=== PATIENT | male | born 1945 | race Caucasian/White ===

== ENCOUNTER 2016-08-17 19:15 | Inpatient (IN) | payer OTHER, MEDICARE ==
[~2016-08-17] VITALS: Ht 177.8 cm; Wt 74.4 kg
[2016-08-17 19:23] VITALS: BP 138/89; PULSE 59; RESP 18; TEMP 97.5; O2SAT 98
[2016-08-17] MEDS ORDERED: LISI-515 PO (19:23)
[2016-08-17] MEDS ORDERED: SODIUM CHLOR 0.9% 1000 ML INJ 1,000 ML IV SCH (19:25)
[2016-08-17 19:30] VITALS: RESP 18; O2SAT 98
[2016-08-17] MEDS ORDERED: SODIUM CHLORIDE 0.9% FLUSH 5 ML FLUSH IVF PRN ×2 (19:30→21:45)
--- NOTE | 2016-08-17 19:43 | PD ---
HPI Chief Complaint: Psychiatric Symptoms Time Seen by Provider: 19:41 Travel History International Travel<30 days: No Contact w/Intl Traveler<30days: No Traveled to known affect area: No History of Present Illness HPI Patient comes in by EMS after being Bates acted by police and family called stating the patient has not been getting out of bed or taking care of himself. Patient denies any medical complaints at this time. Denies any chest pain or shortness of breath, abdominal pain, or fevers. Patient does not want answer all questions thus limiting the H&P. 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 SKIN: Warm and dry. HEAD: Atraumatic. Normocephalic. EYES: Pupils equal and round. EOMI. No scleral icterus. No injection or drainage. ENT: No nasal bleeding or discharge. Mucous membranes pink and dry. NECK: Trachea midline. Supple. No nuclear rigidity. CARDIOVASCULAR: Regular rate and rhythm. No murmur appreciated. RESPIRATORY: No accessory muscle use. No respiratory distress. Clear to auscultation. Breath sounds equal bilaterally. GASTROINTESTINAL: Abdomen soft, non-tender, nondistended. Hepatic and splenic margins not palpable. Normal bowel sounds 4. No pulsatile mass. MUSCULOSKELETAL: No obvious deformities. No clubbing. No cyanosis. No edema. NEUROLOGICAL: Awake and alert. No obvious cranial nerve deficits. Data Data Last Documented VS Vital Signs Date Time Temp Pulse Resp B/P Pulse Ox O2 Delivery O2 Flow Rate FiO2 08/17/16 21:15 63 16 89/54 97 Room Air 08/17/16 19:23 97.5 Orders Electrocardiogram (08/17/16 19:25) Complete Blood Count With Diff (08/17/16 19:25) Comprehensive Metabolic Panel (08/17/16 19:25) Creatine Kinase (Cpk) (08/17/16 19:25) Drug Screen, Random Urine (08/17/16 19:25) Prothrombin Time / Inr (Pt) (08/17/16 19:25) Act Partial Throm Time (Ptt) (08/17/16 19:25) Salicylates (Aspirin) (08/17/16 19:25) Troponin I (08/17/16 19:25) Tylenol (Acetaminophen) (08/17/16 19:25) Urinalysis - C+S If Indicated (08/17/16 19:25) Chest, Single Ap (08/17/16 19:25) Ct Brain W/O Iv Contrast(Rout) (08/17/16 19:25) Blood Glucose (08/17/16 19:25) Ecg Monitoring (08/17/16 19:25) Iv Access Insert/Monitor (08/17/16 19:25) Oximetry (08/17/16 19:25) Sodium Chloride 0.9% Flush (Ns Flush) (08/17/16 19:30) Sodium Chlor 0.9% 1000 Ml Inj (Ns 1000 M (08/17/16 19:25) Lipase (08/17/16 19:25) Magnesium (Mg) (08/17/16 19:25) Psych Screen (08/17/16 19:40) Sodium Chlor 0.9% 1000 Ml Inj (Ns 1000 M (08/17/16 21:00) Type And Screen (08/17/16 20:55) Sodium Chloride 0.9% Flush (Ns Flush) (08/17/16 21:45) Pantoprazole Inj (Protonix Inj) (08/17/16 21:45) Pantoprazole Inj (Protonix Inj) (08/17/16 21:45) Sodium Polysty Sulfate Liq (Kayexalate L (08/17/16 22:30) Calcium Gluconate Inj (Calcium Gluconate (08/17/16 22:30) Dextrose 50% In Compa (Vial) Inj (D50w (Vi (08/17/16 22:30) Insulin Human Regular Inj (Novolin R Inj (08/17/16 22:23) Sodium Bicarbonate 8.4% Inj (Sodium Bica (08/17/16 22:30) Albuterol-Ipratropium Neb (Duoneb Neb) (08/17/16 22:30) Continue Cummins/Suprapubic Cath (08/17/16 22:23) Admit Order (Ed Use Only) (08/17/16 22:54) Labs Laboratory Tests Test 08/17/16 08/17/16 19:35 21:10 Prothrombin Time 17.0 SEC Prothromb Time International 1.5 RATIO Ratio Activated Partial 33.0 SEC Thromboplast Time Salicylates Level 1.8 MG/DL White Blood Count 8.0 TH/MM3 Red Blood Count 5.16 MIL/MM3 Hemoglobin 15.7 GM/DL Hematocrit 45.7 % Mean Corpuscular Volume 88.6 FL Mean Corpuscular Hemoglobin 30.4 PG Mean Corpuscular Hemoglobin 34.3 % Concent Red Cell Distribution Width 15.1 % Platelet Count 190 TH/MM3 Mean Platelet Volume 10.0 FL Neutrophils (%) (Auto) 92.5 % Lymphocytes (%) (Auto) 1.8 % Monocytes (%) (Auto) 5.4 % Eosinophils (%) (Auto) 0.0 % Basophils (%) (Auto) 0.3 % Neutrophils # (Auto) 7.4 TH/MM3 Lymphocytes # (Auto) 0.1 TH/MM3 Monocytes # (Auto) 0.4 TH/MM3 Eosinophils # (Auto) 0.0 TH/MM3 Basophils # (Auto) 0.0 TH/MM3 CBC Comment DIFF FINAL Differential Comment Sodium Level 138 MEQ/L Potassium Level 7.7 MEQ/L Chloride Level 103 MEQ/L Carbon Dioxide Level 8.0 MEQ/L Anion Gap 27 MEQ/L Blood Urea Nitrogen 360 MG/DL Creatinine 19.32 MG/DL Estimat Glomerular Filtration 2 ML/MIN Rate Random Glucose 121 MG/DL Calcium Level 8.3 MG/DL Magnesium Level 3.1 MG/DL Total Bilirubin 0.4 MG/DL Aspartate Amino Transf 6 U/L (AST/SGOT) Alanine Aminotransferase 10 U/L (ALT/SGPT) Alkaline Phosphatase 69 U/L Total Creatine Kinase 155 U/L Troponin I 0.42 NG/ML Total Protein 7.8 GM/DL Albumin 2.9 GM/DL Lipase 380 U/L Acetaminophen Level LESS THAN 2.0 MCG/ML Blood Type A POSITIVE Antibody Screen NEGATIVE Blood Bank Comment MDM Medical Decision Making Medical Screen Exam Complete: Yes Emergency Medical Condition: Yes Interpretation(s) EKG reviewed by Dr. Pulido shows sinus tachycardia with ventricular rate of 100. No STEMI and no acute changes. Differential Diagnosis Acute coronary syndrome, tumor, pneumonia, electrolyte abnormality, other Narrative Course 2014 RN performed bedside Hemoccult when cleaning a patient that was found to be positive. 2100 patient's fianc and sister bedside report patient has been deteriorating over the past month has lost approximately 20 pounds over the past 3 weeks and has not really been getting out of bed over the past 3 days. Denies any known fever, but reports patient complaining of possible GI bug. Denies patient being on any known blood thinners or history of alcohol abuse. Patient seen and examined. Laboratory studies were obtained and reviewed. Discussed patient with Dr. Pulido saw and evaluated patient is in agreement with plan of care and disposition. Discussed all findings and plan of care with patient and family. All questions were answered. Physician Communication Physician Communication [address] Mike, focal patient is too sick to go to medical service and requests patient be admitted to the take off man. [address] Damon, who is agreeable to admit the patient. Diagnosis Primary Impression: Acute renal failure Qualified Code: N17.9 - Acute renal failure, unspecified acute renal failure type Additional Impressions: GI bleed Qualified Code: K92.2 - Gastrointestinal hemorrhage, unspecified gastrointestinal hemorrhage type Weight loss, unintentional Hyperkalemia Elevated troponin Maurilio Dumont Aug 17, 2016 19:43
--- NOTE | 2016-08-17 20:03 | RADRPT ---
EXAM DATE/TIME: 08/17/2016 19:36 [facility] COMPARISON: No previous studies available for comparison. INDICATIONS : Syncope MEDICAL HISTORY : None. SURGICAL HISTORY : None. ENCOUNTER: Initial ACUITY: 1 day PAIN SCORE: Non-responsive. LOCATION: Bilateral chest FINDINGS: A single view of the chest demonstrates the lungs to be symmetrically aerated without evidence of mas s, infiltrate or effusion. The cardiomediastinal contours are unremarkable. Osseous structures are intact. CONCLUSION: 1. No active disease. Demetrius Lopez MD on August 17, 2016 at 20:01 Board Certified Radiologist. This report was verified electronically.
[2016-08-17 20:06] LABS: AUTOMATED NEUTROPHIL # 7.4 TH/MM3 (1.8-7.7); BASOPHIL % 0.3 % (0.0-2.0); HEMATOCRIT 45.7 % (39.0-51.0); HEMO FLAGS DIFF FINAL; LYMPH % 1.8 % (9.0-44.0); LYMPHOCYTE # 0.1 TH/MM3 (1.0-4.8); MEAN CELL VOLUME 88.6 FL (80.0-100.0); MEAN CORPUSCULAR HEMOGLOBIN 30.4 PG (27.0-34.0); MEAN CORPUSCULAR HGB CONC 34.3 % (32.0-36.0); MONO % 5.4 % (0.0-8.0); NEUT % 92.5 % (16.0-70.0); PLATELET COUNT 190 TH/MM3 (150-450); RED BLOOD COUNT 5.16 MIL/MM3 (4.50-5.90); RED CELL DISTRIBUTION WIDTH 15.1 % (11.6-17.2)
--- NOTE | 2016-08-17 20:07 | RADRPT ---
EXAM DATE/TIME: 08/17/2016 19:48 [facility] COMPARISON: No previous studies available for comparison. INDICATIONS : Failure to thrive. RADIATION DOSE: 39.33 CTDIvol (mGy) MEDICAL HISTORY : Non-responsive. SURGICAL HISTORY : Non-responsive. ENCOUNTER: Initial ACUITY: 1 week PAIN SCALE: Non-responsive LOCATION: cranial TECHNIQUE: Multiple contiguous axial images were obtained of the head. Using automated exposure control and adj ustment of the mA and/or kV according to patient size, radiation dose was kept as low as reasonably a chievable to obtain optimal diagnostic quality images. FINDINGS: CEREBRUM: The ventricles are normal for age. No evidence of midline shift, mass lesion, hemorrhage or acute in farction. No extra-axial fluid collections are seen. POSTERIOR FOSSA: The cerebellum and brainstem are intact. The 4th ventricle is midline. The cerebellopontine angle i s unremarkable. EXTRACRANIAL: The visualized portion of the orbits is intact. SKULL: The calvaria is intact. No evidence of skull fracture. CONCLUSION: Normal examination for a patient of this age. Demetrius Lopez MD on August 17, 2016 at 20:04 Board Certified Radiologist. This report was verified electronically.
[2016-08-17 20:16] LABS: INTERNATIONAL NORMALIZED RATIO 1.5 RATIO
--- NOTE | 2016-08-17 20:37 | PD ---
Physical Exam Narrative General: The patient is a well-developed, thin appearing male, in no acute distress. Head and Neck exam: Head is normocephalic atraumatic. Eyes: Pupils are equal round and reactive to light. Nose: Midline septum with pink mucous membranes Mouth: Dentition unremarkable. Moist mucus membranes. Posterior oropharynx is not erythematous. No tonsillar hypertrophy. Uvula midline. Airway patent. Neck: No palpable lymphadenopathy. No nuchal rigidity. No thyromegaly. Cardiovascular: Regular rate and rhythm without murmurs, gallops, or rubs. Lungs: Clear to auscultation bilaterally. No wheezes, rhonchi, or rales. Abdomen: Soft, with tenderness on palpation in the midepigastric area. No other tenderness on palpation of the other quadrants of the abdomen. No guarding, rebound, or rigidity. Normal bowel sounds are audible Extremities: No clubbing or edema. The patient's toes bilateral feet are dusky. The patient 's initial blood pressure is in the 90s systolic which was rechecked and in the 120s while I was in the room. However, the patient's peripheral pulses in his feet were diminished. 2+ pulses in bilateral upper extremities. Back: No spinous process tenderness to palpation. No costovertebral angle tenderness to palpation. Neurologic Exam: Cranial nerves 2-12 were intact on exam. Strength is 4/5 in all 4 extremities. No sensory deficits noted. Skin Exam: The patient has an erythematous maculopapular rash involving his trunk, worse on his back compared to his abdomen. Intact skin that is warm and dry. Data Data Last Documented VS Vital Signs Date Time Temp Pulse Resp B/P Pulse Ox O2 Delivery O2 Flow Rate FiO2 08/17/16 21:15 63 16 89/54 97 Room Air 08/17/16 19:23 97.5 Orders Electrocardiogram (08/17/16 19:25) Complete Blood Count With Diff (08/17/16 19:25) Comprehensive Metabolic Panel (08/17/16 19:25) Creatine Kinase (Cpk) (08/17/16 19:25) Drug Screen, Random Urine (08/17/16 19:25) Prothrombin Time / Inr (Pt) (08/17/16 19:25) Act Partial Throm Time (Ptt) (08/17/16 19:25) Salicylates (Aspirin) (08/17/16 19:25) Troponin I (08/17/16 19:25) Tylenol (Acetaminophen) (08/17/16 19:25) Urinalysis - C+S If Indicated (08/17/16 19:25) Chest, Single Ap (08/17/16 19:25) Ct Brain W/O Iv Contrast(Rout) (08/17/16 19:25) Blood Glucose (08/17/16 19:25) Ecg Monitoring (08/17/16 19:25) Iv Access Insert/Monitor (08/17/16 19:25) Oximetry (08/17/16 19:25) Sodium Chloride 0.9% Flush (Ns Flush) (08/17/16 19:30) Sodium Chlor 0.9% 1000 Ml Inj (Ns 1000 M (08/17/16 19:25) Lipase (08/17/16 19:25) Magnesium (Mg) (08/17/16 19:25) Psych Screen (08/17/16 19:40) Sodium Chlor 0.9% 1000 Ml Inj (Ns 1000 M (08/17/16 21:00) Type And Screen (08/17/16 20:55) Sodium Chloride 0.9% Flush (Ns Flush) (08/17/16 21:45) Pantoprazole Inj (Protonix Inj) (08/17/16 21:45) Pantoprazole Inj (Protonix Inj) (08/17/16 21:45) Sodium Polysty Sulfate Liq (Kayexalate L (08/17/16 22:30) Calcium Gluconate Inj (Calcium Gluconate (08/17/16 22:30) Dextrose 50% In Compa (Vial) Inj (D50w (Vi (08/17/16 22:30) Insulin Human Regular Inj (Novolin R Inj (08/17/16 22:23) Sodium Bicarbonate 8.4% Inj (Sodium Bica (08/17/16 22:30) Albuterol-Ipratropium Neb (Duoneb Neb) (08/17/16 22:30) Continue Cummins/Suprapubic Cath (08/17/16 22:23) Admit Order (Ed Use Only) (08/17/16 22:54) Labs Laboratory Tests Test 08/17/16 08/17/16 19:35 21:10 White Blood Count 8.0 TH/MM3 Red Blood Count 5.16 MIL/MM3 Hemoglobin 15.7 GM/DL Hematocrit 45.7 % Mean Corpuscular Volume 88.6 FL Mean Corpuscular Hemoglobin 30.4 PG Mean Corpuscular Hemoglobin 34.3 % Concent Red Cell Distribution Width 15.1 % Platelet Count 190 TH/MM3 Mean Platelet Volume 10.0 FL Neutrophils (%) (Auto) 92.5 % Lymphocytes (%) (Auto) 1.8 % Monocytes (%) (Auto) 5.4 % Eosinophils (%) (Auto) 0.0 % Basophils (%) (Auto) 0.3 % Neutrophils # (Auto) 7.4 TH/MM3 Lymphocytes # (Auto) 0.1 TH/MM3 Monocytes # (Auto) 0.4 TH/MM3 Eosinophils # (Auto) 0.0 TH/MM3 Basophils # (Auto) 0.0 TH/MM3 CBC Comment DIFF FINAL Differential Comment Prothrombin Time 17.0 SEC Prothromb Time International 1.5 RATIO Ratio Activated Partial 33.0 SEC Thromboplast Time Salicylates Level 1.8 MG/DL Sodium Level 138 MEQ/L Potassium Level 7.7 MEQ/L Chloride Level 103 MEQ/L Carbon Dioxide Level 8.0 MEQ/L Anion Gap 27 MEQ/L Blood Urea Nitrogen 360 MG/DL Creatinine 19.32 MG/DL Estimat Glomerular Filtration 2 ML/MIN Rate Random Glucose 121 MG/DL Calcium Level 8.3 MG/DL Magnesium Level 3.1 MG/DL Total Bilirubin 0.4 MG/DL Aspartate Amino Transf 6 U/L (AST/SGOT) Alanine Aminotransferase 10 U/L (ALT/SGPT) Alkaline Phosphatase 69 U/L Total Creatine Kinase 155 U/L Troponin I 0.42 NG/ML Total Protein 7.8 GM/DL Albumin 2.9 GM/DL Lipase 380 U/L Acetaminophen Level LESS THAN 2.0 MCG/ML Blood Type A POSITIVE Antibody Screen NEGATIVE Blood Bank Comment [facility] Medical Record Reviewed: Yes Supervised Visit with AKUA: Yes Interpretation(s) Last Impressions Head CT 08/17/161924 Signed Impressions: Service Date/Time: Wednesday, August 17, 2016 19:48 - CONCLUSION: Normal examination for a patient of this age. Demetrius Lopez MD Chest X-Ray 08/17/161924 Signed Impressions: Service Date/Time: Wednesday, August 17, 2016 19:36 - CONCLUSION: 1. No active disease. Demetrius Lopez MD Differential Diagnosis Last Impressions Head CT 08/17/161924 Signed Impressions: Service Date/Time: Wednesday, August 17, 2016 19:48 - CONCLUSION: Normal examination for a patient of this age. Demetrius Lopez MD Chest X-Ray 08/17/161924 Signed Impressions: Service Date/Time: Wednesday, August 17, 2016 19:36 - CONCLUSION: 1. No active disease. Demetrius Lopez MD Narrative Course I, Dr. Pulido, have reviewed the advance practice practitioner's documentation and am in agreement, met with the patient face to face, made the diagnosis, and the medical decision making was done by me. The patient was initially seen by Maurilio, please see his complete history and physical. *My assessment and Findings: The patient is a 71-year-old male who presents to [facility] emergency Department with a history of generalized weakness, weight loss, inability to care for himself prompting his evaluation in the emergency department under a Bates act. Patient has been experiencing diarrhea. The patient was noted to have a rash on evaluation on his physical examination. The patient's stool was also noted to be dark when he had an episode of diarrhea here. The patient's stool was Hemoccult positive. The patient was typed and screened for blood. The patient was started on Protonix 80 mg IV followed by Protonix drip. The patient was given normal saline IV fluids 1 L bolus followed by a second liter bolus. The patient's laboratory studies were remarkable for a white count of 8, hemoglobin 15.7, platelets 190 with 92.5 neutrophils, lymphocytes 1.8. CMP is remarkable for sodium of 138, potassium 7.7, CO2 8, anion gap 27, BUN 360, creatinine 19, glucose 121, calcium 8.3, magnesium 3.1, AST 6, ALT 10, CPK 155, troponin I 0.42. Lipase 380. INR 1.5, salicylate 1.8, acetaminophen less than 2. Radiologic studies revealed a chest x-ray with no acute abnormality. CT scan of the brain showed no acute abnormality. The patients results were discussed with the patient, including the plan of care. I explained that further testing and/ or monitoring is indicated based on the patients history, examination, and/ or laboratory findings. Therefore, I recommended admission for additional evaluation. The patient expressed understanding and was agreeable with this plan. The patient was admitted to the hospital in guarded condition and sent to a bed under the care of the stereotyper. The patient was reexamined by me and noted to have some midepigastric abdominal discomfort. Blood pressure was intermittently in the 90s to 120s. The patient had written for a Cummins catheter to be placed to gravity to assess his urine output. A CT scan of the abdomen and pelvis was also ordered by me. After the Cummins catheter was placed to gravity while the patient was continuing to be reassessed by the patient's nurse the patient had an episode of V. tach and then went into cardiopulmonary arrest. I was immediately called into the room and began to bag the patient. The patient had an oral airway placed by me for ease of bagging while respiratory was called to the bedside to assist with intubating the patient. The patient was placed with defibrillator pads on his chest. The patient's rhythm appeared to be asystole. The patient had ACLS protocol followed and was given 1 mg of epinephrine in separate doses every 3-5 minutes. The patient was started on bicarbonate. Chest compressions were being provided. The patient was set up for intubation. The patient was intubated by me with an 8 size endotracheal tube. The patient was easily intubated with a Davion 4 blade. The patient had ventricular fibrillation noted on reassessment of his rhythm. The patient was shocked. The patient continued to be in ventricular fibrillation. The patient was shocked again. The patient continued to be in ventricular fibrillation and shocked a third time at 360 J. The patient was given amiodarone 300 mg IV, followed by 150 mg IV due to his continued ventricular fibrillation. The patient's rhythm changed on reassessment and he was in PEA. The patient was continued with ACLS protocol. The patient had a return of pulse. The patient was started on normal saline by pressure bag 2 L wide open. An attempt was made at placement of an external jugular IV in the left side of the patient's neck, however this infiltrated. Then a right-sided femoral central line was placed by me. The patient tolerated the procedures well. Levophed was started for pressure support. The stereotyper was notified regarding the patient's evaluation and did come down and evaluate the patient. Critical Care Narrative Aggregate critical care time was 44 minutes. Time to perform other separately billable procedures was not included in the critical care time. My time did not include minutes spent treating any other patients simultaneously or on activities that did not directly contribute to the patient's treatment. The services I provided to this patient were to treat and/or prevent clinically significant deterioration that could result in: Respiratory failure, recurrent cardiopulmonary arrest I provided critical care services requiring my management, as noted below: Chart data review, documentation time, medication orders and management, vital sign assessments/reviewing monitor data, ordering and reviewing lab tests, ordering and interpreting/reviewing x-rays and diagnostic studies, care of the patient and discussion of the patient with the admitting physicians. Procedures Procedure Narrative The patient was put in optimal position for the procedure. No medications were required for intubation as the patient was in cardiopulmonary arrest. The patient was intubated using a 4 Davion blade with an 8 cuffed endotracheal tube. The patient's cords were easily visualized. Tube placement was confirmed by visualization of the tube and balloon passing through the cords, capnometry and subsequent chest x-ray. Breath sounds were equal and well aerated bilaterally postintubation. No breath sounds over the stomach. Patient tolerated procedure well. CENTRAL VENOUS LINE: The site was prepped with chlorhexidine and sterilely draped.The deep vein was cannulated using normal Seldinger technique. A triple lumen central line was placed in the right inguinal site in the right femoral vein and secured with simple interrupted suture. The site was sterilely dressed. The patient tolerated the procedure well. Physician Communication Physician Communication The patient's case is discussed with Dr. Damon who did agree to admit the patient for further evaluation and treatment at this time for Diagnosis Primary Impression: GI bleed Qualified Code: K92.2 - Gastrointestinal hemorrhage, unspecified gastrointestinal hemorrhage type Additional Impressions: Generalized weakness Cardiac arrest due to other underlying condition Admitting Information Admitting Physician Requests: Kala Starr MD Aug 17, 2016 20:37
[2016-08-17] MEDS ORDERED: SODIUM CHLOR 0.9% 1000 ML INJ 1,000 ML IV ONE (21:00)
[2016-08-17 21:15] VITALS: BP 89/54; PULSE 63; RESP 16; O2SAT 97
[2016-08-17] MEDS ORDERED: PANTOPRAZOLE INJ 80 MG in SODIUM CHLORIDE 0.9% INJ 35 ML IV ONE (21:45)
[2016-08-17 22:17] LABS: ALT (GPT) 10 U/L (12-78); BLOOD UREA NITROGEN 360 MG/DL (7-18); CREATINE KINASE 155 U/L (39-308); GLOMERULAR FILTRATION RATE 2 ML/MIN (>89); SODIUM (NA) 138 MEQ/L (136-145); TOTAL BILIRUBIN ADULT 0.4 MG/DL (0.2-1.0)
[2016-08-17 22:18] LABS: ALKALINE PHOSPHATASE 69 U/L (45-117); MAGNESIUM 3.1 MG/DL (1.5-2.5)
[2016-08-17 22:19] LABS: ACETAMINOPHEN LESS THAN 2.0 MCG/ML (10.0-30.0); ANION GAP 27 MEQ/L (5-15); AST (GOT) 6 U/L (15-37); CHLORIDE 103 MEQ/L (98-107)
[2016-08-17 22:21] LABS: POTASSIUM 7.7 MEQ/L (3.5-5.1)
[2016-08-17] MEDS ORDERED: INSULIN HUMAN REGULAR 1,000 UNITS/10 ML VIAL IVP STA (22:23)
[2016-08-17] MEDS ORDERED: DEXTROSE 50% IN WATER 50 ML VIAL(D50) IV PUSH ONE (22:30)
[2016-08-17] MEDS ORDERED: SODIUM POLYSTYRENE SULFONATE SUSP 15 GM/60 ML CUP PO ONE (22:30)
[2016-08-17] MEDS ORDERED: SODIUM BICARBONATE 8.4% INJ 50 MEQ/50 ML SYR IV PUSH ONE (22:30)
[2016-08-17] MEDS ORDERED: CALCIUM GLUCONATE 10% 1 GM/10 ML VIAL IV PUSH ONE (22:30)
[2016-08-17] MEDS: RESP: ALBUTEROL 2.5 MG/IPRATROPIUM 0.5 MG NEB (SCH) INH (22:49)
[2016-08-17 23:24] VITALS: BP 123/84; PULSE 98; RESP 20; O2SAT 95
[2016-08-17] MEDS: PANTOPRAZOLE INJ 80 MG in SODIUM CHLORIDE 0.9% INJ 100 ML IV SCH (23:33)
[2016-08-17 23:55] VITALS: O2SAT 0
[2016-08-18] VITALS (21 sets, daily range): BP systolic 62–126; BP diastolic 34–62; PULSE 59–118; RESP 16–35; TEMP 93–99; O2SAT 96–100
[2016-08-18] MEDS ORDERED: NOREPINEPHRINE 4 MG/4 ML AMP ONE (00:01)
[2016-08-18] MEDS ORDERED: CHLORHEXIDINE GLUCONATE 2 % 1 PACK (2 CLOTHS) TOP PRN (00:30)
[2016-08-18] MEDS ORDERED: MORPHINE SULFATE 4 MG/ML INJ IV PRN (00:30)
[2016-08-18] MEDS ORDERED: MIDAZOLAM HCL 2 MG/2 ML VIAL IV PRN (00:30)
[2016-08-18] MEDS ORDERED: METOCLOPRAMIDE HCL 10 MG/2 ML VIAL IV PRN ×2 (00:30→01:00)
[2016-08-18] MEDS ORDERED: ONDANSETRON HCL 4 MG/2 ML VIAL IV PRN ×3 (00:30→03:15)
[2016-08-18] MEDS ORDERED: ACETAMINOPHEN 325 MG TAB PO PRN ×2 (00:30→02:45)
[2016-08-18] MEDS ORDERED: MISCELLANEOUS NURSING INFORMATION XX SCH (00:30)
[2016-08-18] MEDS ORDERED: SODIUM BICARBONATE 8.4% INJ 50 MEQ/50 ML SYR IV PUSH ONE (00:30)
[2016-08-18] MEDS ORDERED: RESP: ALBUTEROL 2.5 MG/IPRATROPIUM 0.5 MG NEB (PRN) INH (00:30)
[2016-08-18] MEDS ORDERED: SODIUM CHLORIDE 0.9% FLUSH 5 ML FLUSH IV FLUSH PRN (00:30)
[2016-08-18 00:52] LABS: BLOOD GAS BASE EXCESS -22.3 mmol/L (-2-2); BLOOD GAS CARBOXYHEMOGLOBIN 0.9 % (0-4); BLOOD GAS HCO3 7 mmol/L (22-26); BLOOD GAS METHEMOGLOBIN 2.3 % (0-2); BLOOD GAS O2 HGB SATURATION 84 % (90-100); BLOOD GAS OXYGEN CONTENT 12.4 Vol % (12.0-20.0); BLOOD GAS PCO2 35 mmHg (38-42); BLOOD GAS PO2 77 mmHG (61-120); BLOOD GAS TOTAL HGB 10.4 G/DL (12.0-16.0); CRITICAL VALUE YES; TEMP CORR TO 98.6
[2016-08-18 00:53] LABS: DRAW SITE LT FEMORAL; FIO2 100 %; NUMBER OF ARTERIAL PUNCTURES 1; OXYGEN DEVICE VENTILATOR; STAT YES; VENT SETTINGS AC/16/500/PEEP5
[2016-08-18] MEDS: fentaNYL DRIP 250 ML IV SCH (01:34)
[2016-08-18] MEDS: SODIUM BICARBONATE 8.4% INJ 150 MEQ in WATER STERILE FOR INJ 850 ML IV SCH ×4 (01:41→20:32)
[2016-08-18] MEDS ORDERED: SODIUM BICARBONATE 8.4% INJ 50 ML ONE (02:03)
[2016-08-18] MEDS ORDERED: NOREPINEPHRINE-DEXTROSE DRIP 250 ML IV ONE ×3 (02:17→06:56)
[2016-08-18 02:40] LABS: BLOOD GAS BASE EXCESS -8.2 mmol/L (-2-2); BLOOD GAS CARBOXYHEMOGLOBIN 0.6 % (0-4); BLOOD GAS HCO3 16 mmol/L (22-26); BLOOD GAS METHEMOGLOBIN 1.1 % (0-2); BLOOD GAS O2 HGB SATURATION 98 % (90-100); BLOOD GAS OXYGEN CONTENT 16.3 Vol % (12.0-20.0); BLOOD GAS PCO2 26 mmHg (38-42); BLOOD GAS PO2 487 mmHg (61-120); BLOOD GAS TOTAL HGB 10.9 G/DL (12.0-16.0); TEMP CORR TO 98.6
[2016-08-18 02:41] LABS: CRITICAL VALUE YES; DRAW SITE RT BRACHIAL; FIO2 100 %; NUMBER OF ARTERIAL PUNCTURES 2; OXYGEN DEVICE VENTILATOR; STAT NO; ULNAR PULSE PRESENT; VENT SETTINGS AC 16/500/5PEEP
[2016-08-18] MEDS ORDERED: cloNIDine HCL 0.1 MG TAB PO PRN (02:45)
[2016-08-18] MEDS ORDERED: MANNITOL 12.5 GM/50 ML VIAL IV PRN (02:45)
[2016-08-18] MEDS ORDERED: diphenhydrAMINE HCL 25 MG CAP PO PRN (02:45)
[2016-08-18] MEDS ORDERED: HEPARIN SODIUM - IV 10,000 UNITS/10 ML VIAL IVF PRN (02:45)
[2016-08-18] MEDS ORDERED: SODIUM CHLORIDE 0.9% FLUSH 5 ML FLUSH IVF PRN (02:45)
[2016-08-18] MEDS ORDERED: SODIUM CHLOR 0.9% 1000 ML INJ 1,000 ML IV PRN ×2 (02:45)
[2016-08-18] MEDS ORDERED: NITROGLYCERIN 0.4 MG SL 25 TABS/BTL SL PRN (02:45)
[2016-08-18] MEDS ORDERED: GELATIN 12 MM/7 MM FOAM TOP PRN (02:45)
--- NOTE | 2016-08-18 02:45 | RADRPT ---
EXAM DATE/TIME: 08/18/2016 01:55 [facility] COMPARISON: CHEST SINGLE AP, August 17, 2016, 19:36. INDICATIONS : Post intubation. MEDICAL HISTORY : None. SURGICAL HISTORY : None. ENCOUNTER: Subsequent ACUITY: 2 days PAIN SCORE: Non-responsive. LOCATION: Bilateral chest FINDINGS: No infiltrate, effusion or pneumothorax demonstrated. Heart size stable, within normal limits. Patien t is now intubated. Endotracheal tube tip is about 3-1/2 cm above the janett. CONCLUSION: Interim intubation with endotracheal tube tip about 2.5 cm above the janett. Lungs remain clear. Daniel Welch MD on August 18, 2016 at 2:42 Board Certified Radiologist. This report was verified electronically.
[2016-08-18] MEDS ORDERED: PROPOFOL 1000 MG/100 ML INJ 100 ML ONE (02:50)
[2016-08-18] MEDS ORDERED: MIDAZOLAM HCL 5 MG/ML VIAL (1 ML) ONE (02:51)
--- NOTE | 2016-08-18 03:45 | HHI.HP ---
HPI Service Critical Care Medicine Primary Care Physician Unknown Admission Diagnosis acute renal failure, GI bleed, hyperkalemia Diagnosis: Travel History International Travel<30 Days: No Contact w/Intl Traveler <30 Da: No Traveled to Known Affected Are: No History of Present Illness Patient comes in by EMS after being [place] acted by police and family called stating the patient has not been getting out of bed or taking care of himself. Patient denies any medical complaints at this time. Denies any chest pain or shortness of breath, abdominal pain, or fevers. While in the ED patient suffered cardiac arrest due to V Fib. Successful short ACLS performed with return of spontaneous circulation. Review of Systems ROS Unable to obtain, patient is sedated and intubated Past Family Social History Allergies: Coded Allergies: No Known Allergies (Unverified , 08/17/16) Past Medical History Unable to obtain, patient is sedated and intubated Past Surgical History Unable to obtain, patient is sedated and intubated Reported Medications Reported Meds & Active Scripts Active Reported Lisinopril 20 Mg Tab 20 Mg PO DAILY Active Ordered Medications Current Medications Medications (Trade) Dose Ordered Sig/Antonio Route PRN Reason Start Time Stop Time Status Last Admin Dose Admin Pantoprazole Sodium 80 mg/ Sodium Chloride 100 ml @ 10 mls/hr Q10H IV 08/17/16 21:45 08/17/16 23:33 Sodium Bicarbonate/ Sterile Water (Sodium Bicarbonate 8.4% Inj/Sterile Water For Inj) 1,000 ml @ 150 mls/hr Q6H40M IV 08/18/16 00:30 08/18/16 01:41 IV Flush (NS Flush) 2 ml UNSCH PRN IV FLUSH FLUSH AFTER USING IV ACCESS 08/18/16 00:30 IV Flush (NS Flush) 2 ml BID IV FLUSH 08/18/16 09:00 Acetaminophen (Tylenol) 650 mg Q6H PRN PO PAIN 1-10 AND/OR FEVER >101F 08/18/16 00:30 Morphine Sulfate (Morphine Inj) 2 mg Q2H PRN IV PAIN SCALE 6 TO 10 08/18/16 00:30 Famotidine (Pepcid Inj) 10 mg Q12HR IV PUSH 08/18/16 09:00 Midazolam HCl (Versed Inj) 2 mg Q1H PRN IV SEDATION 08/18/16 00:30 Artificial Tears (Tears Naturale Opth Soln) 1 drop TID EACH EYE 08/18/16 09:00 Docusate Sodium (Colace Liq) 100 mg Q12HR G-TUBE 08/18/16 09:00 Heparin Sodium (Porcine) (Heparin Inj) 5,000 units Q12HR SQ 08/18/16 09:00 Miscellaneous Information 1 Q361D XX 08/18/16 00:30 Chlorhexidine Gluconate (Chlorhexidine 2% Cloth) 3 pack Taper DAILY@04 TOP 08/18/16 04:00 08/14/17 03:59 Chlorhexidine Gluconate 3 pack 3 pack UNSCH PRN TOP HYGIENIC CARE 08/18/16 00:30 Fentanyl Citrate (fentaNYL DRIP) 250 ml @ 0 mls/hr TITRATE IV 08/18/16 00:30 08/18/16 01:34 Metoclopramide HCl 5 mg 5 mg Q6H PRN IV NAUSEA OR VOMITING 08/18/16 01:00 Sodium Chloride (NS 1000 ml Inj) 1,000 ml @ 0 mls/hr Q0M PRN IV For Prime & Rinse Back 08/18/16 02:45 Heparin Sodium (Porcine) 8000 units 8,000 units UNSCH PRN IVF WITH DIALYSIS 08/18/16 02:45 Sodium Chloride 1,000 ml @ 200 mls/hr Q5H PRN IV WITH DIALYSIS 08/18/16 02:45 Sodium Chloride (NS 1000 ml Inj) 1,000 ml @ 0 mls/hr Q0M PRN IV WITH DIALYSIS 08/18/16 02:45 Mannitol (Mannitol Inj) 12.5 gm UNSCH PRN IV WITH DIALYSIS 08/18/16 02:45 Albumin Human (Albumin 25% Inj) 25 gm UNSCH PRN IV WITH DIALYSIS 08/18/16 02:45 IV Flush (NS Flush) 5 ml UNSCH PRN IVF WITH DIALYSIS 08/18/16 02:45 Heparin Sodium (Porcine) (Heparin Inj) UNSCH PRN .XX WITH DIALYSIS 08/18/16 02:45 Gentamicin Sulfate (Gentamicin (Dialysis) Inj) 20 mg UNSCH PRN IV WITH DIALYSIS 08/18/16 02:45 Ondansetron HCl (Zofran Inj) 4 mg UNSCH PRN IV WITH DIALYSIS 08/18/16 02:45 Acetaminophen (Tylenol) 650 mg UNSCH PRN PO for headach, pain, temp > 101F 08/18/16 02:45 Diphenhydramine HCl (Benadryl) 25 mg UNSCH PRN PO for hives/itching/anaphylaxis 08/18/16 02:45 Nitroglycerin (Nitrostat Sl) 0.4 mg UNSCH PRN SL CHEST PAIN 08/18/16 02:45 Clonidine (Catapres) 0.1 mg UNSCH PRN PO for BP > 180/100 X 2 readings 08/18/16 02:45 Gelatin (Gelfoam 12 Mm/7 Mm Top) 1 foam UNSCH PRN TOP SEE LABEL COMMENTS 08/18/16 02:45 Ondansetron HCl 4 mg 4 mg Q6H PRN IV NAUSEA OR VOMITING 08/18/16 03:15 Ceftriaxone Sodium 2000 mg/ Sodium Chloride 100 ml @ 200 mls/hr ONCE ONCE IV 08/18/16 03:45 08/18/16 04:14 UNV Metronidazole (Flagyl 500 Mg Inj) 100 ml @ 100 mls/hr Q6H IV 08/18/16 03:45 UNV Family History Unable to obtain, patient is sedated and intubated Social History Unable to obtain, patient is sedated and intubated Physical Exam Vital Signs Vital Signs Date Time Temp Pulse Resp B/P Pulse Ox O2 Delivery O2 Flow Rate FiO2 08/18/16 01:32 100 100 08/18/16 00:50 100 100 08/18/16 00:19 59 16 62/ 96 Auto-Vent Automatic Cuff 08/17/16 23:55 0 100 08/17/16 23:24 98 20 123/84 95 Room Air 08/17/16 21:15 63 16 89/54 97 Room Air 08/17/16 19:30 18 98 Room Air 08/17/16 19:27 55 16 08/17/16 19:23 97.5 59 18 138/89 98 Physical Exam GENERAL: dishevel, critically ill appearing SKIN: Warm and dry. HEAD: Normocephalic. EYES: No scleral icterus. No injection or drainage. NECK: Supple, trachea midline. No JVD or lymphadenopathy. CARDIOVASCULAR: Regular rate and rhythm without murmurs, gallops, or rubs. RESPIRATORY: Breath sounds equal bilaterally. No accessory muscle use. GASTROINTESTINAL: Abdomen soft, non-tender, nondistended. MUSCULOSKELETAL: No cyanosis, or edema. BACK: Nontender without obvious deformity. No CVA tenderness. Laboratory Laboratory Tests Test 08/17/16 08/17/16 08/18/16 08/18/16 19:35 21:10 00:39 02:28 White Blood Count 8.0 Red Blood Count 5.16 Hemoglobin 15.7 Hematocrit 45.7 Mean Corpuscular Volume 88.6 Mean Corpuscular Hemoglobin 30.4 Mean Corpuscular Hemoglobin 34.3 Concent Red Cell Distribution Width 15.1 Platelet Count 190 Mean Platelet Volume 10.0 Neutrophils (%) (Auto) 92.5 Lymphocytes (%) (Auto) 1.8 Monocytes (%) (Auto) 5.4 Eosinophils (%) (Auto) 0.0 Basophils (%) (Auto) 0.3 Neutrophils # (Auto) 7.4 Lymphocytes # (Auto) 0.1 Monocytes # (Auto) 0.4 Eosinophils # (Auto) 0.0 Basophils # (Auto) 0.0 CBC Comment DIFF FINAL Differential Comment Prothrombin Time 17.0 Prothromb Time International 1.5 Ratio Activated Partial 33.0 Thromboplast Time Salicylates Level 1.8 Sodium Level 138 Potassium Level 7.7 Chloride Level 103 Carbon Dioxide Level 8.0 Anion Gap 27 Blood Urea Nitrogen 360 Creatinine 19.32 Estimat Glomerular Filtration 2 Rate Random Glucose 121 Calcium Level 8.3 Magnesium Level 3.1 Total Bilirubin 0.4 Aspartate Amino Transf 6 (AST/SGOT) Alanine Aminotransferase 10 (ALT/SGPT) Alkaline Phosphatase 69 Total Creatine Kinase 155 Troponin I 0.42 Total Protein 7.8 Albumin 2.9 Lipase 380 Acetaminophen Level LESS THAN 2.0 Blood Type A POSITIVE Antibody Screen NEGATIVE Blood Bank Comment Blood Gas Puncture Site LT FEMORAL RT BRACHIAL Blood Gas Patient Temperature 98.6 98.6 Blood Gas HCO3 7 16 Blood Gas Base Excess -22.3 -8.2 Blood Gas Oxygen Saturation 84 98 Arterial Blood pH 6.95 7.40 Arterial Blood Partial 35 26 Pressure CO2 Arterial Blood Partial 77 487 Pressure O2 Arterial Blood Oxygen Content 12.4 16.3 Arterial Blood 0.9 0.6 Carboxyhemoglobin Arterial Blood Methemoglobin 2.3 1.1 Blood Gas Hemoglobin 10.4 10.9 Oxygen Delivery Device VENTILATOR VENTILATOR Blood Gas Ventilator Setting AC/16/500/PEEP5 AC 16/500/5PEEP Blood Gas Inspired Oxygen 100 100 Result Diagram: 1/30/17 1935 1/30/17 2110 Imaging Last 24 hours Impressions Chest X-Ray 08/18/16 0127 Signed Impressions: Service Date/Time: Thursday, August 18, 2016 01:55 - CONCLUSION: Interim intubation with endotracheal tube tip about 2.5 cm above the janett. Lungs remain clear. Daniel Welch MD Head CT 08/17/161924 Signed Impressions: Service Date/Time: Wednesday, August 17, 2016 19:48 - CONCLUSION: Normal examination for a patient of this age. Demetrius Lopez MD Chest X-Ray 08/17/161924 Signed Impressions: Service Date/Time: Wednesday, August 17, 2016 19:36 - CONCLUSION: 1. No active disease. Demetrius Lopez MD Assessment and Plan Problem List: (1) Weight loss, unintentional ICD Code: R63.4 Status: Acute (2) Generalized weakness ICD Code: R53.1 Status: Acute (3) Hyperkalemia ICD Code: E87.5 Status: Acute (4) Acute renal failure ICD Code: N17.9 Status: Acute (5) GI bleed ICD Code: K92.2 Status: Acute (6) Cardiac arrest due to other underlying condition ICD Code: I46.8 Status: Acute Assessment and Plan Cardiac arrest - V Fib - due to severe hyperkalemia - HD Stat - not a candidate for hypothermia protocol - GCS> 10 Acute renal failure - with hyperkalemia - Stat HD - further per district sales manager Metabolic acidosis - due to above - Bicarb gtt - HD Abdominal sepsis?? - Rocephin/Flagyl - Panculture Respiratory Failure - due to above - no weaning until hemodynamically stable - ACVC GI bleed? - NG tube to suction - Protoniox i.v. - monitor for H&H - GI evaluation DVT/GI prophylaxis - TEDs/SCDs/ Protonix Critical Care: The total critical care time was 35 minutes. Time to perform other separately billable procedures was not included in the critical care time. Problem Qualifiers (1) Acute renal failure: Qualified Code: N17.9 - Acute renal failure, unspecified acute renal failure type (2) GI bleed: Qualified Code: K92.2 - Gastrointestinal hemorrhage, unspecified gastrointestinal hemorrhage type Glen Damon MD Aug 18, 2016 03:45
[2016-08-18] MEDS: RESP: ALBUTEROL 2.5 MG/IPRATROPIUM 0.5 MG NEB (SCH) INH ×6 (03:51→22:56)
[2016-08-18] MEDS ORDERED: cefTRIAXone INJ 2,000 MG in SODIUM CHLORIDE 0.9% INJ 100 ML IV ONE (04:00)
[2016-08-18] MEDS: CHLORHEXIDINE GLUCONATE 2 % 1 PACK (2 CLOTHS) TOP SCH (04:00)
[2016-08-18 04:24] LABS: BICARBONATE 17.4 MEQ/L (21.0-32.0); POTASSIUM 4.8 MEQ/L (3.5-5.1)
[2016-08-18 04:37] LABS: CALCIUM-PROTEIN CORRECTED 8.4 MG/DL (8.5-10.1)
[2016-08-18] MEDS: HEPARIN SODIUM - IV 10,000 UNITS/10 ML VIAL PRN (04:39)
[2016-08-18] MEDS: ALBUMIN HUMAN 25% 25 GM/100 ML BAGP IV PRN (04:39)
[2016-08-18] MEDS: GENTAMICIN SULFATE (DIALYSIS USE ONLY) 20 MG/2 ML VIAL IV PRN (04:39)
[2016-08-18] MEDS ORDERED: AMIODARONE HCL 150 MG/3 ML VIAL IV ONE (05:00)
[2016-08-18] MEDS ORDERED: SODIUM BICARBONATE 8.4% INJ 50 MEQ/50 ML SYR IV ONE (05:00)
[2016-08-18] MEDS ORDERED: EPINEPHrine HCL (1:10,000) 1 MG/10 ML SYRINGE IV ONE (05:00)
--- NOTE | 2016-08-18 05:45 | PD.PROCEDR ---
Procedure Note Procedure ARTERIAL LINE (A-Line) PLACEMENT Date: 08/18 Time: 0255 Indication: Hemodynamic monitoring A time-out was completed verifying correct patient, procedure, site, positioning , and special equipment if applicable. Allens test was performed to ensure adequate perfusion. The patients <right wrist was prepped and draped in sterile fashion. 1% Lidocaine was used to anesthetize the area. A /20G> Arrow arterial line was introduced into the femoral> artery. The catheter was threaded over the guide wire and the needle was removed with appropriate pulsatile blood return. The catheter was then sutured in place to the skin and a sterile dressing applied. Perfusion to the extremity distal to the point of catheter insertion was checked and found to be adequate. Estimated Blood Loss: 5ml The patient tolerated the procedure well and there were no complications. Glen Damon MD Aug 18, 2016 05:45
--- NOTE | 2016-08-18 05:45 | PD.PROCEDR ---
Procedure Note Procedure Hemodialysis catheter placement A time-out was completed verifying correct patient, procedure, site, positioning , and special equipment if applicable. The patient was placed in a dependent position appropriate for central line placement based on the vein to be cannulated. The patients right neck was prepped and draped in sterile fashion. 1% Lidocaine was used to anesthetize the surrounding skin area. A triple lumen 9 -[place] Cordis catheter was introduced into the the internal jugular vein using the Seldinger technique and under ultrasound guidance. The catheter was threaded smoothly over the guide wire and appropriate blood return was obtained. Each lumen of the catheter was evacuated of air and flushed with sterile saline. The catheter was then sutured in place to the skin and a sterile dressing applied. Perfusion to the extremity distal to the point of catheter insertion was checked and found to be adequate. Estimated Blood Loss: 1ml The patient tolerated the procedure well and there were no complications. Glen Damon MD Aug 18, 2016 05:45
[2016-08-18] MEDS: metroNIDAZOLE 500 MG INJ 100 ML IV SCH ×4 (06:31→21:10)
[2016-08-18] MEDS: PANTOPRAZOLE INJ 80 MG in SODIUM CHLORIDE 0.9% INJ 100 ML IV SCH ×2 (06:55→17:45)
--- NOTE | 2016-08-18 08:22 | PD.CONS ---
HPI Service Nephrology Consult Requested By Dr. Damon Reason for Consult Acute renal failure and hyperkalemia Primary Care Physician Unknown History of Present Illness Patient is a 71-year-old male with unknown past medical history who was confused and not willing to take care of himself laying in bed sick and apparently he was disheveled and the disoriented and emergency he has ventricular fibrillation and ACLS protocol was followed he was revived intubated and transferred to intensive care unit and initial potassium was 7.7 this was treated medically with calcium, D50, insulin, albuterol, sodium bicarbonate, Kayexalate and the repeat potassium was around 4.8, his creatinine was 19.32 and repeat was 16.28. He received emergent hemodialysis early today. Past Family Social History Allergies: Coded Allergies: No Known Allergies (Unverified , 08/17/16) Past Medical History Unknown Past Surgical History Unknown Reported Medications Unknown Active Ordered Medications Current Medications Medications (Trade) Dose Ordered Sig/Antonio Route Start Time Stop Time Status Last Admin Pantoprazole Sodium 80 mg/ Sodium Chloride 100 ml @ 10 mls/hr Q10H IV 08/17/16 21:45 08/18/16 06:55 (Sodium Bicarbonate 8.4% Inj/Sterile Water For Inj) 1,000 ml @ 150 mls/hr Q6H40M IV 08/18/16 00:30 08/18/16 06:55 (NS Flush) 2 ml UNSCH PRN IV FLUSH 08/18/16 00:30 (NS Flush) 2 ml BID IV FLUSH 08/18/16 09:00 (Tylenol) 650 mg Q6H PRN PO 08/18/16 00:30 (Morphine Inj) 2 mg Q2H PRN IV 08/18/16 00:30 (Pepcid Inj) 10 mg Q12HR IV PUSH 08/18/16 09:00 (Versed Inj) 2 mg Q1H PRN IV 08/18/16 00:30 (Tears Naturale Opth Soln) 1 drop TID EACH EYE 08/18/16 09:00 (Colace Liq) 100 mg Q12HR G-TUBE 08/18/16 09:00 (Heparin Inj) 5,000 units Q12HR SQ 08/18/16 09:00 Miscellaneous Information 1 Q361D XX 08/18/16 00:30 (Chlorhexidine 2% Cloth) 3 pack Taper DAILY@04 TOP 08/18/16 04:00 08/14/17 03:59 08/18/16 04:00 Chlorhexidine Gluconate 3 pack 3 pack UNSCH PRN TOP 08/18/16 00:30 (fentaNYL DRIP) 250 ml @ 0 mls/hr TITRATE IV 08/18/16 00:30 08/18/16 01:34 Metoclopramide HCl 5 mg 5 mg Q6H PRN IV 08/18/16 01:00 (NS 1000 ml Inj) 1,000 ml @ 0 mls/hr Q0M PRN IV 08/18/16 02:45 Heparin Sodium (Porcine) 8000 units 8,000 units UNSCH PRN IVF 08/18/16 02:45 Sodium Chloride 1,000 ml @ 200 mls/hr Q5H PRN IV 08/18/16 02:45 (NS 1000 ml Inj) 1,000 ml @ 0 mls/hr Q0M PRN IV 08/18/16 02:45 (Mannitol Inj) 12.5 gm UNSCH PRN IV 08/18/16 02:45 (Albumin 25% Inj) 25 gm UNSCH PRN IV 08/18/16 02:45 08/18/16 04:39 (NS Flush) 5 ml UNSCH PRN IVF 08/18/16 02:45 (Heparin Inj) UNSCH PRN .XX 08/18/16 02:45 08/18/16 04:39 (Gentamicin (Dialysis) Inj) 20 mg UNSCH PRN IV 08/18/16 02:45 08/18/16 04:39 (Zofran Inj) 4 mg UNSCH PRN IV 08/18/16 02:45 (Tylenol) 650 mg UNSCH PRN PO 08/18/16 02:45 (Benadryl) 25 mg UNSCH PRN PO 08/18/16 02:45 (Nitrostat Sl) 0.4 mg UNSCH PRN SL 08/18/16 02:45 (Catapres) 0.1 mg UNSCH PRN PO 08/18/16 02:45 (Gelfoam 12 Mm/7 Mm Top) 1 foam UNSCH PRN TOP 08/18/16 02:45 Ondansetron HCl 4 mg 4 mg Q6H PRN IV 08/18/16 03:15 (Flagyl 500 Mg Inj) 100 ml @ 100 mls/hr Q6H IV 08/18/16 04:00 08/18/16 06:31 Family History Noncontributory Social History Incomplete database Physical Exam Vital Signs Vital Signs Date Time Temp Pulse Resp B/P Pulse Ox O2 Delivery O2 Flow Rate FiO2 08/18/16 06:00 97.5 115 18 107/44 100 08/18/16 05:00 97.0 96 35 85/53 100 08/18/16 04:05 97 50 08/18/16 04:00 95.5 88 28 76/45 100 08/18/16 03:00 93.0 82 23 68/38 100 08/18/16 03:00 100 Mechanical Ventilator 08/18/16 03:00 82 08/18/16 02:00 70 28 72/34 100 08/18/16 01:32 100 100 08/18/16 00:50 100 100 08/18/16 00:19 59 16 62/ 96 Auto-Vent Automatic Cuff 08/17/16 23:55 0 100 08/17/16 23:24 98 20 123/84 95 Room Air 08/17/16 21:15 63 16 89/54 97 Room Air 08/17/16 19:30 18 98 Room Air 08/17/16 19:27 55 16 08/17/16 19:23 97.5 59 18 138/89 98 Physical Exam GENERAL: Well-nourished, well-developed patient. SKIN: Diffuse rash and upper torso and back. HEAD: Normocephalic. EYES: No scleral icterus. No injection or drainage. NECK: Supple, trachea midline. No JVD or lymphadenopathy. CARDIOVASCULAR: Regular rate and rhythm without murmurs, gallops, or rubs. RESPIRATORY: Breath sounds equal bilaterally. No accessory muscle use. GASTROINTESTINAL: Abdomen soft, non-tender, nondistended. EXTREMITIES: No cyanosis, or edema. Central line in right groin Vas-Cath in the left groin NEUROLOGICAL: Sedated Laboratory Laboratory Tests Test 08/17/16 08/17/16 08/18/16 08/18/16 19:35 21:10 00:39 02:28 White Blood Count 8.0 Red Blood Count 5.16 Hemoglobin 15.7 Hematocrit 45.7 Mean Corpuscular Volume 88.6 Mean Corpuscular Hemoglobin 30.4 Mean Corpuscular Hemoglobin 34.3 Concent Red Cell Distribution Width 15.1 Platelet Count 190 Mean Platelet Volume 10.0 Neutrophils (%) (Auto) 92.5 Lymphocytes (%) (Auto) 1.8 Monocytes (%) (Auto) 5.4 Eosinophils (%) (Auto) 0.0 Basophils (%) (Auto) 0.3 Neutrophils # (Auto) 7.4 Lymphocytes # (Auto) 0.1 Monocytes # (Auto) 0.4 Eosinophils # (Auto) 0.0 Basophils # (Auto) 0.0 CBC Comment DIFF FINAL Differential Comment Prothrombin Time 17.0 Prothromb Time International 1.5 Ratio Activated Partial 33.0 Thromboplast Time Salicylates Level 1.8 Sodium Level 138 Potassium Level 7.7 Chloride Level 103 Carbon Dioxide Level 8.0 Anion Gap 27 Blood Urea Nitrogen 360 Creatinine 19.32 Estimat Glomerular Filtration 2 Rate Random Glucose 121 Calcium Level 8.3 Magnesium Level 3.1 Total Bilirubin 0.4 Aspartate Amino Transf 6 (AST/SGOT) Alanine Aminotransferase 10 (ALT/SGPT) Alkaline Phosphatase 69 Total Creatine Kinase 155 Troponin I 0.42 Total Protein 7.8 Albumin 2.9 Lipase 380 Acetaminophen Level LESS THAN 2.0 Blood Type A POSITIVE Antibody Screen NEGATIVE Blood Bank Comment Blood Gas Puncture Site LT FEMORAL RT BRACHIAL Blood Gas Patient Temperature 98.6 98.6 Blood Gas HCO3 7 16 Blood Gas Base Excess -22.3 -8.2 Blood Gas Oxygen Saturation 84 98 Arterial Blood pH 6.95 7.40 Arterial Blood Partial 35 26 Pressure CO2 Arterial Blood Partial 77 487 Pressure O2 Arterial Blood Oxygen Content 12.4 16.3 Arterial Blood 0.9 0.6 Carboxyhemoglobin Arterial Blood Methemoglobin 2.3 1.1 Blood Gas Hemoglobin 10.4 10.9 Oxygen Delivery Device VENTILATOR VENTILATOR Blood Gas Ventilator Setting AC/16/500/PEEP5 AC 16/500/5PEEP Blood Gas Inspired Oxygen 100 100 Test 08/18/16 08/18/16 03:30 03:50 Sodium Level 154 Potassium Level 4.8 Chloride Level 110 Carbon Dioxide Level 17.4 Anion Gap 27 Blood Urea Nitrogen 329 Creatinine 16.28 Estimat Glomerular Filtration 3 Rate Random Glucose 177 Calcium Level 7.0 Protein Corrected Calcium 8.4 Troponin I 0.74 Total Protein 4.6 Nasal Screen MRSA (PCR) POSITIVE Date/Time Procedure Status Source Growth 08/18/16 04:29 Aerobic Blood Culture Received Blood Peripheral Pending 08/18/16 04:29 Anaerobic Blood Culture Received Blood Peripheral Pending Result Diagram: 08/17/16193408/18/16 0330 Imaging Last Impressions Chest X-Ray 08/18/16 0127 Signed Impressions: Service Date/Time: Thursday, August 18, 2016 01:55 - CONCLUSION: Interim intubation with endotracheal tube tip about 2.5 cm above the janett. Lungs remain clear. Daniel Welch MD Head CT 08/17/161924 Signed Impressions: Service Date/Time: Wednesday, August 17, 2016 19:48 - CONCLUSION: Normal examination for a patient of this age. Demetrius Lopez MD Assessment and Plan Problem List: (1) Acute renal failure Plan: This is of unknown etiology. Patient was extremely dehydrated and possibly has underlying rhabdomyolysis causing ATN We get the kidney ultrasound done, he is on vasopressors Hemodialysis was done emergently and we will recheck a basic metabolic panel. Continue supportive care. (2) Hyperkalemia Plan: This was resolving and hemodialysis was done earlier (3) Cardiac arrest due to other underlying condition Plan: History of renal failure hyperkalemia may have contributed (4) Respiratory failure Plan: Intubated on ventilator (5) Acidosis, metabolic Plan: This is resolved and hemodialysis was done earlier Problem Qualifiers (1) Acute renal failure: Qualified Code: N17.9 - Acute renal failure, unspecified acute renal failure type Michel Irwin MD Aug 18, 2016 08:22
[2016-08-18] MEDS: ARTIFICIAL TEARS OPTH SOLN 15 ML BTL EACH EYE SCH ×3 (09:00→17:55)
[2016-08-18] MEDS ORDERED: FAMOTIDINE 20 MG/2 ML VIAL IV PUSH SCH (09:00)
[2016-08-18] MEDS: DOCUSATE SODIUM 100 MG/10 ML UDC G-TUBE SCH ×2 (09:00→20:32)
[2016-08-18] MEDS ORDERED: HEPARIN SODIUM - SQ 10,000 UNITS/ML VIAL SQ SCH (09:00)
[2016-08-18] MEDS: SODIUM CHLORIDE 0.9% FLUSH 5 ML FLUSH IV FLUSH SCH ×2 (09:00→20:33)
[2016-08-18] MEDS ORDERED: PROPOFOL 500 MG/50 ML INJ 50 ML ONE (09:25)
[2016-08-18 09:42] LABS: CKMB 12.8 NG/ML (0.5-3.6)
[2016-08-18 09:49] LABS: BASOPHIL % 0.1 % (0.0-2.0); HEMATOCRIT 30.8 % (39.0-51.0); HEMO FLAGS DIFF FINAL; LYMPH % 5.5 % (9.0-44.0); LYMPHOCYTE # 0.2 TH/MM3 (1.0-4.8); MEAN CELL VOLUME 84.1 FL (80.0-100.0); MEAN CORPUSCULAR HEMOGLOBIN 29.7 PG (27.0-34.0); MEAN CORPUSCULAR HGB CONC 35.3 % (32.0-36.0); NEUT % 89.4 % (16.0-70.0); PLATELET COUNT 120 TH/MM3 (150-450); RED BLOOD COUNT 3.66 MIL/MM3 (4.50-5.90); RED CELL DISTRIBUTION WIDTH 14.5 % (11.6-17.2); WHITE BLOOD COUNT 3.4 TH/MM3 (4.0-11.0)
[2016-08-18] MEDS ORDERED: TERBUTALINE INJ 1 MG/ML AMP SQ PRN (10:00)
[2016-08-18] MEDS ORDERED: PROPOFOL 1000 MG/100 ML INJ 100 ML IV SCH (10:00)
[2016-08-18] MEDS ORDERED: NOREPINEPHRINE-DEXTROSE DRIP 250 ML IV SCH (10:00)
[2016-08-18 10:12] LABS: BLOOD GAS BASE EXCESS -2.1 mmol/L (-2-2); BLOOD GAS CARBOXYHEMOGLOBIN 0.8 % (0-4); BLOOD GAS HCO3 20 mmol/L (22-26); BLOOD GAS O2 HGB SATURATION 98 % (90-100); BLOOD GAS OXYGEN CONTENT 14.7 Vol % (12.0-20.0); BLOOD GAS PCO2 21 mmHg (38-42); BLOOD GAS PO2 287 mmHg (61-120); BLOOD GAS TOTAL HGB 10.2 G/DL (12.0-16.0); CRITICAL VALUE YES; TEMP CORR TO 98.6
[2016-08-18 10:13] LABS: DRAW SITE ART LINE; FIO2 40 %; OXYGEN DEVICE VENTILATOR; STAT YES
[2016-08-18 10:30] LABS: BLOOD, URINE MOD (NEG); GLUCOSE,URINE 100 mg/dL (NEG); KETONE, URINE TRACE mg/dL (NEG); NITRITE,URINE NEG (NEG)
[2016-08-18 10:31] LABS: BACTERIA, URINE RARE /hpf; SQUAMOUS EPITHELIAL CELL URINE 0-5 /hpf (0-5); URINE COLOR STRAW (YELLW/STRAW); WBC, URINE 0-2 /hpf (0-5)
[2016-08-18 10:32] LABS: TRANSITIONAL EPI CELLS, URINE 0-5 /hpf
[2016-08-18 10:33] LABS: CULTURE IF INDICATED CATH CULTURE IND
[2016-08-18 10:34] LABS: COMMENT (UR) CATH-CULTURE IND
[2016-08-18 10:42] LABS: AMPHETAMINE, URINE NEG (NEG); BARBITURATES, URINE NEG (NEG); COCAINE, URINE NEG (NEG)
[2016-08-18] MEDS: NOREPINEPHRINE 8 MG/D5W 250 ML IV SCH ×4 (10:42→16:38)
--- NOTE | 2016-08-18 10:42 | HHI.CCPN ---
Subjective Remarks Patient comes in by EMS after being [place] acted by police and family called stating the patient has not been getting out of bed or taking care of himself. Patient denies any medical complaints at this time. Denies any chest pain or shortness of breath, abdominal pain, or fevers. While in the ED patient suffered cardiac arrest due to V Fib. Successful short ACLS performed with return of spontaneous circulation. 08/18 Overnight upon presentation to the [facility] the patient was noted to have large amount of bloody stool unable to quantify, the patient also vomited approximately 500 cc of coffee ground emesis. An NG tube was placed and the patient was noted to have an additional 300 cc of coffee ground emesis, the patient continues to have melanotic stools. Hemodialysis was initiated and discontinued secondary to hypotension, the patient required levophed infusion, and was also bolused initially with a liter of normal saline. This morning the patient continues to bleed, contributing factors include uremia. Stat laboratory specimens obtained, to include coag studies. Will initiate DDAVP, and cryoprecipitate secondary to uremic bleeding. Objective - Vital Signs Date Time Temp Pulse Resp B/P Pulse Ox O2 Delivery O2 Flow Rate FiO2 08/18/16 08:41 100 40 08/18/16 06:00 97.5 115 18 107/44 08/18/16 03:00 Mechanical Ventilator Result Diagram: 08/18/16 0930 08/18/16 0330 Other Results Last Impressions Chest X-Ray 08/18/16 0127 Signed Impressions: Service Date/Time: Thursday, August 18, 2016 01:55 - CONCLUSION: Interim intubation with endotracheal tube tip about 2.5 cm above the janett. Lungs remain clear. Daniel Welch MD Head CT 08/17/[id number] Signed Impressions: Service Date/Time: Wednesday, August 17, 2016 19:48 - CONCLUSION: Normal examination for a patient of this age. Demetrius Lopez MD Objective Remarks GENERAL: Thin critically ill-appearing male, intubated, responding to yes and no questions, following commands. SKIN: Warm and dry. HEAD: Atraumatic. Normocephalic. EYES: Pupils equal and round. No scleral icterus. No injection or drainage. ENT: No nasal bleeding or discharge. Mucous membranes pink and moist. Oral tracheal intubation NECK: Trachea midline. No JVD. CARDIOVASCULAR: Normal rate, regular rhythm. RESPIRATORY: No accessory muscle use. Clear to auscultation. Breath sounds equal bilaterally. GASTROINTESTINAL: Abdomen soft, non-tender, nondistended. No guarding. OGT, to LIWs continuous coffee-ground emesis, noted melanotic stools MUSCULOSKELETAL: Extremities without clubbing, cyanosis, or edema. No obvious deformities. NEUROLOGICAL: Awake and alert. RASS -`. No gross focal/sensory deficits. Follows commands in all 4 extremities. A/P Assessment and Plan Plan by systems: Neurologic: -Currently on propofol infusion for sedation and ventilator synchrony, will change to fentanyl infusion -Initial assessment, on sedation vacation GCS 11 T, following commands -Maintain RASS -2 Respiratory: Acute respiratory failure Possible aspiration pneumonitis -Wean tidal volume to 6-8 cc/kg -Wean FiO2 to less than 50% -Ventilator bundle -Monitor ABG 7.58/20.5/287/19/-2.1 -Maintain head of bed 30 -Schedule bronchodilators every 6 hours, and every 2 when necessary -Repeat chest x-ray in a.m. Cardiovascular: S/P Cardiac arrest-ventricular fibrillation (potassium level 7.7) Hypotension -Obtain echocardiogram assess function-hypertensive heart disease -Currently on Levophed infusion, will add vasopressin infusion -Maintain MAP greater than 65mmHg -PMH HTN- home medication on ACEI , Lisinopril, currently on hold 2/2 hypotension, consider ARB, Calcium Channel ronald or Beta Ronald when clinically indicated to resume anti-HTN medication Renal: Acute renal failure Uremia -Nephrology consulted-Dr. Irwin Initial BUN 390,repeat 190 -Hemodialysis per nephrology, dialysis 08/18-200 cc removed, discontinued secondary to hypotension -- Strict I/Os FEN/GI: GI bleed Melena Hyperkalemia secondary to acute renal failure -GI consulted-Dr. [id number]-st recommendations -Protonix infusion -Maintain nothing by mouth status -Sodium bicarbonate infusion 150 cc/hr -Monitor BMP -OGT to LIWS Heme/ID: Coagulopathy Bleeding possibly also secondary to uremia -Repeat coagulation studies- INR 1.5 (08/17),INR 1.6-Vitamin K x 1 dose -Uremia treatment-DDAVP 1 dose, cryoprecipitate(10 units) 1 dose -Monitor H&H every 6 hours -Follow-up hepatitis panel, BRAD screen Endocrine: Hyperglycemia of critical illness Glucose monitoring per ICU protocol -- SSI Prophylaxis: GI Prophylaxis Protonix infusion DVT Prophylaxis -- SCDs No pharmacological DVT prophylaxis secondary to acute bleed Lines: Left femoral Vas-Cath, right femoral arterial line, right triple-lumen femoral catheter (08/18) Dispo: my billing statement This patient remains critically ill with one or more organ systems which are or may become a threat to life. I have spent in excess of 60 minutes discontinuously in the care and management of this patient. This time is exclusive of procedures, and includes, but is not limited to, evaluation of the patient, review of the medical record, discussions with family, consultants, nursing staff, or respiratory therapy, and documentation in the medical record. Physician Cathryn Gomes MD Aug 18, 2016 10:42
[2016-08-18] MEDS ORDERED: SODIUM CHLORIDE 0.9% IV ONE (11:00)
[2016-08-18] MEDS ORDERED: DESMOPRESSIN IV ONE (11:00)
[2016-08-18] MEDS: VASOPRESSIN INJ 40 UNITS in DEXTROSE 5% IN WATER 100ML INJ 98 ML IV SCH ×2 (11:14)
[2016-08-18 11:44] LABS: INTERNATIONAL NORMALIZED RATIO 1.6 RATIO; PROTHROMBIN TIME - PATIENT 18.4 SEC (9.8-11.6)
--- NOTE | 2016-08-18 11:52 | RADRPT ---
EXAM DATE/TIME: 08/18/2016 10:13 [place] COMPARISON: No previous studies available for comparison. INDICATIONS : Abnormal labs. MEDICAL HISTORY : Unable to obtain. SURGICAL HISTORY : Unable to obtain. ENCOUNTER: Initial ACUITY: 1 day PAIN SCORE: Nonresponsive. LOCATION: Bilateral flank MEASUREMENTS: RIGHT KIDNEY: 11.1 x 4.7 x 6.3 cm LEFT KIDNEY: 10.5 x 6.8 x 5.7 cm FINDINGS: RIGHT KIDNEY: Renal cortex is normal in thickness and echotexture. No hydronephrosis, stone, or mass. LEFT KIDNEY: Renal cortex is normal in thickness and echotexture. No hydronephrosis, or mass. There is a 1.1 cm h yperechoic density in the mid pole suggestive of a stone. BLADDER: Cummins catheter. Bladder not distended. CONCLUSION: 1. No evidence of hydronephrosis. 2. There appears to be a probable 1.1 cm nonobstructing stone in the mid pole of the left kidney. Jae Apple MD on August 18, 2016 at 11:49 Board Certified Radiologist. This report was verified electronically.
[2016-08-18 12:00] LABS: BICARBONATE 24.4 MEQ/L (21.0-32.0); POTASSIUM 3.6 MEQ/L (3.5-5.1)
--- NOTE | 2016-08-18 12:06 | PD.CONS ---
HPI History of Present Illness This is a 71 year old male patient who was brought to the ER as a BA after his family called and stated that he had not been getting out of bed or taking care of himself. In the ER, he was went into V Fib. He received ACLS/ Defibrillation and had return of spontaneous circulation. He was found to have acute renal failure with severe electrolyte abnormalities/severe hyperkalemia. A vascath was placed and HD was initiated, but he developed worsening hypotension and did not tolerate this and therefore it was stopped. He is currently in the ICU, sedated on the ventilator. His HH went from 15.7/45.7 down to 10.9/30.8. He has an OGT and has coffee ground gastric secretions and has been passing melena. He is on a Protonix Gtt and was given Desmopression/ Cryoprecipitate by [facility]. He is currently on multiple vasopressors and the plan is to attempt HD again tomorrow when more stable. There is no josiane red bleeding. It is unknown if he has any history of GI bleeding, gastric ulcers, or if he has ever had an EGD/Colonoscopy. (Adina Meredith) PFSH Past Medical History Unknown Past Surgical History Unknown (Adina Meredith) Coded Allergies: *MDRO Multi-Drug Resistant Organism (Verified Adverse Reaction, Unknown, ) MRSA PCR Screen POSITIVE - 08/18/16 Medications Allergies Coded Allergies Type Severity Reaction Last Updated Verified *MDRO Multi-Drug Resistant Organism Adverse Reaction Unknown 08/18/16 Yes Active Scripts Medications Dose Route/Sig Days Date Category Lisinopril 20 Mg Tab 20 Mg PO DAILY 08/17/16 Reported Family History Unknown Social History Unknown (Adina Meredith) Review of Systems ROS Unable to obtain (Adina Meredith) GI Exam Vitals I&O Vital Signs Date Time Temp Pulse Resp B/P Pulse Ox O2 Delivery O2 Flow Rate FiO2 08/18/16 08:41 100 40 08/18/16 06:00 97.5 115 18 107/44 100 08/18/16 05:00 97.0 96 35 85/53 100 08/18/16 04:05 97 50 08/18/16 04:00 95.5 88 28 76/45 100 08/18/16 03:00 93.0 82 23 68/38 100 08/18/16 03:00 100 Mechanical Ventilator 08/18/16 03:00 82 08/18/16 02:00 70 28 72/34 100 08/18/16 01:32 100 100 08/18/16 00:50 100 100 08/18/16 00:19 59 16 62/ 96 Auto-Vent Automatic Cuff 08/17/16 23:55 0 100 08/17/16 23:24 98 20 123/84 95 Room Air 08/17/16 21:15 63 16 89/54 97 Room Air 08/17/16 19:30 18 98 Room Air 08/17/16 19:27 55 16 08/17/16 19:23 97.5 59 18 138/89 98 I/O 08/17/16 08/17/16 08/17/16 08/18/16 08/18/16 08/18/16 07:00 15:00 23:00 07:00 15:00 23:00 Intake Total 1007 ml Output Total 300 ml 200 ml Balance 707 ml -200 ml Intake IV Total 1007 ml Output Urine Total 0 ml Gastric Drainage Total 300 ml Hemodialysis 200 ml Imaging Last Impressions Chest X-Ray 08/18/16 0127 Signed Impressions: Service Date/Time: Thursday, August 18, 2016 01:55 - CONCLUSION: Interim intubation with endotracheal tube tip about 2.5 cm above the janett. Lungs remain clear. Daniel Welch MD Head CT 08/17/16 192 Signed Impressions: Service Date/Time: Wednesday, August 17, 2016 19:48 - CONCLUSION: Normal examination for a patient of this age. Demetrius Lopez MD Laboratory Test 08/17/16 08/17/16 08/18/16 08/18/16 19:35 21:10 00:39 02:28 Prothrombin Time 17.0 SEC Prothromb Time International 1.5 RATIO Ratio Activated Partial 33.0 SEC Thromboplast Time Salicylates Level 1.8 MG/DL White Blood Count 8.0 TH/MM3 Red Blood Count 5.16 MIL/MM3 Hemoglobin 15.7 GM/DL Hematocrit 45.7 % Mean Corpuscular Volume 88.6 FL Mean Corpuscular Hemoglobin 30.4 PG Mean Corpuscular Hemoglobin 34.3 % Concent Red Cell Distribution Width 15.1 % Platelet Count 190 TH/MM3 Mean Platelet Volume 10.0 FL Neutrophils (%) (Auto) 92.5 % Lymphocytes (%) (Auto) 1.8 % Monocytes (%) (Auto) 5.4 % Eosinophils (%) (Auto) 0.0 % Basophils (%) (Auto) 0.3 % Neutrophils # (Auto) 7.4 TH/MM3 Lymphocytes # (Auto) 0.1 TH/MM3 Monocytes # (Auto) 0.4 TH/MM3 Eosinophils # (Auto) 0.0 TH/MM3 Basophils # (Auto) 0.0 TH/MM3 CBC Comment DIFF FINAL Differential Comment Sodium Level 138 MEQ/L Potassium Level 7.7 MEQ/L Chloride Level 103 MEQ/L Carbon Dioxide Level 8.0 MEQ/L Anion Gap 27 MEQ/L Blood Urea Nitrogen 360 MG/DL Creatinine 19.32 MG/DL Estimat Glomerular Filtration 2 ML/MIN Rate Random Glucose 121 MG/DL Calcium Level 8.3 MG/DL Magnesium Level 3.1 MG/DL Total Bilirubin 0.4 MG/DL Aspartate Amino Transf 6 U/L (AST/SGOT) Alanine Aminotransferase 10 U/L (ALT/SGPT) Alkaline Phosphatase 69 U/L Total Creatine Kinase 155 U/L Troponin I 0.42 NG/ML Total Protein 7.8 GM/DL Albumin 2.9 GM/DL Lipase 380 U/L Acetaminophen Level LESS THAN 2.0 MCG/ML Blood Type A POSITIVE Antibody Screen NEGATIVE Blood Bank Comment Blood Gas Puncture Site LT FEMORAL RT BRACHIAL Blood Gas Patient Temperature 98.6 98.6 Blood Gas HCO3 7 mmol/L 16 mmol/L Blood Gas Base Excess -22.3 mmol/L -8.2 mmol/L Blood Gas Oxygen Saturation 84 % 98 % Arterial Blood pH 6.95 7.40 Arterial Blood Partial 35 mmHg 26 mmHg Pressure CO2 Arterial Blood Partial 77 mmHG 487 mmHg Pressure O2 Arterial Blood Oxygen Content 12.4 Vol % 16.3 Vol % Arterial Blood 0.9 % 0.6 % Carboxyhemoglobin Arterial Blood Methemoglobin 2.3 % 1.1 % Blood Gas Hemoglobin 10.4 G/DL 10.9 G/DL Oxygen Delivery Device VENTILATOR VENTILATOR Blood Gas Ventilator Setting AC/16/500/PEEP5 AC 16/500/5PEEP Blood Gas Inspired Oxygen 100 % 100 % Test 08/18/16 08/18/16 08/18/16 08/18/16 03:30 03:50 08:10 09:30 Sodium Level 154 MEQ/L Potassium Level 4.8 MEQ/L Chloride Level 110 MEQ/L Carbon Dioxide Level 17.4 MEQ/L Anion Gap 27 MEQ/L Blood Urea Nitrogen 329 MG/DL Creatinine 16.28 MG/DL Estimat Glomerular Filtration 3 ML/MIN Rate Random Glucose 177 MG/DL Calcium Level 7.0 MG/DL Protein Corrected Calcium 8.4 MG/DL Troponin I 0.74 NG/ML 1.27 NG/ML Total Protein 4.6 GM/DL Nasal Screen MRSA (PCR) POSITIVE Total Creatine Kinase 568 U/L Creatine Kinase MB 12.8 NG/ML Creatine Kinase MB % 2.3 % White Blood Count 3.4 TH/MM3 Red Blood Count 3.66 MIL/MM3 Hemoglobin 10.9 GM/DL Hematocrit 30.8 % Mean Corpuscular Volume 84.1 FL Mean Corpuscular Hemoglobin 29.7 PG Mean Corpuscular Hemoglobin 35.3 % Concent Red Cell Distribution Width 14.5 % Platelet Count 120 TH/MM3 Mean Platelet Volume 9.3 FL Neutrophils (%) (Auto) 89.4 % Lymphocytes (%) (Auto) 5.5 % Monocytes (%) (Auto) 5.0 % Eosinophils (%) (Auto) 0.0 % Basophils (%) (Auto) 0.1 % Neutrophils # (Auto) 3.0 TH/MM3 Lymphocytes # (Auto) 0.2 TH/MM3 Monocytes # (Auto) 0.2 TH/MM3 Eosinophils # (Auto) 0.0 TH/MM3 Basophils # (Auto) 0.0 TH/MM3 CBC Comment DIFF FINAL Differential Comment Test 08/18/16 08/18/16 09:48 10:00 Blood Type A POSITIVE Crossmatch Leukocyte-Reduced Red Blood Cells Blood Bank Comment Urine Color STRAW Urine Turbidity HAZY Urine pH 5.0 Urine Specific [place] 1.015 Urine Protein 100 mg/dL Urine Glucose (UA) 100 mg/dL Urine Ketones TRACE mg/dL Urine Occult Blood MOD Urine Nitrite NEG Urine Bilirubin NEG Urine Urobilinogen 0.2 MG/DL Urine Leukocyte Esterase SMALL Urine WBC 0-2 /hpf Urine Squamous Epithelial 0-5 /hpf Cells Urine Transitional Epithelial 0-5 /hpf Cells Urine Bacteria RARE /hpf Microscopic Urinalysis Comment CATH-CULTURE IND Blood Gas Puncture Site ART LINE Blood Gas Patient Temperature 98.6 Blood Gas HCO3 20 mmol/L Blood Gas Base Excess -2.1 mmol/L Blood Gas Oxygen Saturation 98 % Arterial Blood pH 7.59 Arterial Blood Partial 21 mmHg Pressure CO2 Arterial Blood Partial 287 mmHg Pressure O2 Arterial Blood Oxygen Content 14.7 Vol % Arterial Blood 0.8 % Carboxyhemoglobin Arterial Blood Methemoglobin 1.0 % Blood Gas Hemoglobin 10.2 G/DL Oxygen Delivery Device VENTILATOR Blood Gas Ventilator Setting Blood Gas Inspired Oxygen 40 % Urine Opiates Screen NEG Urine Barbiturates Screen NEG Urine Amphetamines Screen NEG Urine Benzodiazepines Screen POS Urine Cocaine Screen NEG Urine Cannabinoids Screen NEG Date/Time Procedure Status Source Growth 08/18/16 10:00 Urine Culture Received Urine Catheterized Urine Pending 08/18/16 10:00 Legionella Antigen Received Urine Catheterized Urine Pending 08/18/16 10:00 Streptococcus pneumoniae Antigen (M Received Urine Catheterized Urine Pending 08/18/16 10:00 Gram Stain Received Sputum Endotracheal Pending 08/18/16 10:00 Sputum Culture Received Sputum Endotracheal Pending 08/18/16 04:29 Aerobic Blood Culture Received Blood Peripheral Pending 08/18/16 04:29 Anaerobic Blood Culture Received Blood Peripheral Pending Physical Examination HEENT: Normocephalic; atraumatic CHEST: Resp. even/unlabored, OETT on vent. CARDIAC: ST, Hypotensive. On pressors ABDOMEN: Soft, nondistended, nontender; no hepatosplenomegaly; bowel sounds are present in all four quadrants. OGT with coffee ground gastric secretions. EXTREMITIES: No clubbing, cyanosis, or edema. SKIN: Generalized pallor [employer]: Sedated on vent. (Adina Meredith) Assessment and Plan Plan ASSESSMENT: - Upper GIB. Pt with coffee ground gastric secretions, melena, but no active bleeding with josiane red blood. Protonix Gtt. S/P Desmopressin, Cryoprecipitate. Will continue Protonix Gtt, Closely monitor HH, transfuse PRBC as needed, plan for endoscopic evaluation once more stable or if there is signs of active bleeding. - Anemia, acute blood loss. .30.8. - ARF with severe electrolyte abnormalities. S/P Vascath placement. HD was attempted, but was stopped secondary to hypotension/not tolerating. Plan is to restart again tomorrow if tolerates. Nephrology following. - Coagulopathy. Creat. 17.0, INR 1.5, APTT 33.0 - Acute respiratory failure. Vent per CCM - Hypotension, on multiple pressors. - S/P VFib, S/P ACLS/Defibrillation with SROC. PLAN: - NPO - OGT to LIWS - Protonix Gtt - Monitor HH q6h - Transfuse as necessary - Will plan for EGD once patient is more stable or if there are signs of active bleeding with josiane red blood. - Supportive care - Further recommendations to follow based on results of above - Pt seen and examined by Dr. Morrell and myself and this note is written on his behalf (Adina Meredith) Physician Comments Patient seen and examined Agree with above Continue with current supportive care Monitor labs No signs of active bleeding at this point We'll proceed with endoscopy if there is any active bleeding or once patient is more stable (Jose Morrell MD) Adina Meredith Aug 18, 2016 12:06 Jose Morrell MD Aug 18, 2016 22:02
--- NOTE | 2016-08-18 12:29 | PD.ID.CON ---
History of Present Illness Service ID Consult Requested By Reason for Consult Evaluation and Mment of possible sepsis. Primary Care Physician Unknown Diagnoses: History of Present Illness is a 71 y/o CM with PMHx of HTN who was reportedly on Lisinopril prior to admission. He also reportedly had chronic arthritis and back pain and was on OTC pain meds off and on. Patient is intubated. Patients fiance sister who is close to the patient is in the room. She provided me brief history. Patient was brought to the ER as a Bates Act after his family called. Patient reportedly had nausea, vomiting, diarrhea, for 2 approx 10-12 days prior to admission. He had not been getting out of bed or taking care of himself. Reportedly family was trying to convince patient but he would refuse and delay coming in to the ER. He has been bed bound, not eating or drinking much. He had a large loose BM prior to the admission and possibly no urine output on day prior to admission. In the ER, he was went into V Fib. He received ACLS/Defibrillation and had return of spontaneous circulation. He was found to have acute renal failure with severe electrolyte abnormalities/severe hyperkalemia. A vascath was placed and HD was initiated, but he developed worsening hypotension and did not tolerate this and therefore it was stopped. He is currently in the ICU, sedated on the ventilator. His HH went from 15.7/45.7 down to 10.9/30.8. He has an OGT and has coffee ground gastric secretions and has been passing melena. He is on a Protonix Gtt and was given Desmopression/Cryoprecipitate by [facility]. He is currently on multiple vasopressors and the plan is to attempt HD again tomorrow when more stable. There is no josiane red bleeding. It is unknown if he has any history of GI bleeding, gastric ulcers, or if he has ever had an EGD/Colonoscopy. ID is consulted for evaluation and Mment of possible sepsis. Review of Systems ROS Limitations: Intubated Past Family Social History Allergies: Coded Allergies: *MDRO Multi-Drug Resistant Organism (Verified Adverse Reaction, Unknown, ) MRSA PCR Screen POSITIVE - 08/18/16 Past Medical History HTN Chronic knee arthritis Chronic Back pain. Past Surgical History None per family. Reported Medications Reported Meds & Active Scripts Active Reported Lisinopril 20 Mg Tab 20 Mg PO DAILY Active Ordered Medications Current Medications Medications (Trade) Dose Ordered Sig/Antonio Route Start Time Stop Time Status Last Admin Pantoprazole Sodium 80 mg/ Sodium Chloride 100 ml @ 10 mls/hr Q10H IV 08/17/16 21:45 08/18/16 06:55 (Sodium Bicarbonate 8.4% Inj/Sterile Water For Inj) 1,000 ml @ 150 mls/hr Q6H40M IV 08/18/16 00:30 08/18/16 12:49 (NS Flush) 2 ml UNSCH PRN IV FLUSH 08/18/16 00:30 (NS Flush) 2 ml BID IV FLUSH 08/18/16 09:00 08/18/16 09:00 (Tylenol) 650 mg Q6H PRN PO 08/18/16 00:30 (Morphine Inj) 2 mg Q2H PRN IV 08/18/16 00:30 (Tears Naturale Opth Soln) 1 drop TID EACH EYE 08/18/16 09:00 (Colace Liq) 100 mg Q12HR G-TUBE 08/18/16 09:00 08/18/16 09:00 Miscellaneous Information 1 Q361D XX 08/18/16 00:30 (Chlorhexidine 2% Cloth) 3 pack Taper DAILY@04 TOP 08/18/16 04:00 08/14/17 03:59 08/18/16 04:00 Chlorhexidine Gluconate 3 pack 3 pack UNSCH PRN TOP 08/18/16 00:30 (fentaNYL DRIP) 250 ml @ 0 mls/hr TITRATE IV 08/18/16 00:30 08/18/16 01:34 Metoclopramide HCl 5 mg 5 mg Q6H PRN IV 08/18/16 01:00 (NS 1000 ml Inj) 1,000 ml @ 0 mls/hr Q0M PRN IV 08/18/16 02:45 Heparin Sodium (Porcine) 8000 units 8,000 units UNSCH PRN IVF 08/18/16 02:45 Sodium Chloride 1,000 ml @ 200 mls/hr Q5H PRN IV 08/18/16 02:45 (NS 1000 ml Inj) 1,000 ml @ 0 mls/hr Q0M PRN IV 08/18/16 02:45 (Mannitol Inj) 12.5 gm UNSCH PRN IV 08/18/16 02:45 (Albumin 25% Inj) 25 gm UNSCH PRN IV 08/18/16 02:45 08/18/16 04:39 (NS Flush) 5 ml UNSCH PRN IVF 08/18/16 02:45 (Heparin Inj) UNSCH PRN .XX 08/18/16 02:45 08/18/16 04:39 (Gentamicin (Dialysis) Inj) 20 mg UNSCH PRN IV 08/18/16 02:45 08/18/16 04:39 (Zofran Inj) 4 mg UNSCH PRN IV 08/18/16 02:45 (Tylenol) 650 mg UNSCH PRN PO 08/18/16 02:45 (Benadryl) 25 mg UNSCH PRN PO 08/18/16 02:45 (Nitrostat Sl) 0.4 mg UNSCH PRN SL 08/18/16 02:45 (Catapres) 0.1 mg UNSCH PRN PO 08/18/16 02:45 (Gelfoam 12 Mm/7 Mm Top) 1 foam UNSCH PRN TOP 08/18/16 02:45 Ondansetron HCl 4 mg 4 mg Q6H PRN IV 08/18/16 03:15 Metronidazole 100 ml @ 100 mls/hr Q6H IV 08/18/16 04:00 08/18/16 10:35 (Pitressin Inj/ D5W 100 ml Inj) 100 ml @ 1.5 mls/hr Q24H IV 08/18/16 09:53 08/18/16 11:14 Terbutaline Sulfate 1 mg 1 mg UNSCH PRN SQ 08/18/16 10:00 Norepinephrine Bitartrate 8 mg/ Dextrose 250 ml @ 0 mls/hr TITRATE IV 08/18/16 10:00 08/18/16 10:42 (Diprivan 1000 Mg/100ml Inj) 100 ml @ 0 mls/hr TITRATE IV 08/18/16 10:00 Family History could not be obtained. Social History No significant alcohol use. No smoking. No IVDA. Physical Exam Vital Signs Vital Signs Date Time Temp Pulse Resp B/P Pulse Ox O2 Delivery O2 Flow Rate FiO2 08/18/16 11:37 100 40 08/18/16 08:41 100 40 08/18/16 06:00 97.5 115 18 107/44 100 08/18/16 05:00 97.0 96 35 85/53 100 08/18/16 04:05 97 50 08/18/16 04:00 95.5 88 28 76/45 100 08/18/16 03:00 93.0 82 23 68/38 100 08/18/16 03:00 100 Mechanical Ventilator 08/18/16 03:00 82 08/18/16 02:00 70 28 72/34 100 08/18/16 01:32 100 100 08/18/16 00:50 100 100 08/18/16 00:19 59 16 62/ 96 Auto-Vent Automatic Cuff 08/17/16 23:55 0 100 08/17/16 23:24 98 20 123/84 95 Room Air 08/17/16 21:15 63 16 89/54 97 Room Air 08/17/16 19:30 18 98 Room Air 08/17/16 19:27 55 16 08/17/16 19:23 97.5 59 18 138/89 98 Physical Exam GENERAL: This is a well-nourished, well-developed patient, in no apparent distress. SKIN: No rashes, ecchymoses or lesions. Cool and dry. HEAD: Atraumatic. Normocephalic. No temporal or scalp tenderness. EYES: Pupils equal round and reactive. Extraocular motions intact. No scleral icterus. No injection or drainage. ENT: Intubated. NECK: Trachea midline. Supple, nontender, no meningeal signs. CARDIOVASCULAR: Regular rate and rhythm without murmurs, gallops, or rubs. RESPIRATORY: Breath sounds equal bilaterally. No wheezes, rales, or rhonchi. GASTROINTESTINAL: Abdomen soft, non-tender, nondistended. MUSCULOSKELETAL: Extremities without clubbing, cyanosis, or edema. No joint tenderness, effusion, or edema noted. No calf tenderness. Negative Homans sign bilaterally. NEUROLOGICAL: Awake and alert. Grossly non focal Psych: cooperative IV line sites with no e/o infection. Femoral lines bilaterally. I Laboratory Laboratory Tests Test 08/17/16 08/17/16 08/18/16 08/18/16 19:35 21:10 00:39 02:28 Prothrombin Time 17.0 Prothromb Time International 1.5 Ratio Activated Partial 33.0 Thromboplast Time Salicylates Level 1.8 White Blood Count 8.0 Red Blood Count 5.16 Hemoglobin 15.7 Hematocrit 45.7 Mean Corpuscular Volume 88.6 Mean Corpuscular Hemoglobin 30.4 Mean Corpuscular Hemoglobin 34.3 Concent Red Cell Distribution Width 15.1 Platelet Count 190 Mean Platelet Volume 10.0 Neutrophils (%) (Auto) 92.5 Lymphocytes (%) (Auto) 1.8 Monocytes (%) (Auto) 5.4 Eosinophils (%) (Auto) 0.0 Basophils (%) (Auto) 0.3 Neutrophils # (Auto) 7.4 Lymphocytes # (Auto) 0.1 Monocytes # (Auto) 0.4 Eosinophils # (Auto) 0.0 Basophils # (Auto) 0.0 CBC Comment DIFF FINAL Differential Comment Sodium Level 138 Potassium Level 7.7 Chloride Level 103 Carbon Dioxide Level 8.0 Anion Gap 27 Blood Urea Nitrogen 360 Creatinine 19.32 Estimat Glomerular Filtration 2 Rate Random Glucose 121 Calcium Level 8.3 Magnesium Level 3.1 Total Bilirubin 0.4 Aspartate Amino Transf 6 (AST/SGOT) Alanine Aminotransferase 10 (ALT/SGPT) Alkaline Phosphatase 69 Total Creatine Kinase 155 Troponin I 0.42 Total Protein 7.8 Albumin 2.9 Lipase 380 Acetaminophen Level LESS THAN 2.0 Blood Type A POSITIVE Antibody Screen NEGATIVE Blood Bank Comment Blood Gas Puncture Site LT FEMORAL RT BRACHIAL Blood Gas Patient Temperature 98.6 98.6 Blood Gas HCO3 7 16 Blood Gas Base Excess -22.3 -8.2 Blood Gas Oxygen Saturation 84 98 Arterial Blood pH 6.95 7.40 Arterial Blood Partial 35 26 Pressure CO2 Arterial Blood Partial 77 487 Pressure O2 Arterial Blood Oxygen Content 12.4 16.3 Arterial Blood 0.9 0.6 Carboxyhemoglobin Arterial Blood Methemoglobin 2.3 1.1 Blood Gas Hemoglobin 10.4 10.9 Oxygen Delivery Device VENTILATOR VENTILATOR Blood Gas Ventilator Setting AC/16/500/PEEP5 AC 16/500/5PEEP Blood Gas Inspired Oxygen 100 100 Test 08/18/16 08/18/16 08/18/16 08/18/16 03:30 03:50 08:10 09:30 Sodium Level 154 Potassium Level 4.8 Chloride Level 110 Carbon Dioxide Level 17.4 Anion Gap 27 Blood Urea Nitrogen 329 Creatinine 16.28 Estimat Glomerular Filtration 3 Rate Random Glucose 177 Calcium Level 7.0 Protein Corrected Calcium 8.4 Troponin I 0.74 1.27 Total Protein 4.6 Nasal Screen MRSA (PCR) POSITIVE Total Creatine Kinase 568 Creatine Kinase MB 12.8 Creatine Kinase MB % 2.3 White Blood Count 3.4 Red Blood Count 3.66 Hemoglobin 10.9 Hematocrit 30.8 Mean Corpuscular Volume 84.1 Mean Corpuscular Hemoglobin 29.7 Mean Corpuscular Hemoglobin 35.3 Concent Red Cell Distribution Width 14.5 Platelet Count 120 Mean Platelet Volume 9.3 Neutrophils (%) (Auto) 89.4 Lymphocytes (%) (Auto) 5.5 Monocytes (%) (Auto) 5.0 Eosinophils (%) (Auto) 0.0 Basophils (%) (Auto) 0.1 Neutrophils # (Auto) 3.0 Lymphocytes # (Auto) 0.2 Monocytes # (Auto) 0.2 Eosinophils # (Auto) 0.0 Basophils # (Auto) 0.0 CBC Comment DIFF FINAL Differential Comment Test 08/18/16 08/18/16 08/18/16 08/18/16 09:48 10:00 10:31 11:27 Blood Type A POSITIVE A POSITIVE Crossmatch Leukocyte-Reduced Red Blood Cells Blood Bank Comment Urine Color STRAW Urine Turbidity HAZY Urine pH 5.0 Urine Specific [place] 1.015 Urine Protein 100 Urine Glucose (UA) 100 Urine Ketones TRACE Urine Occult Blood MOD Urine Nitrite NEG Urine Bilirubin NEG Urine Urobilinogen 0.2 Urine Leukocyte Esterase SMALL Urine WBC 0-2 Urine Squamous Epithelial 0-5 Cells Urine Transitional Epithelial 0-5 Cells Urine Bacteria RARE Microscopic Urinalysis Comment CATH-CULTURE IND Urine Eosinophils NONE SEEN Blood Gas Puncture Site ART LINE Blood Gas Patient Temperature 98.6 Blood Gas HCO3 20 Blood Gas Base Excess -2.1 Blood Gas Oxygen Saturation 98 Arterial Blood pH 7.59 Arterial Blood Partial 21 Pressure CO2 Arterial Blood Partial 287 Pressure O2 Arterial Blood Oxygen Content 14.7 Arterial Blood 0.8 Carboxyhemoglobin Arterial Blood Methemoglobin 1.0 Blood Gas Hemoglobin 10.2 Oxygen Delivery Device VENTILATOR Blood Gas Ventilator Setting Blood Gas Inspired Oxygen 40 Urine Opiates Screen NEG Urine Barbiturates Screen NEG Urine Amphetamines Screen NEG Urine Benzodiazepines Screen POS Urine Cocaine Screen NEG Urine Cannabinoids Screen NEG Prothrombin Time 18.4 Prothromb Time International 1.6 Ratio Fibrinogen 365 Sodium Level 145 Potassium Level 3.6 Chloride Level 101 Carbon Dioxide Level 24.4 Anion Gap 20 Blood Urea Nitrogen 190 Creatinine 10.60 Estimat Glomerular Filtration 5 Rate Random Glucose 191 Calcium Level 7.0 Total Creatine Kinase 655 Total Protein 5.0 Date/Time Procedure Status Source Growth 08/18/16 10:00 Urine Culture Received Urine Catheterized Urine Pending 08/18/16 10:00 Legionella Antigen - Final Complete Urine Catheterized Urine PRESUMPTIVE NEGATIVE FOR LEGIONELLA P... 08/18/16 10:00 Streptococcus pneumoniae Antigen (M - Final Complete Urine Catheterized Urine PRESUMPTIVE NEGATIVE FOR STREPTOCOCCU... 08/18/16 10:00 Gram Stain Received Sputum Endotracheal Pending 08/18/16 10:00 Sputum Culture Received Sputum Endotracheal Pending 08/18/16 10:00 Cancelled Urine Catheterized Urine 08/18/16 04:29 Aerobic Blood Culture Received Blood Peripheral Pending 08/18/16 04:29 Anaerobic Blood Culture Received Blood Peripheral Pending Result Diagram: 08/18/16 0930 08/18/16 1031 Imaging Last Impressions Chest X-Ray 08/18/16 0127 Signed Impressions: Service Date/Time: Thursday, August 18, 2016 01:55 - CONCLUSION: Interim intubation with endotracheal tube tip about 2.5 cm above the janett. Lungs remain clear. Daniel Welch MD Renal Ultrasound 08/18/16 0000 Signed Impressions: Service Date/Time: Thursday, August 18, 2016 10:13 - CONCLUSION: 1. No evidence of hydronephrosis. 2. There appears to be a probable 1.1 cm nonobstructing stone in the mid pole of the left kidney. Jae Apple MD Head CT 08/17/16 192 Signed Impressions: Service Date/Time: Wednesday, August 17, 2016 19:48 - CONCLUSION: Normal examination for a patient of this age. Demetrius Lopez MD Assessment and Plan Assessment and Plan Possible Sepsis present on admission. Aspiration Pneumonitis. Leucopenia: ? sepsis related, uremia. Acute renal failure now on HD: prerenal, was on lisinopril, acute GI bleed. Uremia, hyperkalemia, elevated CK on admission. Acute GI bleeding: ? NSAID induced, Uremia related. Acute metabolic encephalopathy: uremia, sepsis related. Anemia: blood loss related. Recs: Start Ceftriaxone IV Continue Flagyl IV Follow cultures Follow clinically. d/w and patients family in room. Charmaine Billingsley MD Aug 18, 2016 12:29
[2016-08-18 13:30] LABS: CALCIUM-PROTEIN CORRECTED 8.1 MG/DL (8.5-10.1); CKMB 11.9 NG/ML (0.5-3.6); MAGNESIUM 1.7 MG/DL (1.5-2.5)
--- NOTE | 2016-08-18 13:31 | EKG ---
Date Performed: 08/17/2016 Time Performed: 21:56:34 PTAGE: 71 years EKG: SINUS TACHYCARDIA LOW QRS VOLTAGE IN EXTREMITY LEADS NONSPECIFIC ST & T-WAVE ABNORMALITY AB NORMAL RHYTHM ECG NO PREVIOUS TRACING DOCTOR: Anne Acosta Interpretating Date/Time 08/18/2016 13:29:38
[2016-08-18] MEDS ORDERED: PHYTONADIONE INJ 10 MG in DEXTROSE 5% IN WATER INJ 50 ML IV ONE ×2 (14:00)
[2016-08-18 15:54] LABS: HEMATOCRIT 36.2 % (39.0-51.0)
[2016-08-18 15:55] LABS: REVIEW FLAG FINAL
[2016-08-18] MEDS ORDERED: DEXTROSE 50% IN WATER 50 ML VIAL(D50) IV PUSH PRN (19:45)
[2016-08-18] MEDS ORDERED: GLUCAGON 1 MG/ML VIAL OTHER PRN (19:45)
[2016-08-18 21:29] LABS: HEMATOCRIT 36.4 % (39.0-51.0)
[2016-08-18 21:31] LABS: REVIEW FLAG FINAL
[2016-08-18 21:43] LABS: ALBUMIN SPE 3.17 GM/DL (3.50-5.00); ALPHA 1 GLOBULIN 0.26 GM/DL (0.11-0.29); ALPHA 2 GLOBULIN 0.54 GM/DL (0.22-1.00); BETA GLOBULINS (SPE) 0.51 GM/DL (0.53-1.03)
[2016-08-18 22:07] LABS: BICARBONATE 29.6 MEQ/L (21.0-32.0); POTASSIUM 4.1 MEQ/L (3.5-5.1)
[2016-08-18 22:29] LABS: CALCIUM-PROTEIN CORRECTED 7.4 MG/DL (8.5-10.1)
[2016-08-19] VITALS (18 sets, daily range): BP systolic 98–136; BP diastolic 52–72; PULSE 76–145; RESP 13–16; TEMP 98.2–99.3; O2SAT 96–100
[2016-08-19] MEDS: LOW DOSE INSULIN NOVOLOG SUPPLEMENTAL SCALE SQ SCH ×4 (00:11→18:00)
[2016-08-19] MEDS: VASOPRESSIN INJ 40 UNITS in DEXTROSE 5% IN WATER 100ML INJ 98 ML IV SCH ×4 (00:14→17:00)
[2016-08-19] MEDS: fentaNYL DRIP 250 ML IV SCH (00:14)
[2016-08-19] MEDS: RESP: ALBUTEROL 2.5 MG/IPRATROPIUM 0.5 MG NEB (SCH) INH ×6 (03:03→23:11)
[2016-08-19] MEDS: SODIUM BICARBONATE 8.4% INJ 150 MEQ in WATER STERILE FOR INJ 850 ML IV SCH (03:17)
[2016-08-19 03:41] LABS: AUTOMATED NEUTROPHIL # 6.4 TH/MM3 (1.8-7.7); BASOPHIL % 0.1 % (0.0-2.0); EOSINOPHIL % 0.1 % (0.0-4.0); HEMATOCRIT 34.8 % (39.0-51.0); LYMPH % 4.2 % (9.0-44.0); LYMPHOCYTE # 0.3 TH/MM3 (1.0-4.8); MEAN CELL VOLUME 83.9 FL (80.0-100.0); MEAN CORPUSCULAR HEMOGLOBIN 30.1 PG (27.0-34.0); MEAN CORPUSCULAR HGB CONC 35.8 % (32.0-36.0); MONO % 4.9 % (0.0-8.0); NEUT % 90.7 % (16.0-70.0); PLATELET COUNT 70 TH/MM3 (150-450); RED BLOOD COUNT 4.14 MIL/MM3 (4.50-5.90); RED CELL DISTRIBUTION WIDTH 14.6 % (11.6-17.2); WHITE BLOOD COUNT 7.1 TH/MM3 (4.0-11.0)
[2016-08-19 03:42] LABS: HEMO FLAGS AUTO DIFF
--- NOTE | 2016-08-19 03:45 | RADRPT ---
EXAM DATE/TIME: 08/19/2016 02:44 [place] COMPARISON: CHEST SINGLE AP, August 17, 2016, 19:36. CHEST SINGLE AP, August 18, 2016, 1:55. INDICATIONS : Respiratory disease MEDICAL HISTORY : None. SURGICAL HISTORY : None. ENCOUNTER: Subsequent ACUITY: 3 days PAIN SCORE: Non-responsive. LOCATION: Bilateral chest FINDINGS: Mild consolidations in right lung base. There may be a small right pleural effusion as well. No pneum othorax. Heart size stable, upper limits of normal. Endotracheal tube tip is about 4 cm above the janett, not significantly changed. There is a nasogastr ic tube with tip in the stomach. CONCLUSION: Mild right base consolidation has developed. Daniel Welch MD on August 19, 2016 at 3:42 Board Certified Radiologist. This report was verified electronically.
[2016-08-19] MEDS: CHLORHEXIDINE GLUCONATE 2 % 1 PACK (2 CLOTHS) TOP SCH (04:00)
[2016-08-19 04:08] LABS: BICARBONATE 34.8 MEQ/L (21.0-32.0); CALCIUM-PROTEIN CORRECTED 7.7 MG/DL (8.5-10.1); TOTAL BILIRUBIN ADULT 0.5 MG/DL (0.2-1.0)
[2016-08-19] MEDS: metroNIDAZOLE 500 MG INJ 100 ML IV SCH ×4 (05:03→21:19)
[2016-08-19] MEDS: PANTOPRAZOLE INJ 80 MG in SODIUM CHLORIDE 0.9% INJ 100 ML IV SCH ×2 (05:03→13:36)
[2016-08-19 05:30] LABS: SCAN/DIFF AUTO DIFF CONFIRMED
[2016-08-19] MEDS: cefTRIAXone INJ 2,000 MG in SODIUM CHLORIDE 0.9% INJ 100 ML IV SCH (05:42)
--- NOTE | 2016-08-19 08:24 | HHI.NPPN ---
Subjective History of Present Illness 71-year-old white male with history of sepsis, cardiac arrest, respiratory failure Additional Remarks He is awake and responsive on ventilator Objective Data Data 08/18/16 08/19/16 19:00 07:00 Intake Total 3024 ml 4434 ml Output Total 360 ml 360 ml Balance 2664 ml 4074 ml Intake IV Total 2285 ml 4434 ml Packed Cells 500 ml Cryoprecipitate 239 ml Output Urine Total 10 ml 260 ml Stool Total 100 ml 100 ml Gastric Drainage Total 50 ml 0 ml Hemodialysis 200 ml Vital Signs Date Time Temp Pulse Resp B/P Pulse Ox O2 Delivery O2 Flow Rate FiO2 08/19/16 07:00 98 Mechanical Ventilator 40 08/19/16 06:00 80 08/19/16 04:05 99 40 08/19/16 04:00 82 08/19/16 04:00 50 08/19/16 04:00 98.2 82 16 98/52 98 08/19/16 02:00 85 08/19/16 00:00 98.2 93 16 120/62 97 08/19/16 00:00 88 08/19/16 00:00 50 08/18/16 23:48 97 40 08/18/16 22:00 88 08/18/16 20:57 98 40 08/18/16 20:00 97 Mechanical Ventilator 40 08/18/16 20:00 50 08/18/16 20:00 98.6 90 16 104/54 97 08/18/16 20:00 90 08/18/16 18:00 89 08/18/16 16:43 97 40 08/18/16 16:00 106 08/18/16 16:00 98.0 106 16 118/60 98 08/18/16 14:00 98 08/18/16 12:00 118 08/18/16 12:00 99.0 118 23 126/62 96 08/18/16 11:37 100 40 08/18/16 08:41 100 40 -: 08/19/16 0320 08/19/16 0320 Microbiology 08/18/16 Gram Stain, Received Pending 08/18/16 Sputum Culture, Received Pending 08/18/16 Urine Culture, Received Pending 08/18/16 Legionella Antigen - Final, Complete PRESUMPTIVE NEGATIVE FOR LEGIONELLA P... 08/18/16 Streptococcus pneumoniae Antigen (M - Final, Complete PRESUMPTIVE NEGATIVE FOR STREPTOCOCCU... Physical Exam General Appearance: Well Developed Neck Neck Exam: Neck Supple Pulmonary Resp Exam: Clear Bilaterally, Breath Sounds Equal Cardiology CV Exam: Regular, Normal Sinus Rhythm Gastrointestinal/Abdomen GI Exam: Soft, Non-Tender, Bowel Sounds Present Integumentary Skin Exam: Clear Extremeties Extremities Exam: No Edema Assessment/Plan Problem List: (1) Acute renal failure Plan: He seen during hemodialysis attempting to get 4 L off continue supportive care and his blood pressure has improved He is on vasopressin and Levophed Continue to wean him off the vasopressors, Ultrasound kidney that showed a nonobstructing stone mid pole of the left kidney Likely ATN urine output remains low, C3 is slightly low BRAD is pending Stop bicarbonate drip as acidosis resolved (2) Hyperkalemia Plan: This is resolved (3) Cardiac arrest due to other underlying condition Plan: Patient is awake and responsive (4) Respiratory failure Plan: Intubated on ventilator (5) Acidosis, metabolic Plan: Resolved stop bicarbonate Problem Qualifiers (1) Acute renal failure: Qualified Code: N17.9 - Acute renal failure, unspecified acute renal failure type Michel Irwin MD Aug 19, 2016 08:24
[2016-08-19] MEDS: ALBUMIN HUMAN 25% 25 GM/100 ML BAGP IV PRN ×2 (08:26→08:27)
[2016-08-19] MEDS: SODIUM CHLOR 0.9% 1000 ML INJ 1,000 ML IV PRN (08:27)
[2016-08-19] MEDS: GENTAMICIN SULFATE (DIALYSIS USE ONLY) 20 MG/2 ML VIAL IV PRN (08:27)
[2016-08-19] MEDS: SODIUM CHLORIDE 0.9% FLUSH 5 ML FLUSH IV FLUSH SCH ×2 (08:57→21:00)
[2016-08-19] MEDS: DOCUSATE SODIUM 100 MG/10 ML UDC G-TUBE SCH ×2 (08:58→21:19)
[2016-08-19] MEDS: ARTIFICIAL TEARS OPTH SOLN 15 ML BTL EACH EYE SCH ×3 (08:58→18:00)
[2016-08-19 10:32] LABS: HEMATOCRIT 41.2 % (39.0-51.0)
[2016-08-19 10:37] LABS: REVIEW FLAG FINAL
--- NOTE | 2016-08-19 10:39 | HHI.CCPN ---
Subjective Remarks/Hospital Course Patient comes in by EMS after being [place] acted by police and family called stating the patient has not been getting out of bed or taking care of himself. Patient denies any medical complaints at this time. Denies any chest pain or shortness of breath, abdominal pain, or fevers. While in the ED patient suffered cardiac arrest due to V Fib. Successful short ACLS performed with return of spontaneous circulation. 08/18 Overnight upon presentation to the [facility] the patient was noted to have large amount of bloody stool unable to quantify, the patient also vomited approximately 500 cc of coffee ground emesis. An NG tube was placed and the patient was noted to have an additional 300 cc of coffee ground emesis, the patient continues to have melanotic stools. Hemodialysis was initiated and discontinued secondary to hypotension, the patient required levophed infusion, and was also bolused initially with a liter of normal saline. This morning the patient continues to bleed, contributing factors include uremia. Stat laboratory specimens obtained, to include coag studies. Will initiate DDAVP, and cryoprecipitate secondary to uremic bleeding. 08/19 Hemoglobin stable. The patient continues to have melanotic stool, decrease in volume approximately 100 cc last night , and small amount of coffee ground emesis approximately 50 cc overnight.The patient currently being dialyzed, sodium bicarbonate infusion discontinued. The patient is alert, following commands. Plan for CPAP trials today. Objective Vital Signs Date Time Temp Pulse Resp B/P Pulse Ox O2 Delivery O2 Flow Rate FiO2 08/19/16 10:00 93 08/19/16 09:33 98 40 08/19/16 08:00 98.6 16 136/66 08/19/16 07:00 Mechanical Ventilator Intake and Output 08/18/16 08/18/16 08/19/16 08:00 16:00 00:00 Intake Total 1007 ml 3024 ml 3096 ml Output Total 500 ml 160 ml 150 ml Balance 507 ml 2864 ml 2946 ml Result Diagram: 08/19/16 0320 08/19/16 0320 Other Results Microbiology Date/Time Procedure Status Source Growth 08/18/16 10:00 Legionella Antigen - Final Complete Urine Catheterized Urine PRESUMPTIVE NEGATIVE FOR LEGIONELLA P... 08/18/16 10:00 Streptococcus pneumoniae Antigen (M - Final Complete Urine Catheterized Urine PRESUMPTIVE NEGATIVE FOR STREPTOCOCCU... Imaging Last Impressions Chest X-Ray 08/19/16 0600 Signed Impressions: Service Date/Time: Friday, August 19, 2016 02:44 - CONCLUSION: Mild right base consolidation has developed. Daniel Welch MD Renal Ultrasound 08/18/16 0000 Signed Impressions: Service Date/Time: Thursday, August 18, 2016 10:13 - CONCLUSION: 1. No evidence of hydronephrosis. 2. There appears to be a probable 1.1 cm nonobstructing stone in the mid pole of the left kidney. Jae Apple MD Head CT 08/17/161924 Signed Impressions: Service Date/Time: Wednesday, August 17, 2016 19:48 - CONCLUSION: Normal examination for a patient of this age. Demetrius Lopez MD Last 24 hours Impressions Chest X-Ray 08/18/16 0127 Signed Impressions: Service Date/Time: Thursday, August 18, 2016 01:55 - CONCLUSION: Interim intubation with endotracheal tube tip about 2.5 cm above the janett. Lungs remain clear. Daniel Welch MD Head CT 08/17/161924 Signed Impressions: Service Date/Time: Wednesday, August 17, 2016 19:48 - CONCLUSION: Normal examination for a patient of this age. Demetrius Lopez MD Chest X-Ray 08/17/161924 Signed Impressions: Service Date/Time: Wednesday, August 17, 2016 19:36 - CONCLUSION: 1. No active disease. Demetrius Lopez MD Objective Remarks GENERAL: Patient alert, following commands intubated, SKIN: Warm and dry. Rash noted on bilateral arms and chest, now resolving HEAD: Normocephalic. EYES: No scleral icterus. No injection or drainage. NECK: Supple, trachea midline. No JVD or lymphadenopathy. Orotracheally intubated CARDIOVASCULAR: Regular rate and rhythm without murmurs, gallops, or rubs. RESPIRATORY: Breath sounds equal bilaterally. GASTROINTESTINAL: Abdomen soft, non-tender, nondistended. MUSCULOSKELETAL: No cyanosis, or edema. Urinary Catheter: Yes Cummins insert reason: Measure Accurate Output Date of Insertion: Aug 18, 2016 Vascular Central Line Catheter: Yes Line: Central Venous Catheter Side: Right Location: Femoral Reason for Continuation Administration of vasoactive medication A/P Problem List: (1) Weight loss, unintentional ICD Code: R63.4 Status: Acute (2) Generalized weakness ICD Code: R53.1 Status: Acute (3) Hyperkalemia ICD Code: E87.5 Status: Acute (4) Acute renal failure ICD Code: N17.9 Status: Acute (5) GI bleed ICD Code: K92.2 Status: Acute (6) Cardiac arrest due to other underlying condition ICD Code: I46.8 Status: Acute Assessment and Plan Plan by systems: Neurologic: -fentanyl infusion 100mcgs -GCS 11 T, following commands -Maintain RASS -2 Respiratory: Acute respiratory failure Possible aspiration pneumonitis -Wean FiO2 to less than 50% -Ventilator bundle -Obtain ABG -CPAP trials today -Maintain head of bed 30 -Schedule bronchodilators every 6 hours, and every 2 when necessary Cardiovascular: S/P Cardiac arrest-ventricular fibrillation (potassium level 7.7) Hypotension -Obtain echocardiogram assess function-hypertensive heart disease -Levophed infusion discontinued, Vasopressin infusion -Maintain MAP greater than 65mmHg -H HTN- home medication on ACEI , Lisinopril, currently on hold 2/2 hypotension, consider ARB, Calcium Channel ronald or Beta Ronald when clinically indicated to resume anti-HTN medication Renal: Acute renal failure Uremia -Nephrology consulted-Dr. Irwin -Dialyzed today, approximately 4 L off -Urine output 270 cc, BUN 185, Creatnine 10.5 -Monitor hourly urinary output -- Strict I/Os FEN/GI: GI bleed Melena Hyperkalemia secondary to acute renal failure -GI consulted-Dr. [id number]-kb recommendations -Protonix infusion -Maintain nothing by mouth status -Sodium bicarbonate discontinued -Obtain BMP post dialysis -OGT to LIWS-approximately 50 cc overnight of coffee ground emesis Heme/ID: Coagulopathy Bleeding possibly also secondary to uremia Thrombocytopenia -Hemoglobin stable -Obtain PT/INR -Monitor H&H every 6 hours -Transfuse platelets less than 50,000 -Follow-up hepatitis panel, BRAD screen Endocrine: Hyperglycemia of critical illness Glucose monitoring per ICU protocol -- SSI Prophylaxis: GI Prophylaxis Protonix infusion DVT Prophylaxis -- SCDs No pharmacological DVT prophylaxis secondary to acute bleed Lines: Left femoral Vas-Cath, right femoral arterial line, right triple-lumen femoral catheter (08/18) Dispo: my billing statement This patient remains critically ill with one or more organ systems which are or may become a threat to life. I have spent in excess of 47 minutes discontinuously in the care and management of this patient. This time is exclusive of procedures, and includes, but is not limited to, evaluation of the patient, review of the medical record, discussions with family, consultants, nursing staff, or respiratory therapy, and documentation in the medical record. Physician Cathryn Wagner Problem Qualifiers (1) Acute renal failure: Qualified Code: N17.9 - Acute renal failure, unspecified acute renal failure type (2) GI bleed: Qualified Code: K92.2 - Gastrointestinal hemorrhage, unspecified gastrointestinal hemorrhage type Cathryn Wagner MD Aug 19, 2016 10:39 Cathryn Wagner MD Aug 19, 2016 10:39
[2016-08-19] MEDS ORDERED: CALCIUM GLUCONATE INJ 2 GM in DEXTROSE 5% IN WATER 100ML INJ 100 ML IV ONE ×2 (11:00)
[2016-08-19 13:27] LABS: HEMATOCRIT 35.8 % (39.0-51.0)
[2016-08-19 13:33] LABS: REVIEW FLAG FINAL
[2016-08-19 13:34] LABS: INTERNATIONAL NORMALIZED RATIO 1.3 RATIO; PROTHROMBIN TIME - PATIENT 14.3 SEC (9.8-11.6)
[2016-08-19 13:54] LABS: BICARBONATE 29.1 MEQ/L (21.0-32.0); POTASSIUM 3.6 MEQ/L (3.5-5.1)
[2016-08-19] MEDS ORDERED: DIGOXIN 0.5 MG/2 ML VIAL IV PUSH ONE (14:15)
--- NOTE | 2016-08-19 16:11 | HHI.GIFU ---
Subjective Remarks Resting in bed. Had atrial fibrillation with RVR earlier today. Pt with dark coffee ground emesis in canister, small amount of clear brownish with slight pink tint in actual tubing itself. Dark brown liquid stool in bag. (Adina Meredith) Objective Vitals I&O Vital Signs Date Time Temp Pulse Resp B/P Pulse Ox O2 Delivery O2 Flow Rate FiO2 08/19/16 14:00 145 08/19/16 12:00 40 08/19/16 12:00 102 08/19/16 12:00 98.2 90 13 128/62 98 08/19/16 11:48 96 40 08/19/16 11:47 40 08/19/16 10:00 93 08/19/16 09:33 98 40 08/19/16 08:00 40 08/19/16 08:00 98.6 76 16 136/66 98 08/19/16 08:00 88 08/19/16 07:00 98 Mechanical Ventilator 40 08/19/16 06:00 80 08/19/16 04:05 99 40 08/19/16 04:00 82 08/19/16 04:00 50 08/19/16 04:00 98.2 82 16 98/52 98 08/19/16 02:00 85 08/19/16 00:00 98.2 93 16 120/62 97 08/19/16 00:00 88 08/19/16 00:00 50 08/18/16 23:48 97 40 08/18/16 22:00 88 08/18/16 20:57 98 40 08/18/16 20:00 97 Mechanical Ventilator 40 08/18/16 20:00 50 08/18/16 20:00 98.6 90 16 104/54 97 08/18/16 20:00 90 08/18/16 18:00 89 08/18/16 16:43 97 40 I/O 08/18/16 08/18/16 08/18/16 08/19/16 08/19/16 08/19/16 07:00 15:00 23:00 07:00 15:00 23:00 Intake Total 1007 ml 3024 ml 3096 ml 1338 ml 1903 ml Output Total 300 ml 360 ml 150 ml 210 ml 4100 ml Balance 707 ml 2664 ml 2946 ml 1128 ml -2197 ml Intake IV Total 1007 ml 2285 ml 3096 ml 1338 ml 1903 ml Packed Cells 500 ml Cryoprecipitate 239 ml Output Urine Total 0 ml 10 ml 100 ml 160 ml 100 ml Stool Total 100 ml 50 ml 50 ml 0 ml Gastric Drainage Total 300 ml 50 ml 0 ml 0 ml Hemodialysis 200 ml 4000 ml Laboratory Laboratory Tests Test 08/18/16 08/19/16 08/19/16 08/19/16 21:20 03:20 10:00 13:14 Hemoglobin 13.0 12.5 14.5 12.6 Hematocrit 36.4 34.8 41.2 35.8 Sodium Level 143 144 142 Potassium Level 4.1 4.0 3.6 Chloride Level 97 97 99 Carbon Dioxide Level 29.6 34.8 29.1 Anion Gap 16 12 14 Blood Urea Nitrogen 178 182 93 Creatinine 10.51 10.15 6.31 Estimat Glomerular Filtration 5 5 9 Rate Random Glucose 205 150 108 Calcium Level 6.4 6.6 7.8 Protein Corrected Calcium 7.4 7.7 Total Protein 5.1 4.9 White Blood Count 7.1 Red Blood Count 4.14 Mean Corpuscular Volume 83.9 Mean Corpuscular Hemoglobin 30.1 Mean Corpuscular Hemoglobin 35.8 Concent Red Cell Distribution Width 14.6 Platelet Count 70 Mean Platelet Volume 9.8 Neutrophils (%) (Auto) 90.7 Lymphocytes (%) (Auto) 4.2 Monocytes (%) (Auto) 4.9 Eosinophils (%) (Auto) 0.1 Basophils (%) (Auto) 0.1 Neutrophils # (Auto) 6.4 Lymphocytes # (Auto) 0.3 Monocytes # (Auto) 0.3 Eosinophils # (Auto) 0.0 Basophils # (Auto) 0.0 CBC Comment AUTO DIFF Differential Comment AUTO DIFF CONFIRMED Total Bilirubin 0.5 Aspartate Amino Transf 34 (AST/SGOT) Alanine Aminotransferase 22 (ALT/SGPT) Alkaline Phosphatase 46 Albumin 2.3 Prothrombin Time 14.3 Prothromb Time International 1.3 Ratio Test 08/19/16 15:03 Blood Gas Puncture Site LINE Blood Gas Patient Temperature 98.6 Blood Gas HCO3 27 Blood Gas Base Excess 3.4 Blood Gas Oxygen Saturation 96 Arterial Blood pH 7.48 Arterial Blood Partial 37 Pressure CO2 Arterial Blood Partial 112 Pressure O2 Arterial Blood Oxygen Content 16.0 Arterial Blood 0.8 Carboxyhemoglobin Arterial Blood Methemoglobin 1.0 Blood Gas Hemoglobin 11.7 Oxygen Delivery Device VENTILATOR Blood Gas Ventilator Setting AC16/500/5PEEP Blood Gas Inspired Oxygen 40 Date/Time Procedure Status Source Growth 08/18/16 10:00 Urine Culture - Preliminary Resulted Urine Catheterized Urine NO GROWTH IN 24 HOURS. 08/18/16 10:00 Legionella Antigen - Final Complete Urine Catheterized Urine PRESUMPTIVE NEGATIVE FOR LEGIONELLA P... 08/18/16 10:00 Streptococcus pneumoniae Antigen (M - Final Complete Urine Catheterized Urine PRESUMPTIVE NEGATIVE FOR STREPTOCOCCU... 08/18/16 10:00 Gram Stain - Final Resulted Sputum Endotracheal 08/18/16 10:00 Sputum Culture - Preliminary Resulted Gram Negative Trey Staph Sp Coagulase Positive 08/18/16 10:00 Cancelled Urine Catheterized Urine 08/18/16 04:29 Aerobic Blood Culture - Preliminary Resulted Blood Peripheral NO GROWTH IN 1 DAY 08/18/16 04:29 Anaerobic Blood Culture - Preliminary Resulted Blood Peripheral NO GROWTH IN 1 DAY Imaging Last Impressions Chest X-Ray 08/19/16 0600 Signed Impressions: Service Date/Time: Friday, August 19, 2016 02:44 - CONCLUSION: Mild right base consolidation has developed. Daniel Welch MD Renal Ultrasound 08/18/16 0000 Signed Impressions: Service Date/Time: Thursday, August 18, 2016 10:13 - CONCLUSION: 1. No evidence of hydronephrosis. 2. There appears to be a probable 1.1 cm nonobstructing stone in the mid pole of the left kidney. Jae Apple MD Head CT 08/17/16 1925 Signed Impressions: Service Date/Time: Wednesday, August 17, 2016 19:48 - CONCLUSION: Normal examination for a patient of this age. Demetrius Lopez MD Physical Exam HEENT: Normocephalic; atraumatic CHEST: Resp. even/unlabored, OETT on vent. CARDIAC: ST, Hypotensive. On levophed ABDOMEN: Soft, nondistended, nontender; no hepatosplenomegaly; bowel sounds are present in all four quadrants. OGT with clear brownish with slight pinkish tint. Rectal bag with dark brown EXTREMITIES: No clubbing, cyanosis, or edema. SKIN: Generalized pallor [employer]: Sedated on vent, withdraws to pain (Adina Meredith) Assessment and Plan Plan ASSESSMENT: - Upper GIB. Pt with coffee ground gastric secretions, melena, but no active bleeding with josiane red blood. Protonix Gtt. S/P Desmopressin, Cryoprecipitate. Plan was for EGD today, but he had atrial fibrillation with RVR. S/P Cardizem. His hr is now stable. HH has remained stable at 12.6/35.8. Canister has dark coffee ground gastric secretions but OGT with clear brownish-pink tint gastric secretions in tubing. Rectal bag with dark brown liquid stool Will cont. to monitor HH, protonix gtt, and plan for egd tomorrow if stable. - Anemia, acute blood loss. S/P 2 units PRBC 12.6/35.8. - ARF with severe electrolyte abnormalities. S/P Vascath placement. HD was attempted, but was stopped secondary to hypotension/not tolerating. Plan is to restart again tomorrow if tolerates. Nephrology following. - Coagulopathy. - Acute respiratory failure. Vent per CCM - Hypotension, on multiple pressors. - S/P VFib, S/P ACLS/Defibrillation with SROC. PLAN: - Plan for egd in am if stable - Obtain consents - NPO - OGT to LIWS - Protonix Gtt - Monitor HH - Transfuse as necessary - Supportive care - Further recommendations to follow based on results of above - Pt seen and examined by Dr. Morrell and myself and this note is written on his behalf (Adina Meredith) Physician Comments Patient seen and examined Agree with above Continue current supportive care Monitor labs Discussed with Dr. Wagner endoscopy when more stable or if actively bleeding at this point in time patient is still requiring vasopressors (Jose Morrell MD) Adina Meredith Aug 19, 2016 16:11 Jose Morrell MD Aug 19, 2016 20:36
[2016-08-19] MEDS ORDERED: AMIODARONE INJ 150 MG in DEXTROSE 5% IN WATER 100ML INJ 97 ML IV ONE ×2 (17:00)
[2016-08-19] MEDS: NOREPINEPHRINE 8 MG/D5W 250 ML IV SCH ×2 (17:00)
--- NOTE | 2016-08-19 21:04 | EC ---
Study Study Date:08/19/2016 STUDY CONCLUSIONS SUMMARY - Left ventricle: The cavity size was normal. Wall thickness was increased in a pattern of mild LVH. Systolic function was mildly reduced. The estimated ejection fraction was 45%. Wall motion was normal; there were no regional wall motion abnormalities. - Aortic valve: Mildly calcified annulus. Trileaflet; normal thickness leaflets. - Left atrium: The atrium was mildly dilated. - Tricuspid valve: Moderate regurgitation. - Pulmonary arteries: Systolic pressure was moderately increased, estimated to be 57mm Hg. If LV function is below 40, please consider prescribing an ACEI or ARB or document rationale for non-use. PROCEDURE DATA STUDY STATUS: Elective. Procedure: Transthoracic echocardiography. Image quality was good. Scanning was performed from the parasternal, apical, and subcostal acoustic windows. Study completion: The patient tolerated the procedure well. Transthoracic echocardiography. M-mode, complete 2D, complete spectral Doppler, and color Doppler. Patient status: Inpatient. CARDIAC ANATOMY LEFT VENTRICLE: The cavity size was normal. Wall thickness was increased in a pattern of mild LVH. Systolic function was mildly reduced. The estimated ejection fraction was 45%. Wall motion was normal; there were no regional wall motion abnormalities. AORTIC VALVE: Mildly calcified annulus. Trileaflet; normal thickness leaflets. Doppler: Transvalvular velocity was within the normal range. There was no stenosis. No regurgitation. AORTA: Aortic root: The aortic root was normal in size. MITRAL VALVE: Mildly thickened leaflets, . Doppler: Transvalvular velocity was within the normal range. There was no evidence for stenosis. No regurgitation. LEFT ATRIUM: The atrium was mildly dilated. RIGHT VENTRICLE: The cavity size was normal. Wall thickness was normal. PULMONIC VALVE: Doppler: Transvalvular velocity was within the normal range. There was no evidence for stenosis. No regurgitation. TRICUSPID VALVE: Structurally normal valve. Doppler: Transvalvular velocity was within the normal range. Moderate regurgitation. PULMONARY ARTERY: The main pulmonary artery was normal-sized. Systolic pressure was moderately increased, estimated to be 57mm Hg. RIGHT ATRIUM: The atrium was normal in size. PERICARDIUM: There was no pericardial effusion. SYSTEMIC VEINS: Inferior vena cava: The vessel was normal in size. Prepared and signed by Mj López [id number]
--- NOTE | 2016-08-19 21:25 | RADRPT ---
EXAM DATE/TIME: 08/19/2016 20:20 [facility] COMPARISON: No previous studies available for comparison. INDICATIONS : Swelling. MEDICAL HISTORY : MRSA. SURGICAL HISTORY : Unable to obtain. ENCOUNTER: Initial ACUITY: 1 day PAIN SCORE: 0/10 LOCATION: Bilateral legs FINDINGS: RIGHT UPPER EXTREMITY: There is spontaneous flow documented in the brachial, basilic, cephalic, axillary, and subclavian vei ns. The vessels are compressible and augmentation response is documented. No filling defects are se en. The flow is phasic with respiration. Direction of flow in the jugular vein is caudal. LEFT UPPER EXTREMITY: Occlusive thrombus in the left cephalic vein. There is spontaneous flow documented in the brachial, b asilic, axillary, and subclavian veins. CONCLUSION: Occlusive thrombus in the left cephalic vein. No DVT in the right arm. Morgan Jimenez MD on August 19, 2016 at 21:23 Board Certified Radiologist. This report was verified electronically.
[2016-08-19] MEDS ORDERED: EPINEPHrine HCL (1:10,000) 1 MG/10 ML SYRINGE ONE (21:52)
[2016-08-19] MEDS ORDERED: ATROPINE SULFATE 1 MG/10 ML SYRINGE ONE (21:53)
[2016-08-19] MEDS ORDERED: LIDOCAINE HCL 2% 100 MG/5 ML SYRINGE ONE (21:53)
--- NOTE | 2016-08-19 22:18 | RADRPT ---
EXAM DATE/TIME: 08/19/2016 22:04 [facility] COMPARISON: No previous studies available for comparison. INDICATIONS : Abdominal pain, failure to thrive, not eating. ORAL CONTRAST: No oral contrast ingested. RADIATION DOSE: 15.16 CTDIvol (mGy) MEDICAL HISTORY : a-fib, mrsa SURGICAL HISTORY : None. ENCOUNTER: Initial ACUITY: 2 days PAIN SCALE: Non-responsive LOCATION: abdomen TECHNIQUE: Volumetric scanning of the abdomen and pelvis was performed. Using automated exposure control and ad justment of the mA and/or kV according to patient size, radiation dose was kept as low as reasonably achievable to obtain optimal diagnostic quality images. FINDINGS: LOWER LUNGS: Nodular patchy infiltrates right lower lobe and minimal bibasilar consolidation. LIVER: Homogeneous density without lesion. There is no dilation of the biliary tree. No calcified gallston es. SPLEEN: Normal size without lesion. PANCREAS: Within normal limits. KIDNEYS: Normal in size and shape. There is no stone or hydronephrosis. The intermediate signal intensity shawanda ng the lower left kidney posteriorly measures 1.4 cm. ADRENAL GLANDS: Within normal limits. VASCULAR: There is no aortic aneurysm. BOWEL/MESENTERY: Nasogastric tube with tip in stomach. Extensive diverticulosis of the descending and sigmoid colon. T here is wall thickening of the sigmoid colon. Minimal fluid in the right lower paracolic. There is n o free intraperitoneal air or fluid. ABDOMINAL WALL: Within normal limits. RETROPERITONEUM: There is no lymphadenopathy. BLADDER: Cummins catheter decompresses urinary bladder. REPRODUCTIVE: Within normal limits. INGUINAL: There is no lymphadenopathy or hernia. MUSCULOSKELETAL: Within normal limits for patient age. CONCLUSION: 1. Diverticulosis of the descending and sigmoid colon. Wall thickening of the sigmoid colon could be colitis or diverticulitis. 2. Minimal fluid in the right paracolic gutter. 3. Bibasilar consolidation and patchy infiltrates right lower lobe. Followup CT chest recommended to ensure complete resolution. 1. Morgan Jimenez MD on August 19, 2016 at 22:13 Board Certified Radiologist. This report was verified electronically.
[2016-08-19 23:38] LABS: HEMATOCRIT 33.1 % (39.0-51.0)
[2016-08-19 23:39] LABS: REVIEW FLAG FINAL
[2016-08-20] VITALS (17 sets, daily range): BP systolic 113–154; BP diastolic 54–76; PULSE 74–134; RESP 7–16; TEMP 98.2–99.3; O2SAT 97–100
[2016-08-20] MEDS: PANTOPRAZOLE INJ 80 MG in SODIUM CHLORIDE 0.9% INJ 100 ML IV SCH ×3 (00:17→20:19)
[2016-08-20] MEDS: RESP: ALBUTEROL 2.5 MG/IPRATROPIUM 0.5 MG NEB (SCH) INH ×5 (02:56→19:52)
[2016-08-20] MEDS: CHLORHEXIDINE GLUCONATE 2 % 1 PACK (2 CLOTHS) TOP SCH (04:00)
[2016-08-20] MEDS: metroNIDAZOLE 500 MG INJ 100 ML IV SCH ×4 (04:40→21:02)
[2016-08-20 05:11] LABS: HEMATOCRIT 33.5 % (39.0-51.0); MEAN CORPUSCULAR HEMOGLOBIN 29.6 PG (27.0-34.0); MEAN CORPUSCULAR HGB CONC 33.7 % (32.0-36.0); PLATELET COUNT 55 TH/MM3 (150-450); RED BLOOD COUNT 3.81 MIL/MM3 (4.50-5.90); WHITE BLOOD COUNT 11.2 TH/MM3 (4.0-11.0)
[2016-08-20 05:17] LABS: BLOOD GAS BASE EXCESS 3.3 mmol/L (-2-2); BLOOD GAS CARBOXYHEMOGLOBIN 0.9 % (0-4); BLOOD GAS HCO3 27 mmol/L (22-26); BLOOD GAS METHEMOGLOBIN 1.1 % (0-2); BLOOD GAS O2 HGB SATURATION 97 % (90-100); BLOOD GAS OXYGEN CONTENT 15.2 Vol % (12.0-20.0); BLOOD GAS PCO2 35 mmHg (38-42); BLOOD GAS PO2 136 mmHg (61-120); CRITICAL VALUE NO; OXYGEN DEVICE VENTILATOR; TEMP CORR TO 98.6
[2016-08-20 05:18] LABS: DRAW SITE ART LINE; FIO2 40 %; STAT NO; VENT SETTINGS VAC16/500/PEEP 5
[2016-08-20] MEDS: cefTRIAXone INJ 2,000 MG in SODIUM CHLORIDE 0.9% INJ 100 ML IV SCH (05:23)
[2016-08-20 05:49] LABS: BICARBONATE 27.9 MEQ/L (21.0-32.0); MAGNESIUM 1.8 MG/DL (1.5-2.5); POTASSIUM 3.8 MEQ/L (3.5-5.1)
[2016-08-20] MEDS: LOW DOSE INSULIN NOVOLOG SUPPLEMENTAL SCALE SQ SCH ×4 (05:57→18:00)
[2016-08-20 06:27] LABS: REVIEW FLAG FINAL
[2016-08-20] MEDS: SODIUM CHLORIDE 0.9% FLUSH 5 ML FLUSH IV FLUSH SCH ×2 (09:11→21:02)
[2016-08-20] MEDS: ARTIFICIAL TEARS OPTH SOLN 15 ML BTL EACH EYE SCH ×3 (09:11→22:44)
[2016-08-20] MEDS: DOCUSATE SODIUM 100 MG/10 ML UDC G-TUBE SCH ×2 (09:11→21:01)
[2016-08-20] MEDS ORDERED: METOPROLOL TARTRATE 5 MG/5 ML VIAL ONE (12:49)
[2016-08-20 13:52] LABS: MYELOPEROXIDASE LESS THAN 1.0 AI (<1.0); PROTEINASE-3 LESS THAN 1.0 AI (<1.0)
--- NOTE | 2016-08-20 14:22 | HHI.NPPN ---
Subjective History of Present Illness 71-year-old white male with history of sepsis, cardiac arrest, respiratory failure Additional Remarks He is on ventilator Objective Data Data 08/19/16 08/20/16 19:00 07:00 Intake Total 1903 ml 864 ml Output Total 4100 ml 176 ml Balance -2197 ml 688 ml Intake IV Total 1903 ml 864 ml Output Urine Total 100 ml 176 ml Stool Total 0 ml 0 ml Gastric Drainage Total 0 ml Peritoneal Fluid 0 ml Hemodialysis 4000 ml Vital Signs Date Time Temp Pulse Resp B/P Pulse Ox O2 Delivery O2 Flow Rate FiO2 08/20/16 11:50 99 40 08/20/16 08:06 40 08/20/16 08:06 99 40 08/20/16 06:00 74 08/20/16 04:15 97 40 08/20/16 04:00 98.6 90 16 118/62 99 08/20/16 04:00 40 08/20/16 04:00 90 08/20/16 02:00 90 08/20/16 00:24 99 40 08/20/16 00:00 77 08/20/16 00:00 99.3 77 16 113/54 100 08/20/16 00:00 40 08/19/16 22:50 100 100 08/19/16 22:00 98 08/19/16 20:00 40 08/19/16 20:00 128 08/19/16 20:00 99.0 128 16 129/72 98 08/19/16 19:54 98 40 08/19/16 19:05 98 Mechanical Ventilator 40 08/19/16 18:00 133 08/19/16 16:14 98 40 08/19/16 16:00 99.3 112 16 116/64 98 08/19/16 16:00 40 08/19/16 16:00 130 -: 08/20/16 0445 08/20/16 0445 Microbiology 08/19/16 Gram Stain - Final, Resulted 08/19/16 Sputum Culture - Preliminary, Resulted NO GROWTH IN 24 HOURS. Physical Exam General Appearance: Well Developed Neck Neck Exam: Neck Supple Pulmonary Resp Exam: Clear Bilaterally, Breath Sounds Equal Cardiology CV Exam: Regular, Normal Sinus Rhythm Gastrointestinal/Abdomen GI Exam: Soft, Non-Tender, Bowel Sounds Present Integumentary Skin Exam: Clear Extremeties Extremities Exam: No Edema Assessment/Plan Problem List: (1) Acute renal failure Plan: He is stable next HD tomorrow CT abdomen pelvis diverticulitis Ultrasound kidney that showed a nonobstructing stone mid pole of the left kidney Likely ATN urine output remains low, C3 is slightly low BRAD/ANCA Neg (2) Hyperkalemia Plan: This is resolved (3) Cardiac arrest due to other underlying condition Plan: Patient is sedated (4) Respiratory failure Plan: Intubated on ventilator (5) Pneumonia Plan: on Ceftriaxone MRSA positive give Vanco with HD Problem Qualifiers (1) Acute renal failure: Qualified Code: N17.9 - Acute renal failure, unspecified acute renal failure type Michel Irwin MD Aug 20, 2016 14:22 Michel Irwin MD Aug 20, 2016 14:22
[2016-08-20] MEDS ORDERED: VANCOMYCIN INJ 1,000 MG in SODIUM CHLOR 0.9% 250 ML INJ 250 ML IV ONE (14:30)
--- NOTE | 2016-08-20 14:42 | HHI.CCPN ---
Subjective Remarks/Hospital Course Patient comes in by EMS after being Bates acted by police and family called stating the patient has not been getting out of bed or taking care of himself. Patient denies any medical complaints at this time. Denies any chest pain or shortness of breath, abdominal pain, or fevers. While in the ED patient suffered cardiac arrest due to V Fib. Successful short ACLS performed with return of spontaneous circulation. Subjective 08/18 Overnight upon presentation to the [facility] the patient was noted to have large amount of bloody stool unable to quantify, the patient also vomited approximately 500 cc of coffee ground emesis. An NG tube was placed and the patient was noted to have an additional 300 cc of coffee ground emesis, the patient continues to have melanotic stools. Hemodialysis was initiated and discontinued secondary to hypotension, the patient required levophed infusion, and was also bolused initially with a liter of normal saline. This morning the patient continues to bleed, contributing factors include uremia. Stat laboratory specimens obtained, to include coag studies. Will initiate DDAVP, and cryoprecipitate secondary to uremic bleeding. 08/19 Hemoglobin stable. The patient continues to have melanotic stool, decrease in volume approximately 100 cc last night , and small amount of coffee ground emesis approximately 50 cc overnight.The patient currently being dialyzed, sodium bicarbonate infusion discontinued. The patient is alert, following commands. Plan for CPAP trials today. 08/20 The patient was dialyzed yesterday, 4 L removed. In the afternoon, the patient was noted to go into A. fib RVR, heart rate 140-160's. A one-time dose of digoxin was given, subsequently later on in the day amiodarone bolus was given. Heart rate converted to sinus tach, low 100's, subsequently heart rate 80 to 90s. The patient was weaned off of vasopressin today. Minimal coffee ground emesis, and melena overnight. Left upper extremity was noted to be edematous, ultrasound imaging performed, which revealed occlusive thrombus left cephalic vein. Objective Vital Signs Date Time Temp Pulse Resp B/P Pulse Ox O2 Delivery O2 Flow Rate FiO2 08/20/16 11:50 99 40 08/20/16 06:00 74 08/20/16 04:00 98.6 16 118/62 08/19/16 19:05 Mechanical Ventilator Intake and Output 08/19/16 08/19/16 08/19/16 07:59 15:59 23:59 Intake Total 1338 ml 1903 ml 522 ml Output Total 210 ml 4100 ml 80 ml Balance 1128 ml -2197 ml 442 ml Result Diagram: 08/20/16 0445 08/20/16 0445 Other Results Microbiology Date/Time Procedure Status Source Growth 08/18/16 10:00 Gram Stain - Final Complete Sputum Endotracheal 08/18/16 10:00 Sputum Culture - Final Complete Enterobacter Cloacae Proteus Mirabilis S. Aureus Mrsa 08/18/16 10:00 Urine Culture - Final Complete Urine Catheterized Urine NO GROWTH IN 48 HOURS. 08/18/16 10:00 Legionella Antigen - Final Complete Urine Catheterized Urine PRESUMPTIVE NEGATIVE FOR LEGIONELLA P... 08/18/16 10:00 Streptococcus pneumoniae Antigen (M - Final Complete Urine Catheterized Urine PRESUMPTIVE NEGATIVE FOR STREPTOCOCCU... Laboratory Tests Test 08/20/16 05:02 Blood Gas Puncture Site ART LINE Blood Gas Patient Temperature 98.6 Blood Gas HCO3 27 mmol/L (22-26) Blood Gas Base Excess 3.3 mmol/L (-2-2) Blood Gas Oxygen Saturation 97 % (90-100) Arterial Blood pH 7.49 (7.380-7.420) Arterial Blood Partial 35 mmHg (38-42) Pressure CO2 Arterial Blood Partial 136 mmHg Pressure O2 (61-120) Arterial Blood Oxygen Content 15.2 Vol % (12.0-20.0) Arterial Blood 0.9 % (0-4) Carboxyhemoglobin Arterial Blood Methemoglobin 1.1 % (0-2) Blood Gas Hemoglobin 11.0 G/DL (12.0-16.0) Oxygen Delivery Device VENTILATOR Blood Gas Ventilator Setting VAC16/500/PEEP 5 Blood Gas Inspired Oxygen 40 % Imaging Last Impressions Abdomen/Pelvis CT 08/19/162320 Signed Impressions: Service Date/Time: Friday, August 19, 2016 22:04 - CONCLUSION: 1. Diverticulosis of the descending and sigmoid colon. Wall thickening of the sigmoid colon could be colitis or diverticulitis. 2. Minimal fluid in the right paracolic gutter. 3. Bibasilar consolidation and patchy infiltrates right lower lobe. Followup CT chest recommended to ensure complete resolution. 1. Morgan Jimenez MD Upper Extremity Ultrasound 08/19/16 1821 Signed Impressions: Service Date/Time: Friday, August 19, 2016 20:20 - CONCLUSION: Occlusive thrombus in the left cephalic vein. No DVT in the right arm. Morgan Jimenez MD Chest X-Ray 08/19/16 06 Signed Impressions: Service Date/Time: Friday, August 19, 2016 02:44 - CONCLUSION: Mild right base consolidation has developed. Daniel Welch MD Renal Ultrasound 08/18/16 0000 Signed Impressions: Service Date/Time: Thursday, August 18, 2016 10:13 - CONCLUSION: 1. No evidence of hydronephrosis. 2. There appears to be a probable 1.1 cm nonobstructing stone in the mid pole of the left kidney. Jae Apple MD Head CT 08/17/161924 Signed Impressions: Service Date/Time: Wednesday, August 17, 2016 19:48 - CONCLUSION: Normal examination for a patient of this age. Demetrius Lopez MD Last Impressions Chest X-Ray 08/19/16599 Signed Impressions: Service Date/Time: Friday, August 19, 2016 02:44 - CONCLUSION: Mild right base consolidation has developed. Daniel Welch MD Renal Ultrasound 08/18/16 0000 Signed Impressions: Service Date/Time: Thursday, August 18, 2016 10:13 - CONCLUSION: 1. No evidence of hydronephrosis. 2. There appears to be a probable 1.1 cm nonobstructing stone in the mid pole of the left kidney. Jae Apple MD Head CT 08/17/161924 Signed Impressions: Service Date/Time: Wednesday, August 17, 2016 19:48 - CONCLUSION: Normal examination for a patient of this age. Demetrius Lopez MD Last 24 hours Impressions Chest X-Ray 08/18/16 012 Signed Impressions: Service Date/Time: Thursday, August 18, 2016 01:55 - CONCLUSION: Interim intubation with endotracheal tube tip about 2.5 cm above the janett. Lungs remain clear. Daniel Welch MD Head CT 08/17/161924 Signed Impressions: Service Date/Time: Wednesday, August 17, 2016 19:48 - CONCLUSION: Normal examination for a patient of this age. Demetrius Lopez MD Chest X-Ray 08/17/161924 Signed Impressions: Service Date/Time: Wednesday, August 17, 2016 19:36 - CONCLUSION: 1. No active disease. Demetrius Lopez MD Objective Remarks GENERAL: Patient alert, following commands intubated SKIN: Warm and dry. Rash noted on bilateral arms and chest, now resolving HEAD: Normocephalic. EYES: No scleral icterus. No injection or drainage. NECK: Supple, trachea midline. No JVD or lymphadenopathy. Orotracheally intubated CARDIOVASCULAR: Regular rate and rhythm without murmurs, gallops, or rubs. RESPIRATORY: Breath sounds equal bilaterally. GASTROINTESTINAL: Abdomen soft, non-tender, nondistended. MUSCULOSKELETAL: No cyanosis, or left arm slight edema,1+ pitting edema B/L hands and feet. Urinary Catheter: Yes Cummins insert reason: Measure Accurate Output Date of Insertion: Aug 18, 2016 Line: Central Venous Catheter Side: Right Location: Femoral A/P Problem List: (1) Weight loss, unintentional ICD Code: R63.4 Status: Acute (2) Generalized weakness ICD Code: R53.1 Status: Acute (3) Hyperkalemia ICD Code: E87.5 Status: Acute (4) Acute renal failure ICD Code: N17.9 Status: Acute (5) GI bleed ICD Code: K92.2 Status: Acute (6) Cardiac arrest due to other underlying condition ICD Code: I46.8 Status: Acute Assessment and Plan Plan by systems: Neurologic: -GCS 11 T, following commands, interacting with family -Maintain RASS -2 Respiratory: Acute respiratory failure Aspiration pneumonitis Pneumonia multilobular -vent settings-16/500/.40/5 -Ventilator bundle -Sputum- Enterobacter cloacae, Proteus mirabilis, MRSA -CPAP trials today -Maintain head of bed 30 -Bronchodilators every 6 hours, and every 2 when necessary Cardiovascular: S/P Cardiac arrest-ventricular fibrillation (potassium level 7.7) Hypotension A. fib RVR -ECHO-EF 45%, systolic function mildly reduced. No RWMA -Elevated troponins 3.2-->3.23->2.71, trending down is likely secondary to cardiac arrest/demand ischemia and renal failure with now new onset atrial fibrillation. Could possibly be ACS, or Class 2 NSTEMI . The patient denies angina .Will repeat troponin to ensure trend is decreasing. In view of upper GI bleed, NPO status-will not provide aspirin or statin. Patient hemodynamically unstable on pressors, we'll not initiate beta ronald as management. -Vasopressin infusion dc'd, Levophed @2mcgs to maintain MAP > 65mmHg -Cardiology consult-appreciate recommendations -Amiodarone bolus, will begin infusion -PMH HTN- home medication on ACEI , Lisinopril, currently on hold 2/2 hypotension, consider ARB, Calcium Channel ronald or Beta Ronald when clinically indicated to resume anti-HTN medication Renal: Acute renal failure Uremia-resolved -Nephrology consulted-Dr. Irwin -Dialyzed 08/19, approximately 4 L off -Urine output averaging 16-30cc/hr, BUN 14 Creatinine 7.2 -Monitor hourly urinary output -- Strict I/Os FEN/GI: GI bleed Melena Hyperkalemia secondary to acute renal failure-resolved -GI consulted-Dr. [id number] recommendations -Protonix infusion -Maintain nothing by mouth status -Sodium bicarbonate discontinued 08/19 -Monitor BMP -OGT to LIWS-approximately 50 cc overnight of coffee ground emesis Heme/ID: Coagulopathy Bleeding possibly also secondary to uremia Thrombocytopenia -Hemoglobin stable -Monitor PT/INR -Monitor H&H every 6 hours -Transfuse platelets less than 50,000 -ID following- Dr. Billingsley -Sputum culture -Enterobacter cloacae, Proteus mirabilis, MRSA -Blood culture-NGTD -Hepatitis panel negative Endocrine: Hyperglycemia of critical illness Glucose monitoring per ICU protocol -- SSI Prophylaxis: GI Prophylaxis Protonix infusion DVT Prophylaxis -- SCDs No pharmacological DVT prophylaxis secondary to acute bleed Lines: Left femoral Vas-Cath, right femoral arterial line, right triple-lumen femoral catheter (08/18) Dispo: my billing statement This patient remains critically ill with one or more organ systems which are or may become a threat to life. I have spent in excess of 57 minutes discontinuously in the care and management of this patient. This time is exclusive of procedures, and includes, but is not limited to, evaluation of the patient, review of the medical record, discussions with family, consultants, nursing staff, or respiratory therapy, and documentation in the medical record. Physician Cathryn Wganer Problem Qualifiers (1) Acute renal failure: Qualified Code: N17.9 - Acute renal failure, unspecified acute renal failure type (2) GI bleed: Qualified Code: K92.2 - Gastrointestinal hemorrhage, unspecified gastrointestinal hemorrhage type Cathryn Wagner MD Aug 20, 2016 14:42
[2016-08-20] MEDS ORDERED: VANCOMYCIN INJ 1,000 MG in SODIUM CHLOR 0.9% 250 ML INJ 250 ML IV SCH (15:00)
[2016-08-20] MEDS ORDERED: AMIODARONE INJ 150 MG in DEXTROSE 5% IN WATER 100ML INJ 97 ML IV ONE ×2 (15:00)
[2016-08-20] MEDS ORDERED: DIGOXIN 0.5 MG/2 ML VIAL IV PUSH ONE (21:00)
[2016-08-21] VITALS (18 sets, daily range): BP systolic 101–158; BP diastolic 62–74; PULSE 68–131; RESP 12–19; TEMP 98.3–99.5; O2SAT 98–99
[2016-08-21] MEDS: RESP: ALBUTEROL 2.5 MG/IPRATROPIUM 0.5 MG NEB (SCH) INH ×6 (00:29→20:05)
[2016-08-21 01:21] LABS: BLOOD GAS BASE EXCESS -0.4 mmol/L (-2-2); BLOOD GAS CARBOXYHEMOGLOBIN 0.7 % (0-4); BLOOD GAS HCO3 23 mmol/L (22-26); BLOOD GAS METHEMOGLOBIN 0.8 % (0-2); BLOOD GAS O2 HGB SATURATION 97 % (90-100); BLOOD GAS OXYGEN CONTENT 16.3 Vol % (12.0-20.0); BLOOD GAS PCO2 30 mmHg (38-42); BLOOD GAS PO2 140 mmHg (61-120); BLOOD GAS TOTAL HGB 11.7 G/DL (12.0-16.0); CRITICAL VALUE NO; DRAW SITE ART LINE; FIO2 40 %; OXYGEN DEVICE VENTILATOR; TEMP CORR TO 98.6; VENT SETTINGS AC/16/500/PEEP5
[2016-08-21 01:22] LABS: STAT NO
[2016-08-21] MEDS ORDERED: MIDAZOLAM HCL 2 MG/2 ML VIAL IV SCH (02:30)
[2016-08-21] MEDS: AMIODARONE INJ 450 MG in DEXTROSE 5% IN WATE(EXCEL) INJ 241 ML IV SCH ×4 (03:49→20:15)
[2016-08-21] MEDS: metroNIDAZOLE 500 MG INJ 100 ML IV SCH (03:50)
[2016-08-21] MEDS: CHLORHEXIDINE GLUCONATE 2 % 1 PACK (2 CLOTHS) TOP SCH (04:00)
[2016-08-21] MEDS ORDERED: diphenhydrAMINE HCL 50 MG/ML VIAL IV SCH (05:00)
[2016-08-21 05:32] LABS: BLOOD GAS BASE EXCESS 0.2 mmol/L (-2-2); BLOOD GAS CARBOXYHEMOGLOBIN 0.8 % (0-4); BLOOD GAS HCO3 23 mmol/L (22-26); BLOOD GAS METHEMOGLOBIN 1.1 % (0-2); BLOOD GAS O2 HGB SATURATION 97 % (90-100); BLOOD GAS OXYGEN CONTENT 16.6 Vol % (12.0-20.0); BLOOD GAS PCO2 32 mmHg (38-42); BLOOD GAS PO2 141 mmHg (61-120); CRITICAL VALUE NO; TEMP CORR TO 98.6
[2016-08-21 05:33] LABS: DRAW SITE ART LINE; FIO2 40 %; OXYGEN DEVICE VENTILATOR; STAT NO; VENT SETTINGS AC/16/500/PEEP5
[2016-08-21] MEDS: PANTOPRAZOLE INJ 80 MG in SODIUM CHLORIDE 0.9% INJ 100 ML IV SCH ×2 (05:35→15:45)
[2016-08-21] MEDS: cefTRIAXone INJ 2,000 MG in SODIUM CHLORIDE 0.9% INJ 100 ML IV SCH (05:36)
[2016-08-21 05:52] LABS: AUTOMATED NEUTROPHIL # 8.4 TH/MM3 (1.8-7.7); BASOPHIL % 0.4 % (0.0-2.0); EOSINOPHIL # 0.1 TH/MM3 (0-0.4); EOSINOPHIL % 1.3 % (0.0-4.0); HEMATOCRIT 34.6 % (39.0-51.0); LYMPHOCYTE # 0.4 TH/MM3 (1.0-4.8); MEAN CELL VOLUME 88.7 FL (80.0-100.0); MEAN CORPUSCULAR HEMOGLOBIN 29.6 PG (27.0-34.0); MEAN CORPUSCULAR HGB CONC 33.4 % (32.0-36.0); MONO % 5.1 % (0.0-8.0); NEUT % 89.2 % (16.0-70.0); PLATELET COUNT 55 TH/MM3 (150-450); RED CELL DISTRIBUTION WIDTH 14.9 % (11.6-17.2); WHITE BLOOD COUNT 9.4 TH/MM3 (4.0-11.0)
[2016-08-21 05:54] LABS: ALT (GPT) 18 U/L (12-78); ANION GAP 15 MEQ/L (5-15); AST (GOT) 22 U/L (15-37); BICARBONATE 24.7 MEQ/L (21.0-32.0); BLOOD UREA NITROGEN 114 MG/DL (7-18); CHLORIDE 103 MEQ/L (98-107); GLOMERULAR FILTRATION RATE 7 ML/MIN (>89); MAGNESIUM 1.9 MG/DL (1.5-2.5); POTASSIUM 3.7 MEQ/L (3.5-5.1); SODIUM (NA) 143 MEQ/L (136-145)
[2016-08-21 05:58] LABS: ALKALINE PHOSPHATASE 71 U/L (45-117); TOTAL BILIRUBIN ADULT 0.6 MG/DL (0.2-1.0)
[2016-08-21] MEDS: LOW DOSE INSULIN NOVOLOG SUPPLEMENTAL SCALE SQ SCH ×4 (06:00→18:00)
[2016-08-21 06:12] LABS: HEMO FLAGS AUTO DIFF
--- NOTE | 2016-08-21 06:44 | EKG ---
Date Performed: 08/20/2016 Time Performed: 14:12:44 PTAGE: 71 years EKG: Atrial flutter with rapid ventricular response with 2:1 A-V block. Possible left ventricula r hypertrophy Extensive ST-T changes are probably due to ventricular hypertrophy Abnormal ECG NO PREVIOUS TRACING DOCTOR: Saman England Interpretating Date/Time 08/21/2016 06:42:08
--- NOTE | 2016-08-21 07:08 | EKG ---
Date Performed: 08/19/2016 Time Performed: 13:29:12 PTAGE: 71 years EKG: Atrial fibrillation with rapid ventricular response. Incomplete RBBB Inferior/lateral ST-T changes are nonspecific Abnormal ECG PREVIOUS TRACING : 08/17/2016 21.56 Compared to prior tracing no significant change DOCTOR: Saman England Interpretating Date/Time 08/21/2016 07:05:29
[2016-08-21 07:12] LABS: PLATELET ESTIMATE SMEAR LOW (NORMAL); PLATELET MORPHOLOGY NORMAL (NORMAL)
[2016-08-21 07:13] LABS: SCAN/DIFF AUTO DIFF CONFIRMED
[2016-08-21] MEDS: GENTAMICIN SULFATE (DIALYSIS USE ONLY) 20 MG/2 ML VIAL IV PRN (08:24)
[2016-08-21] MEDS: HEPARIN SODIUM - IV 10,000 UNITS/10 ML VIAL PRN (08:24)
[2016-08-21] MEDS: SODIUM CHLOR 0.9% 1000 ML INJ 1,000 ML IV PRN (08:25)
[2016-08-21] MEDS: ALBUMIN HUMAN 25% 25 GM/100 ML BAGP IV PRN (08:26)
[2016-08-21] MEDS: ARTIFICIAL TEARS OPTH SOLN 15 ML BTL EACH EYE SCH ×3 (09:00→18:00)
[2016-08-21] MEDS: DOCUSATE SODIUM 100 MG/10 ML UDC G-TUBE SCH ×2 (09:00→20:14)
[2016-08-21] MEDS: SODIUM CHLORIDE 0.9% FLUSH 5 ML FLUSH IV FLUSH SCH ×2 (09:00→20:14)
[2016-08-21] MEDS: VASOPRESSIN INJ 40 UNITS in DEXTROSE 5% IN WATER 100ML INJ 98 ML IV SCH ×2 (09:53)
--- NOTE | 2016-08-21 10:03 | MB ---
cc: CLAIRE FLETCHER MD DATE OF CONSULTATION: 08/21/2016 see other dictation Cleve Nicole /9:50 AM /9:57 AM [facility] CENTERLeonard
--- NOTE | 2016-08-21 10:13 | MB ---
cc: CLAIRE FLETCHER MD DATE OF CONSULTATION: 08/21/2016 REASON FOR CONSULTATION: Status post cardiac arrest 3 days ago. HISTORY OF PRESENT ILLNESS Mr. Brar is a 71-year-old man who presented to the hospital on August 18 after being Bates Acted by police when the family had complained that the patient had not been taking care of himself or getting out of bed. He apparently had a cardiac arrest shortly after arrival and was felt secondary to hyperkalemia. He was successfully resuscitated and subsequently underwent intubation and dialysis. Cardiology has now been consulted and the patient apparently had an episode of atrial fibrillation, last night and GI is requesting risk stratification for the esophagogastroduodenoscopy. PAST MEDICAL HISTORY/SOCIAL HISTORY/ REVIEW OF SYSTEMS /FAMILY HISTORY: Are all unobtainable as the patient is intubated. PHYSICAL EXAMINATION: VITAL SIGNS: Current vital signs are 98.3, 68, 19, 118/74. IN GENERAL: He is a well appearing man who is in no apparent distress. NECK: His neck is free from JVD. LUNGS: The lungs are decreased but clear to auscultation. CARDIOVASCULAR SYSTEM: On cardiovascular examination he has a normal S1 and S2, There is a 2/6 systolic murmur and no rubs or gallops are appreciated. ABDOMEN: The abdomen is soft. EXTREMITIES: The extremities have trace to 1+ edema. RADIOLOGIC: Echocardiogram shows ejection fraction of 45% with moderate tricuspid regurgitation and mildly increased RVSP at 57 mmHg. LABORATORY VALUES: Significant for hemoglobin 11.6. His potassium on arrival was 7.7 with a creatinine of 19.32. His troponins initially were 0.42 with a peak of 3.23. His creatinine today is 6.3. EKG - does show atrial flutter with 2 to 1 conduction and rapid ventricular rate. Telemetry - currently shows a sinus rhythm. ASSESSMENT AND PLAN: New onset atrial flutter. I do concur with the diagnosis, the patient was cardioverted and is back in normal sinus rhythm. In the setting of GI bleed the typical anticoagulation is felt relatively contraindicated. The patient currently is back in sinus on an a amiodarone drip which does seem reasonable. Of note his AST and ALT are normal to the low range. Thus at this point I would simply continue him on amiodarone. Cardiac arrest - unfortunately I do not have any real history on this gentleman. It does appear that he was quite hyperkalemic and in renal failure which may have precipitated his cardiac arrest. Additionally, his CK-MB is negative. ADDENDUM: Gastrointestinal bleed, it is reasonable to proceed with esophagogastroduodenoscopy as the risks/benefits is felt to be favorable and we would certainly need to have information on his gastrointestinal bleed status prior to considering any revascularization. Claire Fletcher M.D. [place] /9:43 AM /9:08 AM
--- NOTE | 2016-08-21 10:16 | HHI.NPPN ---
Subjective History of Present Illness 71-year-old white male with history of sepsis, cardiac arrest, respiratory failure Additional Remarks He is on ventilator Objective Data Data 08/20/16 08/21/16 19:00 07:00 Intake Total 578 ml 990 ml Output Total 300 ml 375 ml Balance 278 ml 615 ml Intake IV Total 578 ml 990 ml Output Urine Total 300 ml 375 ml Gastric Drainage Total 0 ml # Bowel Movements 0 0 Vital Signs Date Time Temp Pulse Resp B/P Pulse Ox O2 Delivery O2 Flow Rate FiO2 08/21/16 10:00 91 08/21/16 10:00 99.5 92 18 108/62 98 08/21/16 08:00 40 08/21/16 08:00 68 08/21/16 07:47 98 40 08/21/16 06:00 68 08/21/16 04:24 99 40 08/21/16 04:00 98.3 131 19 118/74 98 08/21/16 04:00 40 08/21/16 04:00 131 08/21/16 02:00 128 08/21/16 00:29 98 40 08/21/16 00:00 99.0 106 16 101/62 98 08/21/16 00:00 40 08/21/16 00:00 106 08/20/16 22:00 128 08/20/16 20:00 99.0 132 16 118/74 99 Manual Cuff/Doppler 08/20/16 20:00 134 08/20/16 20:00 40 08/20/16 19:46 97 40 08/20/16 18:00 104 08/20/16 16:00 98.4 127 14 119/71 99 08/20/16 16:00 40 08/20/16 16:00 127 08/20/16 14:00 83 08/20/16 12:00 98.2 83 14 154/76 99 08/20/16 12:00 83 08/20/16 12:00 40 08/20/16 11:50 99 40 -: 08/21/16 0500 08/21/16 0500 Physical Exam General Appearance: Well Developed Neck Neck Exam: Neck Supple Pulmonary Resp Exam: Clear Bilaterally, Breath Sounds Equal Cardiology CV Exam: Regular, Normal Sinus Rhythm Gastrointestinal/Abdomen GI Exam: Soft, Non-Tender, Bowel Sounds Present Integumentary Skin Exam: Clear Extremeties Extremities Exam: No Edema Assessment/Plan Problem List: (1) Acute renal failure Plan: on HD Proceedings noted 3 K/HCO3 3 L UF tolerating it well UOP slow to improve CT abdomen pelvis diverticulitis continue with hemodialysis (2) Hyperkalemia Plan: This is resolved (3) Cardiac arrest due to other underlying condition Plan: Patient is sedated (4) Respiratory failure Plan: Intubated on ventilator (5) Pneumonia Plan: on Ceftriaxone MRSA positive give Vanco with HD Problem Qualifiers (1) Acute renal failure: Qualified Code: N17.9 - Acute renal failure, unspecified acute renal failure type Michel Irwin MD Aug 21, 2016 10:16
[2016-08-21 10:57] LABS: HDL CHOLESTEROL 32.6 MG/DL (40.0-60.0)
--- NOTE | 2016-08-21 11:11 | HHI.IDPN ---
Subjective Subjective Remarks is a 71 y/o CM with PMHx of HTN who was reportedly on Lisinopril prior to admission. He also reportedly had chronic arthritis and back pain and was on OTC pain meds off and on. ID following for aspiration pneumonia. Sputum with MRSA, Enterobacter cloacae and Proteus mirabilis. On HD, recd Vanco IV in HD and rash seems more pronounced and maculopapular. On low dose Levophed while on HD. No diarrhea No fever Antibiotics Ceftriaxone IV Flagyl IV Vanco IV in HD Lines Line sites with no e/o infection Past Medical History reviewed Allergies: Coded Allergies: *MDRO Multi-Drug Resistant Organism (Verified Adverse Reaction, Unknown, ) MRSA PCR Screen POSITIVE - 08/18/16 Objective . Vital Signs Date Time Temp Pulse Resp B/P Pulse Ox O2 Delivery O2 Flow Rate FiO2 08/21/16 10:00 91 08/21/16 10:00 99.5 92 18 108/62 98 08/21/16 08:00 40 08/21/16 08:00 68 08/21/16 07:47 98 40 08/21/16 06:00 68 08/21/16 04:24 99 40 08/21/16 04:00 98.3 131 19 118/74 98 08/21/16 04:00 40 08/21/16 04:00 131 08/21/16 02:00 128 08/21/16 00:29 98 40 08/21/16 00:00 99.0 106 16 101/62 98 08/21/16 00:00 40 08/21/16 00:00 106 08/20/16 22:00 128 08/20/16 20:00 99.0 132 16 118/74 99 Manual Cuff/Doppler 08/20/16 20:00 134 08/20/16 20:00 40 08/20/16 19:46 97 40 08/20/16 18:00 104 08/20/16 16:00 98.4 127 14 119/71 99 08/20/16 16:00 40 08/20/16 16:00 127 08/20/16 14:00 83 08/20/16 12:00 98.2 83 14 154/76 99 08/20/16 12:00 83 08/20/16 12:00 40 08/20/16 11:50 99 40 08/20/16 08/20/16 08/21/16 15:00 23:00 07:00 Intake Total 578 ml 454 ml 536 ml Output Total 300 ml 175 ml 200 ml Balance 278 ml 279 ml 336 ml Intake IV Total 578 ml 454 ml 536 ml Output Urine Total 300 ml 175 ml 200 ml Gastric Drainage Total 0 ml # Bowel Movements 0 0 0 . Laboratory Tests Test 08/19/16 08/19/16 08/20/16 08/20/16 13:14 23:22 04:45 23:24 Hemoglobin 12.6 GM/DL 11.4 GM/DL 11.3 GM/DL 12.1 GM/DL Hematocrit 35.8 % 33.1 % 33.5 % 35.0 % White Blood Count 11.2 TH/MM3 Red Blood Count 3.81 MIL/MM3 Mean Corpuscular Volume 88.0 FL Mean Corpuscular Hemoglobin 29.6 PG Mean Corpuscular Hemoglobin 33.7 % Concent Red Cell Distribution Width 15.0 % Platelet Count 55 TH/MM3 Mean Platelet Volume 9.0 FL Test 08/21/16 05:00 White Blood Count 9.4 TH/MM3 Red Blood Count 3.90 MIL/MM3 Hemoglobin 11.6 GM/DL Hematocrit 34.6 % Mean Corpuscular Volume 88.7 FL Mean Corpuscular Hemoglobin 29.6 PG Mean Corpuscular Hemoglobin 33.4 % Concent Red Cell Distribution Width 14.9 % Platelet Count 55 TH/MM3 Mean Platelet Volume 9.5 FL Neutrophils (%) (Auto) 89.2 % Lymphocytes (%) (Auto) 4.0 % Monocytes (%) (Auto) 5.1 % Eosinophils (%) (Auto) 1.3 % Basophils (%) (Auto) 0.4 % Neutrophils # (Auto) 8.4 TH/MM3 Lymphocytes # (Auto) 0.4 TH/MM3 Monocytes # (Auto) 0.5 TH/MM3 Eosinophils # (Auto) 0.1 TH/MM3 Basophils # (Auto) 0.0 TH/MM3 CBC Comment AUTO DIFF Differential Comment AUTO DIFF CONFIRMED Platelet Estimate LOW Platelet Morphology Comment NORMAL Laboratory Tests Test 08/19/16 08/19/16 08/19/16 08/20/16 13:14 18:00 23:22 04:45 Sodium Level 142 MEQ/L 143 MEQ/L Potassium Level 3.6 MEQ/L 3.8 MEQ/L Chloride Level 99 MEQ/L 101 MEQ/L Carbon Dioxide Level 29.1 MEQ/L 27.9 MEQ/L Anion Gap 14 MEQ/L 14 MEQ/L Blood Urea Nitrogen 93 MG/DL 107 MG/DL Creatinine 6.31 MG/DL 7.26 MG/DL Estimat Glomerular Filtration 9 ML/MIN 7 ML/MIN Rate Random Glucose 108 MG/DL 103 MG/DL Calcium Level 7.8 MG/DL 7.5 MG/DL Troponin I 3.20 NG/ML 3.23 NG/ML 2.71 NG/ML Phosphorus Level 5.6 MG/DL Magnesium Level 1.8 MG/DL Test 08/21/16 05:00 Sodium Level 143 MEQ/L Potassium Level 3.7 MEQ/L Chloride Level 103 MEQ/L Carbon Dioxide Level 24.7 MEQ/L Anion Gap 15 MEQ/L Blood Urea Nitrogen 114 MG/DL Creatinine 7.73 MG/DL Estimat Glomerular Filtration 7 ML/MIN Rate Random Glucose 89 MG/DL Calcium Level 7.9 MG/DL Phosphorus Level 6.2 MG/DL Magnesium Level 1.9 MG/DL Total Bilirubin 0.6 MG/DL Aspartate Amino Transf 22 U/L (AST/SGOT) Alanine Aminotransferase 18 U/L (ALT/SGPT) Alkaline Phosphatase 71 U/L Ammonia 21 MCMOL/L Troponin I 1.33 NG/ML Total Protein 5.3 GM/DL Albumin 2.6 GM/DL Triglycerides Level 74 MG/DL Cholesterol Level 61 MG/DL LDL Cholesterol 14 MG/DL HDL Cholesterol 32.6 MG/DL Cholesterol/HDL Ratio 1.87 RATIO Microbiology Date/Time Procedure Status Source Growth 08/19/16 23:15 Gram Stain - Final Resulted Sputum Endotracheal 08/19/16 23:15 Sputum Culture - Preliminary Resulted S. Aureus Mrsa Gram Negative [facility] Last Impressions Abdomen/Pelvis CT 08/19/16 2321 Signed Impressions: Service Date/Time: Friday, August 19, 2016 22:04 - CONCLUSION: 1. Diverticulosis of the descending and sigmoid colon. Wall thickening of the sigmoid colon could be colitis or diverticulitis. 2. Minimal fluid in the right paracolic gutter. 3. Bibasilar consolidation and patchy infiltrates right lower lobe. Followup CT chest recommended to ensure complete resolution. 1. Morgan Jimenez MD Upper Extremity Ultrasound 08/19/16 1821 Signed Impressions: Service Date/Time: Friday, August 19, 2016 20:20 - CONCLUSION: Occlusive thrombus in the left cephalic vein. No DVT in the right arm. Morgan Jimenez MD Chest X-Ray 08/19/16 0600 Signed Impressions: Service Date/Time: Friday, August 19, 2016 02:44 - CONCLUSION: Mild right base consolidation has developed. Daniel Welch MD Renal Ultrasound 08/18/16 0000 Signed Impressions: Service Date/Time: Thursday, August 18, 2016 10:13 - CONCLUSION: 1. No evidence of hydronephrosis. 2. There appears to be a probable 1.1 cm nonobstructing stone in the mid pole of the left kidney. Jae Apple MD Head CT 08/17/16 1925 Signed Impressions: Service Date/Time: Wednesday, August 17, 2016 19:48 - CONCLUSION: Normal examination for a patient of this age. Demetrius Lopez MD Physical Exam GENERAL: This is a well-nourished, well-developed patient, in no apparent distress. SKIN: No rashes, ecchymoses or lesions. Cool and dry. HEAD: Atraumatic. Normocephalic. No temporal or scalp tenderness. EYES: Pupils equal round and reactive. Extraocular motions intact. No scleral icterus. No injection or drainage. ENT: Intubated. NECK: Trachea midline. Supple, nontender, no meningeal signs. CARDIOVASCULAR: Regular rate and rhythm without murmurs, gallops, or rubs. RESPIRATORY: Breath sounds equal bilaterally. No wheezes, rales, or rhonchi. GASTROINTESTINAL: Abdomen soft, non-tender, nondistended. MUSCULOSKELETAL: Extremities without clubbing, cyanosis, or edema. No joint tenderness, effusion, or edema noted. No calf tenderness. Negative Homans sign bilaterally. NEUROLOGICAL: On vent, opens eyes follow simple commands/ IV line sites with no e/o infection. Assessment & Plan Remarks Possible Sepsis present on admission. Aspiration Pneumonitis. Leucopenia: ? sepsis related, uremia. Acute renal failure now on HD: prerenal, was on lisinopril, acute GI bleed. Uremia, hyperkalemia, elevated CK on admission. Acute GI bleeding: ? NSAID induced, Uremia related. Acute metabolic encephalopathy: uremia, sepsis related. Anemia: blood loss related. Recs: Continue Ceftriaxone IV. Start Zyvox oral per OG/NGT DC Vanco IV (worsening maculopapular rash on Vanco IV, also patient has acute renal failure on vent, would like to avoid nephrotoxins to help kidneys recover) DC Flagyl IV completed 5 days for aspiration. Follow cultures Follow clinically. d/w and RN Dr Tamayo covering for me this weekend. Charmaine Billingsley MD Aug 21, 2016 11:11
[2016-08-21] MEDS: LINEZOLID 600 MG TAB PO SCH ×2 (12:00→20:14)
--- NOTE | 2016-08-21 13:39 | PD.PROCEDR ---
GI Procedure REFERRING PHYSICIAN Dr. Damon PROCEDURE PERFORMED EGD with biopsy INDICATION FOR PROCEDURE Coffee-ground emesis melena and anemia PROCEDURE: The procedure, risks and benefits were discussed with Mr. Brar and informed consent was obtained. Anesthesia sedated him with Diprivan. He was placed in the left lateral decubitus position. EGD: The Pentax videoscope was introduced through the oropharynx and advanced to the second portion of the duodenum under direct visualization. Retroflexion was performed in the stomach. FINDINGS: The esophagus there was distal esophageal mucosal erythema suggestive of esophagitis and no ulcerations or erosions this was mild The stomach there was gastric body ulcers with diffuse gastric body and antrum erythema no visible vessel and no blood or bleeding noted multiple biopsies were taken otherwise gastric mucosa was unremarkable The duodenum there was patchy erythema in the duodenal bulb and sweep but no ulcers or erosions biopsies were taken for further evaluation of the rest of the duodenum was unremarkable ESTIMATED BLOOD LOSS: None SPECIMENS REMOVED: Gastric and duodenal biopsies COMPLICATIONS: None IMPRESSION: Esophagitis Gastritis Gastric ulcer Duodenitis PLAN: Await biopsy Avoid NSAIDs and aspirin Recommend Protonix 40 mg twice daily EGD in 2 months Continue with current supportive care Jose Morrell MD Aug 21, 2016 13:38
[2016-08-21] MEDS ORDERED: ROCURONIUM INJ 50 MG/5 ML VIAL IV ONE (14:18)
[2016-08-21] MEDS ORDERED: PROPOFOL 200 MG/20 ML AMP IV ONE (14:18)
[2016-08-21 14:39] LABS: MEAN CELL VOLUME 87.8 FL (80.0-100.0); MEAN CORPUSCULAR HEMOGLOBIN 30.8 PG (27.0-34.0); MEAN CORPUSCULAR HGB CONC 35.1 % (32.0-36.0); PLATELET COUNT 66 TH/MM3 (150-450); RED BLOOD COUNT 3.76 MIL/MM3 (4.50-5.90); RED CELL DISTRIBUTION WIDTH 14.3 % (11.6-17.2); WHITE BLOOD COUNT 8.1 TH/MM3 (4.0-11.0)
[2016-08-21 14:41] LABS: REVIEW FLAG FINAL
--- NOTE | 2016-08-21 14:47 | EKG ---
Date Performed: 08/21/2016 Time Performed: 04:56:32 PTAGE: 71 years EKG: Sinus arrhythmia. Short NH interval Extensive ST-T changes may be due to myocardial ischemi a Compared to previous tracing the atrial flutter is resolved and rate is now under control. There chanel s been some variation in the nonspecific ST-T wave changes but no significant serial change Abnormal ECG PREVIOUS TRACING : 08/20/2016 14.12 DOCTOR: Anne Acosta Interpretating Date/Time 08/21/2016 14:46:47
[2016-08-21 15:02] LABS: BICARBONATE 28.8 MEQ/L (21.0-32.0); MAGNESIUM 1.8 MG/DL (1.5-2.5); POTASSIUM 3.8 MEQ/L (3.5-5.1)
--- NOTE | 2016-08-21 15:52 | HHI.CCPN ---
Subjective Remarks/Hospital Course Patient comes in by EMS after being [place] acted by police and family called stating the patient has not been getting out of bed or taking care of himself. Patient denies any medical complaints at this time. Denies any chest pain or shortness of breath, abdominal pain, or fevers. While in the ED patient suffered cardiac arrest due to V Fib. Successful short ACLS performed with return of spontaneous circulation. Subjective 08/18 Overnight upon presentation to the [facility] the patient was noted to have large amount of bloody stool unable to quantify, the patient also vomited approximately 500 cc of coffee ground emesis. An NG tube was placed and the patient was noted to have an additional 300 cc of coffee ground emesis, the patient continues to have melanotic stools. Hemodialysis was initiated and discontinued secondary to hypotension, the patient required levophed infusion, and was also bolused initially with a liter of normal saline. This morning the patient continues to bleed, contributing factors include uremia. Stat laboratory specimens obtained, to include coag studies. Will initiate DDAVP, and cryoprecipitate secondary to uremic bleeding. 2/1 Hemoglobin stable. The patient continues to have melanotic stool, decrease in volume approximately 100 cc last night , and small amount of coffee ground emesis approximately 50 cc overnight.The patient currently being dialyzed, sodium bicarbonate infusion discontinued. The patient is alert, following commands. Plan for CPAP trials today. 2/2 The patient was dialyzed yesterday, 4 L removed. In the afternoon, the patient was noted to go into A. fib RVR, heart rate 140-160's. A one-time dose of digoxin was given, subsequently later on in the day amiodarone bolus was given. Heart rate converted to sinus tach, low 100's, subsequently heart rate 80 to 90s. The patient was weaned off of vasopressin today. Minimal coffee ground emesis, and melena overnight. Left upper extremity was noted to be edematous, ultrasound imaging performed, which revealed occlusive thrombus left cephalic vein. 2/3 The patient converted to A. fib flutter yesterday afternoon, the patient was provided an amiodarone bolus followed by an infusion. The patient continued to have a heart rate in the 130s during the evening, Digoxin 0.5 mg 1 dose was given. At approximately 4 AM the patient went into A. fib flutter with 21 conduction and was subsequently synchronize cardioverted 1 attempt at 50 J. The patient remains on amiodarone infusion. Plan for hemodialysis today , and upper endoscopy. Objective Vital Signs Date Time Temp Pulse Resp B/P Pulse Ox O2 Delivery O2 Flow Rate FiO2 08/21/16 12:00 84 08/21/16 12:00 40 08/21/16 11:28 99 08/21/16 10:00 99.5 18 108/62 08/20/16 08:00 Mechanical Ventilator Intake and Output 08/20/16 08/20/16 08/21/16 08:00 16:00 00:00 Intake Total 342 ml 578 ml 454 ml Output Total 96 ml 300 ml 175 ml Balance 246 ml 278 ml 279 ml Result Diagram: 08/21/16 1400 08/21/16 1400 Other Results Laboratory Tests Test 08/21/16 08/21/16 01:09 05:20 Blood Gas Puncture Site ART LINE ART LINE Blood Gas Patient Temperature 98.6 98.6 Blood Gas HCO3 23 mmol/L 23 mmol/L (22-26) (22-26) Blood Gas Base Excess -0.4 mmol/L 0.2 mmol/L (-2-2) (-2-2) Blood Gas Oxygen Saturation 97 % (90-100) 97 % (90-100) Arterial Blood pH 7.49 7.48 (7.380-7.420) (7.380-7.420) Arterial Blood Partial 30 mmHg (38-42) 32 mmHg (38-42) Pressure CO2 Arterial Blood Partial 140 mmHg 141 mmHg Pressure O2 (61-120) (61-120) Arterial Blood Oxygen Content 16.3 Vol % 16.6 Vol % (12.0-20.0) (12.0-20.0) Arterial Blood 0.7 % (0-4) 0.8 % (0-4) Carboxyhemoglobin Arterial Blood Methemoglobin 0.8 % (0-2) 1.1 % (0-2) Blood Gas Hemoglobin 11.7 G/DL 12.0 G/DL (12.0-16.0) (12.0-16.0) Oxygen Delivery Device VENTILATOR VENTILATOR Blood Gas Ventilator Setting AC/16/500/PEEP5 AC/16/500/PEEP5 Blood Gas Inspired Oxygen 40 % 40 % Imaging Last Impressions Abdomen/Pelvis CT 2/08/04 2320 Signed Impressions: Service Date/Time: Friday, August 19, 2016 22:04 - CONCLUSION: 1. Diverticulosis of the descending and sigmoid colon. Wall thickening of the sigmoid colon could be colitis or diverticulitis. 2. Minimal fluid in the right paracolic gutter. 3. Bibasilar consolidation and patchy infiltrates right lower lobe. Followup CT chest recommended to ensure complete resolution. 1. Morgan Jimenez MD Upper Extremity Ultrasound 08/19/161820 Signed Impressions: Service Date/Time: Friday, August 19, 2016 20:20 - CONCLUSION: Occlusive thrombus in the left cephalic vein. No DVT in the right arm. Morgan Jimenez MD Chest X-Ray 08/19/16 0600 Signed Impressions: Service Date/Time: Friday, August 19, 2016 02:44 - CONCLUSION: Mild right base consolidation has developed. Daniel Welch MD Renal Ultrasound 08/18/16 0000 Signed Impressions: Service Date/Time: Thursday, August 18, 2016 10:13 - CONCLUSION: 1. No evidence of hydronephrosis. 2. There appears to be a probable 1.1 cm nonobstructing stone in the mid pole of the left kidney. Jae Apple MD Head CT 08/17/161924 Signed Impressions: Service Date/Time: Wednesday, August 17, 2016 19:48 - CONCLUSION: Normal examination for a patient of this age. Demetrius Lopez MD Last Impressions Abdomen/Pelvis CT 08/19/162320 Signed Impressions: Service Date/Time: Friday, August 19, 2016 22:04 - CONCLUSION: 1. Diverticulosis of the descending and sigmoid colon. Wall thickening of the sigmoid colon could be colitis or diverticulitis. 2. Minimal fluid in the right paracolic gutter. 3. Bibasilar consolidation and patchy infiltrates right lower lobe. Followup CT chest recommended to ensure complete resolution. 1. Morgan Jimenez MD Upper Extremity Ultrasound 08/19/161820 Signed Impressions: Service Date/Time: Friday, August 19, 2016 20:20 - CONCLUSION: Occlusive thrombus in the left cephalic vein. No DVT in the right arm. Morgan Jimenez MD Chest X-Ray 08/19/16 0600 Signed Impressions: Service Date/Time: Friday, August 19, 2016 02:44 - CONCLUSION: Mild right base consolidation has developed. Daniel Welch MD Renal Ultrasound 08/18/16 0000 Signed Impressions: Service Date/Time: Thursday, August 18, 2016 10:13 - CONCLUSION: 1. No evidence of hydronephrosis. 2. There appears to be a probable 1.1 cm nonobstructing stone in the mid pole of the left kidney. Jae Apple MD Head CT 08/17/161924 Signed Impressions: Service Date/Time: Wednesday, August 17, 2016 19:48 - CONCLUSION: Normal examination for a patient of this age. Demetrius Lopez MD Last Impressions Chest X-Ray 08/19/16 0600 Signed Impressions: Service Date/Time: Friday, August 19, 2016 02:44 - CONCLUSION: Mild right base consolidation has developed. Daniel Welch MD Renal Ultrasound 08/18/16 0000 Signed Impressions: Service Date/Time: Thursday, August 18, 2016 10:13 - CONCLUSION: 1. No evidence of hydronephrosis. 2. There appears to be a probable 1.1 cm nonobstructing stone in the mid pole of the left kidney. Jae Apple MD Head CT 08/17/161924 Signed Impressions: Service Date/Time: Wednesday, August 17, 2016 19:48 - CONCLUSION: Normal examination for a patient of this age. Demetrius Lopez MD Last 24 hours Impressions Chest X-Ray 08/18/16 0127 Signed Impressions: Service Date/Time: Thursday, August 18, 2016 01:55 - CONCLUSION: Interim intubation with endotracheal tube tip about 2.5 cm above the janett. Lungs remain clear. Daniel Welch MD Head CT 08/17/161924 Signed Impressions: Service Date/Time: Wednesday, August 17, 2016 19:48 - CONCLUSION: Normal examination for a patient of this age. Demetrius Lopez MD Chest X-Ray 08/17/161924 Signed Impressions: Service Date/Time: Wednesday, August 17, 2016 19:36 - CONCLUSION: 1. No active disease. Demetrius Lopez MD Objective Remarks GENERAL: Patient alert, following commands intubated SKIN: Warm and dry. Rash noted on bilateral arms and chest, noted on abdomen now resolving HEAD: Normocephalic. EYES: No scleral icterus. No injection or drainage. NECK: Supple, trachea midline. No JVD or lymphadenopathy. Orotracheally intubated CARDIOVASCULAR: Regular rate and rhythm without murmurs, gallops, or rubs. RESPIRATORY: Breath sounds equal bilaterally. GASTROINTESTINAL: Abdomen soft, non-tender, nondistended. MUSCULOSKELETAL: No cyanosis, or left arm slight edema,1+ pitting edema B/L hands and feet. Left arm elevated Procedures Upper endoscopy, hemodialysis Date of Insertion: Aug 18, 2016 Vascular Central Line Catheter: Yes Line: Central Venous Catheter Side: Right Location: Femoral A/P Problem List: (1) Weight loss, unintentional ICD Code: R63.4 Status: Acute (2) Generalized weakness ICD Code: R53.1 Status: Acute (3) Hyperkalemia ICD Code: E87.5 Status: Acute (4) Acute renal failure ICD Code: N17.9 Status: Acute (5) GI bleed ICD Code: K92.2 Status: Acute (6) Cardiac arrest due to other underlying condition ICD Code: I46.8 Status: Acute Assessment and Plan Plan by systems: Neurologic: -GCS 11 T, following commands, fentanyl PRN for pain -Maintain RASS -2 Respiratory: Acute respiratory failure Aspiration pneumonitis Pneumonia multilobular -vent settings-16/500/.40/5 -Ventilator bundle -Sputum- Enterobacter cloacae, Proteus mirabilis, MRSA -Maintain head of bed 30 -Bronchodilators every 6 hours, and every 2 when necessary Cardiovascular: S/P Cardiac arrest-ventricular fibrillation (potassium level 7.7) Hypotension A. fib RVR -ECHO-EF 45%, systolic function mildly reduced. No RWMA -Elevated troponins 3.2-->3.23->2.71, trending down is likely secondary to cardiac arrest/demand ischemia and renal failure with now new onset atrial fibrillation. Could possibly be ACS, or Class 2 NSTEMI . The patient denies angina .Will repeat troponin to ensure trend is decreasing. In view of upper GI bleed, NPO status-will not provide aspirin or statin. Patient hemodynamically unstable on pressors, we'll not initiate beta ronald as management. -Vasopressin infusion dc'd, Levophed @2mcgs to maintain MAP > 65mmHg -Cardiology consult-Dr. Garcia -Amiodarone infusion will transition to PO tomorrow -PMH HTN- home medication on ACEI , Lisinopril, currently on hold 2/2 hypotension, consider ARB, Calcium Channel ronald or Beta Ronald when clinically indicated to resume anti-HTN medication -/ Cardioverted x 1-50 J, for aflutter 2-1 conduction, heart rate 140s Renal: Acute renal failure Uremia-resolved -Nephrology consulted-Dr. Irwin -Dialyzed 08/19, approximately 4 L off, 08/21-3.5 L off -Urine output averaging 18-22cc/hr -Follow-up post dialysis labs -Monitor hourly urinary output -- Strict I/Os FEN/GI: GI bleed Melena Hyperkalemia secondary to acute renal failure-resolved -GI following -Dr. Morrell -EGD 08/21-Preliminary report gastritis, duodenitis, duodenal ulcers, biopsies obtained -Protonix infusion continued -Maintain nothing by mouth status, melena approximately 100 cc overnight, coffee ground emesis minimal -Sodium bicarbonate discontinued 08/19 -Monitor BMP Heme/ID: Coagulopathy Bleeding possibly also secondary to uremia Thrombocytopenia -Hemoglobin stable -Monitor PT/INR -Monitor H&H every 6 hours -Transfuse platelets less than 50,000 -ID following- Dr. Billingsley -Vancomycin and Flagyl discontinued, Zyvox initiated ceftriaxone continued -Sputum culture -Enterobacter cloacae, Proteus mirabilis, MRSA -Blood culture-NGTD -Hepatitis panel negative Endocrine: Hyperglycemia of critical illness Glucose monitoring per ICU protocol -- SSI Prophylaxis: GI Prophylaxis Protonix infusion DVT Prophylaxis -- SCDs No pharmacological DVT prophylaxis secondary to acute bleed Lines: Left femoral Vas-Cath, right femoral arterial line, right triple-lumen femoral catheter (08/18) Dispo: Discussed with family patient's status and possibility of tracheostomy This patient remains critically ill with one or more organ systems which are or may become a threat to life. I have spent in excess of 39 minutes discontinuously in the care and management of this patient. This time is exclusive of procedures, and includes, but is not limited to, evaluation of the patient, review of the medical record, discussions with family, consultants, nursing staff, or respiratory therapy, and documentation in the medical record. Physician Cathryn Young Problem Qualifiers (1) Acute renal failure: Qualified Code: N17.9 - Acute renal failure, unspecified acute renal failure type (2) GI bleed: Qualified Code: K92.2 - Gastrointestinal hemorrhage, unspecified gastrointestinal hemorrhage type Cathryn Wagner MD Aug 21, 2016 15:52
[2016-08-22] VITALS (20 sets, daily range): BP systolic 124–156; BP diastolic 61–78; PULSE 58–70; RESP 16; TEMP 97.6–98.3; O2SAT 97–100
[2016-08-22] MEDS: RESP: ALBUTEROL 2.5 MG/IPRATROPIUM 0.5 MG NEB (SCH) INH (00:52)
[2016-08-22] MEDS: PANTOPRAZOLE INJ 80 MG in SODIUM CHLORIDE 0.9% INJ 100 ML IV SCH ×2 (01:03→21:14)
[2016-08-22] MEDS: CHLORHEXIDINE GLUCONATE 2 % 1 PACK (2 CLOTHS) TOP SCH (04:34)
[2016-08-22] MEDS: cefTRIAXone INJ 2,000 MG in SODIUM CHLORIDE 0.9% INJ 100 ML IV SCH (04:34)
[2016-08-22] MEDS: LOW DOSE INSULIN NOVOLOG SUPPLEMENTAL SCALE SQ SCH ×4 (05:12→18:00)
[2016-08-22 05:39] LABS: MEAN CELL VOLUME 89.2 FL (80.0-100.0); MEAN CORPUSCULAR HEMOGLOBIN 29.4 PG (27.0-34.0); RED BLOOD COUNT 3.81 MIL/MM3 (4.50-5.90); RED CELL DISTRIBUTION WIDTH 14.4 % (11.6-17.2); WHITE BLOOD COUNT 5.8 TH/MM3 (4.0-11.0)
[2016-08-22 06:21] LABS: PLATELET COUNT 68 TH/MM3 (150-450); REVIEW FLAG FINAL
--- NOTE | 2016-08-22 08:12 | PD.CARD.PN ---
Subjective Subjective Remarks awake on vent Objective Medications Current Medications Medications (Trade) Dose Ordered Sig/Antonio Route Start Time Stop Time Status Last Admin (Protonix Inj/NS Inj) 100 ml @ 10 mls/hr Q10H IV 08/17/16 21:45 08/22/16 01:03 (NS Flush) 2 ml UNSCH PRN IV FLUSH 08/18/16 00:30 (NS Flush) 2 ml BID IV FLUSH 08/18/16 09:00 08/21/16 20:14 (Tylenol) 650 mg Q6H PRN PO 08/18/16 00:30 (Morphine Inj) 2 mg Q2H PRN IV 08/18/16 00:30 (Tears Naturale Opth Soln) 1 drop TID EACH EYE 08/18/16 09:00 08/21/16 18:00 (Colace Liq) 100 mg Q12HR G-TUBE 08/18/16 09:00 08/21/16 20:14 Miscellaneous Information 1 Q361D XX 08/18/16 00:30 (Chlorhexidine 2% Cloth) 3 pack Taper DAILY@04 TOP 08/18/16 04:00 08/14/17 03:59 08/22/16 04:34 Chlorhexidine Gluconate 3 pack 3 pack UNSCH PRN TOP 08/18/16 00:30 (fentaNYL DRIP) 250 ml @ 0 mls/hr TITRATE IV 08/18/16 00:30 08/19/16 00:14 Metoclopramide HCl 5 mg 5 mg Q6H PRN IV 08/18/16 01:00 (NS 1000 ml Inj) 1,000 ml @ 0 mls/hr Q0M PRN IV 08/18/16 02:45 08/21/16 08:25 Heparin Sodium (Porcine) 8000 units 8,000 units UNSCH PRN IVF 08/18/16 02:45 Sodium Chloride 1,000 ml @ 200 mls/hr Q5H PRN IV 08/18/16 02:45 08/19/16 08:27 (NS 1000 ml Inj) 1,000 ml @ 0 mls/hr Q0M PRN IV 08/18/16 02:45 (Mannitol Inj) 12.5 gm UNSCH PRN IV 08/18/16 02:45 08/19/16 08:26 (Albumin 25% Inj) 25 gm UNSCH PRN IV 08/18/16 02:45 08/21/16 08:26 (NS Flush) 5 ml UNSCH PRN IVF 08/18/16 02:45 08/19/16 08:27 (Heparin Inj) UNSCH PRN .XX 08/18/16 02:45 08/21/16 08:24 (Gentamicin (Dialysis) Inj) 20 mg UNSCH PRN IV 08/18/16 02:45 08/21/16 08:24 (Zofran Inj) 4 mg UNSCH PRN IV 08/18/16 02:45 (Tylenol) 650 mg UNSCH PRN PO 08/18/16 02:45 (Benadryl) 25 mg UNSCH PRN PO 08/18/16 02:45 (Nitrostat Sl) 0.4 mg UNSCH PRN SL 08/18/16 02:45 (Catapres) 0.1 mg UNSCH PRN PO 08/18/16 02:45 (Gelfoam 12 Mm/7 Mm Top) 1 foam UNSCH PRN TOP 08/18/16 02:45 Ondansetron HCl 4 mg 4 mg Q6H PRN IV 08/18/16 03:15 (Pitressin Inj/ D5W 100 ml Inj) 100 ml @ 1.5 mls/hr Q24H IV 08/18/16 09:53 08/19/16 17:00 Terbutaline Sulfate 1 mg 1 mg UNSCH PRN SQ 08/18/16 10:00 Norepinephrine Bitartrate 8 mg/ Dextrose 250 ml @ 0 mls/hr TITRATE IV 08/18/16 10:00 08/19/16 17:00 Propofol 100 ml @ 0 mls/hr TITRATE IV 08/18/16 10:00 (Rocephin Inj/NS Inj) 100 ml @ 200 mls/hr Q24H IV 08/19/16 06:00 08/22/16 04:34 (D50w (Vial) Inj) 25 ml UNSCH PRN IV PUSH 08/18/16 19:45 08/21/16 14:23 (Glucagon Inj) 1 mg UNSCH PRN OTHER 08/18/16 19:45 Insulin Aspart 1 1 Q6HR SQ 08/19/16 00:00 08/19/16 00:11 (Cordarone Inj/ D5W ([place]) Inj) 250 ml @ 0 mls/hr CONTINUOUS IV 08/19/16 20:45 08/21/16 20:15 (Zyvox) 600 mg Q12HR PO 08/21/16 12:00 08/21/16 20:14 Vital Signs / I&O Vital Signs Date Time Temp Pulse Resp B/P Pulse Ox O2 Delivery O2 Flow Rate FiO2 08/22/16 06:00 59 08/22/16 04:02 100 40 08/22/16 04:00 98.0 68 16 144/61 99 08/22/16 04:00 70 08/22/16 04:00 40 08/22/16 02:00 68 08/22/16 00:52 98 40 08/22/16 00:00 97.6 65 16 149/68 99 08/22/16 00:00 40 08/22/16 00:00 65 08/21/16 22:00 74 08/21/16 20:00 40 08/21/16 20:00 82 08/21/16 20:00 99.0 82 12 150/68 98 08/21/16 19:43 98 40 08/21/16 18:00 82 08/21/16 16:39 99 40 08/21/16 16:10 40 08/21/16 16:00 99.2 84 12 158/72 98 08/21/16 16:00 84 08/21/16 16:00 40 08/21/16 14:00 76 08/21/16 12:00 84 08/21/16 12:00 98.9 90 16 118/62 99 08/21/16 12:00 40 08/21/16 11:30 40 08/21/16 11:28 99 40 08/21/16 10:00 91 08/21/16 10:00 99.5 92 18 108/62 98 I/O 08/21/16 08/21/16 08/21/16 08/22/16 08/22/16 08/22/16 07:00 15:00 23:00 07:00 15:00 23:00 Intake Total 536 ml 487 ml 364 ml 381 ml Output Total 200 ml 3735 ml 50 ml 150 ml Balance 336 ml -3248 ml 314 ml 231 ml Intake IV Total 536 ml 487 ml 364 ml 381 ml Output Urine Total 200 ml 235 ml 50 ml 150 ml Hemodialysis 3500 ml # Bowel Movements 0 0 0 0 Physical Exam GENERAL: Well developed, well nourished. No acute distress on vent HEENT: Jugular venous pressure is normal. CHEST: Lungs clear to auscultation bilaterally. Unlabored respiratory effort. CARDIAC: Regular rate and rhythm without S3, S4, or murmur. ABDOMEN: Soft, EXTREMITIES: No clubbing, cyanosis, tr edema. Laboratory Laboratory Tests Test 08/21/16 08/22/16 14:00 05:00 White Blood Count 8.1 TH/MM3 5.8 TH/MM3 Red Blood Count 3.76 MIL/MM3 3.81 MIL/MM3 Hemoglobin 11.6 GM/DL 11.2 GM/DL Hematocrit 33.0 % 34.0 % Mean Corpuscular Volume 87.8 FL 89.2 FL Mean Corpuscular Hemoglobin 30.8 PG 29.4 PG Mean Corpuscular Hemoglobin 35.1 % 33.0 % Concent Red Cell Distribution Width 14.3 % 14.4 % Platelet Count 66 TH/MM3 68 TH/MM3 Mean Platelet Volume 10.0 FL 10.5 FL Sodium Level 144 MEQ/L Potassium Level 3.8 MEQ/L Chloride Level 104 MEQ/L Carbon Dioxide Level 28.8 MEQ/L Anion Gap 11 MEQ/L Blood Urea Nitrogen 63 MG/DL Creatinine 4.88 MG/DL Estimat Glomerular Filtration 12 ML/MIN Rate Random Glucose 76 MG/DL Calcium Level 8.2 MG/DL Phosphorus Level 3.7 MG/DL Magnesium Level 1.8 MG/DL Assessment and Plan Problem List: (1) Atrial fibrillation Assessment and Plan: remains in NSR still no PO=> continue amio gtt (2) Acute renal failure (3) Generalized weakness (4) Respiratory failure Assessment and Plan: remains on vent per [facility] (5) GI bleed (6) Cardiac arrest due to other underlying condition Problem Qualifiers (1) Acute renal failure: Qualified Code: N17.9 - Acute renal failure, unspecified acute renal failure type (2) GI bleed: Qualified Code: K92.2 - Gastrointestinal hemorrhage, unspecified gastrointestinal hemorrhage type Elena Garcia MD Aug 22, 2016 08:12
[2016-08-22] MEDS: SODIUM CHLORIDE 0.9% FLUSH 5 ML FLUSH IV FLUSH SCH ×2 (09:00→21:15)
[2016-08-22] MEDS: ARTIFICIAL TEARS OPTH SOLN 15 ML BTL EACH EYE SCH ×3 (09:00→21:14)
[2016-08-22] MEDS ORDERED: AMIODARONE INJ 450 MG in DEXTROSE 5% IN WATE(EXCEL) INJ 241 ML IV SCH ×2 (09:00)
[2016-08-22] MEDS: LINEZOLID 600 MG TAB PO SCH ×2 (09:24→21:15)
[2016-08-22] MEDS: VASOPRESSIN INJ 40 UNITS in DEXTROSE 5% IN WATER 100ML INJ 98 ML IV SCH ×2 (09:53)
--- NOTE | 2016-08-22 13:49 | HHI.GIFU ---
Subjective Remarks patient is awake, able to answer yes or no questions, still on the vent. No bleeding (Amawi,Erickawla GENERAL NEUROLOGIST) Objective Vitals I&O Vital Signs Date Time Temp Pulse Resp B/P Pulse Ox O2 Delivery O2 Flow Rate FiO2 08/22/16 11:46 100 40 08/22/16 10:40 40 08/22/16 10:33 100 40 08/22/16 10:20 100 40 08/22/16 10:20 40 08/22/16 10:18 40 08/22/16 09:04 40 08/22/16 09:04 100 40 08/22/16 09:00 40 08/22/16 08:50 97 40 08/22/16 08:00 40 08/22/16 08:00 98.0 58 16 152/66 100 08/22/16 06:00 59 08/22/16 04:02 100 40 08/22/16 04:00 98.0 68 16 144/61 99 08/22/16 04:00 70 08/22/16 04:00 40 08/22/16 02:00 68 08/22/16 00:52 98 40 08/22/16 00:00 97.6 65 16 149/68 99 08/22/16 00:00 40 08/22/16 00:00 65 08/21/16 22:00 74 08/21/16 20:00 40 08/21/16 20:00 82 08/21/16 20:00 99.0 82 12 150/68 98 08/21/16 19:43 98 40 08/21/16 18:00 82 08/21/16 16:39 99 40 08/21/16 16:10 40 08/21/16 16:00 99.2 84 12 158/72 98 08/21/16 16:00 84 08/21/16 16:00 40 08/21/16 14:00 76 I/O 08/21/16 08/21/16 08/21/16 08/22/16 08/22/16 08/22/16 07:00 15:00 23:00 07:00 15:00 23:00 Intake Total 536 ml 487 ml 364 ml 381 ml Output Total 200 ml 3735 ml 50 ml 150 ml Balance 336 ml -3248 ml 314 ml 231 ml Intake IV Total 536 ml 487 ml 364 ml 381 ml Output Urine Total 200 ml 235 ml 50 ml 150 ml Hemodialysis 3500 ml # Bowel Movements 0 0 0 0 Laboratory Laboratory Tests Test 08/21/16 08/22/16 14:00 05:00 White Blood Count 8.1 5.8 Red Blood Count 3.76 3.81 Hemoglobin 11.6 11.2 Hematocrit 33.0 34.0 Mean Corpuscular Volume 87.8 89.2 Mean Corpuscular Hemoglobin 30.8 29.4 Mean Corpuscular Hemoglobin 35.1 33.0 Concent Red Cell Distribution Width 14.3 14.4 Platelet Count 66 68 Mean Platelet Volume 10.0 10.5 Sodium Level 144 Potassium Level 3.8 Chloride Level 104 Carbon Dioxide Level 28.8 Anion Gap 11 Blood Urea Nitrogen 63 Creatinine 4.88 Estimat Glomerular Filtration 12 Rate Random Glucose 76 Calcium Level 8.2 Phosphorus Level 3.7 Magnesium Level 1.8 Date/Time Procedure Status Source Growth 08/19/16 23:15 Gram Stain - Final Resulted Sputum Endotracheal 08/19/16 23:15 Sputum Culture - Preliminary Resulted S. Aureus Mrsa Gram Negative Trey 08/18/16 10:00 Urine Culture - Final Complete Urine Catheterized Urine NO GROWTH IN 48 HOURS. 08/18/16 10:00 Legionella Antigen - Final Complete Urine Catheterized Urine PRESUMPTIVE NEGATIVE FOR LEGIONELLA P... 08/18/16 10:00 Streptococcus pneumoniae Antigen (M - Final Complete Urine Catheterized Urine PRESUMPTIVE NEGATIVE FOR STREPTOCOCCU... 08/18/16 10:00 Cancelled Urine Catheterized Urine 08/18/16 04:29 Aerobic Blood Culture - Preliminary Resulted Blood Peripheral NO GROWTH IN 4 DAYS 08/18/16 04:29 Anaerobic Blood Culture - Preliminary Resulted Blood Peripheral NO GROWTH IN 4 DAYS Imaging Last Impressions Abdomen/Pelvis CT 08/19/162320 Signed Impressions: Service Date/Time: Friday, August 19, 2016 22:04 - CONCLUSION: 1. Diverticulosis of the descending and sigmoid colon. Wall thickening of the sigmoid colon could be colitis or diverticulitis. 2. Minimal fluid in the right paracolic gutter. 3. Bibasilar consolidation and patchy infiltrates right lower lobe. Followup CT chest recommended to ensure complete resolution. 1. Morgan Jimenez MD Upper Extremity Ultrasound 08/19/16 1821 Signed Impressions: Service Date/Time: Friday, August 19, 2016 20:20 - CONCLUSION: Occlusive thrombus in the left cephalic vein. No DVT in the right arm. Morgan Jimenez MD Chest X-Ray 08/19/16 0600 Signed Impressions: Service Date/Time: Friday, August 19, 2016 02:44 - CONCLUSION: Mild right base consolidation has developed. Daniel Welch MD Renal Ultrasound 08/18/16 0000 Signed Impressions: Service Date/Time: Thursday, August 18, 2016 10:13 - CONCLUSION: 1. No evidence of hydronephrosis. 2. There appears to be a probable 1.1 cm nonobstructing stone in the mid pole of the left kidney. Jae Apple MD Head CT 08/17/16 1925 Signed Impressions: Service Date/Time: Wednesday, August 17, 2016 19:48 - CONCLUSION: Normal examination for a patient of this age. Demetrius Lopez MD Physical Exam HEENT: Normocephalic; atraumatic CHEST: Resp. even/unlabored, OETT on vent. CARDIAC: RRR ABDOMEN: Soft, nondistended, nontender; no hepatosplenomegaly; bowel sounds are present in all four quadrants. OGT with clear brownish with slight pinkish tint. Rectal bag with out much out put EXTREMITIES: No clubbing, cyanosis, or edema. 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 Pt with coffee ground gastric secretions, melena, S/P EGD on ()---->Esophagitis, gastritis, gastric ulcer, duodenitis, bx pending Protonix Gtt. hgb stable today, no more bleeding - Anemia, acute blood loss. S/P 2 units PRBC hgb stable - ARF with severe electrolyte abnormalities. S/P Vascath placement. HD Nephrology following. - Coagulopathy. - Acute respiratory failure. Vent per CCM - Hypotension, per CCM - S/P VFib, S/P ACLS/Defibrillation with SROC. PLAN: - Okay to start TF - Await bx - EGD in 2 months - Avoid NSAIDs - Protonix Gtt - Monitor HH - Transfuse as necessary - Supportive care - Further recommendations to follow based on results of above - Pt seen and examined by Dr. Morrell and myself and this note is written on his behalf (Nati Sierra) Physician Comments Patient seen and examined Agree with above Continue with current supportive care Monitor labs GI will sign off (Jose Morrell MD) Nati Sierra Aug 22, 2016 13:49 Jose Morrell MD Aug 22, 2016 17:21
--- NOTE | 2016-08-22 14:17 | HHI.CCPN ---
Subjective Remarks/Hospital Course Patient comes in by EMS after being [place] acted by police and family called stating the patient has not been getting out of bed or taking care of himself. Patient denies any medical complaints at this time. Denies any chest pain or shortness of breath, abdominal pain, or fevers. While in the ED patient suffered cardiac arrest due to V Fib. Successful short ACLS performed with return of spontaneous circulation. Subjective 08/18 Overnight upon presentation to the [facility] the patient was noted to have large amount of bloody stool unable to quantify, the patient also vomited approximately 500 cc of coffee ground emesis. An NG tube was placed and the patient was noted to have an additional 300 cc of coffee ground emesis, the patient continues to have melanotic stools. Hemodialysis was initiated and discontinued secondary to hypotension, the patient required levophed infusion, and was also bolused initially with a liter of normal saline. This morning the patient continues to bleed, contributing factors include uremia. Stat laboratory specimens obtained, to include coag studies. Will initiate DDAVP, and cryoprecipitate secondary to uremic bleeding. 2/1 Hemoglobin stable. The patient continues to have melanotic stool, decrease in volume approximately 100 cc last night , and small amount of coffee ground emesis approximately 50 cc overnight.The patient currently being dialyzed, sodium bicarbonate infusion discontinued. The patient is alert, following commands. Plan for CPAP trials today. 2/2 The patient was dialyzed yesterday, 4 L removed. In the afternoon, the patient was noted to go into A. fib RVR, heart rate 140-160's. A one-time dose of digoxin was given, subsequently later on in the day amiodarone bolus was given. Heart rate converted to sinus tach, low 100's, subsequently heart rate 80 to 90s. The patient was weaned off of vasopressin today. Minimal coffee ground emesis, and melena overnight. Left upper extremity was noted to be edematous, ultrasound imaging performed, which revealed occlusive thrombus left cephalic vein. 2/3 The patient converted to A. fib flutter yesterday afternoon, the patient was provided an amiodarone bolus followed by an infusion. The patient continued to have a heart rate in the 130s during the evening, Digoxin 0.5 mg 1 dose was given. At approximately 4 AM the patient went into A. fib flutter with 21 conduction and was subsequently synchronize cardioverted 1 attempt at 50 J. The patient remains on amiodarone infusion. Plan for hemodialysis today , and upper endoscopy. 08/22 The patient remained in sinus rhythm overnight. The patient continues to have apneic episodes during CPAP trials, lasting only 45 minutes yesterday. Will begin tube feeds per GI recommendations.Levophed has been off since 0100am. Objective Vital Signs Date Time Temp Pulse Resp B/P Pulse Ox O2 Delivery O2 Flow Rate FiO2 08/22/16 12:00 97.8 62 16 124/78 100 08/22/16 11:46 40 08/20/16 08:00 Mechanical Ventilator Intake and Output 08/21/16 08/21/16 08/22/16 08:00 16:00 00:00 Intake Total 536 ml 487 ml 364 ml Output Total 200 ml 3735 ml 50 ml Balance 336 ml -3248 ml 314 ml Result Diagram: 08/22/16 0500 08/21/16 1400 Imaging Last Impressions Abdomen/Pelvis CT 08/19/16 2321 Signed Impressions: Service Date/Time: Friday, August 19, 2016 22:04 - CONCLUSION: 1. Diverticulosis of the descending and sigmoid colon. Wall thickening of the sigmoid colon could be colitis or diverticulitis. 2. Minimal fluid in the right paracolic gutter. 3. Bibasilar consolidation and patchy infiltrates right lower lobe. Followup CT chest recommended to ensure complete resolution. 1. Morgan Jimenez MD Upper Extremity Ultrasound 08/19/16 1821 Signed Impressions: Service Date/Time: Friday, August 19, 2016 20:20 - CONCLUSION: Occlusive thrombus in the left cephalic vein. No DVT in the right arm. Morgan Jimenez MD Chest X-Ray 08/19/16 0600 Signed Impressions: Service Date/Time: Friday, August 19, 2016 02:44 - CONCLUSION: Mild right base consolidation has developed. Daniel Welch MD Renal Ultrasound 08/18/16 0000 Signed Impressions: Service Date/Time: Thursday, August 18, 2016 10:13 - CONCLUSION: 1. No evidence of hydronephrosis. 2. There appears to be a probable 1.1 cm nonobstructing stone in the mid pole of the left kidney. Jae Apple MD Head CT 08/17/161924 Signed Impressions: Service Date/Time: Wednesday, August 17, 2016 19:48 - CONCLUSION: Normal examination for a patient of this age. Demetrius Lopez MD Last Impressions Abdomen/Pelvis CT 08/19/16 2321 Signed Impressions: Service Date/Time: Friday, August 19, 2016 22:04 - CONCLUSION: 1. Diverticulosis of the descending and sigmoid colon. Wall thickening of the sigmoid colon could be colitis or diverticulitis. 2. Minimal fluid in the right paracolic gutter. 3. Bibasilar consolidation and patchy infiltrates right lower lobe. Followup CT chest recommended to ensure complete resolution. 1. Morgan Jimenez MD Upper Extremity Ultrasound 08/19/16 182 Signed Impressions: Service Date/Time: Friday, August 19, 2016 20:20 - CONCLUSION: Occlusive thrombus in the left cephalic vein. No DVT in the right arm. Morgan Jimenez MD Chest X-Ray 08/19/16 0600 Signed Impressions: Service Date/Time: Friday, August 19, 2016 02:44 - CONCLUSION: Mild right base consolidation has developed. Daniel Welch MD Renal Ultrasound 08/18/16 0000 Signed Impressions: Service Date/Time: Thursday, August 18, 2016 10:13 - CONCLUSION: 1. No evidence of hydronephrosis. 2. There appears to be a probable 1.1 cm nonobstructing stone in the mid pole of the left kidney. Jae Apple MD Head CT 08/17/161924 Signed Impressions: Service Date/Time: Wednesday, August 17, 2016 19:48 - CONCLUSION: Normal examination for a patient of this age. Demetrius Lopez MD Last Impressions Chest X-Ray 08/19/16 0600 Signed Impressions: Service Date/Time: Friday, August 19, 2016 02:44 - CONCLUSION: Mild right base consolidation has developed. Daniel Welch MD Renal Ultrasound 08/18/16 0000 Signed Impressions: Service Date/Time: Thursday, August 18, 2016 10:13 - CONCLUSION: 1. No evidence of hydronephrosis. 2. There appears to be a probable 1.1 cm nonobstructing stone in the mid pole of the left kidney. Jae Apple MD Head CT 08/17/161924 Signed Impressions: Service Date/Time: Wednesday, August 17, 2016 19:48 - CONCLUSION: Normal examination for a patient of this age. Demetrius Lopez MD Last 24 hours Impressions Chest X-Ray 08/18/167 Signed Impressions: Service Date/Time: Thursday, August 18, 2016 01:55 - CONCLUSION: Interim intubation with endotracheal tube tip about 2.5 cm above the janett. Lungs remain clear. Daniel Welch MD Head CT 08/17/161924 Signed Impressions: Service Date/Time: Wednesday, August 17, 2016 19:48 - CONCLUSION: Normal examination for a patient of this age. Demetrius Lopez MD Chest X-Ray 08/17/161924 Signed Impressions: Service Date/Time: Wednesday, August 17, 2016 19:36 - CONCLUSION: 1. No active disease. Demetrius Lopez MD Objective Remarks GENERAL: Patient alert, following commands , intubated SKIN: Warm and dry. Rash noted on bilateral arms and chest, noted on abdomen still present, but resolving HEAD: Normocephalic. EYES: No scleral icterus. No injection or drainage. NECK: Supple, trachea midline. No JVD or lymphadenopathy. Orotracheally intubated CARDIOVASCULAR: Regular rate and rhythm without murmurs, gallops, or rubs. RESPIRATORY: Breath sounds equal bilaterally. GASTROINTESTINAL: Abdomen soft, non-tender, nondistended. MUSCULOSKELETAL: No cyanosis, or left arm slight edema,1+ pitting edema B/L hands and feet. Left arm elevated Date of Insertion: Aug 18, 2016 Line: Central Venous Catheter Side: Right Location: Femoral A/P Problem List: (1) Weight loss, unintentional ICD Code: R63.4 Status: Acute (2) Generalized weakness ICD Code: R53.1 Status: Acute (3) Hyperkalemia ICD Code: E87.5 Status: Acute (4) Acute renal failure ICD Code: N17.9 Status: Acute (5) GI bleed ICD Code: K92.2 Status: Acute (6) Cardiac arrest due to other underlying condition ICD Code: I46.8 Status: Acute Assessment and Plan Plan by systems: Neurologic: -GCS 11 T, following commands, fentanyl PRN for pain -Maintain RASS -2 Respiratory: Acute respiratory failure Aspiration pneumonitis Pneumonia multilobular -vent settings-16/500/.40/5 -Ventilator bundle -Sputum- Enterobacter cloacae, Proteus mirabilis, MRSA -Maintain head of bed 30 -Bronchodilators every 6 hours, and every 2 when necessary -Continue CPAP trials, the patient has apneic episodes, has lasted on CPAP approximately 45 mins. Discussed with patient's children the possibility of a tracheostome next week. Cardiovascular: S/P Cardiac arrest-ventricular fibrillation (potassium level 7.7) Hypotension A. fib RVR -ECHO-EF 45%, systolic function mildly reduced. No RWMA -Elevated troponins 3.2-->3.23->2.71, trending down is likely secondary to cardiac arrest/demand ischemia and renal failure with now new onset atrial fibrillation. Could possibly be ACS, or Class 2 NSTEMI . The patient denies angina .Will repeat troponin to ensure trend is decreasing. In view of upper GI bleed, NPO status-will not provide aspirin or statin. Patient hemodynamically unstable on pressors, we'll not initiate beta ronald as management. -Vasopressin infusion dc'd, Levophed @2mcgs to maintain MAP > 65mmHg -Cardiology consult-Dr. Garcia -Amiodarone infusion transitioned to Amiodarone 200mg BID, wean infusion off over 4 hours -PMH HTN- home medication on ACEI , Lisinopril, currently on hold 2/2 hypotension, consider ARB, Calcium Channel ronald or Beta Ronald when clinically indicated to resume anti-HTN medication -2/3 Cardioverted x 1-50 J, for aflutter 2-1 conduction, heart rate 140s Renal: Acute renal failure Uremia-resolved -Nephrology consulted-Dr. Irwin -Dialyzed 08/19, approximately 4 L off, 2/3-3.5 L off -Urine output averaging 18-22cc/hr -Follow-up post dialysis labs -Monitor hourly urinary output -- Strict I/Os FEN/GI: GI bleed Melena Hyperkalemia secondary to acute renal failure-resolved -GI following -Dr. Morrell -EGD 08/21-Preliminary report gastritis, duodenitis, duodenal ulcers, biopsies obtained -Protonix infusion continued -Maintain nothing by mouth status, melena approximately 100 cc overnight, coffee ground emesis minimal -Sodium bicarbonate discontinued 08/19 -Monitor BMP Heme/ID: Coagulopathy Bleeding possibly also secondary to uremia Thrombocytopenia -Hemoglobin stable -Monitor PT/INR -Monitor H&H every 6 hours -Transfuse platelets less than 50,000 -ID following- Dr. Billingsley -Vancomycin and Flagyl discontinued, Zyvox initiated ceftriaxone continued -Sputum culture -Enterobacter cloacae, Proteus mirabilis, MRSA -Blood culture-NGTD -Hepatitis panel negative Endocrine: Hyperglycemia of critical illness Glucose monitoring per ICU protocol -- SSI Prophylaxis: GI Prophylaxis Protonix infusion DVT Prophylaxis -- SCDs No pharmacological DVT prophylaxis secondary to acute bleed Lines: Left femoral Vas-Cath, right femoral arterial line, right triple-lumen femoral catheter (08/18) Dispo: Discussed with family patient's status and possibility of tracheostomy This patient remains critically ill with one or more organ systems which are or may become a threat to life. I have spent in excess of 39 minutes discontinuously in the care and management of this patient. This time is exclusive of procedures, and includes, but is not limited to, evaluation of the patient, review of the medical record, discussions with family, consultants, nursing staff, or respiratory therapy, and documentation in the medical record. Physician Cathryn Wagner Problem Qualifiers (1) Acute renal failure: Qualified Code: N17.9 - Acute renal failure, unspecified acute renal failure type (2) GI bleed: Qualified Code: K92.2 - Gastrointestinal hemorrhage, unspecified gastrointestinal hemorrhage type Cathryn Wagner MD Aug 22, 2016 14:17
--- NOTE | 2016-08-22 14:29 | HHI.NPPN ---
Subjective History of Present Illness 71-year-old white male with history of sepsis, cardiac arrest, respiratory failure Additional Remarks He is on ventilator Objective Data Data 08/21/16 08/22/16 19:00 07:00 Intake Total 487 ml 745 ml Output Total 3735 ml 200 ml Balance -3248 ml 545 ml Intake IV Total 487 ml 745 ml Output Urine Total 235 ml 200 ml Hemodialysis 3500 ml # Bowel Movements 0 0 Vital Signs Date Time Temp Pulse Resp B/P Pulse Ox O2 Delivery O2 Flow Rate FiO2 08/22/16 14:04 100 40 08/22/16 12:00 97.8 62 16 124/78 100 08/22/16 12:00 62 08/22/16 11:46 100 40 08/22/16 10:40 40 08/22/16 10:33 100 40 08/22/16 10:20 100 40 08/22/16 10:20 40 08/22/16 10:18 40 08/22/16 09:04 40 08/22/16 09:04 100 40 08/22/16 09:00 40 08/22/16 08:50 97 40 08/22/16 08:00 40 08/22/16 08:00 98.0 58 16 152/66 100 08/22/16 06:00 59 08/22/16 04:02 100 40 08/22/16 04:00 98.0 68 16 144/61 99 08/22/16 04:00 70 08/22/16 04:00 40 08/22/16 02:00 68 08/22/16 00:52 98 40 08/22/16 00:00 97.6 65 16 149/68 99 08/22/16 00:00 40 08/22/16 00:00 65 08/21/16 22:00 74 08/21/16 20:00 40 08/21/16 20:00 82 08/21/16 20:00 99.0 82 12 150/68 98 08/21/16 19:43 98 40 08/21/16 18:00 82 08/21/16 16:39 99 40 08/21/16 16:10 40 08/21/16 16:00 99.2 84 12 158/72 98 08/21/16 16:00 84 08/21/16 16:00 40 -: 08/22/16 0500 08/21/16 1400 Physical Exam General Appearance: Well Developed Neck Neck Exam: Neck Supple Pulmonary Resp Exam: Clear Bilaterally, Breath Sounds Equal Cardiology CV Exam: Regular, Normal Sinus Rhythm Gastrointestinal/Abdomen GI Exam: Soft, Non-Tender, Bowel Sounds Present Integumentary Skin Exam: Clear Extremeties Extremities Exam: No Edema Assessment/Plan Problem List: (1) Acute renal failure Plan: HD done yesterday UOP slow to improve - 430cc UOP/ 24 hours Continue to monitor CT abdomen pelvis diverticulitis continue with hemodialysis - plan next HD Wednesday, continue MWF HD for now (2) Hyperkalemia Plan: This is resolved (3) Cardiac arrest due to other underlying condition Plan: Patient is sedated (4) Respiratory failure Plan: Intubated on ventilator (5) Pneumonia Plan: Continue to follow with ID - on Ceftriaxone, Zyvox Problem Qualifiers (1) Acute renal failure: Qualified Code: N17.9 - Acute renal failure, unspecified acute renal failure type (2) Respiratory failure: Qualified Code: J96.90 - Respiratory failure, unspecified chronicity, unspecified whether with hypoxia or hypercapnia (3) Pneumonia: Qualified Code: J18.9 - Pneumonia due to infectious organism, unspecified laterality, unspecified part of lung Thomas Camacho MD Aug 22, 2016 14:29
[2016-08-22] MEDS: DOCUSATE SODIUM 100 MG/10 ML UDC G-TUBE SCH (21:14)
[2016-08-22] MEDS: AMIODARONE 200 MG TAB PO SCH (21:15)
[2016-08-23] VITALS (14 sets, daily range): BP systolic 94–131; BP diastolic 58–71; PULSE 60–79; RESP 16–22; TEMP 97.3–98.5; O2SAT 96–100
[2016-08-23 03:22] LABS: HEMATOCRIT 36.1 % (39.0-51.0); MEAN CELL VOLUME 89.2 FL (80.0-100.0); MEAN CORPUSCULAR HEMOGLOBIN 29.6 PG (27.0-34.0); MEAN CORPUSCULAR HGB CONC 33.2 % (32.0-36.0); PLATELET COUNT 82 TH/MM3 (150-450); RED BLOOD COUNT 4.04 MIL/MM3 (4.50-5.90); RED CELL DISTRIBUTION WIDTH 14.4 % (11.6-17.2); WHITE BLOOD COUNT 5.2 TH/MM3 (4.0-11.0)
[2016-08-23 03:26] LABS: REVIEW FLAG FINAL
[2016-08-23 03:38] LABS: BICARBONATE 27.4 MEQ/L (21.0-32.0); MAGNESIUM 1.9 MG/DL (1.5-2.5); POTASSIUM 3.8 MEQ/L (3.5-5.1)
[2016-08-23] MEDS: CHLORHEXIDINE GLUCONATE 2 % 1 PACK (2 CLOTHS) TOP SCH (04:22)
[2016-08-23] MEDS: cefTRIAXone INJ 2,000 MG in SODIUM CHLORIDE 0.9% INJ 100 ML IV SCH (04:22)
[2016-08-23 05:06] LABS: BLOOD GAS BASE EXCESS 1.1 mmol/L (-2-2); BLOOD GAS CARBOXYHEMOGLOBIN 0.7 % (0-4); BLOOD GAS HCO3 24 mmol/L (22-26); BLOOD GAS O2 HGB SATURATION 97 % (90-100); BLOOD GAS PCO2 32 mmHg (38-42); BLOOD GAS PO2 129 mmHg (61-120); BLOOD GAS TOTAL HGB 11.6 G/DL (12.0-16.0); CRITICAL VALUE NO; FIO2 40 %; OXYGEN DEVICE VENTILATOR; TEMP CORR TO 98.6; VENT SETTINGS AC/16/500/+5
[2016-08-23] MEDS: LOW DOSE INSULIN NOVOLOG SUPPLEMENTAL SCALE SQ SCH ×5 (05:06→22:54)
[2016-08-23 05:07] LABS: DRAW SITE ALINE; STAT NO; ULNAR PULSE PRESENT
[2016-08-23] MEDS: PANTOPRAZOLE INJ 80 MG in SODIUM CHLORIDE 0.9% INJ 100 ML IV SCH ×2 (06:19→17:24)
--- NOTE | 2016-08-23 06:38 | RADRPT ---
EXAM DATE/TIME: 08/23/2016 05:20 [place] COMPARISON: CHEST SINGLE AP, August 19, 2016, 2:44. INDICATIONS : Shortness of breath, possible pulmonary disease. MEDICAL HISTORY : A-Fib MRSA SURGICAL HISTORY : None. ENCOUNTER: Subsequent ACUITY: 4 - 6 days PAIN SCORE: Non-responsive. LOCATION: Bilateral chest FINDINGS: Portable AP view of the chest demonstrates a normal-sized cardiac silhouette. ETT and nasogastric tub e remain present. Lungs are underinflated and there is persistent opacity in the right lower lung zon e. No pneumothorax is seen. CONCLUSION: Stable chest x-ray with airspace opacity in the right lower lung zone. Daniel Lawrence MD on August 23, 2016 at 6:36 Board Certified Radiologist. This report was verified electronically.
[2016-08-23] MEDS: AMIODARONE 200 MG TAB PO SCH ×2 (08:02→20:17)
[2016-08-23] MEDS: SODIUM CHLORIDE 0.9% FLUSH 5 ML FLUSH IV FLUSH SCH ×2 (08:02→20:17)
[2016-08-23] MEDS: ARTIFICIAL TEARS OPTH SOLN 15 ML BTL EACH EYE SCH ×3 (08:02→17:24)
[2016-08-23] MEDS: LINEZOLID 600 MG TAB PO SCH ×2 (08:02→20:16)
[2016-08-23] MEDS: DOCUSATE SODIUM 100 MG/10 ML UDC G-TUBE SCH ×2 (08:02→20:16)
--- NOTE | 2016-08-23 09:17 | HHI.CCPN ---
Subjective Remarks/Hospital Course Patient comes in by EMS after being [place] acted by police and family called stating the patient has not been getting out of bed or taking care of himself. Patient denies any medical complaints at this time. Denies any chest pain or shortness of breath, abdominal pain, or fevers. While in the ED patient suffered cardiac arrest due to V Fib. Successful short ACLS performed with return of spontaneous circulation. Subjective 08/18 Overnight upon presentation to the [facility] the patient was noted to have large amount of bloody stool unable to quantify, the patient also vomited approximately 500 cc of coffee ground emesis. An NG tube was placed and the patient was noted to have an additional 300 cc of coffee ground emesis, the patient continues to have melanotic stools. Hemodialysis was initiated and discontinued secondary to hypotension, the patient required levophed infusion, and was also bolused initially with a liter of normal saline. This morning the patient continues to bleed, contributing factors include uremia. Stat laboratory specimens obtained, to include coag studies. Will initiate DDAVP, and cryoprecipitate secondary to uremic bleeding. 2/1 Hemoglobin stable. The patient continues to have melanotic stool, decrease in volume approximately 100 cc last night , and small amount of coffee ground emesis approximately 50 cc overnight.The patient currently being dialyzed, sodium bicarbonate infusion discontinued. The patient is alert, following commands. Plan for CPAP trials today. 2/2 The patient was dialyzed yesterday, 4 L removed. In the afternoon, the patient was noted to go into A. fib RVR, heart rate 140-160's. A one-time dose of digoxin was given, subsequently later on in the day amiodarone bolus was given. Heart rate converted to sinus tach, low 100's, subsequently heart rate 80 to 90s. The patient was weaned off of vasopressin today. Minimal coffee ground emesis, and melena overnight. Left upper extremity was noted to be edematous, ultrasound imaging performed, which revealed occlusive thrombus left cephalic vein. 2/3 The patient converted to A. fib flutter yesterday afternoon, the patient was provided an amiodarone bolus followed by an infusion. The patient continued to have a heart rate in the 130s during the evening, Digoxin 0.5 mg 1 dose was given. At approximately 4 AM the patient went into A. fib flutter with 2:1 conduction and was subsequently synchronize cardioverted 1 attempt at 50 J. The patient remains on amiodarone infusion. Plan for hemodialysis today , and upper endoscopy. 08/22 The patient remained in sinus rhythm overnight. The patient continues to have apneic episodes during CPAP trials, lasting only 45 minutes yesterday. Will begin tube feeds per GI recommendations.Levophed has been off since 0100am. 08/23 Afebrile. The patient was transitioned to PO amiodarone last evening, 200 mg BID, infusion weaned off 4 hours post dose. During the night, patient had 20 sec run of ventricular ectopy, reported. Observed occasional multifocal PVCs , the patient remains in sinus rhythm. Multiple attempts at CPAP trials, patient continues to have apneic episodes. Discussed with family, and patient probable tracheostomy to be scheduled this week. Objective Vital Signs Date Time Temp Pulse Resp B/P Pulse Ox O2 Delivery O2 Flow Rate FiO2 08/23/16 08:00 40 08/23/16 08:00 98.0 72 18 114/65 97 08/20/16 08:00 Mechanical Ventilator Intake and Output 08/22/16 08/22/16 08/23/16 08:00 16:00 00:00 Intake Total 381 ml 315 ml 466 ml Output Total 150 ml 165.0 ml 200 ml Balance 231 ml 150.0 ml 266 ml Result Diagram: 08/23/16 0230 08/23/16 0230 Other Results Laboratory Tests Test 08/23/16 04:45 Blood Gas Puncture Site SAJI Blood Gas Patient Temperature 98.6 Blood Gas HCO3 24 mmol/L (22-26) Blood Gas Base Excess 1.1 mmol/L (-2-2) Blood Gas Oxygen Saturation 97 % (90-100) Arterial Blood pH 7.49 (7.380-7.420) Arterial Blood Partial 32 mmHg (38-42) Pressure CO2 Arterial Blood Partial 129 mmHg Pressure O2 (61-120) Arterial Blood Oxygen Content 16.0 Vol % (12.0-20.0) Arterial Blood 0.7 % (0-4) Carboxyhemoglobin Arterial Blood Methemoglobin 1.0 % (0-2) Blood Gas Hemoglobin 11.6 G/DL (12.0-16.0) Oxygen Delivery Device VENTILATOR Blood Gas Ventilator Setting AC/16/500/+5 Blood Gas Inspired Oxygen 40 % Imaging Last Impressions Chest X-Ray 08/23/16 0600 Signed Impressions: Service Date/Time: Tuesday, August 23, 2016 05:20 - CONCLUSION: Stable chest x-ray with airspace opacity in the right lower lung zone. Daniel Lawrence MD Abdomen/Pelvis CT 08/19/162320 Signed Impressions: Service Date/Time: Friday, August 19, 2016 22:04 - CONCLUSION: 1. Diverticulosis of the descending and sigmoid colon. Wall thickening of the sigmoid colon could be colitis or diverticulitis. 2. Minimal fluid in the right paracolic gutter. 3. Bibasilar consolidation and patchy infiltrates right lower lobe. Followup CT chest recommended to ensure complete resolution. 1. Morgan Jimenez MD Upper Extremity Ultrasound [id number]/19/161820 Signed Impressions: Service Date/Time: Friday, August 19, 2016 20:20 - CONCLUSION: Occlusive thrombus in the left cephalic vein. No DVT in the right arm. Morgan Jimenez MD Renal Ultrasound 08/18/16 0000 Signed Impressions: Service Date/Time: Thursday, August 18, 2016 10:13 - CONCLUSION: 1. No evidence of hydronephrosis. 2. There appears to be a probable 1.1 cm nonobstructing stone in the mid pole of the left kidney. Jae Apple MD Head CT [id number]/17/[id number] Signed Impressions: Service Date/Time: Wednesday, August 17, 2016 19:48 - CONCLUSION: Normal examination for a patient of this age. Demetrius Lopez MD Last Impressions Abdomen/Pelvis CT 08/19/162320 Signed Impressions: Service Date/Time: Friday, August 19, 2016 22:04 - CONCLUSION: 1. Diverticulosis of the descending and sigmoid colon. Wall thickening of the sigmoid colon could be colitis or diverticulitis. 2. Minimal fluid in the right paracolic gutter. 3. Bibasilar consolidation and patchy infiltrates right lower lobe. Followup CT chest recommended to ensure complete resolution. 1. Morgan Jimenez MD Upper Extremity Ultrasound 08/19/161820 Signed Impressions: Service Date/Time: Friday, August 19, 2016 20:20 - CONCLUSION: Occlusive thrombus in the left cephalic vein. No DVT in the right arm. Morgan Jimenez MD Chest X-Ray 08/19/16 0600 Signed Impressions: Service Date/Time: Friday, August 19, 2016 02:44 - CONCLUSION: Mild right base consolidation has developed. Daniel Welch MD Renal Ultrasound 08/18/16 0000 Signed Impressions: Service Date/Time: Thursday, August 18, 2016 10:13 - CONCLUSION: 1. No evidence of hydronephrosis. 2. There appears to be a probable 1.1 cm nonobstructing stone in the mid pole of the left kidney. Jae Apple MD Head CT 08/17/[id number] Signed Impressions: Service Date/Time: Wednesday, August 17, 2016 19:48 - CONCLUSION: Normal examination for a patient of this age. Demetrius Lopez MD Last Impressions Abdomen/Pelvis CT 08/19/162320 Signed Impressions: Service Date/Time: Friday, August 19, 2016 22:04 - CONCLUSION: 1. Diverticulosis of the descending and sigmoid colon. Wall thickening of the sigmoid colon could be colitis or diverticulitis. 2. Minimal fluid in the right paracolic gutter. 3. Bibasilar consolidation and patchy infiltrates right lower lobe. Followup CT chest recommended to ensure complete resolution. 1. Morgan Jimenez MD Upper Extremity Ultrasound 08/19/16 182 Signed Impressions: Service Date/Time: Friday, August 19, 2016 20:20 - CONCLUSION: Occlusive thrombus in the left cephalic vein. No DVT in the right arm. Morgan Jimenez MD Chest X-Ray 08/19/16 0600 Signed Impressions: Service Date/Time: Friday, August 19, 2016 02:44 - CONCLUSION: Mild right base consolidation has developed. Daniel Welch MD Renal Ultrasound 08/18/16 0000 Signed Impressions: Service Date/Time: Thursday, August 18, 2016 10:13 - CONCLUSION: 1. No evidence of hydronephrosis. 2. There appears to be a probable 1.1 cm nonobstructing stone in the mid pole of the left kidney. Jae Apple MD Head CT [id number]/17/[id number] Signed Impressions: Service Date/Time: Wednesday, August 17, 2016 19:48 - CONCLUSION: Normal examination for a patient of this age. Demetrius Lopez MD Last Impressions Chest X-Ray 08/19/16 0600 Signed Impressions: Service Date/Time: Friday, August 19, 2016 02:44 - CONCLUSION: Mild right base consolidation has developed. Daniel Welch MD Renal Ultrasound 08/18/16 0000 Signed Impressions: Service Date/Time: Thursday, August 18, 2016 10:13 - CONCLUSION: 1. No evidence of hydronephrosis. 2. There appears to be a probable 1.1 cm nonobstructing stone in the mid pole of the left kidney. Jae Apple MD Head CT [id number]/17/[id number] Signed Impressions: Service Date/Time: Wednesday, August 17, 2016 19:48 - CONCLUSION: Normal examination for a patient of this age. Demetrius Lopez MD Last 24 hours Impressions Chest X-Ray 08/18/16 0127 Signed Impressions: Service Date/Time: Thursday, August 18, 2016 01:55 - CONCLUSION: Interim intubation with endotracheal tube tip about 2.5 cm above the janett. Lungs remain clear. Daniel Welch MD Head CT 08/17/161924 Signed Impressions: Service Date/Time: Wednesday, August 17, 2016 19:48 - CONCLUSION: Normal examination for a patient of this age. Demetrius Lopez MD Chest X-Ray 08/17/161924 Signed Impressions: Service Date/Time: Wednesday, August 17, 2016 19:36 - CONCLUSION: 1. No active disease. Demetrius Lopez MD Objective Remarks GENERAL: Patient alert, following commands , intubated SKIN: Warm and dry. Rash noted on bilateral arms and chest, noted on abdomen still present, but resolving HEAD: Normocephalic. EYES: No scleral icterus. No injection or drainage. NECK: Supple, trachea midline. No JVD or lymphadenopathy. Orotracheally intubated CARDIOVASCULAR: Regular rate and rhythm without murmurs, gallops, or rubs. RESPIRATORY: Breath sounds equal bilaterally. GASTROINTESTINAL: Abdomen soft, non-tender, nondistended. Tube feeds infusing MUSCULOSKELETAL: No cyanosis, edema B/L hands and feet. Urinary Catheter: Yes Cummins insert reason: Measure Accurate Output Date of Insertion: Aug 18, 2016 Vascular Central Line Catheter: Yes Assessment to: Continue Line: Central Venous Catheter Side: Right Location: Femoral A/P Problem List: (1) Weight loss, unintentional ICD Code: R63.4 Status: Acute (2) Generalized weakness ICD Code: R53.1 Status: Acute (3) Hyperkalemia ICD Code: E87.5 Status: Acute (4) Acute renal failure ICD Code: N17.9 Status: Acute (5) GI bleed ICD Code: K92.2 Status: Acute (6) Cardiac arrest due to other underlying condition ICD Code: I46.8 Status: Acute Assessment and Plan Plan by systems: Neurologic: -GCS 11 T, following commands, fentanyl PRN for pain -Maintain RASS -2 Respiratory: Acute Hypoxic respiratory failure Aspiration pneumonitis Pneumonia multilobular -vent settings-16/500/.40/5 -Ventilator bundle -Sputum- Enterobacter cloacae, Proteus mirabilis, MRSA -Maintain head of bed 30 -Bronchodilators every 6 hours, and every 2 when necessary -Continue CPAP trials, the patient has apneic episodes,on no sedation or narcotics -Consult general surgery for possible tracheostomy placement Cardiovascular: S/P Cardiac arrest-ventricular fibrillation (potassium level 7.7) Hypotension-resolved A. fib RVR-resolved -ECHO-EF 45%, systolic function mildly reduced. No RWMA -Maintain MAP > 65mmHg -Cardiology following-Dr. Garcia -Amiodarone 200mg BID initiated -PMH HTN- home medication on ACEI , Lisinopril, currently on hold 2/2 hypotension, consider ARB, Calcium Channel ronald or Beta Ronald when clinically indicated to resume anti-HTN medication -2/3 Cardioverted x 1-50 J, for aflutter 2-1 conduction, heart rate 140s Renal: Acute renal failure Uremia-resolved -Nephrology consulted-Dr. Irwin -Dialysis -Urine output averaging 20-40cc/hr -Monitor hourly urinary output -- Strict I/Os FEN/GI: GI bleed Melena Hyperkalemia secondary to acute renal failure-resolved -GI following -Dr. Morrell -EGD 08/21-Preliminary report gastritis, duodenitis, duodenal ulcers, biopsies obtained -Protonix infusion -Tube feeds initiated, Nepro 30 cc/hour per GI recommendations -Sodium bicarbonate discontinued 08/19 -Monitor BMP Heme/ID: Coagulopathy-resolved Bleeding possibly also secondary to uremia-resolved Thrombocytopenia -Hemoglobin stable, 12 -Monitor PT/INR -Transfuse platelets less than 50,000, improving 82 from 68 yesterday, will continue to monitor -ID following- Dr. Billingsley -Vancomycin and Flagyl discontinued, Zyvox initiated ceftriaxone continued -Sputum culture -Enterobacter cloacae, Proteus mirabilis, MRSA -Blood culture-NGTD -Hepatitis panel negative Endocrine: Hyperglycemia of critical illness Glucose monitoring every 6 hours per ICU protocol -- SSI Prophylaxis: GI Prophylaxis Protonix infusion DVT Prophylaxis -- SCDs Begin heparin 5000u BID Lines: Left femoral Vas-Cath, right femoral arterial line, right triple-lumen femoral catheter (08/18) Dispo: This patient remains critically ill with one or more organ systems which are or may become a threat to life. I have spent in excess of 35 minutes discontinuously in the care and management of this patient. This time is exclusive of procedures, and includes, but is not limited to, evaluation of the patient, review of the medical record, discussions with family, consultants, nursing staff, or respiratory therapy, and documentation in the medical record. Physician Cathryn Wagner Problem Qualifiers (1) Acute renal failure: Qualified Code: N17.9 - Acute renal failure, unspecified acute renal failure type (2) GI bleed: Qualified Code: K92.2 - Gastrointestinal hemorrhage, unspecified gastrointestinal hemorrhage type Cathryn Wagner MD Aug 23, 2016 09:17
[2016-08-23 09:29] LABS: CALCIUM-PROTEIN CORRECTED 8.6 MG/DL (8.5-10.1)
[2016-08-23] MEDS: HEPARIN SODIUM - SQ 10,000 UNITS/ML VIAL SQ SCH ×2 (10:32→20:17)
--- NOTE | 2016-08-23 11:26 | PD.CARD.PN ---
Subjective Subjective Remarks remain intubated but responsive; denies CP, SHOB or palps now or prior to arrest Objective Medications Current Medications Medications (Trade) Dose Ordered Sig/Antonio Route Start Time Stop Time Status Last Admin (Protonix Inj/NS Inj) 100 ml @ 10 mls/hr Q10H IV 08/17/16 21:45 08/23/16 06:19 (NS Flush) 2 ml UNSCH PRN IV FLUSH 08/18/16 00:30 (NS Flush) 2 ml BID IV FLUSH 08/18/16 09:00 08/23/16 08:02 (Tylenol) 650 mg Q6H PRN PO 08/18/16 00:30 (Morphine Inj) 2 mg Q2H PRN IV 08/18/16 00:30 (Tears Naturale Opth Soln) 1 drop TID EACH EYE 08/18/16 09:00 08/23/16 08:02 (Colace Liq) 100 mg Q12HR G-TUBE 08/18/16 09:00 08/23/16 08:02 Miscellaneous Information 1 Q361D XX 08/18/16 00:30 (Chlorhexidine 2% Cloth) Taper DAILY@04 TOP 08/18/16 04:00 08/14/17 03:59 08/23/16 04:22 Chlorhexidine Gluconate 3 pack 3 pack UNSCH PRN TOP 08/18/16 00:30 (fentaNYL DRIP) 250 ml @ 0 mls/hr TITRATE IV 08/18/16 00:30 08/19/16 00:14 (Reglan Inj) 5 mg Q6H PRN IV 08/18/16 01:00 Heparin Sodium (Porcine) 8000 units 8,000 units UNSCH PRN IVF 08/18/16 02:45 (NS 1000 ml Inj) 1,000 ml @ 0 mls/hr Q0M PRN IV 08/18/16 02:45 (Mannitol Inj) 12.5 gm UNSCH PRN IV 08/18/16 02:45 08/19/16 08:26 (Albumin 25% Inj) 25 gm UNSCH PRN IV 08/18/16 02:45 08/21/16 08:26 (NS Flush) 5 ml UNSCH PRN IVF 08/18/16 02:45 08/19/16 08:27 (Heparin Inj) UNSCH PRN .XX 08/18/16 02:45 08/21/16 08:24 (Gentamicin (Dialysis) Inj) 20 mg UNSCH PRN IV 08/18/16 02:45 08/21/16 08:24 (Zofran Inj) 4 mg UNSCH PRN IV 08/18/16 02:45 (Tylenol) 650 mg UNSCH PRN PO 08/18/16 02:45 (Benadryl) 25 mg UNSCH PRN PO 08/18/16 02:45 (Nitrostat Sl) 0.4 mg UNSCH PRN SL 08/18/16 02:45 (Catapres) 0.1 mg UNSCH PRN PO 08/18/16 02:45 (Gelfoam 12 Mm/7 Mm Top) 1 foam UNSCH PRN TOP 08/18/16 02:45 (Zofran Inj) 4 mg Q6H PRN IV 08/18/16 03:15 Terbutaline Sulfate 1 mg 1 mg UNSCH PRN SQ 08/18/16 10:00 (Rocephin Inj/NS Inj) 100 ml @ 200 mls/hr Q24H IV 08/19/16 06:00 08/23/16 04:22 (D50w (Vial) Inj) 25 ml UNSCH PRN IV PUSH 08/18/16 19:45 08/21/16 14:23 (Glucagon Inj) 1 mg UNSCH PRN OTHER 08/18/16 19:45 (NovoLOG SUPPLEMENTAL SCALE) 1 Q6HR SQ 08/19/16 00:00 08/19/16 00:11 (Zyvox) 600 mg Q12HR PO 08/21/16 12:00 08/23/16 08:02 (Cordarone) 200 mg Q12HR PO 08/22/16 21:00 08/23/16 08:02 (Heparin Inj) 5,000 units Q12HR SQ 08/23/16 09:30 08/23/16 10:32 Vital Signs / I&O Vital Signs Date Time Temp Pulse Resp B/P Pulse Ox O2 Delivery O2 Flow Rate FiO2 08/23/16 10:00 67 08/23/16 08:00 40 08/23/16 08:00 98.0 72 18 114/65 97 08/23/16 08:00 70 08/23/16 06:00 68 08/23/16 04:00 67 08/23/16 04:00 98.5 67 16 94/71 100 08/23/16 04:00 40 08/23/16 02:00 67 08/23/16 00:00 66 08/23/16 00:00 98.3 60 16 131/58 100 08/23/16 00:00 40 08/22/16 23:33 100 40 08/22/16 22:00 68 08/22/16 20:48 99 40 08/22/16 20:00 66 08/22/16 20:00 40 08/22/16 20:00 98.3 66 16 142/72 100 08/22/16 16:37 100 40 08/22/16 16:00 64 08/22/16 16:00 98.1 64 16 156/65 100 08/22/16 14:04 100 40 08/22/16 12:00 97.8 62 16 124/78 100 08/22/16 12:00 62 08/22/16 11:46 100 40 I/O 08/22/16 08/22/16 08/22/16 08/23/16 08/23/16 08/23/16 07:00 15:00 23:00 07:00 15:00 23:00 Intake Total 381 ml 315 ml 466 ml 464 ml Output Total 150 ml 140 ml 200 ml 195 ml Balance 231 ml 175 ml 266 ml 269 ml Intake IV Total 381 ml 315 ml 315 ml 264 ml Tube Feeding 91 ml 200 ml Other 60 ml Output Urine Total 150 ml 140 ml 200 ml 195 ml Gastric Drainage Total 0 ml 0 ml Tube Feeding Residual Discard 0 ml # Bowel Movements 0 0 0 0 Physical Exam GENERAL: Well developed, well nourished. No acute distress on vent HEENT: Jugular venous pressure is normal. CHEST: Lungs clear to auscultation bilaterally. Unlabored respiratory effort. CARDIAC: Regular rate and rhythm without S3, S4, or murmur. ABDOMEN: Soft, EXTREMITIES: No clubbing, cyanosis, tr edema. Laboratory Laboratory Tests Test 08/23/16 08/23/16 02:30 04:45 White Blood Count 5.2 TH/MM3 Red Blood Count 4.04 MIL/MM3 Hemoglobin 12.0 GM/DL Hematocrit 36.1 % Mean Corpuscular Volume 89.2 FL Mean Corpuscular Hemoglobin 29.6 PG Mean Corpuscular Hemoglobin 33.2 % Concent Red Cell Distribution Width 14.4 % Platelet Count 82 TH/MM3 Mean Platelet Volume 9.6 FL Sodium Level 145 MEQ/L Potassium Level 3.8 MEQ/L Chloride Level 106 MEQ/L Carbon Dioxide Level 27.4 MEQ/L Anion Gap 12 MEQ/L Blood Urea Nitrogen 103 MG/DL Creatinine 5.99 MG/DL Estimat Glomerular Filtration 9 ML/MIN Rate Random Glucose 116 MG/DL Calcium Level 7.7 MG/DL Protein Corrected Calcium 8.6 MG/DL Phosphorus Level 4.3 MG/DL Magnesium Level 1.9 MG/DL Total Protein 5.5 GM/DL Blood Gas Puncture Site SAJI Blood Gas Patient Temperature 98.6 Blood Gas HCO3 24 mmol/L Blood Gas Base Excess 1.1 mmol/L Blood Gas Oxygen Saturation 97 % Arterial Blood pH 7.49 Arterial Blood Partial 32 mmHg Pressure CO2 Arterial Blood Partial 129 mmHg Pressure O2 Arterial Blood Oxygen Content 16.0 Vol % Arterial Blood 0.7 % Carboxyhemoglobin Arterial Blood Methemoglobin 1.0 % Blood Gas Hemoglobin 11.6 G/DL Oxygen Delivery Device VENTILATOR Blood Gas Ventilator Setting AC/16/500/+5 Blood Gas Inspired Oxygen 40 % Assessment and Plan Problem List: (1) AIVR (accelerated idioventricular rhythm) Assessment and Plan: short run of AIVR last night, decrease amio may need cath or nuc for further evaluation of potential ischemic etiology (2) Atrial fibrillation Assessment and Plan: now in NSR, no AF but AIVR no anticoagulation secondary to GIB (3) Acute renal failure (4) Respiratory failure Assessment and Plan: still on vent (5) Cardiac arrest due to other underlying condition (6) GI bleed (7) Hyperkalemia (8) Generalized weakness Problem Qualifiers (1) Acute renal failure: Qualified Code: N17.9 - Acute renal failure, unspecified acute renal failure type (2) Respiratory failure: Qualified Code: J96.90 - Respiratory failure, unspecified chronicity, unspecified whether with hypoxia or hypercapnia (3) GI bleed: Qualified Code: K92.2 - Gastrointestinal hemorrhage, unspecified gastrointestinal hemorrhage type Elena Garcia MD Aug 23, 2016 11:26
--- NOTE | 2016-08-23 12:30 | HHI.NPPN ---
Subjective History of Present Illness 71-year-old white male with history of sepsis, cardiac arrest, respiratory failure Additional Remarks He is on ventilator Objective Data Data 08/22/16 08/23/16 19:00 07:00 Intake Total 315 ml 930 ml Output Total 235.0 ml 300 ml Balance 80.0 ml 630 ml Intake IV Total 315 ml 579 ml Tube Feeding 291 ml Other 60 ml Output Urine Total 235 ml 300 ml Gastric Drainage Total 0 ml 0 ml Tube Feeding Residual Discard 0 ml # Bowel Movements 0 0 Vital Signs Date Time Temp Pulse Resp B/P Pulse Ox O2 Delivery O2 Flow Rate FiO2 08/23/16 12:00 40 08/23/16 12:00 66 08/23/16 10:00 67 08/23/16 08:00 40 08/23/16 08:00 98.0 72 18 114/65 97 08/23/16 08:00 70 08/23/16 06:00 68 08/23/16 04:00 67 08/23/16 04:00 98.5 67 16 94/71 100 08/23/16 04:00 40 08/23/16 02:00 67 08/23/16 00:00 66 08/23/16 00:00 98.3 60 16 131/58 100 08/23/16 00:00 40 08/22/16 23:33 100 40 08/22/16 22:00 68 08/22/16 20:48 99 40 08/22/16 20:00 66 08/22/16 20:00 40 08/22/16 20:00 98.3 66 16 142/72 100 08/22/16 16:37 100 40 08/22/16 16:00 64 08/22/16 16:00 98.1 64 16 156/65 100 08/22/16 14:04 100 40 -: 08/23/16 0230 08/23/16 0230 Physical Exam General Appearance: Well Developed Neck Neck Exam: Neck Supple Pulmonary Resp Exam: Clear Bilaterally, Breath Sounds Equal Cardiology CV Exam: Regular, Normal Sinus Rhythm Gastrointestinal/Abdomen GI Exam: Soft, Non-Tender, Bowel Sounds Present Integumentary Skin Exam: Clear Extremeties Extremities Exam: No Edema Assessment/Plan Problem List: (1) Acute renal failure Plan: HD done Wednesday UOP slow to improve - 535cc UOP/ 24 hours Continue to monitor Continue with hemodialysis - plan next HD Wednesday, continue MWF HD for now (2) Hyperkalemia Plan: This is resolved (3) Cardiac arrest due to other underlying condition Plan: Patient is sedated (4) Respiratory failure Plan: Intubated on ventilator (5) Pneumonia Plan: Continue to follow with ID - on Ceftriaxone, Zyvox Problem Qualifiers (1) Acute renal failure: Qualified Code: N17.9 - Acute renal failure, unspecified acute renal failure type (2) Respiratory failure: Qualified Code: J96.90 - Respiratory failure, unspecified chronicity, unspecified whether with hypoxia or hypercapnia (3) Pneumonia: Qualified Code: J18.9 - Pneumonia due to infectious organism, unspecified laterality, unspecified part of lung Thomas Camacho MD Aug 23, 2016 12:30
[2016-08-24] VITALS (17 sets, daily range): BP systolic 108–124; BP diastolic 58–70; PULSE 67–108; RESP 16–33; TEMP 98–98.7; O2SAT 96–100
[2016-08-24] MEDS: PANTOPRAZOLE INJ 80 MG in SODIUM CHLORIDE 0.9% INJ 100 ML IV SCH ×3 (02:52→18:35)
[2016-08-24] MEDS: CHLORHEXIDINE GLUCONATE 2 % 1 PACK (2 CLOTHS) TOP SCH (03:03)
[2016-08-24 04:31] LABS: HEMATOCRIT 35.8 % (39.0-51.0); MEAN CELL VOLUME 89.1 FL (80.0-100.0); MEAN CORPUSCULAR HEMOGLOBIN 30.1 PG (27.0-34.0); MEAN CORPUSCULAR HGB CONC 33.8 % (32.0-36.0); PLATELET COUNT 102 TH/MM3 (150-450); RED BLOOD COUNT 4.02 MIL/MM3 (4.50-5.90); RED CELL DISTRIBUTION WIDTH 14.3 % (11.6-17.2); REVIEW FLAG FINAL; WHITE BLOOD COUNT 6.3 TH/MM3 (4.0-11.0)
[2016-08-24 04:55] LABS: BICARBONATE 26.2 MEQ/L (21.0-32.0); MAGNESIUM 1.9 MG/DL (1.5-2.5); POTASSIUM 3.5 MEQ/L (3.5-5.1)
[2016-08-24] MEDS: LOW DOSE INSULIN NOVOLOG SUPPLEMENTAL SCALE SQ SCH ×3 (05:54→18:00)
[2016-08-24] MEDS: cefTRIAXone INJ 2,000 MG in SODIUM CHLORIDE 0.9% INJ 100 ML IV SCH (06:07)
--- NOTE | 2016-08-24 07:47 | HHI.CCPN ---
Subjective Remarks/Hospital Course Patient comes in by EMS after being [place] acted by police and family called stating the patient has not been getting out of bed or taking care of himself. Patient denies any medical complaints at this time. Denies any chest pain or shortness of breath, abdominal pain, or fevers. While in the ED patient suffered cardiac arrest due to V Fib. Successful short ACLS performed with return of spontaneous circulation. Subjective 08/18 Overnight upon presentation to the [facility] the patient was noted to have large amount of bloody stool unable to quantify, the patient also vomited approximately 500 cc of coffee ground emesis. An NG tube was placed and the patient was noted to have an additional 300 cc of coffee ground emesis, the patient continues to have melanotic stools. Hemodialysis was initiated and discontinued secondary to hypotension, the patient required levophed infusion, and was also bolused initially with a liter of normal saline. This morning the patient continues to bleed, contributing factors include uremia. Stat laboratory specimens obtained, to include coag studies. Will initiate DDAVP, and cryoprecipitate secondary to uremic bleeding. 2/1 Hemoglobin stable. The patient continues to have melanotic stool, decrease in volume approximately 100 cc last night , and small amount of coffee ground emesis approximately 50 cc overnight.The patient currently being dialyzed, sodium bicarbonate infusion discontinued. The patient is alert, following commands. Plan for CPAP trials today. 2/2 The patient was dialyzed yesterday, 4 L removed. In the afternoon, the patient was noted to go into A. fib RVR, heart rate 140-160's. A one-time dose of digoxin was given, subsequently later on in the day amiodarone bolus was given. Heart rate converted to sinus tach, low 100's, subsequently heart rate 80 to 90s. The patient was weaned off of vasopressin today. Minimal coffee ground emesis, and melena overnight. Left upper extremity was noted to be edematous, ultrasound imaging performed, which revealed occlusive thrombus left cephalic vein. 2/3 The patient converted to A. fib flutter yesterday afternoon, the patient was provided an amiodarone bolus followed by an infusion. The patient continued to have a heart rate in the 130s during the evening, Digoxin 0.5 mg 1 dose was given. At approximately 4 AM the patient went into A. fib flutter with 2:1 conduction and was subsequently synchronize cardioverted 1 attempt at 50 J. The patient remains on amiodarone infusion. Plan for hemodialysis today , and upper endoscopy. 08/22 The patient remained in sinus rhythm overnight. The patient continues to have apneic episodes during CPAP trials, lasting only 45 minutes yesterday. Will begin tube feeds per GI recommendations.Levophed has been off since 0100am. 08/23 Afebrile. The patient was transitioned to PO amiodarone last evening, 200 mg BID, infusion weaned off 4 hours post dose. During the night, patient had 20 sec run of ventricular ectopy, reported. Observed occasional multifocal PVCs , the patient remains in sinus rhythm. Multiple attempts at CPAP trials, patient continues to have apneic episodes. Discussed with family, and patient probable tracheostomy to be scheduled this week. 08/24 CPAP trials lasted approximately 5 hours discontinuously, continues to have apneic episodes. Per nephrology the patient will continue M-W-F hemodialysis, will require permacath placement, will coordinate with kst operator. General surgery consult for tracheostomy . Objective Vital Signs Date Time Temp Pulse Resp B/P Pulse Ox O2 Delivery O2 Flow Rate FiO2 08/24/16 06:00 78 08/24/16 04:01 99 40 08/24/16 04:00 98.0 17 109/59 08/20/16 08:00 Mechanical Ventilator Intake and Output 08/23/16 08/23/16 08/24/16 08:00 16:00 00:00 Intake Total 464 ml 622 ml 347 ml Output Total 230 ml 215 ml 355 ml Balance 234 ml 407 ml -8 ml Result Diagram: 08/24/16 0400 08/24/16 0400 Imaging Last Impressions Chest X-Ray 08/23/16 0600 Signed Impressions: Service Date/Time: Tuesday, August 23, 2016 05:20 - CONCLUSION: Stable chest x-ray with airspace opacity in the right lower lung zone. Daniel Lawrence MD Abdomen/Pelvis CT 08/19/16 5353 Signed Impressions: Service Date/Time: Friday, August 19, 2016 22:04 - CONCLUSION: 1. Diverticulosis of the descending and sigmoid colon. Wall thickening of the sigmoid colon could be colitis or diverticulitis. 2. Minimal fluid in the right paracolic gutter. 3. Bibasilar consolidation and patchy infiltrates right lower lobe. Followup CT chest recommended to ensure complete resolution. 1. Morgan Jimenez MD Upper Extremity Ultrasound 08/19/161820 Signed Impressions: Service Date/Time: Friday, August 19, 2016 20:20 - CONCLUSION: Occlusive thrombus in the left cephalic vein. No DVT in the right arm. Morgan Jimenez MD Renal Ultrasound 08/18/16 0000 Signed Impressions: Service Date/Time: Thursday, August 18, 2016 10:13 - CONCLUSION: 1. No evidence of hydronephrosis. 2. There appears to be a probable 1.1 cm nonobstructing stone in the mid pole of the left kidney. Jae Apple MD Head CT 08/17/[id number] Signed Impressions: Service Date/Time: Wednesday, August 17, 2016 19:48 - CONCLUSION: Normal examination for a patient of this age. Demetrius Lopez MD Last Impressions Abdomen/Pelvis CT 08/19/16 2321 Signed Impressions: Service Date/Time: Friday, August 19, 2016 22:04 - CONCLUSION: 1. Diverticulosis of the descending and sigmoid colon. Wall thickening of the sigmoid colon could be colitis or diverticulitis. 2. Minimal fluid in the right paracolic gutter. 3. Bibasilar consolidation and patchy infiltrates right lower lobe. Followup CT chest recommended to ensure complete resolution. 1. Morgan Jimenez MD Upper Extremity Ultrasound 08/19/161820 Signed Impressions: Service Date/Time: Friday, August 19, 2016 20:20 - CONCLUSION: Occlusive thrombus in the left cephalic vein. No DVT in the right arm. Morgan Jimenez MD Chest X-Ray 08/19/16 0600 Signed Impressions: Service Date/Time: Friday, August 19, 2016 02:44 - CONCLUSION: Mild right base consolidation has developed. Daniel Welch MD Renal Ultrasound 08/18/16 0000 Signed Impressions: Service Date/Time: Thursday, August 18, 2016 10:13 - CONCLUSION: 1. No evidence of hydronephrosis. 2. There appears to be a probable 1.1 cm nonobstructing stone in the mid pole of the left kidney. Jae Apple MD Head CT 08/17/161924 Signed Impressions: Service Date/Time: Wednesday, August 17, 2016 19:48 - CONCLUSION: Normal examination for a patient of this age. Demetrius Lopez MD Last Impressions Abdomen/Pelvis CT 08/19/16 2321 Signed Impressions: Service Date/Time: Friday, August 19, 2016 22:04 - CONCLUSION: 1. Diverticulosis of the descending and sigmoid colon. Wall thickening of the sigmoid colon could be colitis or diverticulitis. 2. Minimal fluid in the right paracolic gutter. 3. Bibasilar consolidation and patchy infiltrates right lower lobe. Followup CT chest recommended to ensure complete resolution. 1. Morgan Jimenez MD Upper Extremity Ultrasound 08/19/16 182 Signed Impressions: Service Date/Time: Friday, August 19, 2016 20:20 - CONCLUSION: Occlusive thrombus in the left cephalic vein. No DVT in the right arm. Morgan Jimenez MD Chest X-Ray 08/19/16 0600 Signed Impressions: Service Date/Time: Friday, August 19, 2016 02:44 - CONCLUSION: Mild right base consolidation has developed. Daniel Welch MD Renal Ultrasound 08/18/16 0000 Signed Impressions: Service Date/Time: Thursday, August 18, 2016 10:13 - CONCLUSION: 1. No evidence of hydronephrosis. 2. There appears to be a probable 1.1 cm nonobstructing stone in the mid pole of the left kidney. Jae Apple MD Head CT 08/17/161924 Signed Impressions: Service Date/Time: Wednesday, August 17, 2016 19:48 - CONCLUSION: Normal examination for a patient of this age. Demetrius Lopez MD Last Impressions Chest X-Ray 08/19/16 0600 Signed Impressions: Service Date/Time: Friday, August 19, 2016 02:44 - CONCLUSION: Mild right base consolidation has developed. Daniel Welch MD Renal Ultrasound 08/18/16 0000 Signed Impressions: Service Date/Time: Thursday, August 18, 2016 10:13 - CONCLUSION: 1. No evidence of hydronephrosis. 2. There appears to be a probable 1.1 cm nonobstructing stone in the mid pole of the left kidney. Jae Apple MD Head CT 08/17/161924 Signed Impressions: Service Date/Time: Wednesday, August 17, 2016 19:48 - CONCLUSION: Normal examination for a patient of this age. Demetrius Lopez MD Last 24 hours Impressions Chest X-Ray 08/18/167 Signed Impressions: Service Date/Time: Thursday, August 18, 2016 01:55 - CONCLUSION: Interim intubation with endotracheal tube tip about 2.5 cm above the janett. Lungs remain clear. Daniel Welch MD Head CT 08/17/161924 Signed Impressions: Service Date/Time: Wednesday, August 17, 2016 19:48 - CONCLUSION: Normal examination for a patient of this age. Demetrius Lopez MD Chest X-Ray 08/17/161924 Signed Impressions: Service Date/Time: Wednesday, August 17, 2016 19:36 - CONCLUSION: 1. No active disease. Demetrius Lopez MD Objective Remarks GENERAL: Patient alert, following commands , intubated SKIN: Warm and dry. Rash noted on bilateral arms and chest, noted on abdomen still present, but resolving HEAD: Normocephalic. EYES: No scleral icterus. No injection or drainage. NECK: Supple, trachea midline. No JVD or lymphadenopathy. Orotracheally intubated CARDIOVASCULAR: Regular rate and rhythm without murmurs, gallops, or rubs. RESPIRATORY: Breath sounds equal bilaterally. GASTROINTESTINAL: Abdomen soft, non-tender, nondistended. Tube feeds infusing MUSCULOSKELETAL: No cyanosis, edema B/L hands and feet. Urinary Catheter: Yes Date of Insertion: Aug 18, 2016 Vascular Central Line Catheter: Yes Assessment to: Continue Line: Central Venous Catheter Side: Right Location: Femoral A/P Problem List: (1) Weight loss, unintentional ICD Code: R63.4 Status: Acute (2) Generalized weakness ICD Code: R53.1 Status: Acute (3) Hyperkalemia ICD Code: E87.5 Status: Acute (4) Acute renal failure ICD Code: N17.9 Status: Acute (5) GI bleed ICD Code: K92.2 Status: Acute (6) Cardiac arrest due to other underlying condition ICD Code: I46.8 Status: Acute Assessment and Plan Plan by systems: Neurologic: -GCS 11 T, following commands, on no sedation, interacting with family, watching TV -Maintain RASS -2 -[place] PRN for pain Respiratory: Acute Hypoxic respiratory failure Aspiration pneumonitis Pneumonia multilobular -vent settings-16/500/.40/5 -Ventilator bundle -Sputum- Enterobacter cloacae, Proteus mirabilis, MRSA, now resulted Stenotrophomonas Maltophilia -Maintain head of bed 30 -Bronchodilators every 6 hours, and every 2 when necessary -Will continue CPAP trials, the patient has apneic episodes -Consult general surgery for tracheostomy placement Cardiovascular: S/P Cardiac arrest-ventricular fibrillation (potassium level 7.7) Hypotension-resolved A. fib RVR-resolved -ECHO-EF 45%, systolic function mildly reduced. No RWMA -Maintain MAP > 65mmHg -Cardiology following-Dr. Garcia -Amiodarone 200mg BID PO, defer dose management per Cardiology recommendations -PMH HTN- when clinically indicated will resume anti-HTN medication per Cardiology recommendations -2/3 Cardioverted x 1-50 J, for aflutter 2-1 conduction, heart rate 140s Renal: Acute renal failure Uremia-resolved -Nephrology consulted-Dr. Irwin, -Dialysis --, patient will need catheter placement by IR, coordination per Nephrology -Urine output averaging 35-40cc/hr in last 24 hours -Monitor hourly urinary output -- Strict I/Os FEN/GI: GI bleed-resolved Melena Hyperkalemia secondary to acute renal failure-resolved -GI following -Dr. Morrell -EGD 08/21-Preliminary report gastritis, duodenitis, duodenal ulcers, biopsies obtained -Protonix infusion -Tube feeds initiated, Nepro 30 cc/hour per GI recommendations, no residuals noted -Monitor BMP Heme/ID: Coagulopathy-resolved Bleeding possibly also secondary to uremia-resolved Thrombocytopenia -Hemoglobin stable, 12 -Monitor PT/INR -Transfuse platelets less than 50,000, improving 82 from 68 yesterday, will continue to monitor -ID following- Dr. Billingsley - Abx- per ID recommendations -Sputum culture -Enterobacter cloacae, Proteus mirabilis, MRSA, Stenotrophomonas Maltophilia -Blood culture-NGTD -Hepatitis panel negative Endocrine: Hyperglycemia of critical illness Glucose monitoring every 6 hours per ICU protocol -- SSI Prophylaxis: GI Prophylaxis Protonix infusion DVT Prophylaxis -- SCDs Heparin 5000u BID Lines: Left femoral Vas-Cath, right femoral arterial line, right triple-lumen femoral catheter (08/18). Continued dialysis schedule for catheter placement per Nephrology Dispo: This patient remains critically ill with one or more organ systems which are or may become a threat to life. I have spent in excess of 33 minutes discontinuously in the care and management of this patient. This time is exclusive of procedures, and includes, but is not limited to, evaluation of the patient, review of the medical record, discussions with family, consultants, nursing staff, or respiratory therapy, and documentation in the medical record. Physician Cathryn Wagner Problem Qualifiers (1) Acute renal failure: Qualified Code: N17.9 - Acute renal failure, unspecified acute renal failure type (2) GI bleed: Qualified Code: K92.2 - Gastrointestinal hemorrhage, unspecified gastrointestinal hemorrhage type Cathryn Wagner MD Aug 24, 2016 07:47
[2016-08-24] MEDS ORDERED: ACETAMINOPHEN/HYDROcodone 325 MG/5 MG TAB PO PRN (08:00)
[2016-08-24] MEDS: ARTIFICIAL TEARS OPTH SOLN 15 ML BTL EACH EYE SCH ×3 (09:09→18:00)
[2016-08-24] MEDS: DOCUSATE SODIUM 100 MG/10 ML UDC G-TUBE SCH ×2 (09:09→20:07)
[2016-08-24] MEDS: SODIUM CHLORIDE 0.9% FLUSH 5 ML FLUSH IV FLUSH SCH ×2 (09:09→20:08)
[2016-08-24] MEDS: LINEZOLID 600 MG TAB PO SCH ×2 (09:10→20:07)
[2016-08-24] MEDS: AMIODARONE 200 MG TAB PO SCH (09:10)
[2016-08-24] MEDS: HEPARIN SODIUM - SQ 10,000 UNITS/ML VIAL SQ SCH ×2 (09:10→20:08)
--- NOTE | 2016-08-24 09:40 | HHI.NPPN ---
Subjective History of Present Illness 71-year-old white male with history of sepsis, cardiac arrest, respiratory failure Additional Remarks Patient remain on the vent. , and awake, not in distress. Objective Data Data 08/23/16 08/24/16 19:00 07:00 Intake Total 622 ml 745 ml Output Total 350 ml 505 ml Balance 272 ml 240 ml Intake IV Total 310 ml 387 ml Tube Feeding 312 ml 358 ml Output Urine Total 350 ml 480 ml Stool Total 25 ml # Bowel Movements 0 0 Vital Signs Date Time Temp Pulse Resp B/P Pulse Ox O2 Delivery O2 Flow Rate FiO2 08/24/16 07:34 100 40 08/24/16 06:00 78 08/24/16 04:01 99 40 08/24/16 04:00 40 08/24/16 04:00 67 08/24/16 04:00 98.0 67 17 109/59 97 08/24/16 02:00 72 08/24/16 00:22 98 40 08/24/16 00:00 40 08/24/16 00:00 73 08/24/16 00:00 98.3 73 18 108/58 98 08/23/16 22:00 79 08/23/16 20:03 98 40 08/23/16 20:00 72 08/23/16 20:00 97.5 70 16 125/67 98 08/23/16 20:00 40 08/23/16 18:00 69 08/23/16 16:00 97.3 66 22 125/68 99 08/23/16 16:00 40 08/23/16 16:00 66 08/23/16 14:18 40 08/23/16 14:18 98 40 08/23/16 14:00 66 08/23/16 12:00 40 08/23/16 12:00 66 08/23/16 12:00 98.1 76 20 116/64 96 08/23/16 10:00 67 -: 08/24/16 0400 08/24/16 0400 Physical Exam General Appearance: No Acute Distress, Comfortable Neck Neck Exam: Neck Supple Pulmonary Resp Exam: Clear Bilaterally, Breath Sounds Equal Cardiology CV Exam: Regular, Normal Sinus Rhythm Gastrointestinal/Abdomen GI Exam: Soft, Non-Tender, Bowel Sounds Present Integumentary Skin Exam: Clear Extremeties Extremities Exam: Trace Edema Neurologic Neuro Exam: Alert, Awake Assessment/Plan Problem List: (1) Acute renal failure Plan: HD done Wednesday UOP slow to improve - 870cc UOP/ 24 hours Continue to monitor BUN and Creatinine still elevated. Need to get PermCath. Vascath has poor flow and HD was unsuccessful this AM. Follow urine out put and BMP. Possibly has End stage renal disease. (2) Hyperkalemia Plan: This is resolved (3) Cardiac arrest due to other underlying condition Plan: Patient is sedated (4) Respiratory failure Plan: Intubated on ventilator (5) Pneumonia Plan: Continue to follow with ID - on Ceftriaxone, Zyvox Problem Qualifiers (1) Acute renal failure: Qualified Code: N17.9 - Acute renal failure, unspecified acute renal failure type (2) Respiratory failure: Qualified Code: J96.90 - Respiratory failure, unspecified chronicity, unspecified whether with hypoxia or hypercapnia (3) Pneumonia: Qualified Code: J18.9 - Pneumonia due to infectious organism, unspecified laterality, unspecified part of lung Theresa Geronimo MD Aug 24, 2016 09:40
--- NOTE | 2016-08-24 10:34 | PD.CARD.PN ---
Subjective Subjective Remarks on vent Objective Medications Current Medications Medications (Trade) Dose Ordered Sig/Antonio Route Start Time Stop Time Status Last Admin (Protonix Inj/NS Inj) 100 ml @ 10 mls/hr Q10H IV 08/17/16 21:45 08/24/16 02:52 (NS Flush) 2 ml UNSCH PRN IV FLUSH 08/18/16 00:30 (NS Flush) 2 ml BID IV FLUSH 08/18/16 09:00 08/24/16 09:09 (Tylenol) 650 mg Q6H PRN PO 08/18/16 00:30 (Morphine Inj) 2 mg Q2H PRN IV 08/18/16 00:30 (Tears Naturale Opth Soln) 1 drop TID EACH EYE 08/18/16 09:00 08/24/16 09:09 (Colace Liq) 100 mg Q12HR G-TUBE 08/18/16 09:00 08/24/16 09:09 Miscellaneous Information 1 Q361D XX 08/18/16 00:30 (Chlorhexidine 2% Cloth) Taper DAILY@04 TOP 08/18/16 04:00 08/14/17 03:59 08/24/16 03:03 Chlorhexidine Gluconate 3 pack 3 pack UNSCH PRN TOP 08/18/16 00:30 (fentaNYL DRIP) 250 ml @ 0 mls/hr TITRATE IV 08/18/16 00:30 08/19/16 00:14 (Reglan Inj) 5 mg Q6H PRN IV 08/18/16 01:00 Heparin Sodium (Porcine) 8000 units 8,000 units UNSCH PRN IVF 08/18/16 02:45 (NS 1000 ml Inj) 1,000 ml @ 0 mls/hr Q0M PRN IV 08/18/16 02:45 (Mannitol Inj) 12.5 gm UNSCH PRN IV 08/18/16 02:45 08/19/16 08:26 (Albumin 25% Inj) 25 gm UNSCH PRN IV 08/18/16 02:45 08/21/16 08:26 (NS Flush) 5 ml UNSCH PRN IVF 08/18/16 02:45 08/19/16 08:27 (Heparin Inj) UNSCH PRN .XX 08/18/16 02:45 08/21/16 08:24 (Gentamicin (Dialysis) Inj) 20 mg UNSCH PRN IV 08/18/16 02:45 08/21/16 08:24 (Zofran Inj) 4 mg UNSCH PRN IV 08/18/16 02:45 (Tylenol) 650 mg UNSCH PRN PO 08/18/16 02:45 (Benadryl) 25 mg UNSCH PRN PO 08/18/16 02:45 (Nitrostat Sl) 0.4 mg UNSCH PRN SL 08/18/16 02:45 (Catapres) 0.1 mg UNSCH PRN PO 08/18/16 02:45 (Gelfoam 12 Mm/7 Mm Top) 1 foam UNSCH PRN TOP 08/18/16 02:45 (Zofran Inj) 4 mg Q6H PRN IV 08/18/16 03:15 (Brethine Inj) 1 mg UNSCH PRN SQ 08/18/16 10:00 (D50w (Vial) Inj) 25 ml UNSCH PRN IV PUSH 08/18/16 19:45 08/21/16 14:23 (Glucagon Inj) 1 mg UNSCH PRN OTHER 08/18/16 19:45 (NovoLOG SUPPLEMENTAL SCALE) 1 Q6HR SQ 08/19/16 00:00 08/19/16 00:11 (Zyvox) 600 mg Q12HR PO 08/21/16 12:00 08/24/16 09:10 (Cordarone) 200 mg Q12HR PO 08/22/16 21:00 08/24/16 09:10 (Heparin Inj) 5,000 units Q12HR SQ 08/23/16 09:30 08/24/16 09:10 Acetaminophen/ Hydrocodone Bitart 1 tab 1 tab Q6H PRN PO 08/24/16 08:00 Levofloxacin/ Dextrose 100 ml @ 100 mls/hr ONCE ONCE IV 08/24/16 11:00 08/24/16 11:59 (Levaquin 250 Mg Premix Inj) 50 ml @ 50 mls/hr Q48H IV 08/26/16 11:00 Vital Signs / I&O Vital Signs Date Time Temp Pulse Resp B/P Pulse Ox O2 Delivery O2 Flow Rate FiO2 08/24/16 07:34 100 40 08/24/16 06:00 78 08/24/16 04:01 99 40 08/24/16 04:00 40 08/24/16 04:00 67 08/24/16 04:00 98.0 67 17 109/59 97 08/24/16 02:00 72 08/24/16 00:22 98 40 08/24/16 00:00 40 08/24/16 00:00 73 08/24/16 00:00 98.3 73 18 108/58 98 08/23/16 22:00 79 08/23/16 20:03 98 40 08/23/16 20:00 72 08/23/16 20:00 97.5 70 16 125/67 98 08/23/16 20:00 40 08/23/16 18:00 69 08/23/16 16:00 97.3 66 22 125/68 99 08/23/16 16:00 40 08/23/16 16:00 66 08/23/16 14:18 40 08/23/16 14:18 98 40 08/23/16 14:00 66 08/23/16 12:00 40 08/23/16 12:00 66 08/23/16 12:00 98.1 76 20 116/64 96 I/O 08/23/16 08/23/16 08/23/16 08/24/16 08/24/16 08/24/16 07:00 15:00 23:00 07:00 15:00 23:00 Intake Total 464 ml 622 ml 347 ml 398 ml Output Total 235 ml 215 ml 300 ml 340 ml Balance 229 ml 407 ml 47 ml 58 ml Intake IV Total 264 ml 310 ml 135 ml 252 ml Tube Feeding 200 ml 312 ml 212 ml 146 ml Output Urine Total 235 ml 215 ml 300 ml 315 ml Stool Total 25 ml # Bowel Movements 0 0 0 Physical Exam GENERAL: Well developed, well nourished. No acute distress on vent HEENT: Jugular venous pressure is normal. CHEST: Lungs clear to auscultation bilaterally. Unlabored respiratory effort. CARDIAC: Regular rate and rhythm without S3, S4, or murmur. ABDOMEN: Soft, EXTREMITIES: No clubbing, cyanosis, tr edema. Laboratory Laboratory Tests Test 08/24/16 04:00 White Blood Count 6.3 TH/MM3 Red Blood Count 4.02 MIL/MM3 Hemoglobin 12.1 GM/DL Hematocrit 35.8 % Mean Corpuscular Volume 89.1 FL Mean Corpuscular Hemoglobin 30.1 PG Mean Corpuscular Hemoglobin 33.8 % Concent Red Cell Distribution Width 14.3 % Platelet Count 102 TH/MM3 Mean Platelet Volume 9.7 FL Sodium Level 148 MEQ/L Potassium Level 3.5 MEQ/L Chloride Level 110 MEQ/L Carbon Dioxide Level 26.2 MEQ/L Anion Gap 12 MEQ/L Blood Urea Nitrogen 120 MG/DL Creatinine 5.90 MG/DL Estimat Glomerular Filtration 10 ML/MIN Rate Random Glucose 141 MG/DL Calcium Level 7.9 MG/DL Phosphorus Level 3.1 MG/DL Magnesium Level 1.9 MG/DL Imaging Last 72 hours Impressions Chest X-Ray 08/23/16 0600 Signed Impressions: Service Date/Time: Tuesday, August 23, 2016 05:20 - CONCLUSION: Stable chest x-ray with airspace opacity in the right lower lung zone. Daniel Lawrence MD Assessment and Plan Problem List: (1) AIVR (accelerated idioventricular rhythm) Assessment and Plan: short runs of AIVR last night and this morning, asymptomatic- no change in meds maybe part of SSS, vs electrolytes vs ischemia vs other (2) Atrial fibrillation Assessment and Plan: now in NSR, no AF but AIVR no anticoagulation secondary to GIB (3) Acute renal failure (4) Respiratory failure Assessment and Plan: still on vent (5) Cardiac arrest due to other underlying condition Assessment and Plan: BP remains too low for BB or RAUL No ASA for GIB (6) GI bleed (7) Hyperkalemia (8) Generalized weakness Problem Qualifiers (1) Acute renal failure: Qualified Code: N17.9 - Acute renal failure, unspecified acute renal failure type (2) Respiratory failure: Qualified Code: J96.90 - Respiratory failure, unspecified chronicity, unspecified whether with hypoxia or hypercapnia (3) GI bleed: Qualified Code: K92.2 - Gastrointestinal hemorrhage, unspecified gastrointestinal hemorrhage type Elena Garcia MD Aug 24, 2016 10:09
--- NOTE | 2016-08-24 10:34 | HHI.IDPN ---
Subjective Subjective Remarks is a 71 y/o CM with PMHx of HTN who was reportedly on Lisinopril prior to admission. He also reportedly had chronic arthritis and back pain and was on OTC pain meds off and on. ID following for aspiration pneumonia. Sputum with MRSA, Enterobacter cloacae and Proteus mirabilis. On HD, recd Vanco IV in HD and rash. Diarrhea on dignishield. No fever Antibiotics Ceftriaxone IV zyvox oral Lines Line sites with no e/o infection Past Medical History reviewed Allergies: Coded Allergies: *MDRO Multi-Drug Resistant Organism (Verified Adverse Reaction, Unknown, ) MRSA PCR Screen POSITIVE - 08/18/16 Objective . Vital Signs Date Time Temp Pulse Resp B/P Pulse Ox O2 Delivery O2 Flow Rate FiO2 08/24/16 07:34 100 40 08/24/16 06:00 78 08/24/16 04:01 99 40 08/24/16 04:00 40 08/24/16 04:00 67 08/24/16 04:00 98.0 67 17 109/59 97 08/24/16 02:00 72 08/24/16 00:22 98 40 08/24/16 00:00 40 08/24/16 00:00 73 08/24/16 00:00 98.3 73 18 108/58 98 08/23/16 22:00 79 08/23/16 20:03 98 40 08/23/16 20:00 72 08/23/16 20:00 97.5 70 16 125/67 98 08/23/16 20:00 40 08/23/16 18:00 69 08/23/16 16:00 97.3 66 22 125/68 99 08/23/16 16:00 40 08/23/16 16:00 66 08/23/16 14:18 40 08/23/16 14:18 98 40 08/23/16 14:00 66 08/23/16 12:00 40 08/23/16 12:00 66 08/23/16 12:00 98.1 76 20 116/64 96 08/23/16 08/23/16 08/24/16 15:00 23:00 07:00 Intake Total 622 ml 347 ml 398 ml Output Total 215 ml 300 ml 340 ml Balance 407 ml 47 ml 58 ml Intake IV Total 310 ml 135 ml 252 ml Tube Feeding 312 ml 212 ml 146 ml Output Urine Total 215 ml 300 ml 315 ml Stool Total 25 ml # Bowel Movements 0 0 . Laboratory Tests Test 08/23/16 08/24/16 02:30 04:00 White Blood Count 5.2 TH/MM3 6.3 TH/MM3 Red Blood Count 4.04 MIL/MM3 4.02 MIL/MM3 Hemoglobin 12.0 GM/DL 12.1 GM/DL Hematocrit 36.1 % 35.8 % Mean Corpuscular Volume 89.2 FL 89.1 FL Mean Corpuscular Hemoglobin 29.6 PG 30.1 PG Mean Corpuscular Hemoglobin 33.2 % 33.8 % Concent Red Cell Distribution Width 14.4 % 14.3 % Platelet Count 82 TH/MM3 102 TH/MM3 Mean Platelet Volume 9.6 FL 9.7 FL Laboratory Tests Test 08/23/16 08/24/16 02:30 04:00 Sodium Level 145 MEQ/L 148 MEQ/L Potassium Level 3.8 MEQ/L 3.5 MEQ/L Chloride Level 106 MEQ/L 110 MEQ/L Carbon Dioxide Level 27.4 MEQ/L 26.2 MEQ/L Anion Gap 12 MEQ/L 12 MEQ/L Blood Urea Nitrogen 103 MG/DL 120 MG/DL Creatinine 5.99 MG/DL 5.90 MG/DL Estimat Glomerular Filtration 9 ML/MIN 10 ML/MIN Rate Random Glucose 116 MG/DL 141 MG/DL Calcium Level 7.7 MG/DL 7.9 MG/DL Protein Corrected Calcium 8.6 MG/DL Phosphorus Level 4.3 MG/DL 3.1 MG/DL Magnesium Level 1.9 MG/DL 1.9 MG/DL Total Protein 5.5 GM/DL Imaging Last Impressions Abdomen/Pelvis CT 08/19/162320 Signed Impressions: Service Date/Time: Friday, August 19, 2016 22:04 - CONCLUSION: 1. Diverticulosis of the descending and sigmoid colon. Wall thickening of the sigmoid colon could be colitis or diverticulitis. 2. Minimal fluid in the right paracolic gutter. 3. Bibasilar consolidation and patchy infiltrates right lower lobe. Followup CT chest recommended to ensure complete resolution. 1. Morgan Jimenez MD Upper Extremity Ultrasound 08/19/16 1821 Signed Impressions: Service Date/Time: Friday, August 19, 2016 20:20 - CONCLUSION: Occlusive thrombus in the left cephalic vein. No DVT in the right arm. Morgan Jimenez MD Chest X-Ray 08/19/16 0600 Signed Impressions: Service Date/Time: Friday, August 19, 2016 02:44 - CONCLUSION: Mild right base consolidation has developed. Daniel Welch MD Renal Ultrasound 08/18/16 0000 Signed Impressions: Service Date/Time: Thursday, August 18, 2016 10:13 - CONCLUSION: 1. No evidence of hydronephrosis. 2. There appears to be a probable 1.1 cm nonobstructing stone in the mid pole of the left kidney. Jae Apple MD Head CT 08/17/16 1925 Signed Impressions: Service Date/Time: Wednesday, August 17, 2016 19:48 - CONCLUSION: Normal examination for a patient of this age. Demetrius Lopez MD Physical Exam GENERAL: This is a well-nourished, well-developed patient, in no apparent distress. SKIN: No rashes, ecchymoses or lesions. Cool and dry. HEAD: Atraumatic. Normocephalic. No temporal or scalp tenderness. EYES: Pupils equal round and reactive. Extraocular motions intact. No scleral icterus. No injection or drainage. ENT: Intubated. NECK: Trachea midline. Supple, nontender, no meningeal signs. CARDIOVASCULAR: Regular rate and rhythm without murmurs, gallops, or rubs. RESPIRATORY: Breath sounds equal bilaterally. No wheezes, rales, or rhonchi. GASTROINTESTINAL: Abdomen soft, non-tender, nondistended. MUSCULOSKELETAL: Extremities without clubbing, cyanosis, or edema. No joint tenderness, effusion, or edema noted. No calf tenderness. Negative Homans sign bilaterally. NEUROLOGICAL: On vent, opens eyes follow simple commands/ IV line sites with no e/o infection. Assessment & Plan Remarks Possible Sepsis present on admission. Aspiration Pneumonitis, HCAP Leucopenia: ? sepsis related, uremia. Acute renal failure now on HD: prerenal, was on lisinopril, acute GI bleed. Uremia, hyperkalemia, elevated CK on admission. Acute GI bleeding: ? NSAID induced, Uremia related. Acute metabolic encephalopathy: uremia, sepsis related. Anemia: blood loss related. Recs: DC Ceftriaxone IV. Levaquin IV today and then change to oral. Levaquin covers Stenotrophomonas maltophilia, Enterobacter and Klebsiella in patients sputum. Continue Zyvox oral per OG/NGT Oral regimen preferred given patient is a HD patient and both drugs have good bioavailability. Follow cultures Follow clinically. d/w , Nephrology: Vascath from groin to be changed to neck areas due to concern for infection. D.w would like to avoid permacath unless plans for [facility] HD and patient close to discharge to prevent line infections of permacath. Charmaine Billingsley MD Aug 24, 2016 10:11
[2016-08-24] MEDS ORDERED: LEVOFLOXACIN 500 MG PREMIX INJ 100 ML IV ONE (11:00)
[2016-08-24] MEDS ORDERED: LEVOFLOXACIN 250 MG TAB PO SCH (12:00)
--- NOTE | 2016-08-24 12:23 | PD.PN.STU ---
Subjective Remarks This is a Objective Vitals Vital Signs Date Time Temp Pulse Resp B/P Pulse Ox O2 Delivery O2 Flow Rate FiO2 08/24/16 07:34 100 40 08/24/16 06:00 78 08/24/16 04:01 99 40 08/24/16 04:00 40 08/24/16 04:00 67 08/24/16 04:00 98.0 67 17 109/59 97 08/24/16 02:00 72 08/24/16 00:22 98 40 08/24/16 00:00 40 08/24/16 00:00 73 08/24/16 00:00 98.3 73 18 108/58 98 08/23/16 22:00 79 08/23/16 20:03 98 40 08/23/16 20:00 72 08/23/16 20:00 97.5 70 16 125/67 98 08/23/16 20:00 40 08/23/16 18:00 69 08/23/16 16:00 97.3 66 22 125/68 99 08/23/16 16:00 40 08/23/16 16:00 66 08/23/16 14:18 40 08/23/16 14:18 98 40 08/23/16 14:00 66 I/O 08/23/16 08/23/16 08/23/16 08/24/16 08/24/16 08/24/16 07:00 15:00 23:00 07:00 15:00 23:00 Intake Total 464 ml 622 ml 347 ml 398 ml Output Total 235 ml 215 ml 300 ml 340 ml Balance 229 ml 407 ml 47 ml 58 ml Intake IV Total 264 ml 310 ml 135 ml 252 ml Tube Feeding 200 ml 312 ml 212 ml 146 ml Output Urine Total 235 ml 215 ml 300 ml 315 ml Stool Total 25 ml # Bowel Movements 0 0 0 Result Diagram: [id number]/24/1639908/24/16399 Tay Bradley M3 Aug 24, 2016 12:23
--- NOTE | 2016-08-24 12:23 | EKG ---
Date Performed: 08/23/2016 Time Performed: 07:37:30 PTAGE: 71 years EKG: Sinus rhythm Extensive ST-T changes suggest myocardial injury/ischemia Abnormal ECG PREVIOUS TRACING : 08/21/2016 04.56 DOCTOR: Sreedhar Bardales Interpretating Date/Time 08/24/2016 12:21:45
[2016-08-24 14:16] LABS: BLOOD GAS BASE EXCESS 2.6 mmol/L (-2-2); BLOOD GAS CARBOXYHEMOGLOBIN 0.6 % (0-4); BLOOD GAS HCO3 26 mmol/L (22-26); BLOOD GAS METHEMOGLOBIN 1.1 % (0-2); BLOOD GAS O2 HGB SATURATION 97 % (90-100); BLOOD GAS PCO2 38 mmHg (38-42); BLOOD GAS PO2 136 mmHg (61-120); BLOOD GAS TOTAL HGB 12.3 G/DL (12.0-16.0); CRITICAL VALUE NO; FIO2 40 %; OXYGEN DEVICE VENTILATOR; TEMP CORR TO 98.6; VENT SETTINGS PEEP5/PS5
[2016-08-24 14:17] LABS: DRAW SITE LT RADIAL; NUMBER OF ARTERIAL PUNCTURES 1; STAT NO; ULNAR PULSE PRESENT
[2016-08-24] MEDS ORDERED: LIDOCAINE HCL 2% 100 MG/5 ML SYRINGE ONE (14:49)
[2016-08-24] MEDS ORDERED: EPINEPHrine HCL (1:10,000) 1 MG/10 ML SYRINGE ONE (14:49)
[2016-08-24] MEDS ORDERED: ATROPINE SULFATE 1 MG/10 ML SYRINGE ONE (14:49)
--- NOTE | 2016-08-24 22:56 | MB ---
cc: JULISSA CHOPRA M.D. DATE OF CONSULTATION 08/24/2016 REASON FOR CONSULTATION Tracheostomy placement. HISTORY OF PRESENT ILLNESS The patient is a 71-year-old male brought in after being [place] Acted with multiple medical problems including cardiac arrest with V-fib. The patient had bloody stool and coffee-ground emesis. He had GI bleeding and renal failure. The patient remained intubated and we were asked to see the patient regarding consideration for tracheostomy. PAST MEDICAL HISTORY Also includes - 1. Acute renal failure. 2. Coagulopathy. 3. Hyperglycemia. 4. The patient had a VasCath placed and is continuing on dialysis. We have been asked to see the patient in consideration for tracheostomy placement. Most recent labs today demonstrate a hemoglobin of 12.1, platelets 102,000, potassium 3.5. BUN and creatinine are 120 and 5.9. Sodium is 148. PHYSICAL EXAMINATION NECK: Relatively thin and trachea is palpable. CHEST: Clear to auscultation. OTHER LABORATORY VALUES Coagulation studies - INR was 1.3 on 08/19. ASSESSMENT Respiratory failure with renal failure and history of cardiac arrest, now stable. The patient is on 40% FIO2 and assist control. PLAN We will schedule for tracheostomy tomorrow if he fails weaning. I have spoken with Dr. Sanchez of Critical Care and he will attempt to wean the patient. If he is extubated today, we will hold off on this. If he fails extubation in the next [address] tracheostomy. Thank you, Dr. Wagner, for asking us to see this individual. MD GERALD Sommer/SANCHEZ /9:46 PM /10:51 PM
[2016-08-25] VITALS (12 sets, daily range): BP systolic 119–140; BP diastolic 54–84; PULSE 60–92; RESP 16–31; TEMP 97.2–98.4; O2SAT 96–98
[2016-08-25] MEDS: CHLORHEXIDINE GLUCONATE 2 % 1 PACK (2 CLOTHS) TOP SCH (03:47)
[2016-08-25 04:53] LABS: HEMATOCRIT 35.8 % (39.0-51.0); MEAN CELL VOLUME 90.3 FL (80.0-100.0); MEAN CORPUSCULAR HEMOGLOBIN 29.3 PG (27.0-34.0); MEAN CORPUSCULAR HGB CONC 32.5 % (32.0-36.0); PLATELET COUNT 118 TH/MM3 (150-450); RED BLOOD COUNT 3.96 MIL/MM3 (4.50-5.90); RED CELL DISTRIBUTION WIDTH 14.3 % (11.6-17.2); REVIEW FLAG FINAL; WHITE BLOOD COUNT 5.8 TH/MM3 (4.0-11.0)
[2016-08-25 05:13] LABS: BICARBONATE 31.5 MEQ/L (21.0-32.0); MAGNESIUM 1.5 MG/DL (1.5-2.5); POTASSIUM 3.3 MEQ/L (3.5-5.1)
--- NOTE | 2016-08-25 05:40 | RADRPT ---
EXAM DATE/TIME: 08/25/2016 03:53 [facility] COMPARISON: CHEST SINGLE AP, August 23, 2016, 5:20. INDICATIONS : Shortness of breath. MEDICAL HISTORY : MRSA. SURGICAL HISTORY : None. ENCOUNTER: Subsequent ACUITY: 1 week PAIN SCORE: Non-responsive. LOCATION: Bilateral chest FINDINGS: Improved aeration. Left basilar linear atelectasis and cardiomegaly. Right jugular line tip overlies the SVC. EKG leads overlie the chest. NG tube courses beneath the diaphragm. CONCLUSION: Improved aeration. Samir Lee MD on August 25, 2016 at 5:38 Board Certified Radiologist. This report was verified electronically.
[2016-08-25] MEDS: LOW DOSE INSULIN NOVOLOG SUPPLEMENTAL SCALE SQ SCH ×4 (05:55→18:00)
[2016-08-25] MEDS: PANTOPRAZOLE INJ 80 MG in SODIUM CHLORIDE 0.9% INJ 100 ML IV SCH ×2 (06:14→14:09)
--- NOTE | 2016-08-25 07:59 | HHI.CCPN ---
Subjective Remarks/Hospital Course Patient comes in by EMS after being [place] acted by police and family called stating the patient has not been getting out of bed or taking care of himself. Patient denies any medical complaints at this time. Denies any chest pain or shortness of breath, abdominal pain, or fevers. While in the ED patient suffered cardiac arrest due to V Fib. Successful short ACLS performed with return of spontaneous circulation. Subjective 08/18 Overnight upon presentation to the [facility] the patient was noted to have large amount of bloody stool unable to quantify, the patient also vomited approximately 500 cc of coffee ground emesis. An NG tube was placed and the patient was noted to have an additional 300 cc of coffee ground emesis, the patient continues to have melanotic stools. Hemodialysis was initiated and discontinued secondary to hypotension, the patient required levophed infusion, and was also bolused initially with a liter of normal saline. This morning the patient continues to bleed, contributing factors include uremia. Stat laboratory specimens obtained, to include coag studies. Will initiate DDAVP, and cryoprecipitate secondary to uremic bleeding. 2/1 Hemoglobin stable. The patient continues to have melanotic stool, decrease in volume approximately 100 cc last night , and small amount of coffee ground emesis approximately 50 cc overnight.The patient currently being dialyzed, sodium bicarbonate infusion discontinued. The patient is alert, following commands. Plan for CPAP trials today. 2/2 The patient was dialyzed yesterday, 4 L removed. In the afternoon, the patient was noted to go into A. fib RVR, heart rate 140-160's. A one-time dose of digoxin was given, subsequently later on in the day amiodarone bolus was given. Heart rate converted to sinus tach, low 100's, subsequently heart rate 80 to 90s. The patient was weaned off of vasopressin today. Minimal coffee ground emesis, and melena overnight. Left upper extremity was noted to be edematous, ultrasound imaging performed, which revealed occlusive thrombus left cephalic vein. 2/3 The patient converted to A. fib flutter yesterday afternoon, the patient was provided an amiodarone bolus followed by an infusion. The patient continued to have a heart rate in the 130s during the evening, Digoxin 0.5 mg 1 dose was given. At approximately 4 AM the patient went into A. fib flutter with 2:1 conduction and was subsequently synchronize cardioverted 1 attempt at 50 J. The patient remains on amiodarone infusion. Plan for hemodialysis today , and upper endoscopy. 08/22 The patient remained in sinus rhythm overnight. The patient continues to have apneic episodes during CPAP trials, lasting only 45 minutes yesterday. Will begin tube feeds per GI recommendations.Levophed has been off since 0100am. 08/23 Afebrile. The patient was transitioned to PO amiodarone last evening, 200 mg BID, infusion weaned off 4 hours post dose. During the night, patient had 20 sec run of ventricular ectopy, reported. Observed occasional multifocal PVCs , the patient remains in sinus rhythm. Multiple attempts at CPAP trials, patient continues to have apneic episodes. Discussed with family, and patient probable tracheostomy to be scheduled this week. 08/24 CPAP trials lasted approximately 5 hours discontinuously, continues to have apneic episodes. Per nephrology the patient will continue M-W-F hemodialysis, will require permacath placement, will coordinate with chimney sweeper. General surgery consult for tracheostomy . 08/25 The patient had a trial of extubation yesterday afternoon, the patient is now advanced to O2 at 4 L nasal cannula, with no signs of respiratory distress. The patient received a permacath yesterday, right femoral lines discontinued this a.m.. Tube feeds held, clear liquid diet initiated this a.m.. Objective Vital Signs Date Time Temp Pulse Resp B/P Pulse Ox O2 Delivery O2 Flow Rate FiO2 08/25/16 06:00 74 08/25/16 04:00 98.0 22 128/54 97 08/24/16 22:47 Nasal Cannula 3.00 08/24/16 12:23 40 Intake and Output 08/24/16 08/24/16 08/25/16 08:00 16:00 00:00 Intake Total 398 ml 779 ml 340 ml Output Total 265 ml 650 ml 150 ml Balance 133 ml 129 ml 190 ml Result Diagram: 08/25/16 0400 08/25/16 0400 Other Results Laboratory Tests Test 08/24/16 13:40 Blood Gas Puncture Site LT RADIAL Blood Gas Patient Temperature 98.6 Blood Gas HCO3 26 mmol/L (22-26) Blood Gas Base Excess 2.6 mmol/L (-2-2) Blood Gas Oxygen Saturation 97 % (90-100) Arterial Blood pH 7.46 (7.380-7.420) Arterial Blood Partial 38 mmHg (38-42) Pressure CO2 Arterial Blood Partial 136 mmHg Pressure O2 (61-120) Arterial Blood Oxygen Content 17.0 Vol % (12.0-20.0) Arterial Blood 0.6 % (0-4) Carboxyhemoglobin Arterial Blood Methemoglobin 1.1 % (0-2) Blood Gas Hemoglobin 12.3 G/DL (12.0-16.0) Oxygen Delivery Device VENTILATOR Blood Gas Ventilator Setting PEEP5/PS5 Blood Gas Inspired Oxygen 40 % Imaging Last Impressions Chest X-Ray 08/23/16 0600 Signed Impressions: Service Date/Time: Tuesday, August 23, 2016 05:20 - CONCLUSION: Stable chest x-ray with airspace opacity in the right lower lung zone. Daniel Lawrence MD Abdomen/Pelvis CT 08/19/162320 Signed Impressions: Service Date/Time: Friday, August 19, 2016 22:04 - CONCLUSION: 1. Diverticulosis of the descending and sigmoid colon. Wall thickening of the sigmoid colon could be colitis or diverticulitis. 2. Minimal fluid in the right paracolic gutter. 3. Bibasilar consolidation and patchy infiltrates right lower lobe. Followup CT chest recommended to ensure complete resolution. 1. Morgan Jimenez MD Upper Extremity Ultrasound 08/19/16 1821 Signed Impressions: Service Date/Time: Friday, August 19, 2016 20:20 - CONCLUSION: Occlusive thrombus in the left cephalic vein. No DVT in the right arm. Morgan Jimenez MD Renal Ultrasound 08/18/16 0000 Signed Impressions: Service Date/Time: Thursday, August 18, 2016 10:13 - CONCLUSION: 1. No evidence of hydronephrosis. 2. There appears to be a probable 1.1 cm nonobstructing stone in the mid pole of the left kidney. Jae Apple MD Head CT 08/17/16 1925 Signed Impressions: Service Date/Time: Wednesday, August 17, 2016 19:48 - CONCLUSION: Normal examination for a patient of this age. Demetrius Lopez MD Last Impressions Abdomen/Pelvis CT 08/19/161 Signed Impressions: Service Date/Time: Friday, August 19, 2016 22:04 - CONCLUSION: 1. Diverticulosis of the descending and sigmoid colon. Wall thickening of the sigmoid colon could be colitis or diverticulitis. 2. Minimal fluid in the right paracolic gutter. 3. Bibasilar consolidation and patchy infiltrates right lower lobe. Followup CT chest recommended to ensure complete resolution. 1. Morgan Jimenez MD Upper Extremity Ultrasound 08/19/161820 Signed Impressions: Service Date/Time: Friday, August 19, 2016 20:20 - CONCLUSION: Occlusive thrombus in the left cephalic vein. No DVT in the right arm. Morgan Jimenez MD Chest X-Ray 08/19/16 0600 Signed Impressions: Service Date/Time: Friday, August 19, 2016 02:44 - CONCLUSION: Mild right base consolidation has developed. Daniel Welch MD Renal Ultrasound 08/18/16 0000 Signed Impressions: Service Date/Time: Thursday, August 18, 2016 10:13 - CONCLUSION: 1. No evidence of hydronephrosis. 2. There appears to be a probable 1.1 cm nonobstructing stone in the mid pole of the left kidney. Jae Apple MD Head CT 08/17/16 1925 Signed Impressions: Service Date/Time: Wednesday, August 17, 2016 19:48 - CONCLUSION: Normal examination for a patient of this age. Demetrius Lopez MD Last Impressions Abdomen/Pelvis CT 08/19/16 2321 Signed Impressions: Service Date/Time: Friday, August 19, 2016 22:04 - CONCLUSION: 1. Diverticulosis of the descending and sigmoid colon. Wall thickening of the sigmoid colon could be colitis or diverticulitis. 2. Minimal fluid in the right paracolic gutter. 3. Bibasilar consolidation and patchy infiltrates right lower lobe. Followup CT chest recommended to ensure complete resolution. 1. Morgan Jimenez MD Upper Extremity Ultrasound 08/19/161820 Signed Impressions: Service Date/Time: Friday, August 19, 2016 20:20 - CONCLUSION: Occlusive thrombus in the left cephalic vein. No DVT in the right arm. Morgan Jimenez MD Chest X-Ray 08/19/16 0600 Signed Impressions: Service Date/Time: Friday, August 19, 2016 02:44 - CONCLUSION: Mild right base consolidation has developed. Daniel Welch MD Renal Ultrasound 08/18/16 0000 Signed Impressions: Service Date/Time: Thursday, August 18, 2016 10:13 - CONCLUSION: 1. No evidence of hydronephrosis. 2. There appears to be a probable 1.1 cm nonobstructing stone in the mid pole of the left kidney. Jae Apple MD Head CT 08/17/161924 Signed Impressions: Service Date/Time: Wednesday, August 17, 2016 19:48 - CONCLUSION: Normal examination for a patient of this age. Demetrius Lopez MD Last Impressions Chest X-Ray 08/19/16 0600 Signed Impressions: Service Date/Time: Friday, August 19, 2016 02:44 - CONCLUSION: Mild right base consolidation has developed. Daniel Welch MD Renal Ultrasound 08/18/16 0000 Signed Impressions: Service Date/Time: Thursday, August 18, 2016 10:13 - CONCLUSION: 1. No evidence of hydronephrosis. 2. There appears to be a probable 1.1 cm nonobstructing stone in the mid pole of the left kidney. Jae Apple MD Head CT 08/17/161924 Signed Impressions: Service Date/Time: Wednesday, August 17, 2016 19:48 - CONCLUSION: Normal examination for a patient of this age. Demetrius Lopez MD Last 24 hours Impressions Chest X-Ray 08/18/16 0127 Signed Impressions: Service Date/Time: Thursday, August 18, 2016 01:55 - CONCLUSION: Interim intubation with endotracheal tube tip about 2.5 cm above the janett. Lungs remain clear. Daniel Welch MD Head CT 08/17/161924 Signed Impressions: Service Date/Time: Wednesday, August 17, 2016 19:48 - CONCLUSION: Normal examination for a patient of this age. Demetrius Lopez MD Chest X-Ray 08/17/161924 Signed Impressions: Service Date/Time: Wednesday, August 17, 2016 19:36 - CONCLUSION: 1. No active disease. Demetrius Lopez MD Objective Remarks GENERAL: Patient alert, pleasantly conversant denies any discomfort SKIN: Warm and dry. Maculopapular rash still present on abdomen still present HEAD: Normocephalic. EYES: No scleral icterus. No injection or drainage. NECK: Supple, trachea midline. No JVD or lymphadenopathy. CARDIOVASCULAR: Regular rate and rhythm without murmurs, gallops, or rubs. RESPIRATORY: Breath sounds equal bilaterally. Nasal cannula 3 L/m GASTROINTESTINAL: Abdomen soft, non-tender, nondistended. Tube feeds infusing MUSCULOSKELETAL: No cyanosis, trace edema bilateral distal extremities Cummins insert reason: Measure Accurate Output Date of Insertion: Aug 18, 2016 Vascular Central Line Catheter: Yes Assessment to: Remove Line: Central Venous Catheter Side: Right Location: Femoral A/P Problem List: (1) Weight loss, unintentional ICD Code: R63.4 Status: Acute (2) Generalized weakness ICD Code: R53.1 Status: Acute (3) Hyperkalemia ICD Code: E87.5 Status: Acute (4) Acute renal failure ICD Code: N17.9 Status: Acute (5) GI bleed ICD Code: K92.2 Status: Acute (6) Cardiac arrest due to other underlying condition ICD Code: I46.8 Status: Acute Assessment and Plan Plan by systems: Neurologic: -GCS 15 -Alpha PRN for pain Respiratory: Acute Hypoxic respiratory failure-resolved Aspiration pneumonitis-resolved Pneumonia multilobular -Maintain O2 sat greater than 92% -O2 via nasal cannula continue to wean -Sputum- Enterobacter cloacae, Proteus mirabilis, MRSA, now resulted Stenotrophomonas Maltophilia -Maintain head of bed 30 -Continue Bronchodilators every 6 hours, and every 2 when necessary -Consider BiPAP at night, continue to monitor Cardiovascular: S/P Cardiac arrest-ventricular fibrillation (potassium level 7.7) Hypotension-resolved A. fib RVR-resolved -ECHO-EF 45%, systolic function mildly reduced. No RWMA -Maintain MAP > 65mmHg -Cardiology following-Dr. Garcia -Amiodarone 200mg BID PO, defer dose management per Cardiology recommendations -PMH HTN- when clinically indicated will resume anti-HTN medication per Cardiology recommendations -2/3 Cardioverted x 1-50 J, for aflutter 2-1 conduction, heart rate 140s -Discontinue femoral art line, hemodynamically stable Renal: Acute renal failure Uremia-resolved -Nephrology consulted-Dr. Irwin, -Dialysis -W-F coordination per Nephrology -Permacath placement 08/24 -Urine output averaging 30-40cc/hr in last 24 hours -Monitor hourly urinary output -- Strict I/Os FEN/GI: GI bleed-resolved Melena Hyperkalemia secondary to acute renal failure-resolved -GI following -Dr. Morrell -EGD 08/21-Preliminary report gastritis, duodenitis, duodenal ulcers, biopsies obtained -Protonix infusion per GI -Discontinue Tube feeds, -Clear liquid diet this a.m., advanced to renal diet if tolerated -Monitor BMP Heme/ID: Coagulopathy-resolved Bleeding possibly also secondary to uremia-resolved Thrombocytopenia -Hemoglobin stable, 12 -Monitor PT/INR -Transfuse platelets less than 50,000-stable -ID following- Dr. Billingsley - Abx- per ID recommendations -Sputum culture -Enterobacter cloacae, Proteus mirabilis, MRSA, Stenotrophomonas Maltophilia -Blood culture-NGTD -Hepatitis panel negative Endocrine: Hyperglycemia of critical illness Glucose monitoring every 6 hours per ICU protocol -- SSI Prophylaxis: GI Prophylaxis Protonix infusion DVT Prophylaxis -- SCDs Heparin 5000u BID Lines: Left femoral Vas-Cath (dc'd 08/24), right femoral arterial line, right triple- lumen femoral catheter (08/18- 08/25). Right IJ permacath (08/24) Dispo: Level 2 Plan transfer to hospitalist Physician Cathryn Wagner Problem Qualifiers (1) Acute renal failure: Qualified Code: N17.9 - Acute renal failure, unspecified acute renal failure type (2) GI bleed: Qualified Code: K92.2 - Gastrointestinal hemorrhage, unspecified gastrointestinal hemorrhage type Cathryn Wagner MD Aug 25, 2016 07:59
--- NOTE | 2016-08-25 08:41 | PD.CARD.PN ---
Subjective Subjective Remarks Pt without CV complaints Objective Medications Current Medications Medications (Trade) Dose Ordered Sig/Antonio Route Start Time Stop Time Status Last Admin (Protonix Inj/NS Inj) 100 ml @ 10 mls/hr Q10H IV 08/17/16 21:45 08/25/16 06:14 (NS Flush) 2 ml UNSCH PRN IV FLUSH 08/18/16 00:30 (NS Flush) 2 ml BID IV FLUSH 08/18/16 09:00 08/24/16 09:09 (Tylenol) 650 mg Q6H PRN PO 08/18/16 00:30 (Morphine Inj) 2 mg Q2H PRN IV 08/18/16 00:30 (Tears Naturale Opth Soln) 1 drop TID EACH EYE 08/18/16 09:00 08/24/16 18:00 (Colace Liq) 100 mg Q12HR G-TUBE 08/18/16 09:00 08/24/16 20:07 Miscellaneous Information 1 Q361D XX 08/18/16 00:30 (Chlorhexidine 2% Cloth) Taper DAILY@04 TOP 08/18/16 04:00 08/14/17 03:59 08/25/16 03:47 Chlorhexidine Gluconate 3 pack 3 pack UNSCH PRN TOP 08/18/16 00:30 (fentaNYL DRIP) 250 ml @ 0 mls/hr TITRATE IV 08/18/16 00:30 08/19/16 00:14 (Reglan Inj) 5 mg Q6H PRN IV 08/18/16 01:00 Heparin Sodium (Porcine) 8000 units 8,000 units UNSCH PRN IVF 08/18/16 02:45 (NS 1000 ml Inj) 1,000 ml @ 0 mls/hr Q0M PRN IV 08/18/16 02:45 (Mannitol Inj) 12.5 gm UNSCH PRN IV 08/18/16 02:45 08/19/16 08:26 (Albumin 25% Inj) 25 gm UNSCH PRN IV 08/18/16 02:45 08/21/16 08:26 (NS Flush) 5 ml UNSCH PRN IVF 08/18/16 02:45 08/19/16 08:27 (Heparin Inj) UNSCH PRN .XX 08/18/16 02:45 08/21/16 08:24 (Gentamicin (Dialysis) Inj) 20 mg UNSCH PRN IV 08/18/16 02:45 08/21/16 08:24 (Zofran Inj) 4 mg UNSCH PRN IV 08/18/16 02:45 (Tylenol) 650 mg UNSCH PRN PO 08/18/16 02:45 (Benadryl) 25 mg UNSCH PRN PO 08/18/16 02:45 (Nitrostat Sl) 0.4 mg UNSCH PRN SL 08/18/16 02:45 (Catapres) 0.1 mg UNSCH PRN PO 08/18/16 02:45 (Gelfoam 12 Mm/7 Mm Top) 1 foam UNSCH PRN TOP 08/18/16 02:45 (Zofran Inj) 4 mg Q6H PRN IV 08/18/16 03:15 (Brethine Inj) 1 mg UNSCH PRN SQ 08/18/16 10:00 (D50w (Vial) Inj) 25 ml UNSCH PRN IV PUSH 08/18/16 19:45 08/21/16 14:23 (Glucagon Inj) 1 mg UNSCH PRN OTHER 08/18/16 19:45 (NovoLOG SUPPLEMENTAL SCALE) 1 Q6HR SQ 08/19/16 00:00 08/19/16 00:11 (Zyvox) 600 mg Q12HR PO 08/21/16 12:00 08/24/16 20:07 (Heparin Inj) 5,000 units Q12HR SQ 08/23/16 09:30 08/24/16 20:08 (Forest 5-325 Mg) 1 tab Q6H PRN PO 08/24/16 08:00 (Cordarone) 200 mg DAILY PO 08/25/16 09:00 (Levaquin) 250 mg Q48H PO 08/26/16 09:00 Vital Signs / I&O Vital Signs Date Time Temp Pulse Resp B/P Pulse Ox O2 Delivery O2 Flow Rate FiO2 08/25/16 08:28 98 Nasal Cannula 3.00 08/25/16 06:00 74 08/25/16 04:00 98.0 78 22 128/54 97 08/25/16 04:00 72 08/25/16 02:00 84 08/25/16 00:00 98.4 90 31 136/68 97 08/25/16 00:00 75 08/24/16 22:47 98 Nasal Cannula 3.00 08/24/16 22:00 94 08/24/16 20:00 98.2 100 33 124/66 96 08/24/16 20:00 100 08/24/16 18:02 106 08/24/16 16:00 98.4 100 30 124/70 98 08/24/16 16:00 108 08/24/16 14:00 94 08/24/16 13:55 97 Nasal Cannula 3 08/24/16 12:23 40 08/24/16 12:00 40 08/24/16 12:00 68 08/24/16 12:00 98.6 68 16 112/58 99 08/24/16 10:00 74 I/O 08/24/16 08/24/16 08/24/16 08/25/16 08/25/16 08/25/16 07:00 15:00 23:00 07:00 15:00 23:00 Intake Total 398 ml 779 ml 340 ml 370 ml Output Total 340 ml 650 ml 150 ml 250 ml Balance 58 ml 129 ml 190 ml 120 ml Intake Oral 0 ml 25 ml IV Total 252 ml 405 ml 105 ml 95 ml Tube Feeding 146 ml 314 ml 175 ml 190 ml Tube Irrigant 60 ml Other 60 ml 60 ml Output Urine Total 315 ml 450 ml 150 ml 250 ml Stool Total 25 ml 200 ml # Bowel Movements 1 3 Physical Exam GENERAL: Well developed, well nourished. No acute distress on vent HEENT: Jugular venous pressure is normal. CHEST: Lungs clear to auscultation bilaterally. Unlabored respiratory effort. CARDIAC: Regular rate and rhythm without S3, S4, or murmur. ABDOMEN: Soft, EXTREMITIES: No clubbing, cyanosis, tr edema. Laboratory Laboratory Tests Test 08/24/16 08/25/16 13:40 04:00 Blood Gas Puncture Site LT RADIAL Blood Gas Patient Temperature 98.6 Blood Gas HCO3 26 mmol/L Blood Gas Base Excess 2.6 mmol/L Blood Gas Oxygen Saturation 97 % Arterial Blood pH 7.46 Arterial Blood Partial 38 mmHg Pressure CO2 Arterial Blood Partial 136 mmHg Pressure O2 Arterial Blood Oxygen Content 17.0 Vol % Arterial Blood 0.6 % Carboxyhemoglobin Arterial Blood Methemoglobin 1.1 % Blood Gas Hemoglobin 12.3 G/DL Oxygen Delivery Device VENTILATOR Blood Gas Ventilator Setting PEEP5/PS5 Blood Gas Inspired Oxygen 40 % White Blood Count 5.8 TH/MM3 Red Blood Count 3.96 MIL/MM3 Hemoglobin 11.6 GM/DL Hematocrit 35.8 % Mean Corpuscular Volume 90.3 FL Mean Corpuscular Hemoglobin 29.3 PG Mean Corpuscular Hemoglobin 32.5 % Concent Red Cell Distribution Width 14.3 % Platelet Count 118 TH/MM3 Mean Platelet Volume 9.6 FL Sodium Level 147 MEQ/L Potassium Level 3.3 MEQ/L Chloride Level 105 MEQ/L Carbon Dioxide Level 31.5 MEQ/L Anion Gap 11 MEQ/L Blood Urea Nitrogen 72 MG/DL Creatinine 3.86 MG/DL Estimat Glomerular Filtration 16 ML/MIN Rate Random Glucose 122 MG/DL Calcium Level 7.6 MG/DL Phosphorus Level 2.5 MG/DL Magnesium Level 1.5 MG/DL Assessment and Plan Problem List: (1) AIVR (accelerated idioventricular rhythm) Assessment and Plan: no further episode, asymptomatic- no change in meds maybe part of SSS, vs electrolytes vs ischemia vs other (2) Atrial fibrillation (3) Acute renal failure (4) Respiratory failure Assessment and Plan: extubated (5) Cardiac arrest due to other underlying condition Assessment and Plan: BP up, add beta juanita consider nuc vs cath when stable- risk bene discussed --poor revascularization candidate with GIB, ESRD (6) GI bleed (7) Hyperkalemia (8) Generalized weakness Problem Qualifiers (1) Acute renal failure: Qualified Code: N17.9 - Acute renal failure, unspecified acute renal failure type (2) Respiratory failure: Qualified Code: J96.90 - Respiratory failure, unspecified chronicity, unspecified whether with hypoxia or hypercapnia (3) GI bleed: Qualified Code: K92.2 - Gastrointestinal hemorrhage, unspecified gastrointestinal hemorrhage type Elena Garcia MD Aug 25, 2016 08:41
[2016-08-25] MEDS: DOCUSATE SODIUM 100 MG/10 ML UDC G-TUBE SCH ×2 (09:00→23:05)
[2016-08-25] MEDS: HEPARIN SODIUM - SQ 10,000 UNITS/ML VIAL SQ SCH ×2 (09:19→23:05)
[2016-08-25] MEDS: LINEZOLID 600 MG TAB PO SCH ×2 (09:19→23:05)
[2016-08-25] MEDS: AMIODARONE 200 MG TAB PO SCH (09:20)
[2016-08-25] MEDS: SODIUM CHLORIDE 0.9% FLUSH 5 ML FLUSH IV FLUSH SCH ×2 (10:03→21:00)
[2016-08-25] MEDS: ARTIFICIAL TEARS OPTH SOLN 15 ML BTL EACH EYE SCH ×3 (10:04→18:00)
--- NOTE | 2016-08-25 10:40 | HHI.PR ---
Subjective Subjective Notes Remains extubated Objective Vitals/I&O Vital Signs Date Time Temp Pulse Resp B/P Pulse Ox O2 Delivery O2 Flow Rate FiO2 08/25/16 10:00 77 08/25/16 08:28 98 Nasal Cannula 3.00 08/25/16 08:00 97.7 24 119/66 08/24/16 12:23 40 Labs Laboratory Tests Test 08/24/16 08/25/16 13:40 04:00 Blood Gas Puncture Site LT RADIAL Blood Gas Patient Temperature 98.6 Blood Gas HCO3 26 Blood Gas Base Excess 2.6 Blood Gas Oxygen Saturation 97 Arterial Blood pH 7.46 Arterial Blood Partial 38 Pressure CO2 Arterial Blood Partial 136 Pressure O2 Arterial Blood Oxygen Content 17.0 Arterial Blood 0.6 Carboxyhemoglobin Arterial Blood Methemoglobin 1.1 Blood Gas Hemoglobin 12.3 Oxygen Delivery Device VENTILATOR Blood Gas Ventilator Setting PEEP5/PS5 Blood Gas Inspired Oxygen 40 White Blood Count 5.8 Red Blood Count 3.96 Hemoglobin 11.6 Hematocrit 35.8 Mean Corpuscular Volume 90.3 Mean Corpuscular Hemoglobin 29.3 Mean Corpuscular Hemoglobin 32.5 Concent Red Cell Distribution Width 14.3 Platelet Count 118 Mean Platelet Volume 9.6 Sodium Level 147 Potassium Level 3.3 Chloride Level 105 Carbon Dioxide Level 31.5 Anion Gap 11 Blood Urea Nitrogen 72 Creatinine 3.86 Estimat Glomerular Filtration 16 Rate Random Glucose 122 Calcium Level 7.6 Phosphorus Level 2.5 Magnesium Level 1.5 A/P Assessment and Plan Extubated; no need for trach at this time. Will sign off; reconsult as needed. Nahum Samaniego MD Aug 25, 2016 10:40
--- NOTE | 2016-08-25 11:12 | HHI.IDPN ---
Subjective Subjective Remarks is a 71 y/o CM with PMHx of HTN who was reportedly on Lisinopril prior to admission. He also reportedly had chronic arthritis and back pain and was on OTC pain meds off and on. ID following for aspiration pneumonia or CAP. Extubated overnight. Sputum with MRSA, Enterobacter cloacae and Proteus mirabilis. On HD, new vascath placed. No fever Antibiotics Levaquin oral. zyvox oral Lines Line sites with no e/o infection Past Medical History reviewed Allergies: Coded Allergies: *MDRO Multi-Drug Resistant Organism (Verified Adverse Reaction, Unknown, ) MRSA PCR Screen POSITIVE - 08/18/16 MRSA (sputum)-08/19/16 Objective . Vital Signs Date Time Temp Pulse Resp B/P Pulse Ox O2 Delivery O2 Flow Rate FiO2 08/25/16 10:00 77 08/25/16 08:28 98 Nasal Cannula 3.00 08/25/16 08:00 97.7 92 24 119/66 97 08/25/16 08:00 92 08/25/16 06:00 74 08/25/16 04:00 98.0 78 22 128/54 97 08/25/16 04:00 72 08/25/16 02:00 84 08/25/16 00:00 98.4 90 31 136/68 97 08/25/16 00:00 75 08/24/16 22:47 98 Nasal Cannula 3.00 08/24/16 22:00 94 08/24/16 20:00 98.2 100 33 124/66 96 08/24/16 20:00 100 08/24/16 18:02 106 08/24/16 16:00 98.4 100 30 124/70 98 08/24/16 16:00 108 08/24/16 14:00 94 08/24/16 13:55 97 Nasal Cannula 3 08/24/16 13:55 97 Nasal Cannula 3.00 08/24/16 12:23 40 08/24/16 12:00 40 08/24/16 12:00 68 08/24/16 12:00 98.6 68 16 112/58 99 08/24/16 08/24/16 08/25/16 15:00 23:00 07:00 Intake Total 779 ml 340 ml 370 ml Output Total 650 ml 150 ml 250 ml Balance 129 ml 190 ml 120 ml Intake Oral 0 ml 25 ml IV Total 405 ml 105 ml 95 ml Tube Feeding 314 ml 175 ml 190 ml Tube Irrigant 60 ml Other 60 ml 60 ml Output Urine Total 450 ml 150 ml 250 ml Stool Total 200 ml # Bowel Movements 1 3 . Laboratory Tests Test 08/24/16 08/25/16 04:00 04:00 White Blood Count 6.3 TH/MM3 5.8 TH/MM3 Red Blood Count 4.02 MIL/MM3 3.96 MIL/MM3 Hemoglobin 12.1 GM/DL 11.6 GM/DL Hematocrit 35.8 % 35.8 % Mean Corpuscular Volume 89.1 FL 90.3 FL Mean Corpuscular Hemoglobin 30.1 PG 29.3 PG Mean Corpuscular Hemoglobin 33.8 % 32.5 % Concent Red Cell Distribution Width 14.3 % 14.3 % Platelet Count 102 TH/MM3 118 TH/MM3 Mean Platelet Volume 9.7 FL 9.6 FL Laboratory Tests Test 08/24/16 08/25/16 04:00 04:00 Sodium Level 148 MEQ/L 147 MEQ/L Potassium Level 3.5 MEQ/L 3.3 MEQ/L Chloride Level 110 MEQ/L 105 MEQ/L Carbon Dioxide Level 26.2 MEQ/L 31.5 MEQ/L Anion Gap 12 MEQ/L 11 MEQ/L Blood Urea Nitrogen 120 MG/DL 72 MG/DL Creatinine 5.90 MG/DL 3.86 MG/DL Estimat Glomerular Filtration 10 ML/MIN 16 ML/MIN Rate Random Glucose 141 MG/DL 122 MG/DL Calcium Level 7.9 MG/DL 7.6 MG/DL Phosphorus Level 3.1 MG/DL 2.5 MG/DL Magnesium Level 1.9 MG/DL 1.5 MG/DL Imaging Last Impressions Abdomen/Pelvis CT 08/19/161 Signed Impressions: Service Date/Time: Friday, August 19, 2016 22:04 - CONCLUSION: 1. Diverticulosis of the descending and sigmoid colon. Wall thickening of the sigmoid colon could be colitis or diverticulitis. 2. Minimal fluid in the right paracolic gutter. 3. Bibasilar consolidation and patchy infiltrates right lower lobe. Followup CT chest recommended to ensure complete resolution. 1. Morgan Jimenez MD Upper Extremity Ultrasound 08/19/16 1821 Signed Impressions: Service Date/Time: Friday, August 19, 2016 20:20 - CONCLUSION: Occlusive thrombus in the left cephalic vein. No DVT in the right arm. Morgan Jimenez MD Chest X-Ray 08/19/16 0600 Signed Impressions: Service Date/Time: Friday, August 19, 2016 02:44 - CONCLUSION: Mild right base consolidation has developed. Daniel Welch MD Renal Ultrasound 08/18/16 0000 Signed Impressions: Service Date/Time: Thursday, August 18, 2016 10:13 - CONCLUSION: 1. No evidence of hydronephrosis. 2. There appears to be a probable 1.1 cm nonobstructing stone in the mid pole of the left kidney. Jae Apple MD Head CT 08/17/16 1925 Signed Impressions: Service Date/Time: Wednesday, August 17, 2016 19:48 - CONCLUSION: Normal examination for a patient of this age. Demetrius Lopez MD Physical Exam GENERAL: This is a well-nourished, well-developed patient, in no apparent distress. SKIN: No rashes, ecchymoses or lesions. Cool and dry. HEAD: Atraumatic. Normocephalic. No temporal or scalp tenderness. EYES: Pupils equal round and reactive. Extraocular motions intact. No scleral icterus. No injection or drainage. ENT: grossly NAD. NECK: Trachea midline. Supple, nontender, no meningeal signs. CARDIOVASCULAR: HS audible. RESPIRATORY: Breath sounds equal bilaterally. No wheezes, rales, or rhonchi. GASTROINTESTINAL: Abdomen soft, non-tender, nondistended. MUSCULOSKELETAL: Extremities without clubbing, cyanosis, or edema. No joint tenderness, effusion, or edema noted. No calf tenderness. Negative Homans sign bilaterally. NEUROLOGICAL: Alert, oriented x 3, moves all extremities. IV line sites with no e/o infection. Assessment & Plan Remarks Possible Sepsis present on admission. Aspiration Pneumonitis, HCAP Leucopenia: ? sepsis related, uremia. Acute renal failure now on HD: prerenal, was on lisinopril, acute GI bleed. Uremia, hyperkalemia, elevated CK on admission. Acute GI bleeding: ? NSAID induced, Uremia related. Acute metabolic encephalopathy: uremia, sepsis related. Anemia: blood loss related. Recs: Continue Levaquin IV today and then change to oral. Levaquin covers Stenotrophomonas maltophilia, Enterobacter and Klebsiella in patients sputum. Continue Zyvox oral per OG/NGT Oral regimen preferred given patient is a HD patient and both drugs have good bioavailability. Follow cultures Follow clinically. d/w . d/w RN: removal of old groin vascath and CL today. Charmaine Billingsley MD Aug 25, 2016 11:12
--- NOTE | 2016-08-25 16:53 | RADRPT ---
EXAM DATE/TIME: 08/24/2016 15:46 [facility] COMPARISON: No previous studies available for comparison. INDICATIONS : Patient in renal failure, requires new vascular access for dialysis. MEDICAL HISTORY : Sepsis Cardiac arrest Respiratory failure Acute renal failure GI bleed Hyperkalemia V-Fib SURGICAL HISTORY : None reported, unable to obtain ENCOUNTER: Initial ACUITY: 1 week PAIN SCORE: 0/10 FLUORO TIME: 0.5 minutes ACCESS: Right internal jugular vein MEDICATION(S): 1.) 2200 units Heparin DEVICE(S): 1.) dual lumen 15 cm Schon catheter PROCEDURE : 1. Ultrasound guided venipuncture. 2. Fluoroscopic guidance. 3. Central line placement. The risks, benefits and alternatives to the procedure were explained and verbal and written consent w as obtained. The site was prepped in sterile fashion. Full sterile technique was used, including ca p, mask, sterile gloves and gown and a large sterile sheet. Hand hygiene and 2% chlorhexidine prep w as utilized per protocol for cutaneous antisepsis with appropriate dry time for site. The skin and subcutaneous tissues were infiltrated with local anesthetic solution. A suitable site a julio césar the vein was selected with ultrasound and fluoroscopic guidance. A small incision was made. Th e vein was accessed under direct ultrasound visualization using the micropuncture technique. The shekhar ropuncture set was exchanged for a 0.035 wire. The tract was dilated. The catheter was advanced int o position under direct fluoroscopic visualization. The catheter was fixed in place with suture and a sterile dressing was applied. The patient tolerated the procedure well and there were no complications. CONCLUSION: Uncomplicated line placement as above. Eligio Godoy MD on August 25, 2016 at 16:51 Board Certified Radiologist. This report was verified electronically.
--- NOTE | 2016-08-25 21:10 | HHI.NPPN ---
Subjective History of Present Illness 71-year-old white male with history of sepsis, cardiac arrest, respiratory failure Additional Remarks Patient is awake, not in distress. Objective Data Data 08/24/16 08/25/16 19:00 07:00 Intake Total 779 ml 710 ml Output Total 650 ml 400 ml Balance 129 ml 310 ml Intake Oral 25 ml IV Total 405 ml 200 ml Tube Feeding 314 ml 365 ml Tube Irrigant 60 ml Other 120 ml Output Urine Total 450 ml 400 ml Stool Total 200 ml # Bowel Movements 4 Vital Signs Date Time Temp Pulse Resp B/P Pulse Ox O2 Delivery O2 Flow Rate FiO2 08/25/16 16:00 97.2 60 18 134/72 98 08/25/16 14:30 97.8 80 18 121/66 98 08/25/16 14:00 84 08/25/16 12:00 98.1 87 19 128/61 98 08/25/16 12:00 87 08/25/16 10:00 77 08/25/16 08:28 98 Nasal Cannula 3.00 08/25/16 08:00 97.7 92 24 119/66 97 08/25/16 08:00 92 08/25/16 06:00 74 08/25/16 04:00 98.0 78 22 128/54 97 08/25/16 04:00 72 08/25/16 02:00 84 08/25/16 00:00 98.4 90 31 136/68 97 08/25/16 00:00 75 08/24/16 22:47 98 Nasal Cannula 3.00 08/24/16 22:00 94 -: 08/25/16 0400 08/25/16 0400 Physical Exam General Appearance: No Acute Distress, Comfortable Neck Neck Exam: Neck Supple Pulmonary Resp Exam: Clear Bilaterally, Breath Sounds Equal Cardiology CV Exam: Regular, Normal Sinus Rhythm Gastrointestinal/Abdomen GI Exam: Soft, Non-Tender, Bowel Sounds Present Integumentary Skin Exam: Clear Extremeties Extremities Exam: Trace Edema Neurologic Neuro Exam: Alert, Awake Assessment/Plan Problem List: (1) Acute renal failure Plan: HD done Wednesday UOP slow to improve - 870cc UOP/ 24 hours Continue to monitor BUN and Creatinine still elevated. Need to get new Vascath. HD as needed. (2) Hyperkalemia Plan: This is resolved (3) Cardiac arrest due to other underlying condition Plan: Patient is sedated (4) Respiratory failure Plan: Intubated on ventilator (5) Pneumonia Plan: Continue to follow with ID - on Ceftriaxone, Zyvox Problem Qualifiers (1) Acute renal failure: Qualified Code: N17.9 - Acute renal failure, unspecified acute renal failure type (2) Respiratory failure: Qualified Code: J96.90 - Respiratory failure, unspecified chronicity, unspecified whether with hypoxia or hypercapnia (3) Pneumonia: Qualified Code: J18.9 - Pneumonia due to infectious organism, unspecified laterality, unspecified part of lung Theresa Geronimo MD Aug 25, 2016 21:10 Theresa Geronimo MD Aug 25, 2016 21:10
[2016-08-26 00:32] VITALS: BP 141/76; PULSE 82; RESP 18; TEMP 98.2; O2SAT 98
[2016-08-26] MEDS: CHLORHEXIDINE GLUCONATE 2 % 1 PACK (2 CLOTHS) TOP SCH (03:44)
[2016-08-26 04:00] VITALS: BP 141/74; PULSE 78; RESP 16; TEMP 98; O2SAT 99
[2016-08-26] MEDS: LOW DOSE INSULIN NOVOLOG SUPPLEMENTAL SCALE SQ SCH ×3 (06:00→12:00)
[2016-08-26] MEDS: PANTOPRAZOLE INJ 80 MG in SODIUM CHLORIDE 0.9% INJ 100 ML IV SCH ×2 (06:21→16:50)
--- NOTE | 2016-08-26 07:52 | PD.CARD.PN ---
Subjective Subjective Remarks Pt without CV complaints Objective Medications Current Medications Medications (Trade) Dose Ordered Sig/Antonio Route Start Time Stop Time Status Last Admin (Protonix Inj/NS Inj) 100 ml @ 10 mls/hr Q10H IV 08/17/16 21:45 08/26/16 06:21 (NS Flush) 2 ml UNSCH PRN IV FLUSH 08/18/16 00:30 (NS Flush) 2 ml BID IV FLUSH 08/18/16 09:00 08/25/16 10:03 (Tylenol) 650 mg Q6H PRN PO 08/18/16 00:30 (Morphine Inj) 2 mg Q2H PRN IV 08/18/16 00:30 (Tears Naturale Opth Soln) 1 drop TID EACH EYE 08/18/16 09:00 08/25/16 18:00 (Colace Liq) 100 mg Q12HR G-TUBE 08/18/16 09:00 08/25/16 23:05 Miscellaneous Information 1 Q361D XX 08/18/16 00:30 (Chlorhexidine 2% Cloth) Taper DAILY@04 TOP 08/18/16 04:00 08/14/17 03:59 08/25/16 03:47 Chlorhexidine Gluconate 3 pack 3 pack UNSCH PRN TOP 08/18/16 00:30 (fentaNYL DRIP) 250 ml @ 0 mls/hr TITRATE IV 08/18/16 00:30 08/19/16 00:14 (Reglan Inj) 5 mg Q6H PRN IV 08/18/16 01:00 Heparin Sodium (Porcine) 8000 units 8,000 units UNSCH PRN IVF 08/18/16 02:45 (NS 1000 ml Inj) 1,000 ml @ 0 mls/hr Q0M PRN IV 08/18/16 02:45 (Mannitol Inj) 12.5 gm UNSCH PRN IV 08/18/16 02:45 08/19/16 08:26 (Albumin 25% Inj) 25 gm UNSCH PRN IV 08/18/16 02:45 08/21/16 08:26 (NS Flush) 5 ml UNSCH PRN IVF 08/18/16 02:45 08/19/16 08:27 (Heparin Inj) UNSCH PRN .XX 08/18/16 02:45 08/21/16 08:24 (Gentamicin (Dialysis) Inj) 20 mg UNSCH PRN IV 08/18/16 02:45 08/21/16 08:24 (Zofran Inj) 4 mg UNSCH PRN IV 08/18/16 02:45 (Tylenol) 650 mg UNSCH PRN PO 08/18/16 02:45 (Benadryl) 25 mg UNSCH PRN PO 08/18/16 02:45 (Nitrostat Sl) 0.4 mg UNSCH PRN SL 08/18/16 02:45 (Catapres) 0.1 mg UNSCH PRN PO 08/18/16 02:45 (Gelfoam 12 Mm/7 Mm Top) 1 foam UNSCH PRN TOP 08/18/16 02:45 (Zofran Inj) 4 mg Q6H PRN IV 08/18/16 03:15 (Brethine Inj) 1 mg UNSCH PRN SQ 08/18/16 10:00 (D50w (Vial) Inj) 25 ml UNSCH PRN IV PUSH 08/18/16 19:45 08/21/16 14:23 (Glucagon Inj) 1 mg UNSCH PRN OTHER 08/18/16 19:45 (NovoLOG SUPPLEMENTAL SCALE) 1 Q6HR SQ 08/19/16 00:00 08/19/16 00:11 (Zyvox) 600 mg Q12HR PO 08/21/16 12:00 08/25/16 23:05 (Heparin Inj) 5,000 units Q12HR SQ 08/23/16 09:30 08/25/16 23:05 ([place] 5-325 Mg) 1 tab Q6H PRN PO 08/24/16 08:00 (Cordarone) 200 mg DAILY PO 08/25/16 09:00 08/25/16 09:20 (Levaquin) 250 mg Q48H PO 08/26/16 09:00 Vital Signs / I&O Vital Signs Date Time Temp Pulse Resp B/P Pulse Ox O2 Delivery O2 Flow Rate FiO2 08/26/16 04:00 98.0 78 16 141/74 99 08/26/16 00:32 98.2 82 18 141/76 98 08/25/16 20:00 98.3 84 16 140/84 96 08/25/16 16:00 97.2 60 18 134/72 98 08/25/16 14:30 97.8 80 18 121/66 98 08/25/16 14:00 84 08/25/16 12:00 98.1 87 19 128/61 98 08/25/16 12:00 87 08/25/16 10:00 77 08/25/16 08:28 98 Nasal Cannula 3.00 08/25/16 08:00 97.7 92 24 119/66 97 08/25/16 08:00 92 I/O 08/25/16 08/25/16 08/25/16 08/26/16 08/26/16 08/26/16 07:00 15:00 23:00 07:00 15:00 23:00 Intake Total 370 ml 1178 ml Output Total 250 ml 350 ml 1250 ml Balance 120 ml 828 ml -1250 ml Intake Oral 25 ml 920 ml IV Total 95 ml 115 ml Tube Feeding 190 ml 113 ml Tube Irrigant 30 ml Other 60 ml Output Urine Total 250 ml 350 ml 1250 ml # Bowel Movements 3 3 3 Physical Exam GENERAL: Well developed, well nourished. No acute distress on vent HEENT: Jugular venous pressure is normal. CHEST: Lungs clear to auscultation bilaterally. Unlabored respiratory effort. CARDIAC: Regular rate and rhythm without S3, S4, or murmur. ABDOMEN: Soft, EXTREMITIES: No clubbing, cyanosis, tr edema. Imaging Last 72 hours Impressions Chest X-Ray 08/25/16 0600 Signed Impressions: Service Date/Time: Thursday, August 25, 2016 03:53 - CONCLUSION: Improved aeration. Samir Lee MD Catheter Placement X-Ray 08/24/16 0940 Signed Impressions: Service Date/Time: Wednesday, August 24, 2016 15:46 - CONCLUSION: Uncomplicated line placement as above. Eligio Godoy MD Assessment and Plan Problem List: (1) Cardiac arrest due to other underlying condition Assessment and Plan: Pt and I had a long discussion on cath vs nuc and he declines both at this time. He wants " to get out of hospital and get his strength back." we discussed that there is a chance for further problems with , SD and other; he declines...Not unreasonable as he is a poor revasc candidate with GIB and ESRD (2) AIVR (accelerated idioventricular rhythm) Assessment and Plan: out of ICU- not on tele; discussed with nursing (3) Atrial fibrillation Assessment and Plan: stable; no anticoagulation with GIB (4) Acute renal failure (5) GI bleed (6) Hyperkalemia (7) Generalized weakness (8) Respiratory failure Problem Qualifiers (1) Acute renal failure: Qualified Code: N17.9 - Acute renal failure, unspecified acute renal failure type (2) GI bleed: Qualified Code: K92.2 - Gastrointestinal hemorrhage, unspecified gastrointestinal hemorrhage type (3) Respiratory failure: Qualified Code: J96.90 - Respiratory failure, unspecified chronicity, unspecified whether with hypoxia or hypercapnia Elena Garcia MD Aug 26, 2016 07:52
[2016-08-26 08:07] VITALS: BP 135/69; PULSE 85; RESP 18; TEMP 97; O2SAT 98
[2016-08-26] MEDS: SODIUM CHLORIDE 0.9% FLUSH 5 ML FLUSH IV FLUSH SCH ×2 (09:00→21:55)
[2016-08-26] MEDS: ARTIFICIAL TEARS OPTH SOLN 15 ML BTL EACH EYE SCH ×2 (09:08→13:00)
[2016-08-26] MEDS: DOCUSATE SODIUM 100 MG/10 ML UDC G-TUBE SCH ×2 (09:08→21:00)
[2016-08-26] MEDS: AMIODARONE 200 MG TAB PO SCH (09:09)
[2016-08-26] MEDS: LEVOFLOXACIN 250 MG TAB PO SCH (09:09)
[2016-08-26] MEDS: HEPARIN SODIUM - SQ 10,000 UNITS/ML VIAL SQ SCH ×2 (09:09→21:55)
[2016-08-26] MEDS: LINEZOLID 600 MG TAB PO SCH ×2 (09:09→21:54)
[2016-08-26] MEDS ORDERED: LEVOFLOXACIN/DEXTROSE 250 MG/50 ML IV SCH (11:00)
[2016-08-26 12:00] VITALS: BP 132/69; PULSE 81; RESP 18; TEMP 97.4; O2SAT 99
[2016-08-26] MEDS: HEPARIN SODIUM - IV 10,000 UNITS/10 ML VIAL PRN (12:50)
[2016-08-26] MEDS: GENTAMICIN SULFATE (DIALYSIS USE ONLY) 20 MG/2 ML VIAL IV PRN (12:50)
--- NOTE | 2016-08-26 15:08 | HHI.PR ---
Subjective Remarks Patient reports that he is feeling better. He states that he wants to get better before doing any further testing including stress test offered by cardiology. He denies chest pain. No shortness of breath. Currently on room air. Objective Vitals Vital Signs Date Time Temp Pulse Resp B/P Pulse Ox O2 Delivery O2 Flow Rate FiO2 08/26/16 08:07 97.0 85 18 135/69 98 08/26/16 04:00 98.0 78 16 141/74 99 08/26/16 00:32 98.2 82 18 141/76 98 08/25/16 20:00 98.3 84 16 140/84 96 08/25/16 16:00 97.2 60 18 134/72 98 I/O 08/25/16 08/25/16 08/25/16 08/26/16 08/26/16 08/26/16 07:00 15:00 23:00 07:00 15:00 23:00 Intake Total 370 ml 1178 ml Output Total 250 ml 350 ml 1250 ml Balance 120 ml 828 ml -1250 ml Intake Oral 25 ml 920 ml IV Total 95 ml 115 ml Tube Feeding 190 ml 113 ml Tube Irrigant 30 ml Other 60 ml Output Urine Total 250 ml 350 ml 1250 ml # Bowel Movements 3 3 3 Result Diagram: 08/25/16 0400 08/25/16 0400 Imaging Last Impressions Chest X-Ray 08/25/16 0600 Signed Impressions: Service Date/Time: Thursday, August 25, 2016 03:53 - CONCLUSION: Improved aeration. Samir Lee MD Catheter Placement X-Ray 08/24/16 0940 Signed Impressions: Service Date/Time: Wednesday, August 24, 2016 15:46 - CONCLUSION: Uncomplicated line placement as above. Eligio Godoy MD Abdomen/Pelvis CT 08/19/16 2321 Signed Impressions: Service Date/Time: Friday, August 19, 2016 22:04 - CONCLUSION: 1. Diverticulosis of the descending and sigmoid colon. Wall thickening of the sigmoid colon could be colitis or diverticulitis. 2. Minimal fluid in the right paracolic gutter. 3. Bibasilar consolidation and patchy infiltrates right lower lobe. Followup CT chest recommended to ensure complete resolution. 1. Morgan Jimenez MD Upper Extremity Ultrasound 2/1/17 1821 Signed Impressions: Service Date/Time: Friday, August 19, 2016 20:20 - CONCLUSION: Occlusive thrombus in the left cephalic vein. No DVT in the right arm. Morgan Jimenez MD Renal Ultrasound 08/18/16 0000 Signed Impressions: Service Date/Time: Thursday, August 18, 2016 10:13 - CONCLUSION: 1. No evidence of hydronephrosis. 2. There appears to be a probable 1.1 cm nonobstructing stone in the mid pole of the left kidney. Jae Apple MD Head CT 08/17/161924 Signed Impressions: Service Date/Time: Wednesday, August 17, 2016 19:48 - CONCLUSION: Normal examination for a patient of this age. Demetrius Lopez MD Objective Remarks GENERAL: This is a well-nourished, well-developed patient, in no apparent distress. CARDIOVASCULAR: Normal rate and regular rhythm without murmurs, gallops, or rubs. RESPIRATORY: Good respiratory efforts. Breath sounds equal and clear to auscultation bilaterally. GASTROINTESTINAL: Abdomen soft, non-tender, non-distended. Normal active bowel sounds MUSCULOSKELETAL: Extremities without cyanosis, or edema. NEURO: Alert & Oriented x4 to person, place, time, situation. Moves all ext x4 PSYCH: Appropriate mood and affect. Date of Insertion: Aug 18, 2016 Line: Central Venous Catheter Side: Right Location: Femoral A/P Assessment and Plan 71-year-old male with: Acute Hypoxic respiratory failure-resolved Aspiration pneumonitis-resolved Pneumonia multilobular -Patient is improving. Currently on room air -Sputum- Enterobacter cloacae, Proteus mirabilis, MRSA, now resulted Stenotrophomonas Maltophilia -Currently on Levaquin and Zyvox per infectious disease.. -Continue to monitor S/P Cardiac arrest-ventricular fibrillation (potassium level 7.7) Hypotension-resolved A. fib RVR-resolved -ECHO-EF 45%, systolic function mildly reduced. No RWMA -Maintain MAP > 65mmHg -Cardiology following-Dr. Garcia -Amiodarone 200mg BID PO, defer dose management per Cardiology recommendations -PMH HTN- when clinically indicated will resume anti-HTN medication per Cardiology recommendations -2/3 Cardioverted. - Patient refused further ischemic workup for now. He indicated that he will follow-up outpatient when he is stronger. Acute renal failure -Nephrology following -Dialysis M-W-F coordination per Nephrology -Permacath placement 08/24 -Urine output fair in last 24 hours -Monitor urinary output -- Strict I/Os GI bleed-resolved Melena Hyperkalemia secondary to acute renal failure-resolved -GI following -Dr. Morrell -EGD 08/21-Preliminary report gastritis, duodenitis, duodenal ulcers, biopsies obtained -Change Protonix to oral -Monitor BMP Coagulopathy-resolved Thrombocytopenia -Hemoglobin stable, 12 -Monitor PT/INR -Transfuse platelets less than 50,000-stable GI prophylaxis: PPI. Stool softener PRN constipation. DVT PPx: Heparin Janina Shelton MD Aug 26, 2016 15:08
[2016-08-26 16:43] VITALS: BP 110/64; PULSE 96; RESP 18; TEMP 97.4; O2SAT 98
--- NOTE | 2016-08-26 17:06 | HHI.NPPN ---
Subjective History of Present Illness 71-year-old white male with history of sepsis, cardiac arrest, respiratory failure Additional Remarks Patient is clinically same, not in distress. Objective Data Data 08/25/16 08/26/16 19:00 07:00 Intake Total 1178 ml Output Total 350 ml 1250 ml Balance 828 ml -1250 ml Intake Oral 920 ml IV Total 115 ml Tube Feeding 113 ml Tube Irrigant 30 ml Output Urine Total 350 ml 1250 ml # Bowel Movements 3 3 Vital Signs Date Time Temp Pulse Resp B/P Pulse Ox O2 Delivery O2 Flow Rate FiO2 08/26/16 16:43 97.4 96 18 110/64 98 08/26/16 12:00 97.4 81 18 132/69 99 08/26/16 08:07 97.0 85 18 135/69 98 08/26/16 04:00 98.0 78 16 141/74 99 08/26/16 00:32 98.2 82 18 141/76 98 08/25/16 20:00 98.3 84 16 140/84 96 -: 08/25/16 0400 08/25/16 0400 Physical Exam General Appearance: No Acute Distress, Comfortable Neck Neck Exam: Neck Supple Pulmonary Resp Exam: Clear Bilaterally, Breath Sounds Equal Cardiology CV Exam: Regular, Normal Sinus Rhythm Gastrointestinal/Abdomen GI Exam: Soft, Non-Tender, Bowel Sounds Present Integumentary Skin Exam: Clear Extremeties Extremities Exam: Trace Edema Neurologic Neuro Exam: Alert, Awake Assessment/Plan Problem List: (1) Acute renal failure Plan: Urine out put is better Continue to monitor BUN and Creatinine still elevated. Watch for renal recovery. HD as needed. (2) Hyperkalemia Plan: This is resolved (3) Cardiac arrest due to other underlying condition Plan: Patient is sedated (4) Respiratory failure Plan: Intubated on ventilator (5) Pneumonia Plan: Continue to follow with ID - on Ceftriaxone, Zyvox Problem Qualifiers (1) Acute renal failure: Qualified Code: N17.9 - Acute renal failure, unspecified acute renal failure type (2) Respiratory failure: Qualified Code: J96.90 - Respiratory failure, unspecified chronicity, unspecified whether with hypoxia or hypercapnia (3) Pneumonia: Qualified Code: J18.9 - Pneumonia due to infectious organism, unspecified laterality, unspecified part of lung Theresa Geronimo MD Aug 26, 2016 17:06 Qualified Code: J18.9 - Pneumonia due to infectious organism, unspecified laterality, unspecified part of lung Theresa Geronimo MD Aug 26, 2016 17:06
[2016-08-26 20:39] VITALS: BP 142/72; PULSE 84; RESP 22; TEMP 98.5; O2SAT 94
[2016-08-27 00:33] VITALS: BP 126/64; PULSE 84; RESP 18; TEMP 98.2; O2SAT 97
[2016-08-27] MEDS: CHLORHEXIDINE GLUCONATE 2 % 1 PACK (2 CLOTHS) TOP SCH (04:00)
[2016-08-27 04:46] VITALS: BP 112/60; PULSE 77; RESP 20; TEMP 97.9; O2SAT 99
[2016-08-27] MEDS: LOW DOSE INSULIN NOVOLOG SUPPLEMENTAL SCALE SQ SCH ×4 (06:00→18:00)
--- NOTE | 2016-08-27 07:46 | PD.CARD.PN ---
Subjective Subjective Remarks PT without complaints Objective Medications Current Medications Medications (Trade) Dose Ordered Sig/Antonio Route Start Time Stop Time Status Last Admin (NS Flush) 2 ml UNSCH PRN IV FLUSH 08/18/16 00:30 (NS Flush) 2 ml BID IV FLUSH 08/18/16 09:00 08/26/16 21:55 (Tylenol) 650 mg Q6H PRN PO 08/18/16 00:30 (Morphine Inj) 2 mg Q2H PRN IV 08/18/16 00:30 (Tears Naturale Opth Soln) 1 drop TID EACH EYE 08/18/16 09:00 08/26/16 13:00 (Colace Liq) 100 mg Q12HR G-TUBE 08/18/16 09:00 08/26/16 09:08 Miscellaneous Information 1 Q361D XX 08/18/16 00:30 (Chlorhexidine 2% Cloth) Taper DAILY@04 TOP 08/18/16 04:00 08/14/17 03:59 08/25/16 03:47 Chlorhexidine Gluconate 3 pack 3 pack UNSCH PRN TOP 08/18/16 00:30 (fentaNYL DRIP) 250 ml @ 0 mls/hr TITRATE IV 08/18/16 00:30 08/19/16 00:14 (Reglan Inj) 5 mg Q6H PRN IV 08/18/16 01:00 Heparin Sodium (Porcine) 8000 units 8,000 units UNSCH PRN IVF 08/18/16 02:45 (NS 1000 ml Inj) 1,000 ml @ 0 mls/hr Q0M PRN IV 08/18/16 02:45 (Mannitol Inj) 12.5 gm UNSCH PRN IV 08/18/16 02:45 08/19/16 08:26 (Albumin 25% Inj) 25 gm UNSCH PRN IV 08/18/16 02:45 08/21/16 08:26 (NS Flush) 5 ml UNSCH PRN IVF 08/18/16 02:45 08/19/16 08:27 (Heparin Inj) UNSCH PRN .XX 08/18/16 02:45 08/26/16 12:50 (Gentamicin (Dialysis) Inj) 20 mg UNSCH PRN IV 08/18/16 02:45 08/26/16 12:50 (Zofran Inj) 4 mg UNSCH PRN IV 08/18/16 02:45 (Tylenol) 650 mg UNSCH PRN PO 08/18/16 02:45 (Benadryl) 25 mg UNSCH PRN PO 08/18/16 02:45 (Nitrostat Sl) 0.4 mg UNSCH PRN SL 08/18/16 02:45 (Catapres) 0.1 mg UNSCH PRN PO 08/18/16 02:45 (Gelfoam 12 Mm/7 Mm Top) 1 foam UNSCH PRN TOP 08/18/16 02:45 (Zofran Inj) 4 mg Q6H PRN IV 08/18/16 03:15 (Brethine Inj) 1 mg UNSCH PRN SQ 08/18/16 10:00 (D50w (Vial) Inj) 25 ml UNSCH PRN IV PUSH 08/18/16 19:45 08/21/16 14:23 (Glucagon Inj) 1 mg UNSCH PRN OTHER 08/18/16 19:45 (NovoLOG SUPPLEMENTAL SCALE) 1 Q6HR SQ 08/19/16 00:00 08/27/16 00:00 (Zyvox) 600 mg Q12HR PO 08/21/16 12:00 08/26/16 21:54 (Heparin Inj) 5,000 units Q12HR SQ 08/23/16 09:30 08/26/16 21:55 ([place] 5-325 Mg) 1 tab Q6H PRN PO 08/24/16 08:00 (Cordarone) 200 mg DAILY PO 08/25/16 09:00 08/26/16 09:09 (Levaquin) 250 mg Q48H PO 08/26/16 09:00 08/26/16 09:09 (Protonix) 40 mg DAILY PO 08/27/16 09:00 Vital Signs / I&O Vital Signs Date Time Temp Pulse Resp B/P Pulse Ox O2 Delivery O2 Flow Rate FiO2 08/27/16 04:46 97.9 77 20 112/60 99 08/27/16 00:33 98.2 84 18 126/64 97 08/26/16 20:39 98.5 84 22 142/72 94 08/26/16 16:43 97.4 96 18 110/64 98 08/26/16 12:00 97.4 81 18 132/69 99 08/26/16 08:07 97.0 85 18 135/69 98 I/O 08/26/16 08/26/16 08/26/16 08/27/16 08/27/16 08/27/16 07:00 15:00 23:00 07:00 15:00 23:00 Output Total 1250 ml 900 ml 200 ml Balance -1250 ml -900 ml -200 ml Output Urine Total 1250 ml 900 ml 200 ml # Bowel Movements 3 1 1 Physical Exam GENERAL: Well developed, well nourished. No acute distress on vent HEENT: Jugular venous pressure is normal. CHEST: Lungs clear to auscultation bilaterally. Unlabored respiratory effort. CARDIAC: Regular rate and rhythm without S3, S4, or murmur. ABDOMEN: Soft, EXTREMITIES: No clubbing, cyanosis, tr edema. Assessment and Plan Problem List: (1) Cardiac arrest due to other underlying condition Assessment and Plan: Arrest likely secondary to hyperkalemia Pt and I had a long discussion again on cath vs nuc vs med rx. He now wants risk stratification with nuc stress he remains a poor revasc candidate with GIB and ESRD no asa secondary to GIB start coreg and statin (2) AIVR (accelerated idioventricular rhythm) (3) Atrial fibrillation Assessment and Plan: NSR, stop amio AF surrounding arrest no anticoagulation with GIB (4) Acute renal failure (5) GI bleed (6) Hyperkalemia (7) Generalized weakness (8) Respiratory failure Problem Qualifiers (1) Acute renal failure: Qualified Code: N17.9 - Acute renal failure, unspecified acute renal failure type (2) GI bleed: Qualified Code: K92.2 - Gastrointestinal hemorrhage, unspecified gastrointestinal hemorrhage type (3) Respiratory failure: Qualified Code: J96.90 - Respiratory failure, unspecified chronicity, unspecified whether with hypoxia or hypercapnia Elena Garcia MD Aug 27, 2016 07:46
[2016-08-27 08:02] LABS: MEAN CELL VOLUME 89.1 FL (80.0-100.0); MEAN CORPUSCULAR HEMOGLOBIN 29.7 PG (27.0-34.0); MEAN CORPUSCULAR HGB CONC 33.3 % (32.0-36.0); PLATELET COUNT 139 TH/MM3 (150-450); RED BLOOD COUNT 4.15 MIL/MM3 (4.50-5.90); RED CELL DISTRIBUTION WIDTH 13.7 % (11.6-17.2); REVIEW FLAG FINAL; WHITE BLOOD COUNT 4.3 TH/MM3 (4.0-11.0)
[2016-08-27 08:35] LABS: BICARBONATE 29.1 MEQ/L (21.0-32.0); POTASSIUM 3.4 MEQ/L (3.5-5.1)
[2016-08-27 08:54] LABS: CALCIUM-PROTEIN CORRECTED 8.1 MG/DL (8.5-10.1)
[2016-08-27] MEDS: HEPARIN SODIUM - SQ 10,000 UNITS/ML VIAL SQ SCH ×2 (09:00→20:05)
[2016-08-27] MEDS: ARTIFICIAL TEARS OPTH SOLN 15 ML BTL EACH EYE SCH ×3 (09:02→18:00)
[2016-08-27] MEDS: SODIUM CHLORIDE 0.9% FLUSH 5 ML FLUSH IV FLUSH SCH ×2 (09:02→20:05)
[2016-08-27] MEDS: DOCUSATE SODIUM 100 MG/10 ML UDC G-TUBE SCH ×2 (09:02→20:05)
[2016-08-27] MEDS: LINEZOLID 600 MG TAB PO SCH ×2 (09:02→20:03)
[2016-08-27 09:03] VITALS: BP 100/59; PULSE 84; RESP 18; TEMP 97.4; O2SAT 100
[2016-08-27] MEDS: PANTOPRAZOLE SOD 40 MG DELAYED RELEASE TAB PO SCH (09:03)
[2016-08-27] MEDS: CARVEDILOL 3.125 MG TAB PO SCH ×2 (09:19→20:04)
[2016-08-27] MEDS: ATORVASTATIN 10 MG TAB PO SCH (09:20)
[2016-08-27] MEDS ORDERED: REGADENOSON INJ 0.4 MG/5 ML SYR ONE (10:55)
[2016-08-27 12:09] VITALS: BP 101/59; PULSE 83; RESP 18; TEMP 96.1; O2SAT 96
--- NOTE | 2016-08-27 12:58 | RADRPT ---
EXAM DATE/TIME: 08/27/2016 10:24 [facility] COMPARISON: No previous studies available for comparison. INDICATIONS: Left chest pain for one day. Angina. Myocardial infarction. DOSE: 26.7 mCi Tc99m Myoview at stress. 8.1 mCi Tc99m Myoview at rest. 0.4 mg Lexiscan STRESS SYMPTOMS: Asymptomatic. EJECTION FRACTION: > 70% MEDICAL HISTORY: Hypertension. SURGICAL HISTORY: None. ENCOUNTER: Initial ACUITY: 1 day PAIN SCALE: 2/10 LOCATION: Left chest TECHNIQUE: The patient underwent pharmacologic stress with infusion of prescribed dose. Continuous ECG tracing was monitored during stress. Gated SPECT imaging was performed after stress and conventional SPECT i maging was performed at rest. The examination was performed on a SPECT/CT scanner, both attenuation and non-corrected datasets were reviewed. FINDINGS: The gated Cine loop images demonstrate paradoxical motion of the cardiac apex suggesting aneurysm rel ated to previous LAD infarct. The left ventricular ejection fraction is calculated at greater than 7 0%. The cardiac SPECT stress and rest images demonstrate fixed defect involving the anterior apical wall suggesting old LAD infarct. Mathew-infarct ischemic changes also questioned. CONCLUSION: 1. Fixed defect involving the anterior apical wall with possible mathew-infarct ischemic change in the LAD distribution. 2. 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 3. Normal left ventricular ejection fraction equaling greater than 70%. RISK CATEGORY: Low risk (less than 1% annual mortality rate). Nhan Jett MD on August 27, 2016 at 12:24 Board Certified Radiologist. This report was verified electronically.
--- NOTE | 2016-08-27 14:23 | HHI.PR ---
Subjective Remarks Patient's renal functions are improving. Urine output is okay. He reports that he is feeling stronger and feeling better overall. Objective Vitals Vital Signs Date Time Temp Pulse Resp B/P Pulse Ox O2 Delivery O2 Flow Rate FiO2 08/27/16 12:09 96.1 83 18 101/59 96 08/27/16 09:03 97.4 84 18 100/59 100 08/27/16 04:46 97.9 77 20 112/60 99 08/27/16 00:33 98.2 84 18 126/64 97 08/26/16 20:39 98.5 84 22 142/72 94 08/26/16 16:43 97.4 96 18 110/64 98 I/O 08/26/16 08/26/16 08/26/16 08/27/16 08/27/16 08/27/16 07:00 15:00 23:00 07:00 15:00 23:00 Output Total 1250 ml 900 ml 200 ml 575 ml Balance -1250 ml -900 ml -200 ml -575 ml Output Urine Total 1250 ml 900 ml 200 ml 575 ml # Bowel Movements 3 1 1 2 Result Diagram: 08/27/16 0708 08/27/16 0708 Objective Remarks GENERAL: This is a well-nourished, well-developed patient, in no apparent distress. CARDIOVASCULAR: Normal rate and regular rhythm without murmurs, gallops, or rubs. RESPIRATORY: Good respiratory efforts. Breath sounds equal and clear to auscultation bilaterally. GASTROINTESTINAL: Abdomen soft, non-tender, non-distended. Normal active bowel sounds MUSCULOSKELETAL: Extremities without cyanosis, or edema. NEURO: Alert & Oriented x4 to person, place, time, situation. Moves all ext x4 PSYCH: Appropriate mood and affect. Date of Insertion: Aug 18, 2016 Line: Central Venous Catheter Side: Right Location: Femoral A/P Assessment and Plan 71-year-old male with: Acute Hypoxic respiratory failure-resolved Aspiration pneumonitis-resolved Pneumonia multilobular -Patient is improving. Currently on room air -Sputum- Enterobacter cloacae, Proteus mirabilis, MRSA, now resulted Stenotrophomonas Maltophilia -Currently on Levaquin and Zyvox per infectious disease.. -Continue to monitor S/P Cardiac arrest-ventricular fibrillation (potassium level 7.7) Hypotension-resolved A. fib RVR-resolved -ECHO-EF 45%, systolic function mildly reduced. No RWMA -Maintain MAP > 65mmHg -Cardiology following-Dr. Garcia -Amiodarone 200mg BID PO, defer dose management per Cardiology recommendations -PMH HTN- when clinically indicated will resume anti-HTN medication per Cardiology recommendations -08/21 Cardioverted. - Patient initially refused further ischemic workup . He agreed to have stress test done today. Acute renal failure -Nephrology following -Dialysis -- coordination per Nephrology -Permacath placement 08/24 -Urine output improving. Renal functions improving. -Monitor urinary output -- Strict I/Os GI bleed-resolved Melena Hyperkalemia secondary to acute renal failure-resolved -GI following -Dr. Morrell -EGD 08/21-Preliminary report gastritis, duodenitis, duodenal ulcers, biopsies obtained -Continue Protonix -Monitor BMP Coagulopathy-resolved Thrombocytopenia -Hemoglobin stable, 12 -Monitor PT/INR -Transfuse platelets less than 50,000-stable GI prophylaxis: PPI. Stool softener PRN constipation. DVT PPx: Heparin Consult physical therapy. Janina Shelton MD Aug 27, 2016 14:23
--- NOTE | 2016-08-27 14:48 | HHI.IDPN ---
Subjective Subjective Remarks is a 71 y/o CM with PMHx of HTN who was reportedly on Lisinopril prior to admission. He also reportedly had chronic arthritis and back pain and was on OTC pain meds off and on. ID following for aspiration pneumonia or CAP. Transferred to floor. Reports having stress test today. Sputum with MRSA, Enterobacter cloacae and Proteus mirabilis. On HD, new vascath placed. No fever Antibiotics Levaquin oral. zyvox oral Lines Line sites with no e/o infection Past Medical History reviewed Allergies: Coded Allergies: *MDRO Multi-Drug Resistant Organism (Verified Adverse Reaction, Unknown, ) MRSA PCR Screen POSITIVE - 08/18/16 MRSA (sputum) - 08/18/16, 08/19/16 Objective . Vital Signs Date Time Temp Pulse Resp B/P Pulse Ox O2 Delivery O2 Flow Rate FiO2 08/27/16 12:09 96.1 83 18 101/59 96 08/27/16 09:03 97.4 84 18 100/59 100 08/27/16 04:46 97.9 77 20 112/60 99 08/27/16 00:33 98.2 84 18 126/64 97 08/26/16 20:39 98.5 84 22 142/72 94 08/26/16 16:43 97.4 96 18 110/64 98 08/26/16 08/26/16 08/27/16 15:00 23:00 07:00 Output Total 900 ml 200 ml Balance -900 ml -200 ml Output Urine Total 900 ml 200 ml # Bowel Movements 1 1 . Laboratory Tests Test 08/27/16 07:08 White Blood Count 4.3 TH/MM3 Red Blood Count 4.15 MIL/MM3 Hemoglobin 12.3 GM/DL Hematocrit 37.0 % Mean Corpuscular Volume 89.1 FL Mean Corpuscular Hemoglobin 29.7 PG Mean Corpuscular Hemoglobin 33.3 % Concent Red Cell Distribution Width 13.7 % Platelet Count 139 TH/MM3 Mean Platelet Volume 8.7 FL Laboratory Tests Test 08/27/16 07:08 Sodium Level 141 MEQ/L Potassium Level 3.4 MEQ/L Chloride Level 103 MEQ/L Carbon Dioxide Level 29.1 MEQ/L Anion Gap 9 MEQ/L Blood Urea Nitrogen 42 MG/DL Creatinine 2.65 MG/DL Estimat Glomerular Filtration 24 ML/MIN Rate Random Glucose 96 MG/DL Calcium Level 7.4 MG/DL Protein Corrected Calcium 8.1 MG/DL Total Protein 5.9 GM/DL Imaging Last Impressions Abdomen/Pelvis CT 08/19/16 2321 Signed Impressions: Service Date/Time: Friday, August 19, 2016 22:04 - CONCLUSION: 1. Diverticulosis of the descending and sigmoid colon. Wall thickening of the sigmoid colon could be colitis or diverticulitis. 2. Minimal fluid in the right paracolic gutter. 3. Bibasilar consolidation and patchy infiltrates right lower lobe. Followup CT chest recommended to ensure complete resolution. 1. Morgan Jimenez MD Upper Extremity Ultrasound 08/19/16 1821 Signed Impressions: Service Date/Time: Friday, August 19, 2016 20:20 - CONCLUSION: Occlusive thrombus in the left cephalic vein. No DVT in the right arm. Morgan Jimenez MD Chest X-Ray 08/19/16 0600 Signed Impressions: Service Date/Time: Friday, August 19, 2016 02:44 - CONCLUSION: Mild right base consolidation has developed. Daniel Welch MD Renal Ultrasound 08/18/16 0000 Signed Impressions: Service Date/Time: Thursday, August 18, 2016 10:13 - CONCLUSION: 1. No evidence of hydronephrosis. 2. There appears to be a probable 1.1 cm nonobstructing stone in the mid pole of the left kidney. Jae Apple MD Head CT 08/17/16 1925 Signed Impressions: Service Date/Time: Wednesday, August 17, 2016 19:48 - CONCLUSION: Normal examination for a patient of this age. Demetrius Lopez MD Physical Exam GENERAL: This is a well-nourished, well-developed patient, in no apparent distress. SKIN: No rashes, ecchymoses or lesions. Cool and dry. HEAD: Atraumatic. Normocephalic. No temporal or scalp tenderness. EYES: Pupils equal round and reactive. Extraocular motions intact. No scleral icterus. No injection or drainage. ENT: grossly NAD. NECK: Trachea midline. Supple, nontender, no meningeal signs. CARDIOVASCULAR: HS audible. RESPIRATORY: Breath sounds equal bilaterally. No wheezes, rales, or rhonchi. GASTROINTESTINAL: Abdomen soft, non-tender, nondistended. MUSCULOSKELETAL: Extremities without clubbing, cyanosis, or edema. No joint tenderness, effusion, or edema noted. No calf tenderness. Negative Homans sign bilaterally. NEUROLOGICAL: Alert, oriented x 3, moves all extremities. IV line sites with no e/o infection. Assessment & Plan Remarks Possible Sepsis present on admission. Aspiration Pneumonitis, HCAP Leucopenia: ? sepsis related, uremia. Acute renal failure now on HD: prerenal, was on lisinopril, acute GI bleed. Uremia, hyperkalemia, elevated CK on admission. Acute GI bleeding: ? NSAID induced, Uremia related. Acute metabolic encephalopathy: uremia, sepsis related. Anemia: blood loss related. Recs: Continue Levaquin oral. Levaquin covers Stenotrophomonas maltophilia, Enterobacter and Klebsiella in patients sputum. Continue Zyvox oral. Oral regimen preferred given patient is a HD patient and both drugs have good bioavailability. Follow cultures Follow clinically. d/w pt. CXR in am post HD. Charmaine Billingsley MD Aug 27, 2016 14:48
[2016-08-27 16:23] VITALS: BP 123/62; PULSE 81; RESP 18; TEMP 97.4; O2SAT 98
[2016-08-27 20:38] VITALS: BP 122/55; PULSE 82; RESP 20; TEMP 97.6; O2SAT 98
--- NOTE | 2016-08-27 20:55 | HHI.NPPN ---
Subjective History of Present Illness 71-year-old white male with history of sepsis, cardiac arrest, respiratory failure Additional Remarks Patient is awake , not in distress. Objective Data Data 08/26/16 08/27/16 19:00 07:00 Output Total 500 ml 600 ml Balance -500 ml -600 ml Output Urine Total 500 ml 600 ml # Bowel Movements 1 1 Vital Signs Date Time Temp Pulse Resp B/P Pulse Ox O2 Delivery O2 Flow Rate FiO2 08/27/16 20:38 97.6 82 20 122/55 98 08/27/16 16:23 97.4 81 18 123/62 98 08/27/16 12:09 96.1 83 18 101/59 96 08/27/16 09:03 97.4 84 18 100/59 100 08/27/16 04:46 97.9 77 20 112/60 99 08/27/16 00:33 98.2 84 18 126/64 97 -: 08/27/16 0708 08/27/16 0708 Physical Exam General Appearance: No Acute Distress, Comfortable Neck Neck Exam: Neck Supple Pulmonary Resp Exam: Clear Bilaterally, Breath Sounds Equal Cardiology CV Exam: Regular, Normal Sinus Rhythm Gastrointestinal/Abdomen GI Exam: Soft, Non-Tender, Bowel Sounds Present Integumentary Skin Exam: Clear Extremeties Extremities Exam: Trace Edema Neurologic Neuro Exam: Alert, Awake Psychiatric Psych Exam: Appropriate Responses Assessment/Plan Problem List: (1) Acute renal failure Plan: Urine out put is better. Creatinine also improving. HD done, will follow BMP and HD as needed. (2) Hyperkalemia Plan: This is resolved (3) Cardiac arrest due to other underlying condition (4) Respiratory failure Plan: Intubated on ventilator (5) Pneumonia Plan: Continue to follow with ID - on Ceftriaxone, Zyvox Problem Qualifiers (1) Acute renal failure: Qualified Code: N17.9 - Acute renal failure, unspecified acute renal failure type (2) Respiratory failure: Qualified Code: J96.90 - Respiratory failure, unspecified chronicity, unspecified whether with hypoxia or hypercapnia (3) Pneumonia: Qualified Code: J18.9 - Pneumonia due to infectious organism, unspecified laterality, unspecified part of lung Theresa Geronimo MD Aug 27, 2016 20:54
[2016-08-28] VITALS (8 sets, daily range): BP systolic 96–128; BP diastolic 51–71; PULSE 75–97; RESP 17–20; TEMP 98.7–99.1; O2SAT 96–100
[2016-08-28] MEDS: CHLORHEXIDINE GLUCONATE 2 % 1 PACK (2 CLOTHS) TOP SCH (03:33)
[2016-08-28] MEDS: LOW DOSE INSULIN NOVOLOG SUPPLEMENTAL SCALE SQ SCH ×3 (05:09→12:00)
[2016-08-28 08:22] LABS: HEMATOCRIT 33.8 % (39.0-51.0); MEAN CELL VOLUME 89.6 FL (80.0-100.0); MEAN CORPUSCULAR HEMOGLOBIN 29.7 PG (27.0-34.0); MEAN CORPUSCULAR HGB CONC 33.1 % (32.0-36.0); PLATELET COUNT 145 TH/MM3 (150-450); RED BLOOD COUNT 3.77 MIL/MM3 (4.50-5.90); RED CELL DISTRIBUTION WIDTH 13.9 % (11.6-17.2); REVIEW FLAG FINAL; WHITE BLOOD COUNT 4.3 TH/MM3 (4.0-11.0)
[2016-08-28 08:47] LABS: POTASSIUM 3.2 MEQ/L (3.5-5.1)
[2016-08-28] MEDS: CARVEDILOL 3.125 MG TAB PO SCH ×2 (08:51→21:52)
[2016-08-28] MEDS: PANTOPRAZOLE SOD 40 MG DELAYED RELEASE TAB PO SCH (08:51)
[2016-08-28] MEDS: ARTIFICIAL TEARS OPTH SOLN 15 ML BTL EACH EYE SCH ×2 (08:51→12:15)
[2016-08-28] MEDS: ATORVASTATIN 10 MG TAB PO SCH (08:51)
[2016-08-28] MEDS: LINEZOLID 600 MG TAB PO SCH ×2 (08:51→21:52)
[2016-08-28] MEDS: LEVOFLOXACIN 250 MG TAB PO SCH (08:51)
[2016-08-28] MEDS: HEPARIN SODIUM - SQ 10,000 UNITS/ML VIAL SQ SCH ×2 (08:52→21:52)
[2016-08-28] MEDS: DOCUSATE SODIUM 100 MG/10 ML UDC G-TUBE SCH ×2 (08:52→21:52)
[2016-08-28] MEDS: SODIUM CHLORIDE 0.9% FLUSH 5 ML FLUSH IV FLUSH SCH ×2 (08:52→21:52)
--- NOTE | 2016-08-28 09:24 | HHI.NPPN ---
Subjective History of Present Illness 71-year-old white male with history of sepsis, cardiac arrest, respiratory failure Additional Remarks Patient is awake , no SOB, eating well. Objective Data Data 08/27/16 08/28/16 19:00 07:00 Output Total 900 ml 675 ml Balance -900 ml -675 ml Output Urine Total 900 ml 675 ml # Bowel Movements 3 1 Vital Signs Date Time Temp Pulse Resp B/P Pulse Ox O2 Delivery O2 Flow Rate FiO2 08/28/16 08:00 99.1 75 18 128/65 98 08/28/16 04:49 98.7 80 18 100/56 96 08/28/16 00:47 98.7 75 20 108/60 97 08/27/16 20:38 97.6 82 20 122/55 98 08/27/16 16:23 97.4 81 18 123/62 98 08/27/16 12:09 96.1 83 18 101/59 96 -: 08/28/16 0721 08/28/16 0721 Physical Exam General Appearance: No Acute Distress, Comfortable Neck Neck Exam: Neck Supple Pulmonary Resp Exam: Clear Bilaterally, Breath Sounds Equal Cardiology CV Exam: Regular, Normal Sinus Rhythm Gastrointestinal/Abdomen GI Exam: Soft, Non-Tender, Bowel Sounds Present Integumentary Skin Exam: Clear Extremeties Extremities Exam: Trace Edema Neurologic Neuro Exam: Alert, Awake Psychiatric Psych Exam: Appropriate Responses Assessment/Plan Problem List: (1) Acute renal failure Plan: Urine out put is better. Creatinine is now increased slightly. GFR is 22 ml/min. Possibly has some improvement. Will hold HD today and follow the BMP in AM. (2) Hyperkalemia Plan: This is resolved (3) Cardiac arrest due to other underlying condition (4) Respiratory failure Plan: Intubated on ventilator (5) Pneumonia Plan: Continue to follow with ID - on Ceftriaxone, Zyvox Problem Qualifiers (1) Acute renal failure: Qualified Code: N17.9 - Acute renal failure, unspecified acute renal failure type (2) Respiratory failure: Qualified Code: J96.90 - Respiratory failure, unspecified chronicity, unspecified whether with hypoxia or hypercapnia (3) Pneumonia: Qualified Code: J18.9 - Pneumonia due to infectious organism, unspecified laterality, unspecified part of lung Theresa Geronimo MD Aug 28, 2016 09:24
--- NOTE | 2016-08-28 13:31 | HHI.PR ---
Subjective Remarks Patient reports that he is feeling okay today. Dialysis was held this morning. Urine output is good. GFR 22 today compared to 24 yesterday. Slight increase in creatinine. Objective Vitals Vital Signs Date Time Temp Pulse Resp B/P Pulse Ox O2 Delivery O2 Flow Rate FiO2 08/28/16 08:00 99.1 75 18 128/65 98 08/28/16 04:49 98.7 80 18 100/56 96 08/28/16 00:47 98.7 75 20 108/60 97 08/27/16 20:38 97.6 82 20 122/55 98 08/27/16 16:23 97.4 81 18 123/62 98 I/O 08/27/16 08/27/16 08/27/16 08/28/16 08/28/16 08/28/16 07:00 15:00 23:00 07:00 15:00 23:00 Output Total 200 ml 575 ml 1000 ml Balance -200 ml -575 ml -1000 ml Output Urine Total 200 ml 575 ml 1000 ml # Bowel Movements 1 2 2 Result Diagram: 08/28/16 0721 08/28/16720 Objective Remarks GENERAL: This is a well-nourished, well-developed patient, in no apparent distress. CARDIOVASCULAR: Normal rate and regular rhythm without murmurs, gallops, or rubs. RESPIRATORY: Good respiratory efforts. Breath sounds equal and clear to auscultation bilaterally. GASTROINTESTINAL: Abdomen soft, non-tender, non-distended. Normal active bowel sounds MUSCULOSKELETAL: Extremities without cyanosis, or edema. NEURO: Alert & Oriented x4 to person, place, time, situation. Moves all ext x4 PSYCH: Appropriate mood and affect. Date of Insertion: Aug 18, 2016 Line: Central Venous Catheter Side: Right Location: Femoral A/P Assessment and Plan 71-year-old male with: Acute Hypoxic respiratory failure-resolved Aspiration pneumonitis-resolved Pneumonia multilobular -Patient is improving. Currently on room air -Sputum- Enterobacter cloacae, Proteus mirabilis, MRSA, now resulted Stenotrophomonas Maltophilia -Currently on Levaquin and Zyvox per infectious disease.. -Continue to monitor S/P Cardiac arrest-ventricular fibrillation (potassium level 7.7) Hypotension-resolved A. fib RVR-resolved -ECHO-EF 45%, systolic function mildly reduced. No RWMA -Maintain MAP > 65mmHg -Cardiology following-Dr. Garcia -Amiodarone 200mg BID PO, defer dose management per Cardiology recommendations -PMH HTN- when clinically indicated will resume anti-HTN medication per Cardiology recommendations -/ Cardioverted. - Patient initially refused further ischemic workup. He later agreed to a Nuclear stress test which revealed a fixed perfusion defect involving the LAD. EF of 70%. Further plans per cardiology. Per previous note not a candidate for revascularization given current renal functions. Acute renal failure -Nephrology following -Dialysis -- coordination per Nephrology. Dialysis on hold today. Follow BMP tomorrow -Permacath placement 08/24 -Urine output improving. Renal functions appear to be improving overall. -Monitor urinary output GI bleed-resolved Melena Hyperkalemia secondary to acute renal failure-resolved -GI following -Dr. Morrell -EGD 08/21-Preliminary report gastritis, duodenitis, duodenal ulcers, biopsies obtained -Continue Protonix -Monitor BMP Coagulopathy-resolved Thrombocytopenia -Hemoglobin stable, 12 -Monitor PT/INR -Transfuse platelets less than 50,000-stable GI prophylaxis: PPI. Stool softener PRN constipation. DVT PPx: Heparin Discharge Planning Awaiting for renal recovery. Hemodialysis held today. Follow urine output and BMP in the morning. Patient is on antibiotics as above, will need recs from [facility] for treatment course. Janina Shelton MD Aug 28, 2016 1:31 pm
--- NOTE | 2016-08-28 18:16 | PD.CARD.PN ---
Subjective Subjective Remarks Patient seen earlier today, no chest pain, no shortness of breath, feels he is doing well Objective Medications Current Medications Medications (Trade) Dose Ordered Sig/Antonio Route Start Time Stop Time Status Last Admin (NS Flush) 2 ml UNSCH PRN IV FLUSH 08/18/16 00:30 (NS Flush) 2 ml BID IV FLUSH 08/18/16 09:00 08/28/16 08:52 (Tylenol) 650 mg Q6H PRN PO 08/18/16 00:30 (Morphine Inj) 2 mg Q2H PRN IV 08/18/16 00:30 (Colace Liq) 100 mg Q12HR G-TUBE 08/18/16 09:00 08/27/16 09:02 Miscellaneous Information 1 Q361D XX 08/18/16 00:30 (Chlorhexidine 2% Cloth) Taper DAILY@04 TOP 08/18/16 04:00 08/14/17 03:59 08/25/16 03:47 (Reglan Inj) 5 mg Q6H PRN IV 08/18/16 01:00 Heparin Sodium (Porcine) 8000 units 8,000 units UNSCH PRN IVF 08/18/16 02:45 (NS 1000 ml Inj) 1,000 ml @ 0 mls/hr Q0M PRN IV 08/18/16 02:45 (Mannitol Inj) 12.5 gm UNSCH PRN IV 08/18/16 02:45 08/19/16 08:26 (Albumin 25% Inj) 25 gm UNSCH PRN IV 08/18/16 02:45 08/21/16 08:26 (NS Flush) 5 ml UNSCH PRN IVF 08/18/16 02:45 08/19/16 08:27 (Heparin Inj) UNSCH PRN .XX 08/18/16 02:45 08/26/16 12:50 (Gentamicin (Dialysis) Inj) 20 mg UNSCH PRN IV 08/18/16 02:45 08/26/16 12:50 (Zofran Inj) 4 mg UNSCH PRN IV 08/18/16 02:45 (Tylenol) 650 mg UNSCH PRN PO 08/18/16 02:45 (Benadryl) 25 mg UNSCH PRN PO 08/18/16 02:45 (Nitrostat Sl) 0.4 mg UNSCH PRN SL 08/18/16 02:45 (Catapres) 0.1 mg UNSCH PRN PO 08/18/16 02:45 (Gelfoam 12 Mm/7 Mm Top) 1 foam UNSCH PRN TOP 08/18/16 02:45 (Zofran Inj) 4 mg Q6H PRN IV 08/18/16 03:15 (Brethine Inj) 1 mg UNSCH PRN SQ 08/18/16 10:00 (Zyvox) 600 mg Q12HR PO 08/21/16 12:00 08/28/16 08:51 (Heparin Inj) 5,000 units Q12HR SQ 08/23/16 09:30 08/28/16 08:52 ([place] 5-325 Mg) 1 tab Q6H PRN PO 08/24/16 08:00 (Levaquin) 250 mg Q48H PO 08/26/16 09:00 08/28/16 08:51 (Protonix) 40 mg DAILY PO 08/27/16 09:00 08/28/16 08:51 (Coreg) 3.125 mg Q12HR PO 08/27/16 09:00 08/28/16 08:51 (Lipitor) 10 mg DAILY PO 08/27/16 09:00 08/28/16 08:51 Vital Signs / I&O Vital Signs Date Time Temp Pulse Resp B/P Pulse Ox O2 Delivery O2 Flow Rate FiO2 08/28/16 16:00 98.8 84 17 113/67 99 08/28/16 12:00 99.1 97 20 96/51 100 08/28/16 08:00 99.1 75 18 128/65 98 08/28/16 04:49 98.7 80 18 100/56 96 08/28/16 00:47 98.7 75 20 108/60 97 08/27/16 20:38 97.6 82 20 122/55 98 I/O 08/27/16 08/27/16 08/27/16 08/28/16 08/28/16 08/28/16 07:00 15:00 23:00 07:00 15:00 23:00 Intake Total 550 ml Output Total 200 ml 575 ml 1000 ml 475 ml 800 ml Balance -200 ml -575 ml -1000 ml -475 ml -250 ml Intake Oral 550 ml Output Urine Total 200 ml 575 ml 1000 ml 475 ml 800 ml # Bowel Movements 1 2 2 4 Physical Exam GENERAL: NAD SKIN: Warm and dry. HEAD: Atraumatic. Normocephalic. EYES: Pupils equal and round. No scleral icterus. No injection or drainage. ENT: No nasal bleeding or discharge. Mucous membranes pink and moist. NECK: Trachea midline. No JVD. CARDIOVASCULAR: Regular rate and rhythm. RESPIRATORY: No accessory muscle use. Clear to auscultation. Breath sounds equal bilaterally. GASTROINTESTINAL: Abdomen soft, non-tender, nondistended. Hepatic and splenic margins not palpable. MUSCULOSKELETAL: Extremities without clubbing, cyanosis, or edema. No obvious deformities. NEUROLOGICAL: Awake and alert. No obvious cranial nerve deficits. Motor grossly within normal limits. Five out of 5 muscle strength in the arms and legs. Normal speech. PSYCHIATRIC: Appropriate mood and affect; insight and judgment normal. Laboratory Laboratory Tests Test 08/28/16 07:21 White Blood Count 4.3 TH/MM3 Red Blood Count 3.77 MIL/MM3 Hemoglobin 11.2 GM/DL Hematocrit 33.8 % Mean Corpuscular Volume 89.6 FL Mean Corpuscular Hemoglobin 29.7 PG Mean Corpuscular Hemoglobin 33.1 % Concent Red Cell Distribution Width 13.9 % Platelet Count 145 TH/MM3 Mean Platelet Volume 8.7 FL Sodium Level 143 MEQ/L Potassium Level 3.2 MEQ/L Chloride Level 104 MEQ/L Carbon Dioxide Level 30.0 MEQ/L Anion Gap 9 MEQ/L Blood Urea Nitrogen 46 MG/DL Creatinine 2.89 MG/DL Estimat Glomerular Filtration 22 ML/MIN Rate Random Glucose 143 MG/DL Calcium Level 7.7 MG/DL Assessment and Plan Problem List: (1) Cardiac arrest due to other underlying condition (2) AIVR (accelerated idioventricular rhythm) (3) Atrial fibrillation (4) Acute renal failure (5) GI bleed (6) Hyperkalemia (7) Generalized weakness (8) Respiratory failure Assessment and Plan 1) Nuclear stress test showing predominately fixed defect of the anterior wall, with possible aneurysm (not noted on the echo) done for risk stratification 2) Agree patient is not a good revascularization candidate, especially with recent GI bleed and CKD/ESRD, with renal function possibly returning 3) Continue medical management of the patient 4) Would see about adding ASA safely per GI if possible 5) Vfib arrest thought due to hyperkalemia 6) Afib/flutter after arrest, not an anticoagulation candidate due to GI bleed 7) Will see PRN, please call with questions Problem Qualifiers (1) Acute renal failure: Qualified Code: N17.9 - Acute renal failure, unspecified acute renal failure type (2) GI bleed: Qualified Code: K92.2 - Gastrointestinal hemorrhage, unspecified gastrointestinal hemorrhage type (3) Respiratory failure: Qualified Code: J96.90 - Respiratory failure, unspecified chronicity, unspecified whether with hypoxia or hypercapnia Jourdan Chand DO Aug 28, 2016 18:16
--- NOTE | 2016-08-28 18:52 | RADRPT ---
EXAM DATE/TIME: 08/28/2016 18:10 [facility] COMPARISON: CHEST SINGLE AP, August 25, 2016, 3:53. INDICATIONS : Evaluate for Pneumonia. MEDICAL HISTORY : Hypertension. A Fib. MRSA. SURGICAL HISTORY : None. ENCOUNTER: Initial ACUITY: 1 day PAIN SCORE: 0/10 LOCATION: Bilateral chest FINDINGS: The heart is normal. The pulmonary vascular pattern is normal. Discoid atelectasis and/or scarring is noted within the left lung base. A right internal jugular VasCath has its tip in the superior vena cava. CONCLUSION: 1. Discoid atelectasis and/or scarring within the left lung base. 2. No acute focal alveolar consolidation to suggest pneumonia. Nhan Jett MD on August 28, 2016 at 18:47 Board Certified Radiologist. This report was verified electronically.
[2016-08-29] VITALS (8 sets, daily range): BP systolic 87–124; BP diastolic 47–70; PULSE 79–97; RESP 17–20; TEMP 98.3–99.4; O2SAT 96–100
[2016-08-29] MEDS: CHLORHEXIDINE GLUCONATE 2 % 1 PACK (2 CLOTHS) TOP SCH (04:00)
[2016-08-29 08:58] LABS: BICARBONATE 30.8 MEQ/L (21.0-32.0); POTASSIUM 3.4 MEQ/L (3.5-5.1)
[2016-08-29] MEDS: DOCUSATE SODIUM 100 MG/10 ML UDC G-TUBE SCH ×2 (09:01→21:00)
[2016-08-29] MEDS: SODIUM CHLORIDE 0.9% FLUSH 5 ML FLUSH IV FLUSH SCH ×2 (09:03→21:00)
[2016-08-29] MEDS: CARVEDILOL 3.125 MG TAB PO SCH ×2 (09:03→22:14)
[2016-08-29] MEDS: PANTOPRAZOLE SOD 40 MG DELAYED RELEASE TAB PO SCH (09:03)
[2016-08-29] MEDS: ATORVASTATIN 10 MG TAB PO SCH (09:04)
[2016-08-29] MEDS: HEPARIN SODIUM - SQ 10,000 UNITS/ML VIAL SQ SCH ×2 (09:05→22:13)
[2016-08-29] MEDS: LINEZOLID 600 MG TAB PO SCH ×2 (09:05→22:13)
[2016-08-29 09:18] LABS: CALCIUM-PROTEIN CORRECTED 8.1 MG/DL (8.5-10.1)
--- NOTE | 2016-08-29 12:43 | HHI.NPPN ---
Subjective History of Present Illness 71-year-old white male with history of sepsis, cardiac arrest, respiratory failure Additional Remarks Patient is alert, no SOB, not in distress. Objective Data Data 08/28/16 08/29/16 19:00 07:00 Intake Total 550 ml Output Total 1275 ml 350 ml Balance -725 ml -350 ml Intake Oral 550 ml Output Urine Total 1275 ml 350 ml # Bowel Movements 4 Vital Signs Date Time Temp Pulse Resp B/P Pulse Ox O2 Delivery O2 Flow Rate FiO2 08/29/16 12:08 98.3 80 20 87/47 100 08/29/16 11:30 83 08/29/16 08:08 98.9 86 20 124/70 100 08/29/16 04:00 98.5 81 20 113/64 97 08/29/16 00:30 98.9 79 18 102/60 99 08/28/16 21:07 99.1 83 18 125/71 100 08/28/16 20:00 83 08/28/16 18:36 99 Nasal Cannula 2.00 08/28/16 16:00 98.8 84 17 113/67 99 -: 08/28/16 0721 08/29/16 0800 Physical Exam General Appearance: No Acute Distress, Comfortable Neck Neck Exam: Neck Supple Pulmonary Resp Exam: Clear Bilaterally, Breath Sounds Equal Cardiology CV Exam: Regular, Normal Sinus Rhythm Gastrointestinal/Abdomen GI Exam: Soft, Non-Tender, Bowel Sounds Present Integumentary Skin Exam: Clear Extremeties Extremities Exam: Trace Edema Neurologic Neuro Exam: Alert, Awake Psychiatric Psych Exam: Appropriate Responses Assessment/Plan Problem List: (1) Acute renal failure Plan: Urine out put is better Continue to monitor BUN and Creatinine improving. Watch for renal recovery. HD is on hold since Wed. If Creatinine continue to improve, will get VasCath out. (2) Hyperkalemia Plan: This is resolved (3) Cardiac arrest due to other underlying condition Plan: Patient is sedated (4) Respiratory failure Plan: Intubated on ventilator (5) Pneumonia Plan: Continue to follow with ID - on Ceftriaxone, Zyvox Problem Qualifiers (1) Acute renal failure: Qualified Code: N17.9 - Acute renal failure, unspecified acute renal failure type (2) Respiratory failure: Qualified Code: J96.90 - Respiratory failure, unspecified chronicity, unspecified whether with hypoxia or hypercapnia (3) Pneumonia: Qualified Code: J18.9 - Pneumonia due to infectious organism, unspecified laterality, unspecified part of lung Theresa Geronimo MD Aug 29, 2016 12:42
[2016-08-29] MEDS: LEVOFLOXACIN 250 MG TAB PO SCH (15:26)
[2016-08-29] MEDS ORDERED: POTASSIUM CHLORIDE 20 MEQ CONTROLLED RELEASE TAB PO ONE (16:00)
--- NOTE | 2016-08-29 21:02 | HHI.PR ---
Subjective Remarks Creatinine trending down Patient had an episode of hypotension, MAXIMUM TEMPERATURE 99.3 and blood pressure at the moment of interview 102/65 Potassium low Patient complains of warm and swollen right ankle which is also tender to palpation. Denies any trauma but states that it hurts to walk on it. Denies chest pain or shortness of breath, denies cough Denies fevers or chills Objective Vitals Vital Signs Date Time Temp Pulse Resp B/P Pulse Ox O2 Delivery O2 Flow Rate FiO2 08/29/16 20:43 99.4 94 17 107/56 96 08/29/16 16:00 99.3 81 20 102/66 100 08/29/16 12:08 98.3 80 20 87/47 100 08/29/16 11:30 83 08/29/16 08:08 98.9 86 20 124/70 100 08/29/16 04:00 98.5 81 20 113/64 97 08/29/16 00:30 98.9 79 18 102/60 99 08/28/16 21:07 99.1 83 18 125/71 100 I/O 08/28/16 08/28/16 08/28/16 08/29/16 08/29/16 08/29/16 07:00 15:00 23:00 07:00 15:00 23:00 Intake Total 550 ml 240 ml Output Total 475 ml 800 ml 350 ml 800 ml Balance -475 ml -250 ml -350 ml -560 ml Intake Oral 550 ml 240 ml Output Urine Total 475 ml 800 ml 350 ml 800 ml # Bowel Movements 4 3 Result Diagram: 08/28/16 0721 08/29/16 0800 Imaging Last Impressions Chest X-Ray 08/28/16 1800 Signed Impressions: Service Date/Time: Sunday, August 28, 2016 18:10 - CONCLUSION: 1. Discoid atelectasis and/or scarring within the left lung base. 2. No acute focal alveolar consolidation to suggest pneumonia. Nhan Jett MD Myocardial Perfusion Scan Nuc Med 08/27/16 0000 Signed Impressions: Service Date/Time: August 10:24 - CONCLUSION: 1. Fixed defect involving the anterior apical wall with possible mathew-infarct ischemic change in the LAD distribution. 2. 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 3. Normal left ventricular ejection fraction equaling greater than 70%%. RISK CATEGORY: Low risk (less than 1%% annual mortality rate). Nhan Jett MD Catheter Placement X-Ray 08/24/16 0940 Signed Impressions: Service Date/Time: Wednesday, August 24, 2016 15:46 - CONCLUSION: Uncomplicated line placement as above. Eligio Godoy MD Abdomen/Pelvis CT 08/19/16 2321 Signed Impressions: Service Date/Time: Friday, August 19, 2016 22:04 - CONCLUSION: 1. Diverticulosis of the descending and sigmoid colon. Wall thickening of the sigmoid colon could be colitis or diverticulitis. 2. Minimal fluid in the right paracolic gutter. 3. Bibasilar consolidation and patchy infiltrates right lower lobe. Followup CT chest recommended to ensure complete resolution. 1. Morgan Jimenez MD Upper Extremity Ultrasound 08/19/16 1821 Signed Impressions: Service Date/Time: Friday, August 19, 2016 20:20 - CONCLUSION: Occlusive thrombus in the left cephalic vein. No DVT in the right arm. Morgan Jimenez MD Renal Ultrasound 08/18/16 0000 Signed Impressions: Service Date/Time: Thursday, August 18, 2016 10:13 - CONCLUSION: 1. No evidence of hydronephrosis. 2. There appears to be a probable 1.1 cm nonobstructing stone in the mid pole of the left kidney. Jae Apple MD Head CT 08/17/16 1925 Signed Impressions: Service Date/Time: Wednesday, August 17, 2016 19:48 - CONCLUSION: Normal examination for a patient of this age. Demetrius Lopez MD Objective Remarks GENERAL: This is a well-nourished, well-developed patient, in no apparent distress. CARDIOVASCULAR: Normal rate and regular rhythm without murmurs, gallops, or rubs. RESPIRATORY: Good respiratory efforts. Breath sounds equal and clear to auscultation bilaterally. GASTROINTESTINAL: Abdomen soft, non-tender, non-distended. Normal active bowel sounds MUSCULOSKELETAL: Extremities without cyanosis, or edema. Right ankle is swollen when compared to the left, warm to touch also tender to palpation. NEURO: Alert & Oriented x4 to person, place, time, situation. Moves all ext x4 PSYCH: Appropriate mood and affect. Medications and IVs Current Medications Medications (Trade) Dose Ordered Sig/Antonio Route Start Time Stop Time Status Last Admin (NS Flush) 2 ml UNSCH PRN IV FLUSH 08/18/16 00:30 (NS Flush) 2 ml BID IV FLUSH 08/18/16 09:00 08/29/16 09:03 (Tylenol) 650 mg Q6H PRN PO 08/18/16 00:30 (Morphine Inj) 2 mg Q2H PRN IV 08/18/16 00:30 (Colace Liq) 100 mg Q12HR G-TUBE 08/18/16 09:00 08/28/16 21:52 Miscellaneous Information 1 Q361D XX 08/18/16 00:30 (Chlorhexidine 2% Cloth) Taper DAILY@04 TOP 08/18/16 04:00 08/14/17 03:59 08/25/16 03:47 (Reglan Inj) 5 mg Q6H PRN IV 08/18/16 01:00 Heparin Sodium (Porcine) 8000 units 8,000 units UNSCH PRN IVF 08/18/16 02:45 (NS 1000 ml Inj) 1,000 ml @ 0 mls/hr Q0M PRN IV 08/18/16 02:45 (Mannitol Inj) 12.5 gm UNSCH PRN IV 08/18/16 02:45 08/19/16 08:26 (Albumin 25% Inj) 25 gm UNSCH PRN IV 08/18/16 02:45 08/21/16 08:26 (NS Flush) 5 ml UNSCH PRN IVF 08/18/16 02:45 08/19/16 08:27 (Heparin Inj) UNSCH PRN .XX 08/18/16 02:45 08/26/16 12:50 (Gentamicin (Dialysis) Inj) 20 mg UNSCH PRN IV 08/18/16 02:45 08/26/16 12:50 (Zofran Inj) 4 mg UNSCH PRN IV 08/18/16 02:45 (Tylenol) 650 mg UNSCH PRN PO 08/18/16 02:45 (Benadryl) 25 mg UNSCH PRN PO 08/18/16 02:45 (Nitrostat Sl) 0.4 mg UNSCH PRN SL 08/18/16 02:45 (Catapres) 0.1 mg UNSCH PRN PO 08/18/16 02:45 (Gelfoam 12 Mm/7 Mm Top) 1 foam UNSCH PRN TOP 08/18/16 02:45 (Zofran Inj) 4 mg Q6H PRN IV 08/18/16 03:15 (Brethine Inj) 1 mg UNSCH PRN SQ 08/18/16 10:00 (Zyvox) 600 mg Q12HR PO 08/21/16 12:00 08/29/16 09:05 (Heparin Inj) 5,000 units Q12HR SQ 08/23/16 09:30 08/29/16 09:05 ([place] 5-325 Mg) 1 tab Q6H PRN PO 08/24/16 08:00 (Protonix) 40 mg DAILY PO 08/27/16 09:00 08/29/16 09:03 (Coreg) 3.125 mg Q12HR PO 08/27/16 09:00 08/29/16 09:03 (Lipitor) 10 mg DAILY PO 08/27/16 09:00 08/29/16 09:04 (Pneumovax-23 Inj) 25 mcg ONCE ONCE IM 08/30/16 09:00 08/30/16 09:01 (Levaquin) 250 mg Q24H PO 08/29/16 15:00 08/29/16 15:26 Date of Insertion: Aug 18, 2016 Line: Central Venous Catheter Side: Right Location: Femoral A/P Assessment and Plan 71-year-old male with: Acute Hypoxic respiratory failure-resolved Aspiration pneumonitis-resolved Pneumonia multilobular -Patient is improving. Currently on room air -Sputum- Enterobacter cloacae, Proteus mirabilis, MRSA, now resulted Stenotrophomonas Maltophilia -Currently on Levaquin and Zyvox per infectious disease.. -Continue to monitor S/P Cardiac arrest-ventricular fibrillation (potassium level 7.7) Hypotension-resolved A. fib RVR-resolved -ECHO-EF 45%, systolic function mildly reduced. No RWMA -Maintain MAP > 65mmHg -Cardiology following-Dr. Garcia -Amiodarone 200mg BID PO, defer dose management per Cardiology recommendations -PMH HTN- when clinically indicated will resume anti-HTN medication per Cardiology recommendations -2/3 Cardioverted. - Patient initially refused further ischemic workup. He later agreed to a Nuclear stress test. 08/29/16 Nuclear stress test showing predominately fixed defect of the anterior wall, with possible aneurysm (not noted on the echo) done for risk stratification, however the patient was deemed not to be a good revascularization candidate due to recent GI bleed and CKD/ESRD, with renal function possibly returning. Cardiology recommended medical management. Patient not good anticoagulation candidate for A. fib with RVR due to GI bleed. Acute renal failure -Nephrology following -Dialysis -- coordination per Nephrology. Dialysis on hold today. Follow BMP tomorrow -Permacath placement 08/24 -Urine output improving. Renal functions appear to be improving overall. 08/29/16 renal function seems to be improving. Creatinine trending down. Today creatinine is at 2.5. Continue to monitor BUN/creatinine. As per nephrology if patient continues to have good urine output and creatinine continues to improve then will remove Vas-Cath out. Continue to monitor strict is and os. GI bleed-resolved Melena Hyperkalemia secondary to acute renal failure-resolved -GI following -Dr. Morrell -EGD 08/21-Preliminary report gastritis, duodenitis, duodenal ulcers, biopsies obtained -Continue Protonix -Monitor BMP Coagulopathy-resolved Thrombocytopenia - improving -Hemoglobin stable, 12 -Monitor PT/INR -Transfuse platelets less than 50,000-stable 08/29/16 Platelets improving - now 145 Swelling right Ankle Right ankle is slightly swollen and tender to palpation. Will check an ankle x- ray. GI prophylaxis: PPI. Stool softener PRN constipation. DVT PPx: Heparin Discharge Planning pending ankle x ray - ID and nephrology clearance. Donald Rosenberg MD Aug 29, 2016 21:02
--- NOTE | 2016-08-29 22:34 | RADRPT ---
EXAM DATE/TIME: 08/29/2016 21:29 [facility] COMPARISON: No previous studies available for comparison. INDICATIONS : Patient states no known injury. Patient states ankle was swollen this morning. MEDICAL HISTORY : MRSA. SURGICAL HISTORY : None. ENCOUNTER: Initial ACUITY: 1 day PAIN SCORE: 5/10 LOCATION: Right Ankle. FINDINGS: Two view examination was performed of the right ankle. The bony structures are in normal alignment. No evidence of fracture, dislocation. No radiopaque foreign bodies are seen. Bony mineralization is normal. CONCLUSION: 1. No acute findings. Mild osteoarthritis of the right ankle. Mild soft tissue swelling. Demetrius Lopez MD on August 29, 2016 at 22:32 Board Certified Radiologist. This report was verified electronically.
[2016-08-30] VITALS (8 sets, daily range): BP systolic 96–139; BP diastolic 55–72; PULSE 82–101; RESP 16–20; TEMP 97.1–99.9; O2SAT 95–98
[2016-08-30] MEDS: CHLORHEXIDINE GLUCONATE 2 % 1 PACK (2 CLOTHS) TOP SCH (04:00)
[2016-08-30] MEDS: DOCUSATE SODIUM 100 MG/10 ML UDC G-TUBE SCH ×2 (08:44→21:00)
[2016-08-30] MEDS: CARVEDILOL 3.125 MG TAB PO SCH ×2 (08:45→21:34)
[2016-08-30] MEDS: PANTOPRAZOLE SOD 40 MG DELAYED RELEASE TAB PO SCH (08:45)
[2016-08-30] MEDS: HEPARIN SODIUM - SQ 10,000 UNITS/ML VIAL SQ SCH ×2 (08:46→21:34)
[2016-08-30] MEDS: LINEZOLID 600 MG TAB PO SCH ×2 (08:47→21:34)
[2016-08-30] MEDS: ATORVASTATIN 10 MG TAB PO SCH (08:47)
[2016-08-30] MEDS: SODIUM CHLORIDE 0.9% FLUSH 5 ML FLUSH IV FLUSH SCH ×2 (08:49→21:34)
[2016-08-30 08:51] LABS: AUTOMATED NEUTROPHIL # 2.9 TH/MM3 (1.8-7.7); BASOPHIL % 0.8 % (0.0-2.0); EOSINOPHIL # 0.1 TH/MM3 (0-0.4); EOSINOPHIL % 1.6 % (0.0-4.0); HEMATOCRIT 29.4 % (39.0-51.0); HEMO FLAGS DIFF FINAL; LYMPH % 22.8 % (9.0-44.0); MEAN CELL VOLUME 87.7 FL (80.0-100.0); MEAN CORPUSCULAR HEMOGLOBIN 29.7 PG (27.0-34.0); MEAN CORPUSCULAR HGB CONC 33.9 % (32.0-36.0); MONO % 9.1 % (0.0-8.0); NEUT % 65.7 % (16.0-70.0); PLATELET COUNT 128 TH/MM3 (150-450); RED BLOOD COUNT 3.35 MIL/MM3 (4.50-5.90); RED CELL DISTRIBUTION WIDTH 13.8 % (11.6-17.2); WHITE BLOOD COUNT 4.4 TH/MM3 (4.0-11.0)
[2016-08-30] MEDS ORDERED: PNEUMOCOCCAL POLYVALENT INJ 25 MCG/0.5 ML SYR IM ONE (09:00)
[2016-08-30 09:23] LABS: BICARBONATE 28.1 MEQ/L (21.0-32.0); CALCIUM-PROTEIN CORRECTED 7.8 MG/DL (8.5-10.1); MAGNESIUM 0.9 MG/DL (1.5-2.5); POTASSIUM 3.2 MEQ/L (3.5-5.1); TOTAL BILIRUBIN ADULT 0.5 MG/DL (0.2-1.0)
--- NOTE | 2016-08-30 11:12 | HHI.NPPN ---
Subjective History of Present Illness 71-year-old white male with history of sepsis, cardiac arrest, respiratory failure Additional Remarks Patient is alert, no SOB, doing well, eating good. Objective Data Data 08/29/16 08/30/16 19:00 07:00 Intake Total 240 ml 240 ml Output Total 800 ml 700 ml Balance -560 ml -460 ml Intake Oral 240 ml 240 ml Output Urine Total 800 ml 700 ml # Bowel Movements 3 5 Vital Signs Date Time Temp Pulse Resp B/P Pulse Ox O2 Delivery O2 Flow Rate FiO2 08/30/16 08:46 98.1 84 20 115/59 97 08/30/16 05:03 98.9 84 17 107/55 95 08/30/16 00:17 99.9 83 16 101/57 97 08/29/16 20:43 99.4 94 17 107/56 96 08/29/16 19:00 97 08/29/16 16:00 99.3 81 20 102/66 100 08/29/16 12:08 98.3 80 20 87/47 100 08/29/16 11:30 83 -: 08/30/16 0833 08/30/16 0833 Physical Exam General Appearance: No Acute Distress, Comfortable Neck Neck Exam: Neck Supple Pulmonary Resp Exam: Clear Bilaterally, Breath Sounds Equal Cardiology CV Exam: Regular, Normal Sinus Rhythm Gastrointestinal/Abdomen GI Exam: Soft, Non-Tender, Bowel Sounds Present Integumentary Skin Exam: Clear Extremeties Extremities Exam: Trace Edema Neurologic Neuro Exam: Alert, Awake Psychiatric Psych Exam: Appropriate Responses Assessment/Plan Problem List: (1) Acute renal failure Plan: Urine out put is better Continue to monitor BUN and Creatinine improving. Watch for renal recovery. HD is on hold since Wed. Creatinine now 2.2. If better to get Vascath out tomorrow. Dr. Irwin will follow from tomorrow. (2) Hyperkalemia Plan: This is resolved (3) Cardiac arrest due to other underlying condition Plan: Patient is sedated (4) Respiratory failure Plan: Intubated on ventilator (5) Pneumonia Plan: Continue to follow with ID - on Ceftriaxone, Zyvox Problem Qualifiers (1) Acute renal failure: Qualified Code: N17.9 - Acute renal failure, unspecified acute renal failure type (2) Respiratory failure: Qualified Code: J96.90 - Respiratory failure, unspecified chronicity, unspecified whether with hypoxia or hypercapnia (3) Pneumonia: Qualified Code: J18.9 - Pneumonia due to infectious organism, unspecified laterality, unspecified part of lung Theresa Geronimo MD Aug 30, 2016 11:12
[2016-08-30] MEDS: LEVOFLOXACIN 250 MG TAB PO SCH (14:20)
--- NOTE | 2016-08-30 16:37 | HHI.PR ---
Subjective Remarks right ankle feels better and is less swollen today sodium trending down denies cp/sob c/o loose stools but no diarrhea Objective Vitals Vital Signs Date Time Temp Pulse Resp B/P Pulse Ox O2 Delivery O2 Flow Rate FiO2 08/30/16 16:16 97.5 85 20 111/58 96 08/30/16 14:00 82 08/30/16 12:54 98.1 86 20 96/56 98 08/30/16 08:46 98.1 84 20 115/59 97 08/30/16 05:03 98.9 84 17 107/55 95 08/30/16 00:17 99.9 83 16 101/57 97 08/29/16 20:43 99.4 94 17 107/56 96 08/29/16 19:00 97 I/O 08/29/16 08/29/16 08/29/16 08/30/16 08/30/16 08/30/16 07:00 15:00 23:00 07:00 15:00 23:00 Intake Total 240 ml 120 ml 120 ml 120 ml Output Total 350 ml 800 ml 450 ml 250 ml 550 ml Balance -350 ml -560 ml -330 ml -130 ml -430 ml Intake Oral 240 ml 120 ml 120 ml 120 ml Output Urine Total 350 ml 800 ml 450 ml 250 ml 550 ml # Bowel Movements 3 2 3 3 Result Diagram: 08/30/16 0833 08/30/16 0833 Imaging Last Impressions Chest CT 08/30/16 0000 Signed Impressions: Service Date/Time: Tuesday, August 30, 2016 19:40 - CONCLUSION: 1. Overall improvement in right basilar lung consolidation since prior examination from August 19. However there are residual 11 mm and 8mm parenchymal nodules in the right lower lobe with the larger nodule containing a small area of cavitation. Followup examination recommended within the next 3 months to assess for resolution. No new infiltrate. Demetrius Lopez MD Ankle X-Ray 08/29/16 0000 Signed Impressions: Service Date/Time: Monday, August 29, 2016 21:29 - CONCLUSION: 1. No acute findings. Mild osteoarthritis of the right ankle. Mild soft tissue swelling. Demetrius Lopez MD Chest X-Ray 08/28/16 1800 Signed Impressions: Service Date/Time: Sunday, August 28, 2016 18:10 - CONCLUSION: 1. Discoid atelectasis and/or scarring within the left lung base. 2. No acute focal alveolar consolidation to suggest pneumonia. Nhan Jett MD Myocardial Perfusion Scan Nuc Med 08/27/16 0000 Signed Impressions: Service Date/Time: August 10:24 - CONCLUSION: 1. Fixed defect involving the anterior apical wall with possible mathew-infarct ischemic change in the LAD distribution. 2. 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 3. Normal left ventricular ejection fraction equaling greater than 70%%. RISK CATEGORY: Low risk (less than 1%% annual mortality rate). Nhan Jett MD Catheter Placement X-Ray 08/24/16 0940 Signed Impressions: Service Date/Time: Wednesday, August 24, 2016 15:46 - CONCLUSION: Uncomplicated line placement as above. Eligio Godoy MD Abdomen/Pelvis CT 08/19/16 2321 Signed Impressions: Service Date/Time: Friday, August 19, 2016 22:04 - CONCLUSION: 1. Diverticulosis of the descending and sigmoid colon. Wall thickening of the sigmoid colon could be colitis or diverticulitis. 2. Minimal fluid in the right paracolic gutter. 3. Bibasilar consolidation and patchy infiltrates right lower lobe. Followup CT chest recommended to ensure complete resolution. 1. Morgan Jimenez MD Upper Extremity Ultrasound 08/19/16 1821 Signed Impressions: Service Date/Time: Friday, August 19, 2016 20:20 - CONCLUSION: Occlusive thrombus in the left cephalic vein. No DVT in the right arm. Morgan Jimenez MD Renal Ultrasound 08/18/16 0000 Signed Impressions: Service Date/Time: Thursday, August 18, 2016 10:13 - CONCLUSION: 1. No evidence of hydronephrosis. 2. There appears to be a probable 1.1 cm nonobstructing stone in the mid pole of the left kidney. Jae Apple MD Head CT 08/17/16 1925 Signed Impressions: Service Date/Time: Wednesday, August 17, 2016 19:48 - CONCLUSION: Normal examination for a patient of this age. Demetrius Lopez MD Objective Remarks GENERAL: This is a well-nourished, well-developed patient, in no apparent distress. CARDIOVASCULAR: Normal rate and regular rhythm without murmurs, gallops, or rubs. RESPIRATORY: Good respiratory efforts. Breath sounds equal and clear to auscultation bilaterally. GASTROINTESTINAL: Abdomen soft, non-tender, non-distended. Normal active bowel sounds MUSCULOSKELETAL: Extremities without cyanosis, or edema. Improved swelling of right ankle, less tender to touch. NEURO: Alert & Oriented x4 to person, place, time, situation. Moves all ext x4 PSYCH: Appropriate mood and affect. Medications and IVs Current Medications Medications (Trade) Dose Ordered Sig/Antonio Route Start Time Stop Time Status Last Admin (NS Flush) 2 ml UNSCH PRN IV FLUSH 08/18/16 00:30 (NS Flush) 2 ml BID IV FLUSH 08/18/16 09:00 08/30/16 21:34 (Tylenol) 650 mg Q6H PRN PO 08/18/16 00:30 (Morphine Inj) 2 mg Q2H PRN IV 08/18/16 00:30 (Colace Liq) 100 mg Q12HR G-TUBE 08/18/16 09:00 08/28/16 21:52 Miscellaneous Information 1 Q361D XX 08/18/16 00:30 (Chlorhexidine 2% Cloth) Taper DAILY@04 TOP 08/18/16 04:00 08/14/17 03:59 08/25/16 03:47 (Reglan Inj) 5 mg Q6H PRN IV 08/18/16 01:00 Heparin Sodium (Porcine) 8000 units 8,000 units UNSCH PRN IVF 08/18/16 02:45 (NS 1000 ml Inj) 1,000 ml @ 0 mls/hr Q0M PRN IV 08/18/16 02:45 (Mannitol Inj) 12.5 gm UNSCH PRN IV 08/18/16 02:45 08/19/16 08:26 (Albumin 25% Inj) 25 gm UNSCH PRN IV 08/18/16 02:45 08/21/16 08:26 (NS Flush) 5 ml UNSCH PRN IVF 08/18/16 02:45 08/19/16 08:27 (Heparin Inj) UNSCH PRN .XX 08/18/16 02:45 08/26/16 12:50 (Gentamicin (Dialysis) Inj) 20 mg UNSCH PRN IV 08/18/16 02:45 2/8/17 12:50 (Zofran Inj) 4 mg UNSCH PRN IV 08/18/16 02:45 (Tylenol) 650 mg UNSCH PRN PO 08/18/16 02:45 (Benadryl) 25 mg UNSCH PRN PO 08/18/16 02:45 (Nitrostat Sl) 0.4 mg UNSCH PRN SL 08/18/16 02:45 (Catapres) 0.1 mg UNSCH PRN PO 08/18/16 02:45 (Gelfoam 12 Mm/7 Mm Top) 1 foam UNSCH PRN TOP 08/18/16 02:45 (Zofran Inj) 4 mg Q6H PRN IV 08/18/16 03:15 (Brethine Inj) 1 mg UNSCH PRN SQ 08/18/16 10:00 (Zyvox) 600 mg Q12HR PO 08/21/16 12:00 08/30/16 21:34 (Heparin Inj) 5,000 units Q12HR SQ 08/23/16 09:30 08/30/16 21:34 (Henderson 5-325 Mg) 1 tab Q6H PRN PO 08/24/16 08:00 (Protonix) 40 mg DAILY PO 08/27/16 09:00 08/30/16 08:45 (Coreg) 3.125 mg Q12HR PO 08/27/16 09:00 08/30/16 21:34 (Lipitor) 10 mg DAILY PO 08/27/16 09:00 08/30/16 08:47 (Levaquin) 250 mg Q24H PO 08/29/16 15:00 08/30/16 14:20 (K-Phos Neutral) 250 mg Q6HR PO 08/30/16 18:00 08/30/16 17:17 Urinary Catheter: No Date of Insertion: Aug 18, 2016 Vascular Central Line Catheter: No Line: Central Venous Catheter Side: Right Location: Femoral A/P Assessment and Plan 71-year-old male with: Acute Hypoxic respiratory failure-resolved Aspiration pneumonitis-resolved Pneumonia multilobular -Patient is improving. Currently on room air -Sputum- Enterobacter cloacae, Proteus mirabilis, MRSA, now resulted Stenotrophomonas Maltophilia -Currently on Levaquin and Zyvox per infectious disease.. -Continue to monitor S/P Cardiac arrest-ventricular fibrillation (potassium level 7.7) Hypotension-resolved A. fib RVR-resolved -ECHO-EF 45%, systolic function mildly reduced. No RWMA -Maintain MAP > 65mmHg -Cardiology following-Dr. Garcia -Amiodarone 200mg BID PO, defer dose management per Cardiology recommendations -PMH HTN- when clinically indicated will resume anti-HTN medication per Cardiology recommendations -08/21 Cardioverted. - Patient initially refused further ischemic workup. He later agreed to a Nuclear stress test. 08/29/16 Nuclear stress test showing predominately fixed defect of the anterior wall, with possible aneurysm (not noted on the echo) done for risk stratification, however the patient was deemed not to be a good revascularization candidate due to recent GI bleed and CKD/ESRD, with renal function possibly returning. Cardiology recommended medical management. Patient not good anticoagulation candidate for A. fib with RVR due to GI bleed. Acute renal failure -Nephrology following -Dialysis -W- coordination per Nephrology. Dialysis on hold today. Follow BMP tomorrow -Permacath placement 08/24 -Urine output improving. Renal functions appear to be improving overall. 08/29/16 renal function seems to be improving. Creatinine trending down. Today creatinine is at 2.5. Continue to monitor BUN/creatinine. As per nephrology if patient continues to have good urine output and creatinine continues to improve then will remove Vas-Cath out. Continue to monitor strict is and os. 08/30/16 renal function continues to improve creatinine down from 2.5-2.2. Continued follow-up nephrology recommendations. Vas-Cath may be taken out if patient continues to have good urine output and creatinine continues to improve. GI bleed-resolved Melena Hyperkalemia secondary to acute renal failure-resolved -GI following -Dr. Morrell -EGD 08/21-Preliminary report gastritis, duodenitis, duodenal ulcers, biopsies obtained -Continue Protonix -Monitor BMP Coagulopathy-resolved Thrombocytopenia - improving -Hemoglobin stable, 12 -Monitor PT/INR -Transfuse platelets less than 50,000-stable 08/29/16 Platelets improving - now 145 08/30/16 Platelets slightly decreased - now 128 Swelling right Ankle Right ankle is slightly swollen and tender to palpation. 08/30 ankle x-ray showed mild also arthritis of the right ankle. Mild soft tissue swelling. uric acid is 8. Hypokalemia Hypocalcemia Hypomagnesemia Hypophosphatemia Electrolytes with oral potassium, I because of pleuritic, IV magnesium and oral phosphorus. Continue to monitor BMP Metamucil phosphorus. GI prophylaxis: PPI. Stool softener PRN constipation. DVT PPx: Heparin Discharge Planning Pending ID and nephrology clearance. Donald Rosenberg MD Aug 30, 2016 16:37
[2016-08-30] MEDS ORDERED: CALCIUM CHLORIDE INJ 2 GM in SODIUM CHLORIDE 0.9% INJ 100 ML IV ONE (16:45)
[2016-08-30] MEDS ORDERED: POTASSIUM CHLORIDE 10 MEQ CONTROLLED RELEASE TAB PO ONE (16:45)
[2016-08-30] MEDS: POTASSIUM PHOSPHATE/SODIUM PHOSPHATE 250 MG TAB PO SCH ×2 (17:17→23:24)
[2016-08-30] MEDS: MAGNESIUM SULFATE 1 GM PREMIX 100 ML IV SCH ×2 (18:50→21:34)
--- NOTE | 2016-08-30 20:50 | RADRPT ---
EXAM DATE/TIME: 08/30/2016 19:40 [facility] COMPARISON: No previous studies available for comparison. INDICATIONS : Pneumonia. RADIATION DOSE: 4.53 CTDIvol (mGy) MEDICAL HISTORY : Hypertension. Myocardial infarction. Renal failure. SURGICAL HISTORY : None. ENCOUNTER: Initial ACUITY: 1 day PAIN SCALE: 0/10 LOCATION: chest TECHNIQUE: Volumetric scanning of the chest was performed. Using automated exposure control and adjustment of t he mA and/or kV according to patient size, radiation dose was kept as low as reasonably achievable to obtain optimal diagnostic quality images. FINDINGS: Previous right basilar lung consolidation overall has improved. They are two residual parenchymal nod ules remaining in the right lower lobe largest measuring about 11 mm with a small area of central cav itation. The other nodule measures about 8 mm in diameter and the pleural-based opacity is decreased from prior study. There is minimal dependent atelectasis at the left lung base improved from August 19. No adenopathy. Moderate coronary calcifications. There is no significant pleural or pericardial effusion. No acute findings in the upper abdomen. No a cute bony abnormalities. CONCLUSION: 1. Overall improvement in right basilar lung consolidation since prior examination from August 19. H owever there are residual 11 mm and 8mm parenchymal nodules in the right lower lobe with the larger n odule containing a small area of cavitation. Followup examination recommended within the next 3 month s to assess for resolution. No new infiltrate. Demetrius Lopez MD on August 30, 2016 at 20:42 Board Certified Radiologist. This report was verified electronically.
[2016-08-31] VITALS (8 sets, daily range): BP systolic 101–125; BP diastolic 55–71; PULSE 82–90; RESP 18–20; TEMP 97.5–98.3; O2SAT 96–99
[2016-08-31] MEDS: CHLORHEXIDINE GLUCONATE 2 % 1 PACK (2 CLOTHS) TOP SCH ×2 (04:00→23:43)
[2016-08-31] MEDS: POTASSIUM PHOSPHATE/SODIUM PHOSPHATE 250 MG TAB PO SCH ×4 (05:15→23:42)
--- NOTE | 2016-08-31 07:02 | RADRPT ---
EXAM DATE/TIME: 08/31/2016 05:53 [facility] COMPARISON: CHEST SINGLE AP, August 28, 2016, 18:10. INDICATIONS : Short of breath, evaluate pneumonia MEDICAL HISTORY : Hypertension. Myocardial infarction. renal failure SURGICAL HISTORY : None. ENCOUNTER: Subsequent ACUITY: 2 weeks PAIN SCORE: 0/10 LOCATION: Bilateral chest FINDINGS: The cardiac silhouette is enlarged in transverse diameter. There is prominence of the central pulmona ry vasculature with indistinct vascular margins compatible with vascular congestion but no evidence o f overt failure. A right sided internal jugular vein catheter is in place without pneumothorax with i ts tip in the superior vena cava. CONCLUSION: 1. Cardiomegaly and findings of vascular congestion without overt failure. This is new when compared with the prior exam. Alexandro Carter MD on August 31, 2016 at 7:00 Board Certified Radiologist. This report was verified electronically.
[2016-08-31] MEDS: DOCUSATE SODIUM 100 MG/10 ML UDC G-TUBE SCH ×2 (09:00→21:38)
[2016-08-31] MEDS: CARVEDILOL 3.125 MG TAB PO SCH ×2 (09:25→21:38)
[2016-08-31] MEDS: PANTOPRAZOLE SOD 40 MG DELAYED RELEASE TAB PO SCH (09:25)
[2016-08-31] MEDS: ATORVASTATIN 10 MG TAB PO SCH (09:26)
[2016-08-31] MEDS: LINEZOLID 600 MG TAB PO SCH ×2 (09:26→21:38)
[2016-08-31] MEDS: HEPARIN SODIUM - SQ 10,000 UNITS/ML VIAL SQ SCH ×2 (09:26→21:38)
[2016-08-31] MEDS: SODIUM CHLORIDE 0.9% FLUSH 5 ML FLUSH IV FLUSH SCH ×2 (09:26→21:38)
[2016-08-31 14:24] LABS: AUTOMATED NEUTROPHIL # 2.9 TH/MM3 (1.8-7.7); BASOPHIL % 0.8 % (0.0-2.0); EOSINOPHIL # 0.1 TH/MM3 (0-0.4); EOSINOPHIL % 1.7 % (0.0-4.0); HEMATOCRIT 30.2 % (39.0-51.0); HEMO FLAGS DIFF FINAL; LYMPH % 19.1 % (9.0-44.0); LYMPHOCYTE # 0.8 TH/MM3 (1.0-4.8); MEAN CELL VOLUME 89.4 FL (80.0-100.0); MEAN CORPUSCULAR HEMOGLOBIN 29.7 PG (27.0-34.0); MEAN CORPUSCULAR HGB CONC 33.3 % (32.0-36.0); NEUT % 70.4 % (16.0-70.0); PLATELET COUNT 132 TH/MM3 (150-450); RED BLOOD COUNT 3.38 MIL/MM3 (4.50-5.90); RED CELL DISTRIBUTION WIDTH 14.2 % (11.6-17.2); WHITE BLOOD COUNT 4.1 TH/MM3 (4.0-11.0)
[2016-08-31 14:34] LABS: MAGNESIUM 1.1 MG/DL (1.5-2.5)
[2016-08-31] MEDS: LEVOFLOXACIN 250 MG TAB PO SCH (15:41)
--- NOTE | 2016-08-31 16:47 | HHI.IDPN ---
Subjective Subjective Remarks is a 71 y/o CM with PMHx of HTN who was reportedly on Lisinopril prior to admission. He also reportedly had chronic arthritis and back pain and was on OTC pain meds off and on. ID following for aspiration pneumonia or CAP. Reports nephro plans on removal of Vascath as no HD planned. No fever No cough No rash Antibiotics Levaquin oral. zyvox oral Lines Line sites with no e/o infection Past Medical History reviewed Allergies: Coded Allergies: *MDRO Multi-Drug Resistant Organism (Verified Adverse Reaction, Unknown, ) MRSA PCR Screen POSITIVE - 08/18/16 MRSA (sputum) - 08/18/16, 08/19/16 Objective . Vital Signs Date Time Temp Pulse Resp B/P Pulse Ox O2 Delivery O2 Flow Rate FiO2 08/31/16 16:21 97.5 82 20 101/55 97 08/31/16 11:58 97.5 90 20 112/60 97 08/31/16 10:01 83 08/31/16 08:46 97.8 85 20 125/71 98 08/31/16 04:53 98.3 84 18 106/64 99 08/31/16 00:34 97.6 83 18 110/60 96 08/30/16 19:49 97.1 101 18 139/72 98 08/30/16 19:10 85 08/30/16 08/30/16 08/31/16 15:00 23:00 07:00 Intake Total 120 ml 360 ml Output Total 550 ml 750 ml Balance -430 ml -390 ml Intake Oral 120 ml 360 ml Output Urine Total 550 ml 750 ml # Bowel Movements 3 2 . Laboratory Tests Test 08/30/16 08/31/16 08:33 13:38 White Blood Count 4.4 TH/MM3 4.1 TH/MM3 Red Blood Count 3.35 MIL/MM3 3.38 MIL/MM3 Hemoglobin 10.0 GM/DL 10.1 GM/DL Hematocrit 29.4 % 30.2 % Mean Corpuscular Volume 87.7 FL 89.4 FL Mean Corpuscular Hemoglobin 29.7 PG 29.7 PG Mean Corpuscular Hemoglobin 33.9 % 33.3 % Concent Red Cell Distribution Width 13.8 % 14.2 % Platelet Count 128 TH/MM3 132 TH/MM3 Mean Platelet Volume 7.9 FL 8.3 FL Neutrophils (%) (Auto) 65.7 % 70.4 % Lymphocytes (%) (Auto) 22.8 % 19.1 % Monocytes (%) (Auto) 9.1 % 8.0 % Eosinophils (%) (Auto) 1.6 % 1.7 % Basophils (%) (Auto) 0.8 % 0.8 % Neutrophils # (Auto) 2.9 TH/MM3 2.9 TH/MM3 Lymphocytes # (Auto) 1.0 TH/MM3 0.8 TH/MM3 Monocytes # (Auto) 0.4 TH/MM3 0.3 TH/MM3 Eosinophils # (Auto) 0.1 TH/MM3 0.1 TH/MM3 Basophils # (Auto) 0.0 TH/MM3 0.0 TH/MM3 CBC Comment DIFF FINAL DIFF FINAL Differential Comment Laboratory Tests Test 08/30/16 08/31/16 08:33 13:38 Sodium Level 141 MEQ/L Potassium Level 3.2 MEQ/L Chloride Level 103 MEQ/L Carbon Dioxide Level 28.1 MEQ/L Anion Gap 10 MEQ/L Blood Urea Nitrogen 33 MG/DL Creatinine 2.22 MG/DL Estimat Glomerular Filtration 29 ML/MIN Rate Random Glucose 72 MG/DL Uric Acid 8.0 MG/DL Calcium Level 7.0 MG/DL Protein Corrected Calcium 7.8 MG/DL Phosphorus Level 2.4 MG/DL 3.1 MG/DL Magnesium Level 0.9 MG/DL 1.1 MG/DL Total Bilirubin 0.5 MG/DL Aspartate Amino Transf 64 U/L (AST/SGOT) Alanine Aminotransferase 69 U/L (ALT/SGPT) Alkaline Phosphatase 207 U/L Total Protein 5.6 GM/DL Albumin 2.2 GM/DL Imaging Last Impressions Abdomen/Pelvis CT 08/19/161 Signed Impressions: Service Date/Time: Friday, August 19, 2016 22:04 - CONCLUSION: 1. Diverticulosis of the descending and sigmoid colon. Wall thickening of the sigmoid colon could be colitis or diverticulitis. 2. Minimal fluid in the right paracolic gutter. 3. Bibasilar consolidation and patchy infiltrates right lower lobe. Followup CT chest recommended to ensure complete resolution. 1. Morgan Jimenez MD Upper Extremity Ultrasound 08/19/16 1821 Signed Impressions: Service Date/Time: Friday, August 19, 2016 20:20 - CONCLUSION: Occlusive thrombus in the left cephalic vein. No DVT in the right arm. Morgan Jimenez MD Chest X-Ray 08/19/16 0600 Signed Impressions: Service Date/Time: Friday, August 19, 2016 02:44 - CONCLUSION: Mild right base consolidation has developed. Daniel Welch MD Renal Ultrasound 08/18/16 0000 Signed Impressions: Service Date/Time: Thursday, August 18, 2016 10:13 - CONCLUSION: 1. No evidence of hydronephrosis. 2. There appears to be a probable 1.1 cm nonobstructing stone in the mid pole of the left kidney. Jae Apple MD Head CT 08/17/16 1925 Signed Impressions: Service Date/Time: Wednesday, August 17, 2016 19:48 - CONCLUSION: Normal examination for a patient of this age. Demetrius Lopez MD Physical Exam GENERAL: This is a well-nourished, well-developed patient, in no apparent distress. SKIN: No rashes, ecchymoses or lesions. Cool and dry. HEAD: Atraumatic. Normocephalic. No temporal or scalp tenderness. EYES: Pupils equal round and reactive. Extraocular motions intact. No scleral icterus. No injection or drainage. ENT: grossly NAD. NECK: Trachea midline. Supple, nontender, no meningeal signs. CARDIOVASCULAR: HS audible. RESPIRATORY: Breath sounds equal bilaterally. No wheezes, rales, or rhonchi. GASTROINTESTINAL: Abdomen soft, non-tender, nondistended. MUSCULOSKELETAL: Extremities without clubbing, cyanosis, or edema. No joint tenderness, effusion, or edema noted. No calf tenderness. Negative Homans sign bilaterally. NEUROLOGICAL: Alert, oriented x 3, moves all extremities. IV line sites with no e/o infection. Assessment & Plan Remarks Possible Sepsis present on admission. Aspiration Pneumonitis, HCAP Leucopenia: ? sepsis related, uremia. Acute renal failure now on HD: prerenal, was on lisinopril, acute GI bleed. Uremia, hyperkalemia, elevated CK on admission. Acute GI bleeding: ? NSAID induced, Uremia related. Acute metabolic encephalopathy: uremia, sepsis related. Anemia: blood loss related. Recs: Stop dates for Levaquin and Zyvox 09/01/2016. CXR reviewed with . Will sign off please call back if any change in clinical condition or questions. Charmaine Billingsley MD Aug 31, 2016 16:47
--- NOTE | 2016-08-31 18:42 | HHI.NPPN ---
Subjective History of Present Illness 71-year-old white male with history of sepsis, cardiac arrest, respiratory failure Additional Remarks Patient is alert, no SOB, doing well, eating good. Objective Data Data 08/30/16 08/31/16 19:00 07:00 Intake Total 120 ml 360 ml Output Total 550 ml 750 ml Balance -430 ml -390 ml Intake Oral 120 ml 360 ml Output Urine Total 550 ml 750 ml # Bowel Movements 3 2 Vital Signs Date Time Temp Pulse Resp B/P Pulse Ox O2 Delivery O2 Flow Rate FiO2 08/31/16 16:21 97.5 82 20 101/55 97 08/31/16 11:58 97.5 90 20 112/60 97 08/31/16 10:01 83 08/31/16 08:46 97.8 85 20 125/71 98 08/31/16 04:53 98.3 84 18 106/64 99 08/31/16 00:34 97.6 83 18 110/60 96 08/30/16 19:49 97.1 101 18 139/72 98 08/30/16 19:10 85 -: 08/31/16 1338 08/30/16 0833 Physical Exam General Appearance: No Acute Distress, Comfortable Neck Neck Exam: Neck Supple Pulmonary Resp Exam: Clear Bilaterally, Breath Sounds Equal Cardiology CV Exam: Regular, Normal Sinus Rhythm Gastrointestinal/Abdomen GI Exam: Soft, Non-Tender, Bowel Sounds Present Integumentary Skin Exam: Clear Extremeties Extremities Exam: Trace Edema Neurologic Neuro Exam: Alert, Awake Psychiatric Psych Exam: Appropriate Responses Assessment/Plan Problem List: (1) Acute renal failure Plan: Urine out put is better Continue to monitor BUN and Creatinine improving. may dc Vascath no longer need HD (2) Hyperkalemia Plan: This is resolved (3) Cardiac arrest due to other underlying condition (4) Respiratory failure Plan: recovered (5) Pneumonia Plan: on Levaquin/Zyvox Problem Qualifiers (1) Acute renal failure: Qualified Code: N17.9 - Acute renal failure, unspecified acute renal failure type (2) Respiratory failure: Qualified Code: J96.90 - Respiratory failure, unspecified chronicity, unspecified whether with hypoxia or hypercapnia (3) Pneumonia: Qualified Code: J18.9 - Pneumonia due to infectious organism, unspecified laterality, unspecified part of lung Michel Irwin MD Aug 31, 2016 18:42
--- NOTE | 2016-08-31 23:30 | HHI.PR ---
Subjective Remarks Deferred entry patient seen earlier at 1 pm patient with stable vital signs patient denies cp/sob denies fevers/chills Objective Vitals Vital Signs Date Time Temp Pulse Resp B/P Pulse Ox O2 Delivery O2 Flow Rate FiO2 08/31/16 20:59 98.3 86 18 120/68 96 08/31/16 16:21 97.5 82 20 101/55 97 08/31/16 11:58 97.5 90 20 112/60 97 08/31/16 10:01 83 08/31/16 08:46 97.8 85 20 125/71 98 08/31/16 04:53 98.3 84 18 106/64 99 08/31/16 00:34 97.6 83 18 110/60 96 I/O 08/30/16 08/30/16 08/30/16 08/31/16 08/31/16 08/31/16 07:00 15:00 23:00 07:00 15:00 23:00 Intake Total 120 ml 120 ml 360 ml 720 ml Output Total 250 ml 550 ml 750 ml Balance -130 ml -430 ml -390 ml 720 ml Intake Oral 120 ml 120 ml 360 ml 720 ml Output Urine Total 250 ml 550 ml 750 ml # Bowel Movements 3 3 2 1 Result Diagram: 08/31/16 1338 08/30/16 0833 Imaging Last Impressions Chest X-Ray 08/31/16 0600 Signed Impressions: Service Date/Time: Wednesday, August 31, 2016 05:53 - CONCLUSION: 1. Cardiomegaly and findings of vascular congestion without overt failure. This is new when compared with the prior exam. Alexandro Carter MD Chest CT 08/30/16 0000 Signed Impressions: Service Date/Time: Tuesday, August 30, 2016 19:40 - CONCLUSION: 1. Overall improvement in right basilar lung consolidation since prior examination from August 19. However there are residual 11 mm and 8mm parenchymal nodules in the right lower lobe with the larger nodule containing a small area of cavitation. Followup examination recommended within the next 3 months to assess for resolution. No new infiltrate. Demetrius Lopez MD Ankle X-Ray 08/29/16 0000 Signed Impressions: Service Date/Time: Monday, August 29, 2016 21:29 - CONCLUSION: 1. No acute findings. Mild osteoarthritis of the right ankle. Mild soft tissue swelling. Demetrius Lopez MD Myocardial Perfusion Scan Nuc Med 08/27/16 0000 Signed Impressions: Service Date/Time: August 10:24 - CONCLUSION: 1. Fixed defect involving the anterior apical wall with possible mathew-infarct ischemic change in the LAD distribution. 2. 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 3. Normal left ventricular ejection fraction equaling greater than 70%%. RISK CATEGORY: Low risk (less than 1%% annual mortality rate). Nhan Jett MD Catheter Placement X-Ray 08/24/16 0940 Signed Impressions: Service Date/Time: Wednesday, August 24, 2016 15:46 - CONCLUSION: Uncomplicated line placement as above. Eligio Godoy MD Abdomen/Pelvis CT 08/19/16 2321 Signed Impressions: Service Date/Time: Friday, August 19, 2016 22:04 - CONCLUSION: 1. Diverticulosis of the descending and sigmoid colon. Wall thickening of the sigmoid colon could be colitis or diverticulitis. 2. Minimal fluid in the right paracolic gutter. 3. Bibasilar consolidation and patchy infiltrates right lower lobe. Followup CT chest recommended to ensure complete resolution. 1. Morgan Jimenez MD Upper Extremity Ultrasound 08/19/16 1821 Signed Impressions: Service Date/Time: Friday, August 19, 2016 20:20 - CONCLUSION: Occlusive thrombus in the left cephalic vein. No DVT in the right arm. Morgan Jimenez MD Renal Ultrasound 08/18/16 0000 Signed Impressions: Service Date/Time: Thursday, August 18, 2016 10:13 - CONCLUSION: 1. No evidence of hydronephrosis. 2. There appears to be a probable 1.1 cm nonobstructing stone in the mid pole of the left kidney. Jae Apple MD Head CT 08/17/16 1925 Signed Impressions: Service Date/Time: Wednesday, August 17, 2016 19:48 - CONCLUSION: Normal examination for a patient of this age. Demetrius Lopez MD Objective Remarks GENERAL: This is a well-nourished, well-developed patient, in no apparent distress. CARDIOVASCULAR: Normal rate and regular rhythm without murmurs, gallops, or rubs. RESPIRATORY: Good respiratory efforts. Breath sounds equal and clear to auscultation bilaterally. GASTROINTESTINAL: Abdomen soft, non-tender, non-distended. Normal active bowel sounds MUSCULOSKELETAL: Extremities without cyanosis, or edema. Improved swelling of right ankle, less tender to touch. NEURO: Alert & Oriented x4 to person, place, time, situation. Moves all ext x4 PSYCH: Appropriate mood and affect. Date of Insertion: Aug 18, 2016 Line: Central Venous Catheter Side: Right Location: Femoral A/P Assessment and Plan 71-year-old male with: Acute Hypoxic respiratory failure-resolved Aspiration pneumonitis-resolved Pneumonia multilobular -Patient is improving. Currently on room air -Sputum- Enterobacter cloacae, Proteus mirabilis, MRSA, now resulted Stenotrophomonas Maltophilia -Currently on Levaquin and Zyvox per infectious disease.. -Continue to monitor S/P Cardiac arrest-ventricular fibrillation (potassium level 7.7) Hypotension-resolved A. fib RVR-resolved -ECHO-EF 45%, systolic function mildly reduced. No RWMA -Maintain MAP > 65mmHg -Cardiology following-Dr. Garcia -Amiodarone 200mg BID PO, defer dose management per Cardiology recommendations -PMH HTN- when clinically indicated will resume anti-HTN medication per Cardiology recommendations -08/21 Cardioverted. - Patient initially refused further ischemic workup. He later agreed to a Nuclear stress test. 08/29/16 Nuclear stress test showing predominately fixed defect of the anterior wall, with possible aneurysm (not noted on the echo) done for risk stratification, however the patient was deemed not to be a good revascularization candidate due to recent GI bleed and CKD/ESRD, with renal function possibly returning. Cardiology recommended medical management. Patient not good anticoagulation candidate for A. fib with RVR due to GI bleed. Acute renal failure -Nephrology following -Dialysis M-W-F coordination per Nephrology. Dialysis on hold today. Follow BMP tomorrow -Permacath placement 08/24 -Urine output improving. Renal functions appear to be improving overall. 08/29/16 renal function seems to be improving. Creatinine trending down. Today creatinine is at 2.5. Continue to monitor BUN/creatinine. As per nephrology if patient continues to have good urine output and creatinine continues to improve then will remove Vas-Cath out. Continue to monitor strict is and os. 08/30/16 renal function continues to improve creatinine down from 2.5-2.2. Continued follow-up nephrology recommendations. Vas-Cath may be taken out if patient continues to have good urine output and creatinine continues to improve. 08/31/16 BMP in am. GI bleed-resolved Melena Hyperkalemia secondary to acute renal failure-resolved -GI following -Dr. Morrell -EGD 08/21-Preliminary report gastritis, duodenitis, duodenal ulcers, biopsies obtained -Continue Protonix -Monitor BMP Coagulopathy-resolved Thrombocytopenia - improving -Hemoglobin stable, 12 -Monitor PT/INR -Transfuse platelets less than 50,000-stable 08/29/16 Platelets improving - now 145 08/30/16 Platelets slightly decreased - now 128 08/31/16 platelets improving - 132 Swelling right Ankle Right ankle is slightly swollen and tender to palpation. 08/30 ankle x-ray showed mild also arthritis of the right ankle. Mild soft tissue swelling. uric acid is 8. 08/31 Swelling in ankle is almost completely resolved. Likely gout arthritis. Will start on allopurinol once creatinine stabilizes. Hypokalemia Hypocalcemia Hypomagnesemia Hypophosphatemia Electrolytes with oral potassium, I because of pleuritic, IV magnesium and oral phosphorus. Continue to monitor BMP. 08/31/16 Continue to rplce magnesium w IV Magnesium sulfate. GI prophylaxis: PPI. Stool softener PRN constipation. DVT PPx: Heparin Discharge Planning Pending ID and nephrology clearance. Donald Rosenberg MD Aug 31, 2016 23:30
[2016-08-31] MEDS: MAGNESIUM SULFATE 1 GM PREMIX 100 ML IV SCH (23:43)
[2016-09-01] VITALS (8 sets, daily range): BP systolic 98–118; BP diastolic 55–70; PULSE 80–96; RESP 18–20; TEMP 97.4–98; O2SAT 96–99
[2016-09-01] MEDS: MAGNESIUM SULFATE 1 GM PREMIX 100 ML IV SCH (00:56)
[2016-09-01] MEDS: POTASSIUM PHOSPHATE/SODIUM PHOSPHATE 250 MG TAB PO SCH ×3 (05:50→17:49)
[2016-09-01] MEDS: LINEZOLID 600 MG TAB PO SCH (08:48)
[2016-09-01] MEDS: CARVEDILOL 3.125 MG TAB PO SCH ×2 (08:50→21:07)
[2016-09-01] MEDS: ATORVASTATIN 10 MG TAB PO SCH (08:50)
[2016-09-01] MEDS: PANTOPRAZOLE SOD 40 MG DELAYED RELEASE TAB PO SCH (08:50)
[2016-09-01] MEDS: SODIUM CHLORIDE 0.9% FLUSH 5 ML FLUSH IV FLUSH SCH ×2 (08:51→21:07)
[2016-09-01] MEDS: HEPARIN SODIUM - SQ 10,000 UNITS/ML VIAL SQ SCH ×2 (08:51→21:06)
[2016-09-01] MEDS: DOCUSATE SODIUM 100 MG/10 ML UDC G-TUBE SCH ×2 (08:51→21:00)
--- NOTE | 2016-09-01 11:19 | HHI.NPPN ---
Subjective History of Present Illness 71-year-old white male with history of sepsis, cardiac arrest, respiratory failure Additional Remarks Patient is alert, no SOB, doing well, eating good. Objective Data Data 08/31/16 09/01/16 19:00 07:00 Intake Total 720 ml 200 ml Output Total 850 ml Balance 720 ml -650 ml Intake Oral 720 ml IV Total 200 ml Output Urine Total 850 ml # Bowel Movements 1 4 Vital Signs Date Time Temp Pulse Resp B/P Pulse Ox O2 Delivery O2 Flow Rate FiO2 09/01/16 08:18 82 09/01/16 08:08 97.5 85 20 118/68 98 09/01/16 04:39 97.4 80 18 100/57 96 09/01/16 04:00 Nasal Cannula 2.00 09/01/16 00:18 97.8 82 18 118/70 97 09/01/16 00:00 Nasal Cannula 2.00 08/31/16 20:59 98.3 86 18 120/68 96 08/31/16 20:00 Nasal Cannula 2.00 08/31/16 17:42 90 08/31/16 16:21 97.5 82 20 101/55 97 08/31/16 11:58 97.5 90 20 112/60 97 -: 08/31/16 1338 08/30/16 0833 Physical Exam General Appearance: No Acute Distress, Comfortable Neck Neck Exam: Neck Supple Pulmonary Resp Exam: Clear Bilaterally, Breath Sounds Equal Cardiology CV Exam: Regular, Normal Sinus Rhythm Gastrointestinal/Abdomen GI Exam: Soft, Non-Tender, Bowel Sounds Present Integumentary Skin Exam: Clear Extremeties Extremities Exam: Trace Edema Neurologic Neuro Exam: Alert, Awake Psychiatric Psych Exam: Appropriate Responses Assessment/Plan Problem List: (1) Acute renal failure Plan: Urine out put is better Continue to monitor BUN and Creatinine improving. BMP order stat as not done Vascath dc (2) Hyperkalemia Plan: This is resolved (3) Cardiac arrest due to other underlying condition (4) Respiratory failure Plan: recovered (5) Pneumonia Plan: on Levaquin/Zyvox Problem Qualifiers (1) Acute renal failure: Qualified Code: N17.9 - Acute renal failure, unspecified acute renal failure type (2) Respiratory failure: Qualified Code: J96.90 - Respiratory failure, unspecified chronicity, unspecified whether with hypoxia or hypercapnia (3) Pneumonia: Qualified Code: J18.9 - Pneumonia due to infectious organism, unspecified laterality, unspecified part of lung Michel Irwin MD Sep 01, 2016 11:19
[2016-09-01 13:47] LABS: BICARBONATE 23.7 MEQ/L (21.0-32.0); POTASSIUM 3.6 MEQ/L (3.5-5.1)
--- NOTE | 2016-09-01 16:37 | HHI.PR ---
Subjective Remarks Creatinine is trending down patient denies cp/sob denies diarrhea denies fevers or chills Objective Vitals Vital Signs Date Time Temp Pulse Resp B/P Pulse Ox O2 Delivery O2 Flow Rate FiO2 09/01/16 12:42 98.0 84 20 107/59 98 09/01/16 08:18 82 09/01/16 08:08 97.5 85 20 118/68 98 09/01/16 04:39 97.4 80 18 100/57 96 09/01/16 04:00 Nasal Cannula 2.00 09/01/16 00:18 97.8 82 18 118/70 97 09/01/16 00:00 Nasal Cannula 2.00 08/31/16 20:59 98.3 86 18 120/68 96 08/31/16 20:00 Nasal Cannula 2.00 08/31/16 17:42 90 I/O 08/31/16 08/31/16 08/31/16 09/01/16 09/01/16 09/01/16 07:00 15:00 23:00 07:00 15:00 23:00 Intake Total 360 ml 720 ml 200 ml Output Total 750 ml 850 ml Balance -390 ml 720 ml -650 ml Intake Oral 360 ml 720 ml IV Total 200 ml Output Urine Total 750 ml 850 ml # Bowel Movements 2 1 4 1 Result Diagram: 08/31/16 1338 09/01/16 1255 Imaging Last Impressions Chest X-Ray 08/31/16 0600 Signed Impressions: Service Date/Time: Wednesday, August 31, 2016 05:53 - CONCLUSION: 1. Cardiomegaly and findings of vascular congestion without overt failure. This is new when compared with the prior exam. Alexandro Carter MD Chest CT 08/30/16 0000 Signed Impressions: Service Date/Time: Tuesday, August 30, 2016 19:40 - CONCLUSION: 1. Overall improvement in right basilar lung consolidation since prior examination from August 19. However there are residual 11 mm and 8mm parenchymal nodules in the right lower lobe with the larger nodule containing a small area of cavitation. Followup examination recommended within the next 3 months to assess for resolution. No new infiltrate. Demetrius Lopez MD Ankle X-Ray 08/29/16 0000 Signed Impressions: Service Date/Time: Monday, August 29, 2016 21:29 - CONCLUSION: 1. No acute findings. Mild osteoarthritis of the right ankle. Mild soft tissue swelling. Demetrius Lopez MD Myocardial Perfusion Scan Nuc Med 08/27/16 0000 Signed Impressions: Service Date/Time: August 10:24 - CONCLUSION: 1. Fixed defect involving the anterior apical wall with possible mathew-infarct ischemic change in the LAD distribution. 2. 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 3. Normal left ventricular ejection fraction equaling greater than 70%%. RISK CATEGORY: Low risk (less than 1%% annual mortality rate). Nhan Jett MD Catheter Placement X-Ray 08/24/16 0940 Signed Impressions: Service Date/Time: Wednesday, August 24, 2016 15:46 - CONCLUSION: Uncomplicated line placement as above. Eligio Godoy MD Abdomen/Pelvis CT 08/19/16 2321 Signed Impressions: Service Date/Time: Friday, August 19, 2016 22:04 - CONCLUSION: 1. Diverticulosis of the descending and sigmoid colon. Wall thickening of the sigmoid colon could be colitis or diverticulitis. 2. Minimal fluid in the right paracolic gutter. 3. Bibasilar consolidation and patchy infiltrates right lower lobe. Followup CT chest recommended to ensure complete resolution. 1. Morgan Jimenez MD Upper Extremity Ultrasound 08/19/16 1821 Signed Impressions: Service Date/Time: Friday, August 19, 2016 20:20 - CONCLUSION: Occlusive thrombus in the left cephalic vein. No DVT in the right arm. Morgan Jimenez MD Renal Ultrasound 08/18/16 0000 Signed Impressions: Service Date/Time: Thursday, August 18, 2016 10:13 - CONCLUSION: 1. No evidence of hydronephrosis. 2. There appears to be a probable 1.1 cm nonobstructing stone in the mid pole of the left kidney. Jae Apple MD Head CT 08/17/16 1925 Signed Impressions: Service Date/Time: Wednesday, August 17, 2016 19:48 - CONCLUSION: Normal examination for a patient of this age. Demetrius Lopez MD Objective Remarks GENERAL: This is a well-nourished, well-developed patient, in no apparent distress. CARDIOVASCULAR: Normal rate and regular rhythm without murmurs, gallops, or rubs. RESPIRATORY: Good respiratory efforts. Breath sounds equal and clear to auscultation bilaterally. GASTROINTESTINAL: Abdomen soft, non-tender, non-distended. Normal active bowel sounds MUSCULOSKELETAL: Extremities without cyanosis, or edema. Improved swelling of right ankle, less tender to touch. NEURO: Alert & Oriented x4 to person, place, time, situation. Moves all ext x4 PSYCH: Appropriate mood and affect. Medications and IVs Current Medications Medications (Trade) Dose Ordered Sig/Antonio Route Start Time Stop Time Status Last Admin (NS Flush) 2 ml UNSCH PRN IV FLUSH 08/18/16 00:30 (NS Flush) 2 ml BID IV FLUSH 08/18/16 09:00 09/01/16 08:51 (Tylenol) 650 mg Q6H PRN PO 08/18/16 00:30 (Morphine Inj) 2 mg Q2H PRN IV 08/18/16 00:30 (Colace Liq) 100 mg Q12HR G-TUBE 08/18/16 09:00 08/31/16 21:38 Miscellaneous Information 1 Q361D XX 08/18/16 00:30 (Chlorhexidine 2% Cloth) Taper DAILY@04 TOP 08/18/16 04:00 08/14/17 03:59 08/25/16 03:47 (Reglan Inj) 5 mg Q6H PRN IV 08/18/16 01:00 (Zofran Inj) 4 mg Q6H PRN IV 08/18/16 03:15 (Brethine Inj) 1 mg UNSCH PRN SQ 08/18/16 10:00 (Heparin Inj) 5,000 units Q12HR SQ 08/23/16 09:30 09/01/16 08:51 ([place] 5-325 Mg) 1 tab Q6H PRN PO 08/24/16 08:00 (Protonix) 40 mg DAILY PO 08/27/16 09:00 09/01/16 08:50 (Coreg) 3.125 mg Q12HR PO 08/27/16 09:00 09/01/16 08:50 (Lipitor) 10 mg DAILY PO 08/27/16 09:00 09/01/16 08:50 (K-Phos Neutral) 250 mg Q6HR PO 08/30/16 18:00 09/01/16 12:31 Date of Insertion: Aug 18, 2016 Line: Central Venous Catheter Side: Right Location: Femoral A/P Assessment and Plan 71-year-old male with: Acute Hypoxic respiratory failure-resolved Aspiration pneumonitis-resolved Pneumonia multilobular -Patient is improving. Currently on room air -Sputum- Enterobacter cloacae, Proteus mirabilis, MRSA, now resulted Stenotrophomonas Maltophilia -Continue to monitor -Completes treatment with Levaquin and Zyvox today. S/P Cardiac arrest-ventricular fibrillation (potassium level 7.7) Hypotension-resolved A. fib RVR-resolved -ECHO-EF 45%, systolic function mildly reduced. No RWMA -Maintain MAP > 65mmHg -Cardiology following-Dr. Garcia -Amiodarone 200mg BID PO, defer dose management per Cardiology recommendations -PMH HTN- when clinically indicated will resume anti-HTN medication per Cardiology recommendations -2/3 Cardioverted. - Patient initially refused further ischemic workup. He later agreed to a Nuclear stress test. 08/29/16 Nuclear stress test showing predominately fixed defect of the anterior wall, with possible aneurysm (not noted on the echo) done for risk stratification, however the patient was deemed not to be a good revascularization candidate due to recent GI bleed and CKD/ESRD, with renal function possibly returning. Cardiology recommended medical management. Patient not good anticoagulation candidate for A. fib with RVR due to GI bleed. Acute renal failure -Nephrology following -Dialysis -W- coordination per Nephrology. Dialysis on hold today. Follow BMP tomorrow -Permacath placement 08/24 -Urine output improving. Renal functions appear to be improving overall. 08/29/16 renal function seems to be improving. Creatinine trending down. Today creatinine is at 2.5. Continue to monitor BUN/creatinine. As per nephrology if patient continues to have good urine output and creatinine continues to improve then will remove Vas-Cath out. Continue to monitor strict is and os. 08/30/16 renal function continues to improve creatinine down from 2.5-2.2. Continued follow-up nephrology recommendations. Vas-Cath may be taken out if patient continues to have good urine output and creatinine continues to improve. 09/01/16 creatinine is trending down now 1.67. Patient has good urine output. I discussed the case with Dr. Ferrer who cleared the patient to be discharged. GI bleed-resolved Melena Hyperkalemia secondary to acute renal failure-resolved -GI following -Dr. Morrell -EGD 08/21-Preliminary report gastritis, duodenitis, duodenal ulcers, biopsies obtained -Continue Protonix -Monitor BMP Coagulopathy-resolved Thrombocytopenia - improving -Hemoglobin stable, 12 -Monitor PT/INR -Transfuse platelets less than 50,000-stable 08/29/16 Platelets improving - now 145 08/30/16 Platelets slightly decreased - now 128 08/31/16 platelets improving - 132 Swelling right Ankle Right ankle is slightly swollen and tender to palpation. 08/30 ankle x-ray showed mild also arthritis of the right ankle. Mild soft tissue swelling. uric acid is 8. 08/31 Swelling in ankle is almost completely resolved. Likely gout arthritis. Will start on allopurinol once creatinine stabilizes. Hypokalemia Hypocalcemia Hypomagnesemia Hypophosphatemia Electrolytes with oral potassium, I because of pleuritic, IV magnesium and oral phosphorus. Continue to monitor BMP. 08/31/16 Continue to rplce magnesium w IV Magnesium sulfate. GI prophylaxis: PPI. Stool softener PRN constipation. DVT PPx: Heparin Discharge Planning Dc in am - patient states does not have anyone to take him home. Patient is refusing rehab. Will be discharged home with home health PT. Donald Rosenberg MD Sep 01, 2016 16:37
[2016-09-02 00:24] VITALS: BP 101/57; PULSE 80; RESP 18; TEMP 98.7; O2SAT 97
[2016-09-02] MEDS: POTASSIUM PHOSPHATE/SODIUM PHOSPHATE 250 MG TAB PO SCH ×3 (01:13→12:00)
[2016-09-02] MEDS: CHLORHEXIDINE GLUCONATE 2 % 1 PACK (2 CLOTHS) TOP SCH (04:00)
[2016-09-02 04:12] VITALS: BP 102/52; PULSE 83; RESP 20; TEMP 99; O2SAT 95
[2016-09-02 08:24] VITALS: BP 116/62; PULSE 82; RESP 20; TEMP 97.1; O2SAT 93
[2016-09-02] MEDS: DOCUSATE SODIUM 100 MG/10 ML UDC G-TUBE SCH (09:00)
[2016-09-02] MEDS: ATORVASTATIN 10 MG TAB PO SCH (09:51)
[2016-09-02] MEDS: SODIUM CHLORIDE 0.9% FLUSH 5 ML FLUSH IV FLUSH SCH (09:51)
[2016-09-02] MEDS: PANTOPRAZOLE SOD 40 MG DELAYED RELEASE TAB PO SCH (09:51)
[2016-09-02] MEDS: CARVEDILOL 3.125 MG TAB PO SCH (09:51)
[2016-09-02] MEDS: HEPARIN SODIUM - SQ 10,000 UNITS/ML VIAL SQ SCH (09:52)
--- NOTE | 2016-09-02 10:18 | HHI.FF ---
Face to Face Verification Diagnosis: (1) AIVR (accelerated idioventricular rhythm) (2) Atrial fibrillation (3) Pneumonia (4) GI bleed (5) Elevated troponin (6) Acidosis, metabolic (7) Respiratory failure (8) Cardiac arrest due to other underlying condition (9) Weight loss, unintentional (10) Generalized weakness (11) Acute renal failure (12) Hyperkalemia Physical Therapy Order: Improve ambulation, Strength and gait training Home Health Nursing Order: Medical education Medication education-adverse effect Nursing assessment with vital signs I have seen patient Dashawn Brar on 09/02/16. My clinical findings support the need for the requested home health care services because: Limited ability to care for self Need for psychosocial assistance High risk of falls I certify that my clinical findings support that this patient is homebound because: Unsteady gait/balance Unsafe to leave home unassisted Unable to use public transportation Donald Rosenberg MD Sep 02, 2016 10:18
[2016-09-02] MEDS ORDERED: CARV3.125 PO (10:24)
[2016-09-02] MEDS ORDERED: LIPI10TA PO (10:24)
[2016-09-02] MEDS ORDERED: PANT40TA3 PO (10:30)
--- NOTE | 2016-09-02 11:39 | HHI.DS ---
Discharge Summary Admission Date Aug 17, 2016 at 22:56 Discharge Date: Sep 02, 2016 Admitting Diagnosis acute renal failure, GI bleed, hyperkalemia (1) Hyperkalemia ICD Code: E87.5 Diagnosis: Principal (2) AIVR (accelerated idioventricular rhythm) ICD Code: I49.8 Diagnosis: Principal (3) Pneumonia ICD Code: J18.9 Diagnosis: Principal (4) GI bleed ICD Code: K92.2 Diagnosis: Principal (5) Cardiac arrest due to other underlying condition ICD Code: I46.8 Diagnosis: Principal (6) Acute renal failure ICD Code: N17.9 Diagnosis: Principal (7) Generalized weakness ICD Code: R53.1 Diagnosis: Principal (8) Respiratory failure ICD Code: J96.90 Diagnosis: Principal (9) Acidosis, metabolic ICD Code: E87.2 Diagnosis: Principal (10) Elevated troponin ICD Code: R79.89 Diagnosis: Principal Procedures Status post panendoscopy with biopsies on 08/21/16. Esophagitis, duodenitis, gastritis and gastric body ulcer was diagnosed. Brief History - From Admission Patient comes in by EMS after being [place] acted by police and family called stating the patient has not been getting out of bed or taking care of himself. Patient denies any medical complaints at this time. Denies any chest pain or shortness of breath, abdominal pain, or fevers. While in the ED patient suffered cardiac arrest due to V Fib. Successful short ACLS performed with return of spontaneous circulation. CBC/BMP: 08/31/16 1338 09/01/16 1255 Significant Findings Laboratory Tests Test 08/31/16 09/01/16 13:38 12:55 Red Blood Count 3.38 MIL/MM3 (4.50-5.90) Hemoglobin 10.1 GM/DL (13.0-17.0) Hematocrit 30.2 % (39.0-51.0) Platelet Count 132 TH/MM3 (150-450) Neutrophils (%) (Auto) 70.4 % (16.0-70.0) Lymphocytes # (Auto) 0.8 TH/MM3 (1.0-4.8) Magnesium Level 1.1 MG/DL 1.3 MG/DL (1.5-2.5) (1.5-2.5) Blood Urea Nitrogen 28 MG/DL (7-18) Creatinine 1.63 MG/DL (0.60-1.30) Estimat Glomerular Filtration 42 ML/MIN (>89) Rate Calcium Level 7.6 MG/DL (8.5-10.1) Imaging Last Impressions Chest X-Ray 08/31/16 0600 Signed Impressions: Service Date/Time: Wednesday, August 31, 2016 05:53 - CONCLUSION: 1. Cardiomegaly and findings of vascular congestion without overt failure. This is new when compared with the prior exam. Alexandro Carter MD Chest CT 08/30/16 0000 Signed Impressions: Service Date/Time: Tuesday, August 30, 2016 19:40 - CONCLUSION: 1. Overall improvement in right basilar lung consolidation since prior examination from August 19. However there are residual 11 mm and 8mm parenchymal nodules in the right lower lobe with the larger nodule containing a small area of cavitation. Followup examination recommended within the next 3 months to assess for resolution. No new infiltrate. Demetrius Lopez MD Ankle X-Ray 08/29/16 0000 Signed Impressions: Service Date/Time: Monday, August 29, 2016 21:29 - CONCLUSION: 1. No acute findings. Mild osteoarthritis of the right ankle. Mild soft tissue swelling. Demetrius Lopez MD Myocardial Perfusion Scan Nuc Med 08/27/16 0000 Signed Impressions: Service Date/Time: August 10:24 - CONCLUSION: 1. Fixed defect involving the anterior apical wall with possible mathew-infarct ischemic change in the LAD distribution. 2. 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 3. Normal left ventricular ejection fraction equaling greater than 70%%. RISK CATEGORY: Low risk (less than 1%% annual mortality rate). Nhan Jett MD Catheter Placement X-Ray 08/24/16 0940 Signed Impressions: Service Date/Time: Wednesday, August 24, 2016 15:46 - CONCLUSION: Uncomplicated line placement as above. Eligio Godoy MD Abdomen/Pelvis CT 08/19/16 0711 Signed Impressions: Service Date/Time: Friday, August 19, 2016 22:04 - CONCLUSION: 1. Diverticulosis of the descending and sigmoid colon. Wall thickening of the sigmoid colon could be colitis or diverticulitis. 2. Minimal fluid in the right paracolic gutter. 3. Bibasilar consolidation and patchy infiltrates right lower lobe. Followup CT chest recommended to ensure complete resolution. 1. Morgan Jimenez MD Upper Extremity Ultrasound 08/19/16 1821 Signed Impressions: Service Date/Time: Friday, August 19, 2016 20:20 - CONCLUSION: Occlusive thrombus in the left cephalic vein. No DVT in the right arm. Morgan Jimenez MD Renal Ultrasound 08/18/16 0000 Signed Impressions: Service Date/Time: Thursday, August 18, 2016 10:13 - CONCLUSION: 1. No evidence of hydronephrosis. 2. There appears to be a probable 1.1 cm nonobstructing stone in the mid pole of the left kidney. Jae Apple MD Head CT 08/17/16 192 Signed Impressions: Service Date/Time: Wednesday, August 17, 2016 19:48 - CONCLUSION: Normal examination for a patient of this age. Demetrius Lopez MD PE at Discharge GENERAL: This is a well-nourished, well-developed patient, in no apparent distress. CARDIOVASCULAR: Normal rate and regular rhythm without murmurs, gallops, or rubs. RESPIRATORY: Good respiratory efforts. Breath sounds equal and clear to auscultation bilaterally. GASTROINTESTINAL: Abdomen soft, non-tender, non-distended. Normal active bowel sounds MUSCULOSKELETAL: Extremities without cyanosis, or edema. Swelling right ankle resolved. NEURO: Alert & Oriented x4 to person, place, time, situation. Moves all ext x4 PSYCH: Appropriate mood and affect. Pt update on day of discharge Patient denies chest pain, shortness of breath, fevers or chills. Hospital Course 71-year-old male with: Acute Hypoxic respiratory failure-resolved Aspiration pneumonitis-resolved Pneumonia multilobular -Patient is improving. Currently on room air -Sputum- Enterobacter cloacae, Proteus mirabilis, MRSA, now resulted Stenotrophomonas Maltophilia -Continue to monitor -Patient completed treatment with Levaquin and Zyvox. S/P Cardiac arrest-ventricular fibrillation (potassium level 7.7) Hypotension-resolved A. fib RVR-resolved -ECHO-EF 45%, systolic function mildly reduced. No RWMA -Maintain MAP > 65mmHg -Cardiology following-Dr. Garcia -Amiodarone 200mg BID PO, defer dose management per Cardiology recommendations -PMH HTN- when clinically indicated will resume anti-HTN medication per Cardiology recommendations -08/21 Cardioverted. - Patient initially refused further ischemic workup. He later agreed to a Nuclear stress test. 08/29/16 Nuclear stress test showing predominately fixed defect of the anterior wall, with possible aneurysm (not noted on the echo) done for risk stratification, however the patient was deemed not to be a good revascularization candidate due to recent GI bleed and CKD/ESRD, with renal function possibly returning. Cardiology recommended medical management. Patient not good anticoagulation candidate for A. fib with RVR due to GI bleed. Patient instructed to follow-up with GI to obtain clearance to be started on aspirin. Acute renal failure -Nephrology following -Dialysis -- coordination per Nephrology. Dialysis on hold today. Follow BMP tomorrow -Permacath placement 08/24 -The patient's creatinine continued to improve, urine output also continued to improve. Permacath was removed and patient was cleared to be discharged by nephrology. GI bleed-resolved Melena Hyperkalemia secondary to acute renal failure-resolved -GI following -Dr. Morrell -EGD 08/21-Preliminary report gastritis, duodenitis, duodenal ulcers, biopsies obtained -Treated with Protonix -Monitor BMP Coagulopathy-resolved Thrombocytopenia - improving -Hemoglobin stable, 12 -Monitor PT/INR -Transfuse platelets less than 50,000-stable 08/29/16 Platelets improving - now 145 08/30/16 Platelets slightly decreased - now 128 08/31/16 platelets improving - 132 Swelling right Ankle Right ankle is slightly swollen and tender to palpation. 08/30 ankle x-ray showed mild also arthritis of the right ankle. Mild soft tissue swelling. uric acid is 8. 08/31 Swelling in ankle is almost completely resolved. Likely gout arthritis. Patient started on allopurinol on discharge. Hypokalemia Hypocalcemia Hypomagnesemia Hypophosphatemia Laboratory abnormalities replaced with oral potassium, IV magnesium, IV calcium. BMP monitored. Apical ligament hypoglycemia resolved. Electrolytes with oral potassium, I because of pleuritic, IV magnesium and oral phosphorus. Continue to monitor BMP. GI prophylaxis: PPI. Stool softener PRN constipation. DVT PPx: Heparin Pt Condition on Discharge: Stable Discharge Disposition: Disch w/ Home Health Serv Discharge Time: > 30 minutes Discharge Instructions DIET: Follow Instructions for: Heart Healthy Diet Activities you can perform: Regular-No Restrictions Activities to Avoid: Prolonged Standing, Strenuous Activity Follow up Referrals: Cardiology with Jourdan Chand DO Gastroenterology - 09/16/16 with Jose Morrell MD Needs clearance to start on aspirin PCP Follow-up - 2-3 Days New Medications: Atorvastatin (Lipitor) 10 Mg Tab 10 MG PO DAILY Cholesterol Management #30 TAB Carvedilol (Coreg) 3.125 Mg Tab 3.125 MG PO Q12HR Blood Pressure Management #60 TAB Pantoprazole (Pantoprazole) 40 Mg Tab 40 MG PO DAILY pud #30 TAB Discontinued Medications: Lisinopril (Lisinopril) 20 Mg Tab 20 MG PO DAILY #30 Ref 0 TAB Donald Rosenberg MD Sep 02, 2016 11:39
[2016-09-02] MEDS ORDERED: ALLO300T2 PO (11:53)
[2016-09-02 12:21] VITALS: BP 120/58; PULSE 78; RESP 18; TEMP 97.9; O2SAT 94
== END 2016-09-02 12:58 | disposition home health service (06) | DRG 870 ==
LOC: NEPE 19:15 → NEDA 22:56 → N03A 08-18 01:21 → N05B 08-25 14:25
PROVIDERS: ADMIT Internal Medicine Critical Care Medicine; ATTEND Hospitalist
PROC: 0BH17EZ Insertion of Endotracheal Airway into Trachea, Via Natural or Artificial Opening (ICD-10-PCS; principal; 2016-08-17)
PROC: 5A1955Z Respiratory Ventilation, Greater than 96 Consecutive Hours (ICD-10-PCS; 2016-08-17)
PROC: 06HM33Z Insertion of Infusion Device into Right Femoral Vein, Percutaneous Approach (ICD-10-PCS; 2016-08-17)
PROC: 03HY32Z Insertion of Monitoring Device into Upper Artery, Percutaneous Approach (ICD-10-PCS; 2016-08-18)
PROC: 5A1D60Z (ICD-10-PCS; 2016-08-18)
PROC: 30233N1 Transfusion of Nonautologous Red Blood Cells into Peripheral Vein, Percutaneous Approach (ICD-10-PCS; 2016-08-18)
PROC: 06HN33Z Insertion of Infusion Device into Left Femoral Vein, Percutaneous Approach (ICD-10-PCS; 2016-08-18)
PROC: 0DB98ZX Excision of Duodenum, Via Natural or Artificial Opening Endoscopic, Diagnostic (ICD-10-PCS; 2016-08-21)
PROC: 0DB68ZX Excision of Stomach, Via Natural or Artificial Opening Endoscopic, Diagnostic (ICD-10-PCS; 2016-08-21)
PROC: 05HM33Z Insertion of Infusion Device into Right Internal Jugular Vein, Percutaneous Approach (ICD-10-PCS; 2016-08-24)
DX: A41.9 Sepsis, unspecified organism (principal); N17.0 Acute kidney failure with tubular necrosis; J96.01 Acute respiratory failure with hypoxia; J69.0 Pneumonitis due to inhalation of food and vomit; I49.01 Ventricular fibrillation; G93.41 Metabolic encephalopathy; J15.212 Pneumonia due to Methicillin resistant Staphylococcus aureus; J15.6 Pneumonia due to other Gram-negative bacteria; K92.0 Hematemesis; I46.8 Cardiac arrest due to other underlying condition; I47.2 Ventricular tachycardia; E87.2 Acidosis; D68.9 Coagulation defect, unspecified; I48.92 Unspecified atrial flutter; D62 Acute posthemorrhagic anemia; K92.1 Melena; I24.8 Other forms of acute ischemic heart disease; I82.612 Acute embolism and thrombosis of superficial veins of left upper extremity; I48.91 Unspecified atrial fibrillation; E86.0 Dehydration; K25.9 Gastric ulcer, unspecified as acute or chronic, without hemorrhage or perforation; E87.5 Hyperkalemia; K20.9 Esophagitis, unspecified; K29.70 Gastritis, unspecified, without bleeding; K29.80 Duodenitis without bleeding; R53.1 Weakness; D69.6 Thrombocytopenia, unspecified; M10.9 Gout, unspecified; E83.42 Hypomagnesemia; E83.39 Other disorders of phosphorus metabolism; E83.51 Hypocalcemia; I10 Essential (primary) hypertension; E87.6 Hypokalemia; Z23 Encounter for immunization
CPT/HCPCS: 31500; 36430; 36556; 36600; 70450; 71010; 71250; 73600; 74176; 76775; 76937; 77001; 78452; 80048; 80053; 80061; 80074; 80307; 80329; 81001; 82140; 82550; 82552; 82805; 82948; 83690; 83735; 84100; 84155; 84165; 84484; 84550; 85014; 85018; 85025; 85027; 85384; 85610; 85730; 86021; 86038; 86160; 86850; 86900; 86901; 86920; 86965; 87040; 87070; 87077; 87086; 87186; 87205; 87449; 87641; 88305; 88312; 90732; 90935; 93005; 93017; 93306; 93970; 94002; 94003; 94640; 94664; 96360; 96361; 96365; 96374; 96375; A9502; C1752; C9113; G0480; J0171; J0282; J0461; J0610; J0696; J1160; J1200; J1580; J1644; J1815; J1956; J2150; J2250; J2597; J2785; J3010; J3370; J3430; J3475; J7030; J7050; J7060; P9016; P9047